=== PATIENT | female | born 1985 | race Caucasian/White ===

== ENCOUNTER 2017-03-25 14:21 | Emergency (ER) | payer BC, OTHER, SELFPAY ==
[~2017-03-25] VITALS: Ht 162.6 cm; Wt 149.2 kg
[2017-03-25] MEDS ORDERED: KETOROLAC 60 MG/2 ML VIAL (J1885) IM ONE (15:15)
[2017-03-25] MEDS ORDERED: PRED20TA PO (16:16)
[2017-03-25] MEDS ORDERED: CYCL10TA PO (16:16)
[2017-03-25 16:23] VITALS: BP 161/100
== END 2017-03-25 16:24 | disposition home or self-care (01) ==
LOC: M ED 14:21
DX: M51.26 Other intervertebral disc displacement, lumbar region (principal); M54.17 Radiculopathy, lumbosacral region; F17.200 Nicotine dependence, unspecified, uncomplicated; Z88.2 Allergy status to sulfonamides
CPT/HCPCS: 96372; 99282; J1885; J3360

== ENCOUNTER → 2017-04-01 | Outpatient (CLI) | payer BC, SELFPAY ==
[~2017-04-01] MED LIST: ALB2.5NEB NEB; ALBU17IN INH; BETH10TA4 PO; CARI350T PO; COLA100C5 PO; CYCL10TA PO; GABA-279 PO; GABA-282 PO; HYDR25TA PO; IBUP-1114 PO; INSUHUMDS SC; IPRASOL4 NEB; KEFL500C17 PO; MAPA325T3 PO; PANT40TA2 PO; PRED20TA PO; SENN1TAB2 PO; SOMA350T PO; TRAM50TA2 PO; ZANA4TAB PO
--- NOTE | 2017-04-01 11:54 | REP ---
LUMBAR SPINE, FIVE VIEWS: HISTORY: Back pain. There is no acute fracture or subluxation. The L2-3 through L5-S1 intervertebral discs are decreased in height consistent with disc degeneration. Osteophytes are present on L3 through L5. There is narrowing of the L4-5 and L5-S1 facet joints. An IUD is present in the pelvis. IMPRESSION: Degenerative change as described above. Signed by Mainor Peres MD 04/01/2017 11:57 A
== END ==
LOC: M LRY 10:03 → M WUC 10:03
PROVIDERS: ATTEND Physician Assistant
DX: M54.41 Lumbago with sciatica, right side (principal)

== ENCOUNTER 2017-04-10 16:07 | Inpatient (IN) | payer BC ==
[~2017-04-10] VITALS: Ht 162.6 cm; Wt 148.6 kg
[~2017-04-10 16:07] MED LIST changes: -ALB2.5NEB NEB; -ALBU17IN INH; -BETH10TA4 PO; -CARI350T PO; -COLA100C5 PO; -GABA-279 PO; -GABA-282 PO; -HYDR25TA PO; -IBUP-1114 PO; -INSUHUMDS SC; -IPRASOL4 NEB; -KEFL500C17 PO; -MAPA325T3 PO; -PANT40TA2 PO; -SENN1TAB2 PO; -SOMA350T PO; -TRAM50TA2 PO; -ZANA4TAB PO
[2017-04-10] MEDS ORDERED: ZANA4TAB PO ×2 (16:16→21:39)
[2017-04-10] MEDS ORDERED: GABA-282 PO (16:16)
[2017-04-10] MEDS ORDERED: ONDANSETRON 4MG/2ML VIAL (J2405) IV ONE (20:15)
[2017-04-10] MEDS ORDERED: MORPHINE 4 MG/ML 1ML SYRINGE IV PRN (20:15)
--- NOTE | 2017-04-10 20:48 | REP ---
Lumbar spine MRI study without contrast: History: Low back pain and numbness. Pain and numbness and in the lower legs bilaterally. Recent onset of bladder incontinence. Comparison radiographs 04/01/2017. No comparison MRI study. Technique: Sagittal and axial T1 and T2-weighted scans are acquired in the usual fashion with and without fat saturation. Sequences include spin echo, turbo spin-echo, and STIR imaging sequences. MRI findings: There is straightening of the normal lumbar lordosis. No extra spinal abnormality is observed. Normal caliber aorta. Conus medullaris is normal in position and appearance at T12-L1. There is degenerative disc disease at L2-3, L3-4, L4-5, and L5-S1 with decreased disc space height and signal intensity at each of these levels. Axial and sagittal images at the L2-3 level demonstrate a broad-based focal disc protrusion moderate in size. This combined with developmentally short pedicles produces mild central canal stenosis. Midline AP dimension of the thecal sac is 7.6 mm at L2-3. No neural foraminal encroachment is seen. At L3-4, there is a very large broad-based paracentral disc protrusion producing marked compression of the caudate equine and severe central canal stenosis. The largest component of this is in a right paracentral orientation. This is 11 mm in anteroposterior dimension. Disc protrusion measures 2.1 cm in medial to lateral dimension. There is caudal extension and possible extrusion 1.7 cm in craniocaudal dimension. The pedicles are developmentally somewhat short. There is mild facet and ligamentum flavum hypertrophy. Neural foramina are adequate. At L4-L5, there is diffuse disc bulging and posterior osteophytic ridging. This indents the ventral margin of the thecal sac. There is a right paracentral disc protrusion. There is mild to moderate central canal stenosis at L4-5. Midline AP dimension of the thecal sac at L4-5 is 9 mm. At L5-S1, there is a moderate-sized central disc herniation effacing the ventral epidural fat and subtly indenting the ventral margin of the thecal sac. There is facet hypertrophy bilaterally at L5-S1. No neural foraminal narrowing is seen. Mild central canal stenosis is present at L5-S1. Impression: There are disc herniations at each level from L2-3 through L5-S1. There is combined congenital and acquired central canal stenosis at each of these levels. The dominant pathology is at L3-4 where there is severe caudae equina compression due to a large disc herniation with possible caudal extrusion producing severe central canal stenosis. Signed by Maximo Long MD 04/11/2017 11:04 A
[2017-04-10 20:55] LABS: BASO # 0.1 K/mm3 (0.0-0.2); BASO % 0.4 % (0.0-1.0); EOS # 0.1 K/mm3 (0.0-0.50); EOS % 0.6 % (0.0-3.0); LARGE UNSTAINED CELL # 0.1 K/mm3 (0.0-0.4); LARGE UNSTAINED CELL % 0.6 % (0.0-4.0); LYMPH # 2.4 K/mm3 (1.5-4.5); LYMPH % 14.2 % (24.0-44.0); MEAN CORPUSCULAR HEMOGLOBIN 30.1 pg (27.0-33.0); MEAN CORPUSCULAR HGB CONC 34.6 g/dl (32.0-36.5); MEAN CORPUSCULAR VOLUME 87.2 fl (80.0-96.0); MONO # 0.4 K/mm3 (0.0-0.8); MONO % 2.5 % (0.0-5.0); NEUTROPHILS % 81.7 % (36.0-66.0); PLATELET COUNT, AUTOMATED 267 k/mm3 (150-450); RED CELL DISTRIBUTION WIDTH 13.1 % (11.5-14.5); WHITE BLOOD COUNT 17.1 K/mm3 (4.0-10.0)
[2017-04-10 21:20] LABS: ANION GAP 8 MEQ/L (8-16); BLOOD UREA NITROGEN 15 MG/DL (7-18); CALCIUM LEVEL 8.9 MG/DL (8.5-10.1); CARBON DIOXIDE LEVEL 29 MEQ/L (21-32); CHLORIDE LEVEL 103 MEQ/L (98-107); CREATININE FOR GFR 0.74 MG/DL (0.55-1.02); GLOMERULAR FILTRATION RATE > 60.0 (>60); GLUCOSE, FASTING 120 MG/DL (70-105); POTASSIUM SERUM 4.2 MEQ/L (3.5-5.1); SODIUM LEVEL 140 MEQ/L (136-145)
[2017-04-10] MEDS ORDERED: PRED20TA PO (21:39)
[2017-04-10] MEDS ORDERED: IBUP-1114 PO (21:40)
[2017-04-10 23:25] VITALS: BP 187/87
[2017-04-11] VITALS (12 sets, daily range): BP systolic 129–155; BP diastolic 66–103
--- NOTE | 2017-04-11 | REPUSA ---
CLINICAL HISTORY: Cauda equina. TECHNIQUE: Multiple axial, coronal, sagittal CT images were obtained through the lumbar spine withou t IV contrast material. COMMENTS: There is no fracture visualized. The paraspinal soft tissues are unremarkable. There are no lytic o r blastic lesions. Straightening of lumbar lordosis compatible with muscle spasm. Levoscoliosis is seen with apex at L3 . Grade-1 retrolisthesis of L5 over S1 measures 1 mm. Evaluation of individual levels present the f ollowing: L5-S1, there is a broad based disc herniation with posterior spurring and posterior bridging osteophy tosis present. The canal is moderately to severely stenotic. Foramina are moderately to severely st enotic. There is compression of bilateral L5 nerve roots. L4-L5, there is a broad based disc protrusion present with posterior spurring and posterior bridging osteophytosis. There is severe central canal stenosis and moderate to severe bilateral foraminal arthur nosis. Severe hypertrophic facet disease and ligamentum flavum hypertrophy contributes. There is co mpression on bilateral L4 nerve roots. L3-L4, there is a broad central herniated disc noted with posterior spurring. Posterior bridging ost eophytosis is present. There is severe central canal stenosis with moderate to severe bilateral fora clive stenosis. Bilateral hypertrophy facet disease and ligamentum flavum hypertrophy is seen. Ther e is compression on bilateral L3 nerve roots. L2-L3, there is central disc protrusion present with posterior bridging osteophytosis. There is mode rate canal stenosis and moderate bilateral foraminal stenosis. Bilateral hypertrophic facet disease and ligamentum flavum hypertrophy contributes. L1-L2 level is unremarkable. IMPRESSION: 1. Straightening of lumbar lordosis compatible with muscle spasm. 2. Levoscoliosis is seen with apex at L3. 3. Grade-1 retrolisthesis of L5 over S1 measures 1 mm. 4. L5-S1 shows a broad based disc herniation with posterior spurring and posterior bridging osteophy tosis present. The canal is moderately to severely stenotic. Foramina are moderately to severely st enotic. There is compression of bilateral L5 nerve roots. 5. L4-L5 shows a broad based disc protrusion present with posterior spurring and posterior bridging osteophytosis. Severe central canal stenosis and moderate to severe bilateral foraminal stenosis. S evere hypertrophic facet disease and ligamentum flavum hypertrophy contributes. Compression on bilat eral L4 nerve roots. 6. L3-L4 shows a broad central herniated disc noted with posterior spurring. Posterior bridging ost eophytosis. Severe central canal stenosis with moderate to severe bilateral foraminal stenosis. Elroy ateral hypertrophy facet disease and ligamentum flavum hypertrophy is seen. Compression on bilateral L3 nerve roots. 7. L2-L3 shows central disc protrusion present with posterior bridging osteophytosis. Moderate lena l stenosis and moderate bilateral foraminal stenosis. Bilateral hypertrophic facet disease and ligam entum flavum hypertrophy contributes.
[2017-04-11 00:32] LABS: MEAN CORPUSCULAR HGB CONC 34.5 g/dl (32.0-36.5); MEAN CORPUSCULAR VOLUME 87.1 fl (80.0-96.0); RED CELL DISTRIBUTION WIDTH 13.1 % (11.5-14.5); WHITE BLOOD COUNT 18.8 K/mm3 (4.0-10.0)
[2017-04-11 00:37] LABS: INR 0.93
[2017-04-11] MEDS: HEPARIN SOD (PORCINE) 5000 UNITS/ML VIAL SQ SCH ×4 (00:38→20:48)
[2017-04-11] MEDS: CARISOPRODOL 350 MG TAB PO SCH ×4 (00:38→20:49)
[2017-04-11] MEDS: GABAPENTIN 100 MG CAP PO SCH ×4 (00:38→20:49)
[2017-04-11] MEDS: ACETAMINOPHEN TAB 650MG DOSE (2X325MG) PO SCH ×6 (00:39→19:00)
[2017-04-11 00:58] LABS: ALBUMIN 3.2 GM/DL (3.2-5.2); ALBUMIN/GLOBULIN RATIO 0.82 (1.00-1.93); ALKALINE PHOSPHATASE 80 U/L (45-117); ALT/SGPT 60 U/L (12-78); ANION GAP 7 MEQ/L (8-16); AST/SGOT 23 U/L (15-37); BILIRUBIN,DIRECT 0.2 MG/DL (0.0-0.2); BILIRUBIN,TOTAL 0.7 MG/DL (0.2-1.0); BLOOD UREA NITROGEN 14 MG/DL (7-18); CARBON DIOXIDE LEVEL 30 MEQ/L (21-32); CHLORIDE LEVEL 102 MEQ/L (98-107); CREATININE FOR GFR 0.72 MG/DL (0.55-1.02); GLOMERULAR FILTRATION RATE > 60.0 (>60); GLUCOSE, FASTING 104 MG/DL (70-105); POTASSIUM SERUM 3.9 MEQ/L (3.5-5.1); SODIUM LEVEL 139 MEQ/L (136-145); TOTAL PROTEIN 7.1 GM/DL (6.4-8.2)
[2017-04-11] MEDS: MORPHINE 2 MG/ML 1ML SYRINGE IV PRN ×2 (06:09→15:33)
[2017-04-11] MEDS ORDERED: LIDOCAINE 1% MDV 20ML VIAL As Ordered ONE (13:31)
--- NOTE | 2017-04-11 14:15 | REP ---
PORTABLE CHEST: Single view. HISTORY: Central line placement. COMPARISON STUDY: May 24, 2014. FINDINGS: A right subclavian line is seen this appears to terminate at the junction of the subclavian vein with the superior vena cava. There is no visible pneumothorax. Heart is not enlarged. EKG electrodes are seen. The lung pickens are clear. IMPRESSION: Right subclavian vein catheter tip is difficult to see confidently but appears to be at the junction of the subclavian vein with a right superior vena cava. No evidence of pneumothorax seen. Signed by Maximo Long MD 04/11/2017 02:49 P
--- NOTE | 2017-04-11 14:49 | REP ---
Portable chest: Single view. History: Reinserted central venous catheter. Comparison study: Comparison is made with 12:51 pm film done on this same date. Findings: The previously noted right subclavian catheter has been withdrawn. A left internal jugular venous catheter is seen inserted with its tip projecting just to the left of the midline at the level of the brachiocephalic vein. There is no evidence of pneumothorax. Lung pickens are clear. Cardiomediastinal silhouette is unremarkable. Impression: Left internal jugular venous catheter tip just to the left of midline in the brachiocephalic vein position. No pneumothorax seen. Otherwise no acute disease. Signed by Maximo Long MD 04/11/2017 02:50 P
[2017-04-11] MEDS: KCL 20MEQ in NS 1000ML 1,000 ML IV SCH ×2 (15:26→19:24)
[2017-04-11] MEDS: NICOTINE 14 MG/24 HR TRANSDERMAL TD SCH (15:33)
[2017-04-12] MEDS: ACETAMINOPHEN TAB 650MG DOSE (2X325MG) PO SCH ×7 (00:11→19:00)
[2017-04-12] MEDS ORDERED: TRANEXAMIC ACID 100 MG/ML 10ML VIAL As Ordered ONE ×2 (01:56→08:02)
[2017-04-12] MEDS ORDERED: HEPARIN SOD (PORCINE) 5000 UNITS/ML VIAL ONE (01:56)
[2017-04-12] MEDS ORDERED: HEPARIN SOD (PORCINE) 5000 UNITS/ML VIAL As Ordered ONE (01:56)
[2017-04-12] MEDS ORDERED: BACITRACIN OINT 30GM As Ordered ONE ×2 (01:56→19:50)
[2017-04-12] MEDS ORDERED: BUPIVACAINE HCL 0.5% 30 ML VIAL As Ordered ONE ×2 (01:56→18:32)
[2017-04-12] MEDS ORDERED: THROMBIN SOLN 20,000 UNITS KIT As Ordered ONE ×2 (01:56→16:55)
[2017-04-12] MEDS ORDERED: BACITRACIN PWD 50,000 UNITS VIAL As Ordered ONE (01:57)
[2017-04-12] MEDS: KCL 20MEQ in NS 1000ML 1,000 ML IV SCH ×3 (04:18→16:51)
[2017-04-12 06:00] VITALS: BP 132/68
--- NOTE | 2017-04-12 06:59 | RO ---
DATE OF PROCEDURE: 04/11/2017 PREPROCEDURE DIAGNOSIS: Cauda equina syndrome. POSTPROCEDURE DIAGNOSIS: Cauda equina syndrome. PROCEDURE: Right internal jugular venous catheterization triple lumen. PROCEDURALIST: Lior Garza DO ASSISTANTS: None. ANESTHESIA: 30 mL of subcu lidocaine without epinephrine administered. DIAGNOSIS: Cauda equina syndrome. I was asked to assist with the placement of a triple lumen central venous catheter on [facility] by Dr. Conti. Dr. Conti had already received written consent from the patient. The procedure was not stopped to obtain a second written consent; however, I did get a verbal consent from the patient to proceed with the left IJ. DESCRIPTION OF PROCEDURE: After a time out was performed identifying correct site and correct procedure, the left IJ was prepped in a sterile manner. There was a very thick neck with acanthosis nigricans over the area. Lidocaine was used and injected into the patient subcutaneously. After identification of the left IJ under ultrasound, the new needle was eventually passed into the left IJ with return of venous blood flow. The wire was fed through the needle and the triple lumen catheter was placed via modified Seldinger technique. This was sutured in at 15 cm. There were no observed complications. All three ports returned venous blood flow and flushed easily. Sterile impregnated dressing was placed over the site. There is no observed complications.
[2017-04-12] MEDS ORDERED: ceFAZolin 2 GM/D5W 50 ML IV BAG (J0690) As Ordered ONE ×3 (07:31→16:52)
[2017-04-12] MEDS ORDERED: LIDOCAINE 2% INJ 100 MG/5 ML SDV (FOR ANES.) As Ordered ONE (07:54)
[2017-04-12] MEDS ORDERED: fentaNYL 250 MCG/5 ML INJECTION (J3010) As Ordered ONE ×2 (07:54→15:04)
[2017-04-12] MEDS ORDERED: ROCURONIUM BROMIDE 50 MG/5 ML VIAL/SYRINGE As Ordered ONE ×3 (07:54→11:11)
[2017-04-12] MEDS ORDERED: PROPOFOL 200 MG/20 ML VIAL As Ordered ONE ×2 (07:54→20:13)
[2017-04-12] MEDS ORDERED: MIDAZOLAM INJ 2 MG/2 ML VIAL (J2250) As Ordered ONE (07:55)
[2017-04-12] MEDS: GABAPENTIN 100 MG CAP PO SCH ×2 (09:00→16:00)
[2017-04-12] MEDS: CARISOPRODOL 350 MG TAB PO SCH ×3 (09:00→21:00)
[2017-04-12] MEDS: NICOTINE 14 MG/24 HR TRANSDERMAL TD SCH (09:00)
[2017-04-12] MEDS ORDERED: HYDROmorphone HCL 2 MG/ML 1ML VIAL (J1170) As Ordered ONE ×2 (09:07→13:12)
--- NOTE | 2017-04-12 13:10 | IPN ---
DATE: 04/12/2017 32-year-old female seen at bedside. She is anticipating going to surgery later this morning. She denies any overnight issues. No chest pain, nausea, vomiting, shortness of breath, abdominal pain. OBJECTIVE: Temperature is 98, pulse 81, respiratory rate 18, blood pressure (BP) 132/68, SpO2 is 96% on room air. GENERAL: The patient appears to be in no acute distress. He is alert, oriented, pleasant. HEENT: Unremarkable. LUNGS: Clear. HEART: Regular rhythm. ABDOMEN: Obese, soft. ASSESSMENT/PLAN: 1. Back pain with possible, cauda equina syndrome. She is to do surgery later today. 2. History of asthma. Continue DuoNeb. 3. Tobacco use. Continue Nicoderm patch. 4. Deep vein thrombosis (DVT) prophylaxis. TEDs and sequentials. DISPOSITION: Will continue to follow along for medical management. I do anticipate that she is to have a prolonged surgery today. Will most likely go to the intensive care unit (ICU) if need be. She is on ventilator for a prolonged period time. I did discuss the case with the junior engineer to make sure that they were aware. Yesterday we were able to place a central line for better IV access. She does not have an underlying history of diabetes, but there is a strong family history. She does have some acanthosis nigricans noted . Hemoglobin A1c was 7.1. Might be advisable to do fingersticks every 6 hours for the next 24 hours and will continue to follow along during her hospital stay.
[2017-04-12] MEDS ORDERED: PHENYLephrine HCL 500 MCG/5 ML (100MCG/ML) SYRINGE (J2370) As Ordered ONE (13:24)
[2017-04-12 14:27] LABS: MEAN CORPUSCULAR HEMOGLOBIN 29.7 pg (27.0-33.0); MEAN CORPUSCULAR HGB CONC 33.4 g/dl (32.0-36.5); RED CELL DISTRIBUTION WIDTH 13.1 % (11.5-14.5); WHITE BLOOD COUNT 25.5 K/mm3 (4.0-10.0)
[2017-04-12] MEDS ORDERED: IPRATROPIUM 0.5MG/ALBUTEROL 2.5MG INH SOL UD 3ML (DUONEB)(J7620) NEB SCH (16:00)
[2017-04-12] MEDS ORDERED: PHENYLEPHRINE INJ 10MG/ML VIAL (J2370) As Ordered ONE (17:35)
[2017-04-12] MEDS ORDERED: BUPIVACAINE LIPOSOME/PF 1.3% 20 ML VIAL (13.3MG/ML)(EXPAREL) As Ordered ONE (18:26)
[2017-04-12] MEDS ORDERED: ONDANSETRON 4MG/2ML VIAL (J2405) As Ordered ONE ×2 (18:34→20:31)
[2017-04-12] MEDS ORDERED: NEOSTIGMINE 1MG/ML 5 ML SYRINGE (J2710) As Ordered ONE (18:34)
[2017-04-12] MEDS ORDERED: GLYCOPYRROLATE INJ 0.2 MG/ML 2 ML VIAL As Ordered ONE (18:34)
[2017-04-12] MEDS ORDERED: METOCLOPRAMIDE INJ 10MG/2ML VIAL (J2765) As Ordered ONE (20:52)
[2017-04-12] MEDS ORDERED: fentaNYL 100 MCG/2 ML INJECTION (J3010) IV PRN (21:15)
[2017-04-12] MEDS ORDERED: ONDANSETRON 4MG/2ML VIAL (J2405) IV PRN (21:15)
[2017-04-12] MEDS ORDERED: METOCLOPRAMIDE INJ 10MG/2ML VIAL (J2765) IV PRN (21:15)
[2017-04-12] MEDS ORDERED: LR 1,000 ML IV SCH (21:15)
[2017-04-12] MEDS ORDERED: HYDROmorphone HCL 1 MG/ML SYRINGE (J1170) IV PRN (21:15)
[2017-04-12 22:00] VITALS: BP 149/60
[2017-04-12] MEDS ORDERED: INSULIN HUMAN REGULAR 100 UNITS in NS 99 ML IV SCH (22:09)
[2017-04-12] MEDS ORDERED: HumaLOG INSULIN (NovoLOG) PER UNIT SC ONE (22:30)
[2017-04-12 22:35] LABS: BASO # 0.1 K/mm3 (0.0-0.2); BASO % 0.2 % (0.0-1.0); EOS % 0.2 % (0.0-3.0); LARGE UNSTAINED CELL # 0.1 K/mm3 (0.0-0.4); LARGE UNSTAINED CELL % 0.4 % (0.0-4.0); LYMPH # 2.1 K/mm3 (1.5-4.5); LYMPH % 6.7 % (24.0-44.0); MEAN CORPUSCULAR HEMOGLOBIN 29.9 pg (27.0-33.0); MEAN CORPUSCULAR VOLUME 90.4 fl (80.0-96.0); MONO # 1.1 K/mm3 (0.0-0.8); MONO % 3.7 % (0.0-5.0); NEUTROPHILS # 26.2 K/mm3 (1.8-7.7); NEUTROPHILS % 88.8 % (36.0-66.0); PLATELET COUNT, AUTOMATED 233 k/mm3 (150-450); RED CELL DISTRIBUTION WIDTH 13.4 % (11.5-14.5); WHITE BLOOD COUNT 29.5 K/mm3 (4.0-10.0)
[2017-04-12 22:41] LABS: INR 1.07
[2017-04-12 22:48] LABS: ABG BASE EXCESS -6.3 (-2.0-2.0); ABG PARTIAL PRESSURE O2 179.5 mmHg (75.0-100.0); ABG STANDARD HCO3 19.4 MEQ/L (22.0-26.0); ABG TOTAL CO2 20.1 MEQ/L (22.0-29.0); ABG pH (ARTERIAL) 7.328 UNITS (7.350-7.450)
[2017-04-12 22:57] LABS: ALBUMIN 2.5 GM/DL (3.2-5.2); ALBUMIN/GLOBULIN RATIO 0.96 (1.00-1.93); ALKALINE PHOSPHATASE 60 U/L (45-117); ALT/SGPT 82 U/L (12-78); ANION GAP 9 MEQ/L (8-16); AST/SGOT 66 U/L (15-37); BILIRUBIN,TOTAL 0.9 MG/DL (0.2-1.0); BLOOD UREA NITROGEN 14 MG/DL (7-18); CALCIUM LEVEL 7.2 MG/DL (8.5-10.1); CARBON DIOXIDE LEVEL 23 MEQ/L (21-32); CHLORIDE LEVEL 111 MEQ/L (98-107); CREATININE FOR GFR 0.83 MG/DL (0.55-1.02); GLOMERULAR FILTRATION RATE > 60.0 (>60); GLUCOSE, FASTING 148 MG/DL (70-105); POTASSIUM SERUM 4.9 MEQ/L (3.5-5.1); SODIUM LEVEL 143 MEQ/L (136-145); TOTAL PROTEIN 5.1 GM/DL (6.4-8.2)
[2017-04-12 23:00] VITALS: BP 119/55
--- NOTE | 2017-04-12 23:37 | CCN ---
DATE OF SERVICE: 04/12/2017 Dana is a 32-year-old female I was asked by Dr. Pratt to see postoperatively after a 12-hour surgery. Dana underwent an L2-S1 laminectomy, fasciectomy, L3-L4 diskectomy with an L2-S1 fusion, approximately 12 hours of surgery under anesthesia. She has had no recent labs. She is currently on intravenous (IV) fluids with potassium. She is awake, alert, conversant. She has a sinus tachycardia of 125. Arterial line (art-line) is not functioning therefore I removed it, with mild hyperglycemia with a blood glucose of 157. PHYSICAL EXAMINATION Pulse is 125, respiratory rate 21, blood pressure is 135/83, oxygen saturation is 97 on 3 liters. General: Patient awake, alert and oriented. Affect and mood are appropriate. No tachypnea. HEENT: Sclerae clear and anicteric. Pupils equal and react to light. Mucous membranes are moist. She has some facial edema, lip edema. Tongue is midline. Mallampati IV. Neck: Supple. No tracheal deviation. Lymphatics: No cervical, supraclavicular, axillary adenopathy. Cardiac: Regular S1, S2 without audible murmur, rub or gallop. No elevated JVP. No peripheral edema. Pulmonary: Clear to auscultation without rales, rhonchi or wheezes. No accessory muscle use. Abdomen: Obese, soft, nontender, no discernible hepatosplenomegaly. No masses or hernia. Hypoactive bowel sounds. Extremities: No cyanosis, clubbing or edema. Peripheral pulses are palpable at radial locations and symmetric. No recent laboratory evaluation obtained. IMPRESSION: 1. Bedside hyperglycemia of 157. Will give 2 units of insulin. If the patient continues to have hyperglycemia, will place on insulin drip. 2. Gastrointestinal (GI) prophylaxis with Protonix. 3. Deep venous thrombosis (DVT) prophylaxis when surgically appropriate. 4. Reported history of asthma. She has no bronchospasm on exam. Therefore I do not feel it is necessary to have scheduled nebulizers, therefore I discontinued these. She does have as needed nebulized therapy available to her. 5. High risk for electrolyte abnormalities. Will obtain a complete blood count (CBC) and basic metabolic panel (BMP) postoperatively. There have been no labs and no BMP drawn today. The patient will be monitored in intensive care unit (ICU) overnight and will resume hospitalist coverage in the morning.
[2017-04-12] MEDS: MORPHINE 2 MG/ML 1ML SYRINGE IV PRN (23:53)
[2017-04-13] VITALS (8 sets, daily range): BP systolic 104–142; BP diastolic 56–85
[2017-04-13] MEDS: INSULIN IV RATE CHANGE DOCUMENTATION ML/HR XX SCH ×3 (00:11→03:19)
[2017-04-13] MEDS: NS 1,000 ML IV SCH ×4 (00:27→21:27)
[2017-04-13] MEDS ORDERED: ONDANSETRON 4MG/2ML VIAL (J2405) IV SCH (02:00)
[2017-04-13] MEDS: MORPHINE 2 MG/ML 1ML SYRINGE IV PRN ×6 (04:34→19:55)
[2017-04-13 05:40] LABS: MEAN CORPUSCULAR HEMOGLOBIN 29.6 pg (27.0-33.0); MEAN CORPUSCULAR VOLUME 89.8 fl (80.0-96.0); RED CELL DISTRIBUTION WIDTH 13.4 % (11.5-14.5); WHITE BLOOD COUNT 21.4 K/mm3 (4.0-10.0)
[2017-04-13 06:19] LABS: ALBUMIN 2.2 GM/DL (3.2-5.2); ALBUMIN/GLOBULIN RATIO 0.88 (1.00-1.93); ALKALINE PHOSPHATASE 52 U/L (45-117); ALT/SGPT 64 U/L (12-78); ANION GAP 6 MEQ/L (8-16); ANION GAP 8 MEQ/L (8-16); AST/SGOT 66 U/L (15-37); BILIRUBIN,TOTAL 0.5 MG/DL (0.2-1.0); BLOOD UREA NITROGEN 10 MG/DL (7-18); CALCIUM LEVEL 6.9 MG/DL (8.5-10.1); CALCIUM LEVEL 7.5 MG/DL (8.5-10.1); CARBON DIOXIDE LEVEL 26 MEQ/L (21-32); CARBON DIOXIDE LEVEL 27 MEQ/L (21-32); CHLORIDE LEVEL 110 MEQ/L (98-107); CHLORIDE LEVEL 111 MEQ/L (98-107); CREATININE FOR GFR 0.69 MG/DL (0.55-1.02); CREATININE FOR GFR 0.71 MG/DL (0.55-1.02); GLOMERULAR FILTRATION RATE > 60.0 (>60); GLUCOSE, FASTING 119 MG/DL (70-105); GLUCOSE, FASTING 120 MG/DL (70-105); POTASSIUM SERUM 4.2 MEQ/L (3.5-5.1); SODIUM LEVEL 143 MEQ/L (136-145); SODIUM LEVEL 145 MEQ/L (136-145); TOTAL PROTEIN 4.7 GM/DL (6.4-8.2)
--- NOTE | 2017-04-13 08:57 | REP ---
CT LUMBAR SPINE WITHOUT CONTRAST: HISTORY: Spinal fusion. COMPARISON: 04/10/2017. The patient is status post L3-4 anterior and L2-S1 posterior spinal fusion and L1-5 laminectomy. Bone graft material is present anteriorly and medal rods and pedicle screws posteriorly. There is no disc bulge or herniation at the L1-2 level. The L1 nerves exit the neural foramina without compression. A diffuse disc bulge with associated osteophyte formation is present at the L2-3 level. There is minimal compression of the thecal sac. The L2 nerves exit the neural foramina without compression. A diffuse disc bulge with associated osteophyte formation is present at the L3-4 level. There is minimal compression of the thecal sac. The L3 nerves exit the neural foramina without compression. A diffuse disc bulge with associated osteophyte formation is present at the L4-5 level. There is minimal compression of the thecal sac. The L4 nerve exit the neural foramina without compression. A diffuse disc bulge with associated osteophyte formation is present at the L5-S1 level. There is minimal compression of the thecal sac. The L5 nerves exit the neural foramina without compression. The L3-4 through L5-S1 intervertebral discs are decreased in height consistent with disc degeneration. There is no subluxation. Drainage tubing is present at the laminectomy site. Small collections of air are present in the posterior subcutaneous tissues. A small amount of free air is present adjacent to the psoas muscles. IMPRESSION: 1. The patient is status post L3-4 anterior and L2-S1 posterior spinal fusion and L1-5 laminectomy. There is anatomic alignment of the lumbar spine. 2. Diffuse disc bulges with associated osteophyte formation at the L2-3 through L5-S1 levels with minimal thecal sac compression. Signed by Mainor Peres MD 04/13/2017 09:08 A
[2017-04-13] MEDS ORDERED: PANTOPRAZOLE 40MG INJ (PROTONIX) (C9113) IV SCH (09:00)
[2017-04-13] MEDS: NICOTINE 14 MG/24 HR TRANSDERMAL TD SCH (09:04)
[2017-04-13] MEDS: CARISOPRODOL 350 MG TAB PO SCH ×3 (09:04→19:55)
--- NOTE | 2017-04-13 09:25 | CR ---
DATE OF CONSULTATION: 04/11/2017 REQUESTED BY: Dr. Pratt. REASON FOR CONSULTATION: Medical evaluation pre-op and assistance with medical management. HISTORY OF PRESENT ILLNESS: Ms. Colin is a 32 female who has issues with chronic low back pain, obesity and stated that her back pain and radiculopathy symptoms have became increasingly worse over the last 3-4 days. She is having pain that distributes into her lower extremities. She is having difficulty with controlling her bladder but no bowel incontinence. She denies chest pain, shortness of breath, productive sputum, cough, hemoptysis. No nausea, vomiting. Her appetite has been. Bowel movements have been otherwise regular. No fevers, chills or rigors. PAST MEDICAL HISTORY: Includes: Anxiety. Asthma. PAST SURGICAL HISTORY: [place] teeth extracted age 14. FAMILY HISTORY: Positive for diabetes, high blood pressure. SOCIAL HISTORY: One pack a day smoker for several years. Denies alcohol. Denies recent travel. No sick contacts. She is not . No children. ALLERGIES: SULFA. MEDICATIONS: - gabapentin 300 mg three times daily - ibuprofen 400 mg every 6 hours as needed - prednisone 20 mg daily - Zanaflex 4 mg daily as needed REVIEW OF SYSTEMS: As outlined above. Pertinent positives are listed. All other systems were negative. 10-point review of systems complete. LABORATORY DATA AND DIAGNOSTICS: White count is 18.8, hemoglobin 16.3, platelets 263,000. Sodium 139, potassium 3.9, chloride 102, bicarb 30, anion gap 14, BUN 14, creatinine 0.72, glucose 104, total bilirubin 0.7, direct bilirubin 0.2, AST 23, ALT 60, alkaline phosphatase is 80, albumin 3.2, INR 0.93. I did take the liberty to add on hemoglobin A1c. CT of the lumbar spine had the following impression: Straightening of the lumbar lordosis compatible with muscle spasm, levoscoliosis seen at the apex of L3, grade 1 retrolisthesis of L5-S1 measuring 1 mm. L5-S1 broad-based disc herniation with posterior spurring and posterior bridge osteophytosis. Canal moderately to severely stenotic. Foramina are moderately to severely stenotic. There was compression of the bilateral L5 nerve roots. L4-L5 shows broad-based disc protrusion present with posterior spurring and posterior bridging. Osteophytosis. Severe central canal stenosis and moderate to severe bilateral foraminal stenosis, severe hypertrophic facet disease and ligamentum flavum hypertrophy contributes to compression on bilateral L4 nerve roots. L3-4 shows a broad central herniated disc noted with posterior spurring, posterior bridging osteophytosis. Severe central canal stenosis and moderate to severe bilateral foraminal stenosis, bilateral hypertrophy, facet disease ligament flavum and hypertrophy is seen, compression of bilateral L3 nerve roots. L2-3 shows central disc protrusion present with posterior bridging osteophytosis, moderate canal stenosis and moderate bilateral foraminal stenosis , bilateral hypertrophic facet disease and ligamentum flavum, hypertrophy contributes. MRI of the LS spine demonstrates disc herniations at each level from L2-3 through L5-S1. Combined congenital acquired central canal stenosis at each of these levels, dominant pathology is L3-L4 with severe cauda equina compression due to a large disc herniation with possible caudal extrusion producing severe central canal stenosis. PHYSICAL EXAMINATION: Temperature is 96.7, pulse 83, respiratory rate 18, BP 129/66, SPO2 is 96% on room air. General: The patient appears to be in no acute distress. She is alert, pleasant. HEENT: Unremarkable. Lungs: Clear. Heart: Regular rate and rhythm. Abdomen is obese, soft, nontender, nondistended. Positive bowel sounds. Extremities: No edema or calf tenderness. She does have some numbness in the inner thighs but shows good range motion of the lower extremities. Deep tendon reflexes present. LABS: White count is 18.8 up from 17.1, hemoglobin 16.3, platelets 263. Sodium 139, potassium 3.9, chloride 102, bicarb 30, anion gap 14, creatinine 0.72, glucose was 104 last evening she came in and nonfasting glucose was 120. I did add on hemoglobin A1c, AST 23, ALT 60, albumin is 3.2, INR 0.93. IMPRESSION: Ms. Colin is a 32-year-old female who unfortunately has quite a bit of lumbar pathology and pain. She has been admitted by neurosurgery for surgical intervention due to her cauda equina issue. PROBLEM LIST: 1. Cauda equina. 2. Multilevel degenerative disc issues of the lower lumbar spine. 3. History of asthma. 4. History of anxiety. 5. Leukocytosis. The patient is afebrile and has recently been on prednisone which was stopped more than 24 hours ago. RECOMMENDATIONS: Will continue to follow along. Should the patient need emergent surgery due to the cauda equina, she is medically optimized. She does not have an underlying history of diabetes. Her blood sugars are optimal. Will go ahead and do a hemoglobin A1c and follow up, but for the time being, I would recommend against any insulin since she would be at risk for hypoglycemia since she does not have a confirmed diagnosis of diabetes. Nonetheless, incentive spirometry would be advised as well as DuoNebs and I will take care of those orders. Will plan on transferring her to telemetry floor temporarily so we can get better IV access which I have discussed with the nursing anhydrous ammonia production supervisor as well as the systems consultant should we need assistance with a central line placement. Tobacco use. Will go ahead and start her on a Nicoderm patch. Deep venous thrombosis (DVT) prophylaxis, thromboembolic deterrent stockings (TEDS) and sequentials. Thank you for allowing us to participate with the care of this patient. Will continue to follow along during her hospital course. JARAD
--- NOTE | 2017-04-13 09:44 | IPN ---
DATE: 04/13/2017 Dana was seen in ICU while rounding for the hospitalists. I have received sign off for Dr. Conti. The patient was admitted with back pain and possible cauda equina syndrome. Has a history of asthma, tobacco abuse, and probable type 2 diabetes. She has not formerly been diagnosed with diabetes but did have a hemoglobin A1c on admission that was 7.1%. She denies any chest pain or shortness of breath. PHYSICAL EXAMINATION: 112/57, pulse 100-120, respiratory rate 18, 94% oxygen saturation. General appearance: She is resting comfortably, in no distress. Lungs clear. Heart regular rhythm. Abdomen soft, nontender. Moves both legs. LABS: Sodium 145, potassium 4.2, BUN 10, creatinine 0.9, glucose 120, fingerstick this morning was 112. No blood sugar has been over 140. White count 21, hemoglobin 11, platelets 159. IMPRESSION: Probable type 2 diabetes. The case has been discussed with Dr. Pratt. Dr. Pratt was advocating tight control of her diabetes perioperative. He is the attending physician and is his decision. Therefore, the patient is on a insulin drip. Typically in this situation, I would recommend fingerstick blood sugars with coverage with subcutaneous insulin on the a.c./h.s. schedule. Currently on insulin drip and I will defer to her attending physician whether to continue this or to convert her to fingersticks with coverage, which would be a more conventional approach. She has not had any significant hyperglycemia. The rest of the medical issues are stable.
[2017-04-13] MEDS ORDERED: ONDANSETRON 4MG/2ML VIAL (J2405) IV PRN (10:00)
[2017-04-13] MEDS: HumaLOG INSULIN (NovoLOG) PER UNIT SC SCH ×3 (12:00→21:00)
[2017-04-13] MEDS ORDERED: GLUCOSE 4 GM CHEW TABLET PO PRN (12:15)
[2017-04-13] MEDS ORDERED: GLUCAGON FOR INJ 1 MG VIAL (J1610) SC PRN (12:15)
[2017-04-13] MEDS ORDERED: DEXTROSE 50% 50 ML SYRINGE IV PRN (12:15)
--- NOTE | 2017-04-13 13:07 | REP ---
Partial lumbar spine series: Six views intraoperative. History: L3-S1 posterior decompression with fusion. 29 seconds of fluoroscopy time is reported. Findings: A sequence of six blast image hold fluoroscopic spot radiographs of the lumbar spine document laminectomy and transpedicular screw dorsal fixation hernando fusion from L2-S1. Signed by Maximo Long MD 04/13/2017 03:01 P
--- NOTE | 2017-04-13 14:28 | ROOPDOC ---
[facility] Report Of Operation Report of Operation DATE OF SURGERY: 04/12/2017 SURGEON: Dr. 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 En-Bloc Laminectomies L2, L3, L4, L5, S1. 2. Bilateral complete facetectomies L2-3, L3-4, L4-5 and L5-S1 for posterolateral decompression on right and left side 3. Bilateral Ezbij-Pbsqtlrg-Kqnw Osteotomy of pars at L3, L4, L5 3. Instrumented posterior spinal fusion L2 through S1 with Medicrea polyaxial titanium pedicle screws. 4. Total disc excision with end plate for fusion at L3-4. 5. Intervertebral disc replacement L3-4 6. Onlay bone graft for posterolateral fusion, use of allograft/autograft bone. 7. lntraoperative use of C-arm fluoroscopy. ANESTHESIA: GETA + Local. ESTIMATED BLOOD LOSS: 650 cc. FINDINGS : Severe central stenosis L3-4 DRAINS: ESAU drain x 4 COMPLICATIONS: Dural tear and CSF leak; repaired in situ DISPOSITION: Stable to the PACU. INDICATIONS FOR THE PROCEDURE HISTORY: Ms. Garcia is a 32 y/o morbidly obese female with past medical history of chronic low back pain , anxiety, asthma. Her back pain and radiculopathy symptoms have become increasingly worse over last 3-4 days, and she lost her bladder control and developed saddle anesthesia. Her MRI of L- spine showed congenital central canal stenosis with DDD on multiple levels with bony ostheophytes and multilevel foraminal stenosis. At L3-4 level neuroimaging reveal disc extrusion with complete obliteration of central canal. Her finding of neurological exam and neuroimaging were consistent with cauda equine syndrome, which is classical neurosurgical emergency and patient has been offered surgery for L-spine decompression and fusion in order to preserve bladder control. She was consented verbally and in writing. SURGICAL RISKS: The implantation of pedicle screw spinal system is the technically demanding procedure presenting a risk of serious injury to patient. All of the possible adverse events associated with spinal fusion surgery are possible. A successful result is not always achieved in every surgical case. A list of potential adverse events related to implantation of pedicle screw system included: 1) Loosening, disassembly, bending, and/or breakage of components; 2)Infection of implants, infection of spinal vertebrae, infection of CSF, wound infection; 3) Dural tears 4) Allergic reactions; 5)Post-operative change in spinal curvature, loss of correction, height, reduction; 6) Non-union (or pseudarthrosis), delayed union, mal-union; 7) Bone loss or decrease in bone density, possibly caused by stress shielding 8) Herniated nucleus pulposus, disc disruption or degeneration at, above, or below the level of surgery 9)Fracture, microfracture , resorption, damage, or penetration of any spinal bone; 10) Tissue or nerve damage caused by improper positioning and placement of implants and instruments , which could lead to loss of neurological function, including complete paralysis. The patient and his family were well apprised of all objectives, benefits, risks and potential complications of the procedure, including but not limited to: worsening of current status, the possible need for further procedures, the risk of infection, headaches, CSF leak, possible spinal nerve injury resulting in paralysis, infection, injury to major vessels causing hemorrhage, stroke, loss of language function, coma and even . No assurance was given whether symptoms would improve following the procedure. The surgery is technically difficult procedure and despite the significant discomfort for the patient and the best effort of the physician, the surgery may be unsuccessful or may need to be aborted. Informed consent was obtained and secured in the chart after the patient and family voiced understanding of these risks and decided to proceed with the operation. DESCRIPTION OF THE PROCEDURE The patient was transferred to the operating room. She was given preoperative prophylactic IV antibiotics. ANESTHESIA: The patient was sedated and intubated without difficulty by the anesthesia service. He underwent vascular cannulization in accordance with Anesthesia protocol. Eyes were taped shut after ointment was applied to prevent corneal abrasion. A central line and Zuniga catheter were inserted prior to surgery on the floor. POSITIONING: The patient was turned into the prone position on the Wu table. Arms were positioned 90/90 on the arm boards. Bolsters were used to support the chest and pelvis and pillows for hips, knees and ankles. All pressure points were carefully padded. A Leeanne Hugger was placed over the upper body to maintain control of core body temperature. The patient underwent 70% alcohol prep. X-ray was used to delineate extend of excision. OPERATIVE TECHNIQUE: The patient was prepped and draped in the standard sterile fashion. The skin was subsequently opened sharply with a # 15 scalpel blade and posterior midline incision was created. Electrocautery was used for hemostasis and soft tissue was dissected down to fascia. Skin to fascia depth was 10 cm of fat. Fat graft was excised and put in sterile solution with Bacitracin. Fascia was incised longitudinally on either side of the spinous processes and subperiosteal paraspinal muscle dissection was carried out, exposing from L2 to S2 down superiorly and inferiorly in the midline to expose supraspinous ligament and laminas. Hemostasis was achieved. Self-retaining retractors were then inserted. Next laminectomies were performed by trap-Door technique, removing all of spinal process and medial third of the lamina of L3, L4, L5 and partial L5 and S1. During bone piece removal a small dural laceration was made with CSF leak, without protruding of neural elements. It was repaired by microsurgical techniques with Neurolon suture in situ. The decompression was carried out in a posterolateral fashion on both right and left sides at L2-L3, L3-4, L4-5 and L5-S1. At each side and level of Flores- Jimenez-type osteotomies all parts of the following structures were removed: lateral 2/3 of the lamina, inferior articulate process, pars interarticularis and a portion of the base of the pedicle. Decompressive facetectomies of the neural foraminaL3-4, L4-5 and L5-S1 on both the left and right side was performed with ultrasound bone dissector to relieve nerve root compression. A note was made of bluish color, congested L5 and S1 root on right after foraminal decompression. Removed bone has been harvested, cleaned from ligaments and scar and milled with allograft. The L2-S1 vertebrae were again confirmed with fluoroscopy. At the L2, L3, L4, L5 , S1 level bilaterally, a sharp awl was placed into the mammalian process of pedicle and awls were sequentially passed through the pedicle and into the body of L2, L3, L4, L5 and S1 vertebrae bilaterally and the resulting hole checked with a flexible pedicle sound to ensure a bony rim around the hole. Each hole was probed, sized, tapped and deemed to be intact. Using an outside in technique , an instrumented posterior spinal fusion was performed from L2 to S1. Medicrea polyaxial screw was placed into the pedicles and vertebral bodies bilaterally at L2, L3, L4, L5 and S1 vertebrae. Proper placement and trajectory were confirmed with intraoperative fluoroscopic x-ray. All were deemed to be acceptable. Next using an axillary approach between the exiting and traversing nerve roots , a total disc excisions with end plate for fusion were performed at L3-4. At both L3-4, bipolar electrocautery was used to control epidural bleeding and the disc was exposed. Iatrogenic annulotomy was created. Using K2M set disc davon were inserted sequentially and to the point where there was end plate. Intervertebral disk replacement was performed at L3-4. At L3-4 morcellized cancellous allograft was inserted using impaction grafting technique. We measured the inter-screw distance and used two prebend 5.5 mm Medicrea rods and placed the rods into the polyaxial screws from L2- S1. All set screws were final tightened. The wound was copiously irrigated with antibiotic saline solution. The high- speed pneumatic drill was utilized to decorticate the bone laterally for lateral arthrodesis. These recesses were filled with auto and allograft bone chips as onlay graft in decorticated gutters for posterolateral fusion. Epidural bleeding has been controlled with application Floseal. Dura matter was sprayed with DuraSeal for watertight closure. Fat graft was placed over the exposed dura matter. Paraspinal muscles and subcutaneous tissue of the wound were infiltrated by 20 ml of Exparel. 4 drains was placed and brought out through a separate stab incision. The paraspinal muscles were subsequently closed utilizing interrupted 0.0 polyglactin synthetic absorbable suture (Vicryl). Fascia was closed by 1.0 Stratafix surure. Subcutaneous tissue and skin was approximated with Prolene suture. The skin was then closed with surgical naima. Wound and drain incisions was covered by Bacitracin ointment and was dressed in a clean dry dressing. All sponge counts, needle counts and instrument counts were correct at the end of the case times two. The patient tolerated the procedure well, without any complications and was transferred in stable condition to the recovery room. CHICA PRATT MD Apr 13, 2017 14:28
[2017-04-14] MEDS: NS 1,000 ML IV SCH (04:36)
[2017-04-14 06:00] VITALS: BP 142/71
[2017-04-14] MEDS: PANTOPRAZOLE 40MG TAB (PROTONIX) PO SCH (08:50)
[2017-04-14] MEDS: CARISOPRODOL 350 MG TAB PO SCH ×3 (08:50→20:40)
[2017-04-14] MEDS: NICOTINE 14 MG/24 HR TRANSDERMAL TD SCH (08:51)
[2017-04-14] MEDS: HumaLOG INSULIN (NovoLOG) PER UNIT SC SCH ×4 (08:57→20:40)
[2017-04-14] MEDS: MORPHINE 2 MG/ML 1ML SYRINGE IV PRN (11:50)
[2017-04-14 12:18] LABS: MEAN CORPUSCULAR HEMOGLOBIN 31.2 pg (27.0-33.0); MEAN CORPUSCULAR HGB CONC 34.9 g/dl (32.0-36.5); MEAN CORPUSCULAR VOLUME 89.4 fl (80.0-96.0); RED CELL DISTRIBUTION WIDTH 13.5 % (11.5-14.5); WHITE BLOOD COUNT 12.3 K/mm3 (4.0-10.0)
[2017-04-14 12:30] LABS: ALBUMIN 1.9 GM/DL (3.2-5.2); ALBUMIN/GLOBULIN RATIO 0.76 (1.00-1.93); ALKALINE PHOSPHATASE 46 U/L (45-117); ALT/SGPT 38 U/L (12-78); ANION GAP 9 MEQ/L (8-16); AST/SGOT 69 U/L (15-37); BILIRUBIN,TOTAL 0.5 MG/DL (0.2-1.0); BLOOD UREA NITROGEN 8 MG/DL (7-18); CALCIUM LEVEL 7.4 MG/DL (8.5-10.1); CARBON DIOXIDE LEVEL 25 MEQ/L (21-32); CHLORIDE LEVEL 111 MEQ/L (98-107); CREATININE FOR GFR 0.52 MG/DL (0.55-1.02); GLOMERULAR FILTRATION RATE > 60.0 (>60); GLUCOSE, FASTING 112 MG/DL (70-105); POTASSIUM SERUM 3.6 MEQ/L (3.5-5.1); SODIUM LEVEL 145 MEQ/L (136-145); TOTAL PROTEIN 4.4 GM/DL (6.4-8.2)
[2017-04-14] MEDS: DOCUSATE SODIUM 100 MG CAP PO SCH ×2 (13:02→20:40)
[2017-04-14] MEDS ORDERED: MOM 30ML SUSPENSION UDC PO PRN (15:15)
[2017-04-14] MEDS: GABAPENTIN 100 MG CAP PO SCH ×2 (16:31→20:40)
[2017-04-14] MEDS: ACETAMINOPHEN TAB 650MG DOSE (2X325MG) PO SCH ×2 (20:40→23:52)
[2017-04-14 22:00] VITALS: BP 194/78
[2017-04-15] MEDS: ACETAMINOPHEN TAB 650MG DOSE (2X325MG) PO SCH ×4 (05:47→23:32)
[2017-04-15 06:00] VITALS: BP 190/84
[2017-04-15 06:38] LABS: MEAN CORPUSCULAR HEMOGLOBIN 29.8 pg (27.0-33.0); MEAN CORPUSCULAR HGB CONC 32.8 g/dl (32.0-36.5); MEAN CORPUSCULAR VOLUME 90.8 fl (80.0-96.0); RED CELL DISTRIBUTION WIDTH 13.7 % (11.5-14.5); WHITE BLOOD COUNT 12.1 K/mm3 (4.0-10.0)
[2017-04-15 07:00] LABS: ALBUMIN 1.9 GM/DL (3.2-5.2); ALBUMIN/GLOBULIN RATIO 0.58 (1.00-1.93); ALKALINE PHOSPHATASE 51 U/L (45-117); ALT/SGPT 32 U/L (12-78); ANION GAP 8 MEQ/L (8-16); AST/SGOT 53 U/L (15-37); BILIRUBIN,TOTAL 0.4 MG/DL (0.2-1.0); BLOOD UREA NITROGEN 7 MG/DL (7-18); CARBON DIOXIDE LEVEL 27 MEQ/L (21-32); CHLORIDE LEVEL 109 MEQ/L (98-107); CREATININE FOR GFR 0.51 MG/DL (0.55-1.02); GLOMERULAR FILTRATION RATE > 60.0 (>60); GLUCOSE, FASTING 109 MG/DL (70-105); POTASSIUM SERUM 3.5 MEQ/L (3.5-5.1); SODIUM LEVEL 144 MEQ/L (136-145); TOTAL PROTEIN 5.2 GM/DL (6.4-8.2)
[2017-04-15 08:00] VITALS: BP 158/82
[2017-04-15] MEDS: DOCUSATE SODIUM 100 MG CAP PO SCH ×2 (08:06→20:35)
[2017-04-15] MEDS: HumaLOG INSULIN (NovoLOG) PER UNIT SC SCH ×4 (08:06→20:36)
[2017-04-15] MEDS: GABAPENTIN 100 MG CAP PO SCH ×3 (08:06→20:35)
[2017-04-15] MEDS: CARISOPRODOL 350 MG TAB PO SCH ×3 (08:06→20:35)
[2017-04-15] MEDS: NICOTINE 14 MG/24 HR TRANSDERMAL TD SCH (08:06)
[2017-04-15] MEDS: PANTOPRAZOLE 40MG TAB (PROTONIX) PO SCH (08:06)
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
--- NOTE | 2017-04-15 09:13 | REP ---
MRI LUMBAR SPINE WITHOUT CONTRAST: HISTORY: Lower extremity numbness. COMPARISON: MR 04/10/[address] 04/13/2017. The examination is incomplete as axial T2-weighted images were not obtained. The patient is status post L3-4 anterior and L2-S1 posterior spinal fusion and L1-5 laminectomy. The spinal canal , neural foramina and vertebral bodies are almost completely obscured by metal artifact. There is no disc bulge or herniation at the L1-2 level. The L1 nerves exit the neural foramina without compression. Disc bulges with posterior osteophytes are present at the L2-3 through L4-5 levels. There is at least minimal effacement of the thecal sac. A disc bulge with associated osteophyte formation is present at the L5-S1 level. There is minimal compression of the thecal sac. The L5 nerves exit the neural foramina without compression. A fluid collection is present at the laminectomy site. The fluid collection measures 3.9 cm in transverse by 2.8 cm in AP by 16.1 cm in cephalocaudal dimensions. Normal signal intensity is present in the visualized vertebral bodies. There is no subluxation. IMPRESSION: Limited examination demonstrating the patient to be status post L3-4 anterior and L2-S1 posterior spinal fusion and L1-5 laminectomy. There is anatomic alignment of the lumbar spine. A postoperative fluid collection is present at the laminectomy site. Signed by Mainor Peres MD 04/15/2017 09:32 A
--- NOTE | 2017-04-15 13:49 | IPNPDOC ---
Subjective Date Seen The patient was seen on 04/15/17. Subjective Chief Complaint/HPI The patient is a 32-year-old female admitted with a reason for visit of Cauda Equina. Events since last encounter patient does not offer any complaint today except for pain at the surgical site. Objective Physical Examination General Exam: Positive: Alert, Cooperative, No Acute Distress Eye Exam: Positive: PERRLA, Conjunctiva & lids normal, EOMI, Negative: Sclera icteric ENT Exam: Positive: Atraumatic, Mucous membr. moist/pink, Pharynx Normal Neck Exam: Positive: Supple, Negative: JVD, thyromegaly Chest Exam: Positive: Clear to auscultation, Normal air movement Heart Exam: Positive: Rate Normal, Regular Rhythm, Normal S1, Normal S2, Negative: Murmurs, Rubs Abdomen Exam: Positive: Normal bowel sounds, Soft, Negative: Tenderness, Hepatospenomegaly Extremity Exam: Positive: Normal pulses, Negative: Clubbing, Cyanosis, Edema Assessment /Plan Problems (1) Cauda equina compression Status: Acute Problem Text: S/P Posterior decompression and fusion L2-S1, with bone graft, with total disc excision with end plate for fusion L3-4. Intervertebral disc replacement L3-[address] Pratt. (2) Diabetes Status: Chronic Problem Text: a1c is 7.1 sugars well controlled with sliding scale insulin goal is to keep blood glucose around 150 or lower. too tight control in acute hospital setting has been shown to increase mortality and more complications with hypoglycemia so will not attempt any tighter control at this time (3) Obesity Status: Chronic Problem Text: morbid obesity (4) Hyperlipidemia Status: Chronic (5) Hypertension Status: Acute Problem Text: pateint does not carry any history of hypertension. here in the hospital most of her bps since admission has be low normal range noted to have elevated BP only this am I suspect this to be more related to pain and expect it to settle down with appropriate pain control. in the meantime will place the patient on hydralazine tid with hold parameters Plan/VTE VTE Prophylaxis Ordered?: Yes VS, I&O, 24H, Fishbone Vital Signs/I&O Vital Signs Date Time Temp Pulse Resp B/P (MAP) Pulse Ox O2 Delivery O2 Flow Rate FiO2 04/15/17 09:00 Nasal Cannula 1.0 04/15/17 08:00 158/82 (107) 04/15/17 06:00 97.6 104 20 90 I&O- Last 24 Hours up to 6 AM 04/15/17 06:00 Intake Total 1440 ml Output Total 3570 ml Balance -2130 ml Laboratory Data 24H LABS Laboratory Tests 2 04/14/17 16:48: Bedside Glucose (Misc Panel) 127H 04/14/17 20:36: Bedside Glucose (Misc Panel) 106H 04/15/17 06:19: Anion Gap 8, Glomerular Filtration Rate > 60.0, Blood Urea Nitrogen 7, Creatinine 0.51L, Sodium Level 144, Potassium Level 3.5, Chloride Level 109H, Carbon Dioxide Level 27, Calcium Level 7.0L, Aspartate Amino Transf (AST/SGOT) 53H, Alanine Aminotransferase (ALT/SGPT) 32, Alkaline Phosphatase 51, Total Bilirubin 0.4, Total Protein 5.2L, Albumin 1.9L, Albumin/Globulin Ratio 0.58L CBC/BMP Laboratory Tests 04/15/17 06:19 Red Blood Count 3.05 L, Mean Corpuscular Volume 90.8, Mean Corpuscular Hemoglobin 29.8, Mean Corpuscular Hemoglobin Concent 32.8, Red Cell Distribution Width 13.7, Calcium Level 7.0 L, Aspartate Amino Transf (AST/SGOT) 53 H, Alanine Aminotransferase (ALT/SGPT) 32, Alkaline Phosphatase 51, Total Bilirubin 0.4, Total Protein 5.2 L, Albumin 1.9 L Microbiology Microbiology 04/11/17 Urine Culture - Final, Complete HALEY WANG MD Apr 15, 2017 12:50
[2017-04-15 14:00] VITALS: BP 152/79
[2017-04-15] MEDS ORDERED: ceFAZolin 1GM INJ (J0690) As Ordered ONE (15:02)
[2017-04-15] MEDS ORDERED: EPINEPHrine INJ 1 MG/ML 1ML AMP As Ordered ONE (15:03)
[2017-04-15] MEDS: ALBUTEROL SULFATE 2.5 MG/0.5 ML INH NEB SOLN NEB SCH (16:16)
[2017-04-15 17:25] VITALS: BP 129/64
[2017-04-15] MEDS: **hydrALAZINE HCL** 25 MG TAB PO SCH ×2 (17:25→20:36)
--- NOTE | 2017-04-15 19:57 | IPNPDOC ---
Neurosurgery Date: Apr 15, 2017 Progress Note NEUROSURGERY POSTOP DAY: 3, 4 SURGICAL PROCEDURE: 04/11/2017 Right internal jugular venous catheterization, triple lumen, by Dr. Lior Garza. 04/12/2017. Posterior decompression and fusion L2-S1, with bone graft, with total disc excision with end plate for fusion L3-4. Intervertebral disc replacement L3-[address] Pratt. SUBJECTIVE: Ms. Colin is a pleasant 32-year-old female who was admitted to the hospital on 04/12/2017 for low back pain with suspicion of cauda equina syndrome. She continues with numbness sensation from her waist down with no changes since yesterday; worse over right buttock region. She also continues with pain radiating down the back side of her right leg when she raises it up from the bed. She has been eating and drinking well. She was able to stand when working with PT. She notes no other concerns for today. OBJECTIVE: Clinical status: Temp 99.8F. BP elevated this morning, began to improve throughout the day. Neurological status: She is alert and oriented times three. GCS=15. Speech is fluent. ESAU drain: 1. 50 mL. 2. 50 mL. 3. 70 mL. 4. 50 mL. Motor: Muscle strength appears to be equal in the lower extremities bilaterally about 4 or 5/5. More weakness is noted in the hamstring group on the right leg about 4/5. Upper extremities strength is 5/5 overall. Bat Carrier strength is equal bilaterally. Sensory is intact to light touch but feels decreased from the waist down as compared to the upper extremities. She is unable to detect sharp sensation which feels dull over the lateral aspect of her right leg. Sharp sensation appears to be intact on the medial aspect of her right leg. LABS: WBC= 12.1, H Hgb= 9.1, L Hct=27.7, L Na+= 144 K+=3.5 Fasting glucose= 109 IMAGIN04/14/17, MRI lumbar. Limited examination demonstrating the patient to be status post L3-4 anterior and L2-S1 posterior spinal fusion and L1-5 laminectomy. There is anatomic alignment of the lumbar spine. A postoperative fluid collection is present at the laminectomy site measuring 3.9 cm in transverse by 2.8 cm in AP by 16.1 cm in cephalocaudal dimensions. ASSESSMENT/PLAN: Per Dr. Pratt. 1. Cauda equina syndrome. Status post surgery. Possible CSF leak. Pending beta 2 transferrin for lab confirmation. Dr. Pratt states this should self- heal. Will continue to monitor. Post op fluid collection present at laminectomy site 3.9 x 2.8 x 16.1 cm. Continue with PT; acute rehab on Thursday? Plan to keep nunez for now. Remove central line and keep peripheral IV? Central line has not been used. 2. Wound care: Dr. Pratt has instructed me to remove the ESAU drains. I had expressed concern about removing them considering the amount of continuous drainage which has increased in 3/4 of the drains since yesterday. He states this drainage is CSF. I have ordered beta 2 transferrin for lab confirmation. However, ESAU drains have been removed per Dr. Pratt's orders. 3. Hypertension. Management per hospitalist. 4. Anemia. IV fluids have been D/C per Dr. Pratt. Management per Dr. Pratt. 5. Pain control. Satisfactory with morphine 2 mg IV every 2 hours and soma 350 mg by mouth three times daily. 6. Deep venous thrombosis (DVT) prophylaxis, thromboembolic deterrent stockings (TEDS) and sequentials. 5. Constipation prophylaxis: Continue Colace 100 mg by mouth twice daily. Current Medications Current Medications Acetaminophen (Tylenol Tab) 650 mg Q4H PO Last administered on 04/12/17 07:05 ; Start 04/10/17 at 23:00; Stop 04/12/17 at 22:59; Status DC Acetaminophen (Tylenol Tab) 650 mg Q6H PO Last administered on 04/15/17 17:38 ; Start 04/14/17 at 18:00; Stop 05/14/17 at 17:59 Acetylcysteine (Mucomyst 10 % (100mg/ml)) 4 mg RBID INH ; Start 04/15/17 at 20: 00; Stop 04/15/17 at 20:00; Status DC Acetylcysteine (Mucomyst 20% (200mg/ml)) 400 mg RBID INH ; Start 04/15/17 at 20: 00; Stop 05/15/17 at 19:59 Albuterol Sulfate (Proventil Neb) 2.5 mg RQ8H NEB Last administered on 16:16; Start 04/15/17 at 16:00; Stop 05/15/17 at 15:59 Albuterol/ Ipratropium (Duoneb (Ipr 0.5mg/Alb 2.5mg)) 3 ml Q2HP PRN NEB SOB/ WHEEZING; Start 04/12/17 at 13:00; Stop 05/12/17 at 12:59 Albuterol/ Ipratropium (Duoneb (Ipr 0.5mg/Alb 2.5mg)) 3 ml RQ8H NEB ; Start at 16:00; Stop 04/12/17 at 22:50; Status DC Carisoprodol (Soma) 350 mg TID PO Last administered on 04/11/17 10:09; Start 04/10/17 at 21:00; Stop 04/11/17 at 12:48; Status DC Carisoprodol (Soma) 350 mg TID PO Last administered on 04/15/17 17:37; Start 04/11/17 at 16:00; Stop 04/19/17 at 15:59 Cefazolin Sodium/ Dextrose 2 gm/IV Miscellaneous Supplies 50 ml @ 75 mls/hr Q8H IV Last administered on 04/13/17 17:43; Start 04/13/17 at 02:00; Stop at 20:00; Status DC Dextrose (Dextrose 50%) 25 ml ASDIRECTED PRN IV SEE LABEL COMMENTS; Start 04/13 at 12:15; Stop 05/13/17 at 12:14 Docusate Sodium (Colace) 100 mg BID PO Last administered on 04/15/17 08:06; Start 04/14/17 at 09:00; Stop 05/14/17 at 08:59 Fentanyl Citrate (Sublimaze) 25 mcg Q5MP PRN IV MODERATE PAIN (PS 4-7); Start 04/12/17 at 21:15; Stop 04/12/17 at 22:14; Status DC Gabapentin (Neurontin) 100 mg TID PO Last administered on 04/11/17 20:49; Start 04/11/17 at 21:00; Stop 04/12/17 at 20:59; Status DC Gabapentin (Neurontin) 100 mg TID PO Last administered on 04/15/17 17:38; Start 04/14/17 at 16:00; Stop 05/14/17 at 15:59 Gabapentin (Neurontin) 200 mg TID PO Last administered on 04/11/17 15:24; Start 04/10/17 at 21:00; Stop 04/11/17 at 20:59; Status DC Glucagon (Glucagon) 1 mg ASDIRECTED PRN SC SEE LABEL COMMENTS; Start 04/13/17 at 12:15; Stop 05/13/17 at 12:14 Glucose (Glucose) 16 GM ASDIRECTED PRN PO SEE LABEL COMMENTS; Start 04/13/17 at 12:15; Stop 05/13/17 at 12:14 Heparin Sodium (Porcine) (Heparin) 5,000 units TID SQ Last administered on 04/11 20:48; Start 04/10/17 at 21:00; Stop 04/12/17 at 21:15; Status DC Home Med (Med Rec Complete!) ASDIRECTED XX ; Start 04/10/17 at 21:45; Stop at 21:45; Status DC Hydralazine HCl (Apresoline) 25 mg TID PO ; Start 04/15/17 at 16:00; Stop at 15:59 Hydromorphone HCl (Dilaudid) 0.4 mg Q5MP PRN IV MODERATE/SEVERE PAIN (PS 7-10) ; Start 04/12/17 at 21:15; Stop 04/12/17 at 22:14; Status DC Insulin Human Lispro (HumaLOG INSULIN) SEE PROTOCOL TABLE AC SC Last administered on 04/15/17 17:38; Start 04/13/17 at 12:00; Stop 05/13/17 at 11:59 Insulin Human Lispro (HumaLOG INSULIN) SEE PROTOCOL TABLE QHS SC ; Start at 21:00; Stop 05/13/17 at 20:59 Insulin Human Regular 100 units/ Sodium Chloride 100 ml @ 4 mls/hr Q24H IV Last administered on 04/13/17 00:00; Start 04/12/17 at 22:09; Stop 04/13/17 at 12:15; Status DC Lactated Ringer's 1,000 ml @ 100 mls/hr Q10H IV ; Start 04/12/17 at 21:15; Stop 04/12/17 at 22:05; Status DC Magnesium Hydroxide (Milk Of Magnesia) 30 ml DAILYPRN PRN PO CONSTIPATION; Start 04/14/17 at 15:15; Stop 05/14/17 at 15:14 Metoclopramide HCl (REGLAN INJection) 10 mg Q6HP PRN IV NAUSEA OR VOMITING Last administered on 04/12/17 20:55; Start 04/12/17 at 21:15; Stop 04/12/17 at 22:14; Status DC Morphine Sulfate (Morphine Sulfate Inj) 2 mg Q2HP PRN IV BREAKTHROUGH PAIN Last administered on 04/14/17 11:50; Start 04/10/17 at 22:30; Stop 04/19/17 at 22:29 Morphine Sulfate (Morphine Sulfate Inj) 4 mg Q30M PRN IV SEVERE PAIN (PS 8-10) Last administered on 04/10/17 21:56; Start 04/10/17 at 20:15; Stop 04/11/17 at 12:05; Status DC Nicotine (Nicoderm Cq 14mg) 1 patch DAILY TD Last administered on 04/15/17 08: 06; Start 04/11/17 at 09:00; Stop 05/12/17 at 08:59 Non-Formulary Medication (Insulin Iv Rate Change Documentation ml/ Hr) ASDIRECTED XX Last administered on 04/13/17 03:19; Start 04/12/17 at 22:15; Stop 04/13/17 at 12:15; Status DC Ondansetron HCl (ZOFRAN INJection) 4 mg Q4H IV Last administered on 04/12/17 20:32; Start 04/13/17 at 02:00; Stop 04/13/17 at 06:44; Status DC Ondansetron HCl (ZOFRAN INJection) 4 mg Q4H PRN IV nausea; Start 04/13/17 at 10 :00; Stop 05/13/17 at 09:59 Ondansetron HCl (ZOFRAN INJection) 4 mg Q4HP PRN IV NAUSEA OR VOMITING; Start 04/12/17 at 21:15; Stop 04/12/17 at 22:14; Status DC Pantoprazole Sodium (Protonix) 40 mg DAILY IV Last administered on 8/21/17at 09 :04; Start 04/13/17 at 09:00; Stop 04/13/17 at 12:15; Status DC Pantoprazole Sodium (Protonix) 40 mg DAILY PO Last administered on 04/15/17 08 :06; Start 04/14/17 at 09:00; Stop 05/14/17 at 08:59 Potassium Chloride/Sodium Chloride 1,000 ml @ 140 mls/hr Q7H9M IV Last administered on 04/12/17 04:18; Start 04/11/17 at 12:15; Stop 04/12/17 at 23:52 ; Status DC Sodium Chloride 1,000 ml @ 140 mls/hr Q7H9M IV Last administered on 04/14/17 04:36; Start 04/13/17 at 00:00; Stop 04/14/17 at 15:27; Status DC Allergies: Coded Allergies: Sulfa Antibiotics (Verified Allergy, Intermediate, 04/10/17) VERA ALEXIS PA-C Apr 15, 2017 19:57
[2017-04-15] MEDS: IPRATROPIUM 0.5MG/ALBUTEROL 2.5MG INH SOL UD 3ML (DUONEB)(J7620) NEB PRN (19:58)
[2017-04-15] MEDS: ACETYLCYSTEINE 20% 4 ML VIAL (200MG/ML) INH SCH (19:58)
[2017-04-15] MEDS ORDERED: ACETYLCYSTEINE 10% 30 ML VIAL INH SCH (20:00)
[2017-04-15 22:00] VITALS: BP 150/75
[2017-04-16] MEDS: MORPHINE 2 MG/ML 1ML SYRINGE IV PRN (02:17)
[2017-04-16] MEDS: ACETAMINOPHEN TAB 650MG DOSE (2X325MG) PO SCH ×3 (05:45→17:13)
[2017-04-16 06:00] VITALS: BP 142/76
[2017-04-16 06:40] LABS: MEAN CORPUSCULAR HGB CONC 34.2 g/dl (32.0-36.5); MEAN CORPUSCULAR VOLUME 87.8 fl (80.0-96.0); WHITE BLOOD COUNT 10.8 K/mm3 (4.0-10.0)
[2017-04-16 06:58] LABS: ANION GAP 7 MEQ/L (8-16); BLOOD UREA NITROGEN 7 MG/DL (7-18); CALCIUM LEVEL 7.6 MG/DL (8.5-10.1); CARBON DIOXIDE LEVEL 29 MEQ/L (21-32); CHLORIDE LEVEL 108 MEQ/L (98-107); CREATININE FOR GFR 0.49 MG/DL (0.55-1.02); GLOMERULAR FILTRATION RATE > 60.0 (>60); GLUCOSE, FASTING 101 MG/DL (70-105); POTASSIUM SERUM 3.5 MEQ/L (3.5-5.1); SODIUM LEVEL 144 MEQ/L (136-145)
[2017-04-16] MEDS: ACETYLCYSTEINE 20% 4 ML VIAL (200MG/ML) INH SCH ×2 (07:10→19:44)
[2017-04-16] MEDS: ALBUTEROL SULFATE 2.5 MG/0.5 ML INH NEB SOLN NEB SCH ×3 (07:11→15:12)
[2017-04-16] MEDS: DOCUSATE SODIUM 100 MG CAP PO SCH (08:29)
[2017-04-16] MEDS: GABAPENTIN 100 MG CAP PO SCH ×3 (08:29→21:58)
[2017-04-16] MEDS: PANTOPRAZOLE 40MG TAB (PROTONIX) PO SCH (08:29)
[2017-04-16] MEDS: CARISOPRODOL 350 MG TAB PO SCH ×3 (08:29→21:57)
[2017-04-16] MEDS: NICOTINE 14 MG/24 HR TRANSDERMAL TD SCH (08:30)
[2017-04-16] MEDS ORDERED: FUROSEMIDE 40 MG/4 ML VIAL (J1940) IV ONE (08:30)
[2017-04-16] MEDS: **hydrALAZINE HCL** 25 MG TAB PO SCH ×3 (08:30→21:58)
[2017-04-16] MEDS: HumaLOG INSULIN (NovoLOG) PER UNIT SC SCH ×4 (08:31→21:00)
--- NOTE | 2017-04-16 08:36 | IPNPDOC ---
Subjective Date Seen The patient was seen on 04/16/17. Subjective Chief Complaint/HPI The patient is a 32-year-old female admitted with a reason for visit of Cauda Equina. Events since last encounter patient complaining of facial swelling and swelling of hands, also complains of right hip and leg pain and cannot lie down straight. Her breathing is better this morning and is also able to cough out lots of phlegm. No fever or chills, no chest pain , no abdominal pain , no nausea or vomiting or diarrhea. Objective Physical Examination General Exam: Positive: Alert, Cooperative, No Acute Distress Eye Exam: Positive: PERRLA, Conjunctiva & lids normal, EOMI, Negative: Sclera icteric ENT Exam: Positive: Atraumatic, Mucous membr. moist/pink, Pharynx Normal Neck Exam: Positive: Supple, Negative: JVD, thyromegaly Chest Exam: Positive: Clear to auscultation, Normal air movement Heart Exam: Positive: Rate Normal, Regular Rhythm, Normal S1, Normal S2, Negative: Murmurs, Rubs Abdomen Exam: Positive: Normal bowel sounds, Soft, Negative: Tenderness, Hepatospenomegaly Extremity Exam: Positive: Edema, Normal pulses, Negative: Clubbing, Cyanosis Assessment /Plan Problems (1) Cauda equina compression Status: Acute Problem Text: S/P Posterior decompression and fusion L2-S1, with bone graft, with total disc excision with end plate for fusion L3-4. Intervertebral disc replacement L3-[address] Pratt. Pain control and dvt prophylasix as per neurosurgery. (2) Diabetes Status: Chronic Problem Text: a1c is 7.1 sugars well controlled with sliding scale insulin goal is to keep blood glucose around 150 or lower. too tight control in acute hospital setting has been shown to increase mortality and more complications with hypoglycemia so will not attempt any tighter control at this time (3) Obesity Status: Chronic Problem Text: morbid obesity (4) Hyperlipidemia Status: Chronic (5) Hypertension Status: Acute Problem Text: pateint does not carry any history of hypertension. here in the hospital most of her bps since admission has be low normal range noted to have elevated BP only this am I suspect this to be more related to pain and expect it to settle down with appropriate pain control. in the meantime will place the patient on hydralazine tid with hold parameters Has fluid overload will give 1 dose of lasix. (6) Asthma Status: Chronic Problem Text: will continue with albuterol nebulizations. Plan/VTE VTE Prophylaxis Ordered?: Yes VS, I&O, 24H, Fishbone Vital Signs/I&O Vital Signs Date Time Temp Pulse Resp B/P (MAP) Pulse Ox O2 Delivery O2 Flow Rate FiO2 04/16/17 06:00 96.4 93 15 142/76 (98) 97 Nasal Cannula 2.0 I&O- Last 24 Hours up to 6 AM 04/16/17 06:00 Intake Total 2280 ml Output Total 3350 ml Balance -1070 ml Laboratory Data 24H LABS Laboratory Tests 2 04/15/17 16:13: 04/16/17 06:24: Anion Gap 7L, Glomerular Filtration Rate > 60.0, Blood Urea Nitrogen 7, Creatinine 0.49L, Sodium Level 144, Potassium Level 3.5, Chloride Level 108H, Carbon Dioxide Level 29, Calcium Level 7.6L CBC/BMP Laboratory Tests 04/16/17 06:24 Red Blood Count 2.83 L, Mean Corpuscular Volume 87.8, Mean Corpuscular Hemoglobin 30.0, Mean Corpuscular Hemoglobin Concent 34.2, Red Cell Distribution Width 14.0, Calcium Level 7.6 L Microbiology Microbiology 04/11/17 Urine Culture - Final, Complete RAYHALEY MD Apr 16, 2017 08:36
[2017-04-16] MEDS ORDERED: DIAPER RELIEF PASTE (DESITIN) 60GM TOP SCH (12:00)
[2017-04-16 14:00] VITALS: BP 140/77
[2017-04-16 17:16] VITALS: BP 136/70
[2017-04-16] MEDS: IPRATROPIUM 0.5MG/ALBUTEROL 2.5MG INH SOL UD 3ML (DUONEB)(J7620) NEB PRN (19:44)
[2017-04-16] MEDS: SENOKOT S TAB PO SCH (21:57)
[2017-04-17] MEDS: ACETAMINOPHEN TAB 650MG DOSE (2X325MG) PO SCH ×3 (00:27→13:10)
[2017-04-17 06:54] LABS: MEAN CORPUSCULAR HEMOGLOBIN 29.6 pg (27.0-33.0); MEAN CORPUSCULAR HGB CONC 33.7 g/dl (32.0-36.5); MEAN CORPUSCULAR VOLUME 87.9 fl (80.0-96.0); RED CELL DISTRIBUTION WIDTH 14.3 % (11.5-14.5); WHITE BLOOD COUNT 9.1 K/mm3 (4.0-10.0)
[2017-04-17] MEDS: ACETYLCYSTEINE 20% 4 ML VIAL (200MG/ML) INH SCH (07:06)
[2017-04-17] MEDS: ALBUTEROL SULFATE 2.5 MG/0.5 ML INH NEB SOLN NEB SCH ×2 (07:06)
[2017-04-17 07:11] LABS: ANION GAP 5 MEQ/L (8-16); BLOOD UREA NITROGEN 9 MG/DL (7-18); CALCIUM LEVEL 8.2 MG/DL (8.5-10.1); CARBON DIOXIDE LEVEL 31 MEQ/L (21-32); CHLORIDE LEVEL 105 MEQ/L (98-107); CREATININE FOR GFR 0.62 MG/DL (0.55-1.02); GLOMERULAR FILTRATION RATE > 60.0 (>60); GLUCOSE, FASTING 111 MG/DL (70-105); POTASSIUM SERUM 3.4 MEQ/L (3.5-5.1); SODIUM LEVEL 141 MEQ/L (136-145)
[2017-04-17 08:21] VITALS: BP 146/69
[2017-04-17] MEDS: HumaLOG INSULIN (NovoLOG) PER UNIT SC SCH ×2 (08:23→13:10)
[2017-04-17 08:24] VITALS: BP 146/69
[2017-04-17] MEDS: **hydrALAZINE HCL** 25 MG TAB PO SCH (08:24)
[2017-04-17] MEDS: CARISOPRODOL 350 MG TAB PO SCH (08:24)
[2017-04-17] MEDS: PANTOPRAZOLE 40MG TAB (PROTONIX) PO SCH (08:24)
[2017-04-17] MEDS: GABAPENTIN 100 MG CAP PO SCH (08:24)
[2017-04-17] MEDS: SENOKOT S TAB PO SCH (08:24)
[2017-04-17] MEDS: NICOTINE 14 MG/24 HR TRANSDERMAL TD SCH (08:24)
[2017-04-17] MEDS ORDERED: POTASSIUM CHLORIDE 10 MEQ SR TABLET PO ONE (09:30)
[2017-04-17] MEDS ORDERED: FUROSEMIDE 40 MG/4 ML VIAL (J1940) IV ONE (09:30)
--- NOTE | 2017-04-17 09:40 | IPNPDOC ---
Subjective Date Seen The patient was seen on 04/17/17. Subjective Chief Complaint/HPI The patient is a 32-year-old female admitted with a reason for visit of Cauda Equina. Events since last encounter pateint complains of bilateral feet numbness which she says is worse than prior to surgery , right is worse than left, denies any cough, phlegm production has decreased, denies any chest tightness or difficulty in breathing. Objective Physical Examination General Exam: Positive: Alert, Cooperative, No Acute Distress Eye Exam: Positive: PERRLA, Conjunctiva & lids normal, EOMI, Negative: Sclera icteric ENT Exam: Positive: Atraumatic, Mucous membr. moist/pink, Pharynx Normal Neck Exam: Positive: Supple, Negative: JVD, thyromegaly Chest Exam: Positive: Clear to auscultation, Normal air movement Heart Exam: Positive: Rate Normal, Regular Rhythm, Normal S1, Normal S2, Negative: Murmurs, Rubs Abdomen Exam: Positive: Normal bowel sounds, Soft, Negative: Tenderness, Hepatospenomegaly Extremity Exam: Positive: Edema, Normal pulses, Negative: Clubbing, Cyanosis Assessment /Plan Problems (1) Cauda equina compression Status: Acute Problem Text: S/P Posterior decompression and fusion L2-S1, with bone graft, with total disc excision with end plate for fusion L3-4. Intervertebral disc replacement L3-[address] Pratt. Pain control and dvt prophylasix as per neurosurgery. (2) Diabetes Status: Chronic Problem Text: a1c is 7.1 sugars well controlled with sliding scale insulin goal is to keep blood glucose around 120 to 150 .too tight control in acute hospital setting has been shown to increase mortality and more complications with hypoglycemia so will not attempt any tighter control at this time (3) Obesity Status: Chronic Problem Text: morbid obesity (4) Hyperlipidemia Status: Chronic (5) Hypertension Status: Acute Problem Text: pateint does not carry any history of hypertension. here in the hospital most of her bps since admission has be low normal range noted to have elevated BP only this am I suspect this to be more related to pain and expect it to settle down with appropriate pain control. in the meantime will place the patient on hydralazine tid with hold parameters Has fluid overload will give 1 dose of lasix. (6) Asthma Status: Chronic Problem Text: will continue with albuterol nebulizations. Plan/VTE VTE Prophylaxis Ordered?: Yes VS, I&O, 24H, Fishbone Vital Signs/I&O Vital Signs Date Time Temp Pulse Resp B/P (MAP) Pulse Ox O2 Delivery O2 Flow Rate FiO2 04/17/17 08:24 146/69 04/17/17 08:21 97.8 88 16 95 Room Air 04/16/17 06:00 2.0 I&O- Last 24 Hours up to 6 AM 04/17/17 06:00 Intake Total 720 ml Output Total 4700 ml Balance -3980 ml Laboratory Data 24H LABS Laboratory Tests 2 04/16/17 11:53: Bedside Glucose (Misc Panel) 142H 04/16/17 16:57: Bedside Glucose (Misc Panel) 97 04/16/17 21:56: Bedside Glucose (Misc Panel) 104 04/17/17 06:26: Anion Gap 5L, Glomerular Filtration Rate > 60.0, Blood Urea Nitrogen 9, Creatinine 0.62, Sodium Level 141, Potassium Level 3.4L, Chloride Level 105, Carbon Dioxide Level 31, Calcium Level 8.2L CBC/BMP Laboratory Tests 04/17/17 06:26 Red Blood Count 3.07 L, Mean Corpuscular Volume 87.9, Mean Corpuscular Hemoglobin 29.6, Mean Corpuscular Hemoglobin Concent 33.7, Red Cell Distribution Width 14.3, Calcium Level 8.2 L Microbiology Microbiology 04/11/17 Urine Culture - Final, Complete HALEY WANG MD Apr 17, 2017 09:40
[2017-04-17] MEDS ORDERED: ALB2.5NEB NEB (12:04)
[2017-04-17] MEDS ORDERED: SENN1TAB2 PO (12:04)
[2017-04-17] MEDS ORDERED: HYDR25TA PO (12:04)
[2017-04-17] MEDS ORDERED: INSUHUMDS SC ×2 (12:04)
[2017-04-17] MEDS ORDERED: IPRASOL4 NEB (12:05)
--- NOTE | 2017-04-17 15:05 | DS.PDOC ---
General Date of Admission: Apr 11, 2017 Date of Discharge: Apr 17, 2017 Attending Physician: CHICA PRATT MD Discharge Summary Discharge Summary Patient name: Dana Tran Age: 32 yo Gender: F Admission date: 04.11.2017 Discharge Date: 04.17.2017 Principal Diagnosis: L3-4 disc herniation; cauda equina Other diagnoses: congenital stenosis of spinal canal Reason for admission: loss of bladder control, low back pain, bilateral leg pain and numbness Surgery: 04.13.2017 L2-S1 posterior decompression and fusion Post-op complications: None Hospitalist service, wound care, PT, OT, social security assessor has been involved in patient care. PAST MEDICAL HISTORY: 1. Asthma. 2. Anxiety. 3. Morbid obesity 4. Smoking ALLERGY: Sulfa Medications: Albuterol 2.5 mg NEB Rq8 #10 NEB Hydralazine 25 mg PO TID Senna 2 tab PO BID Insulin Human Lispro 1 u sc ac and qhs Heparine 5000 U sc TID Tylenol #3 PO q6h prn Condition on discharge: AVSS, hemodynamically and respiratory stable; abdomen soft, bowel sound x 4 Neuroexam: A+Ox3, GCS=15, DOT, normal speech, UE=R=L=5/5; LE=R=L=4-/5 in all myotoms Sensory LE: partial saddle anesthesia; bilateral L4-5-S1 hypoesthesia. Mobilizing with walker and PT. Wound incision healing complicated by blisters (on protocol per Wound care) Post-op CT C-spine: 04.10.2017 1. The patient is status post L3-4 anterior and L2-S1 posterior spinal fusion and L1-5 laminectomy. There is anatomic alignment of the lumbar spine. 2. Diffuse disc bulges with associated osteophyte formation at the L2-3 through L5-S1 levels with minimal thecal sac compression. 04/10/2017 MRI C-spine: The examination is incomplete as axial T2-weighted images were not obtained. The patient is status post L3-4 anterior and L2-S1 posterior spinal fusion and L1-5 laminectomy. The spinal canal , neural foramina and vertebral bodies are almost completely obscured by metal artifact. There is no disc bulge or herniation at the L1-2 level. The L1 nerves exit the neural foramina without compression. Disc bulges with posterior osteophytes are present at the L2-3 through L4-5 levels. There is at least minimal effacement of the thecal sac. A disc bulge with associated osteophyte formation is present at the L5-S1 level. There is minimal compression of the thecal sac. The L5 nerves exit the neural foramina without compression. A fluid collection is present at the laminectomy site. The fluid collection measures 3.9 cm in transverse by 2.8 cm in AP by 16.1 cm in cephalocaudal dimensions. Normal signal intensity is present in the visualized vertebral bodies. There is no subluxation. Follow up instruction: 1. Follow with [facility] Dr. Pratt in 7 day after discharge from Acute Rehab Unit ACTIVITY: See below in discharge instructions. DIET: See below in discharge instructions. DISCHARGE PLAN AND INSTRUCTIONS: The following discharge instructions have been discussed with the patient. 1. Keep incision dry for at least 48 hours. 2. Keep incision clean and inspect daily for signs of infection (redness, discharge, swelling, increased pain, and warmth. 3. You may shower 48 hours after surgery. Avoid bath tubs, hot tubs/whirlpools, and swimming pools until cleared by surgeon or PA. 4. Do not apply lotions or creams near the incision site. 5. Start walking around the house as soon as possible. This helps to reduce swelling and lowers the chance of blood clots. 6. Continue to gradually increase physical activity. 7. Climbing stairs at home is permitted as tolerated with caution. If available use handrails, taking time going up and down the stairs paying close attention to place each foot on each step carefully. 8. No bending, twisting, pulling, pushing, or lifting greater than 5 pounds until followup in the office. 9. No strenuous activity for at least 2 weeks. 10. Get plenty of rest. 11. Follow a balanced diet and drink plenty of water. 12. Decreased activity and pain medications may promote constipation, so you may have to add more raw fruit to your diet. A mild [id number] stool softener or laxative may be used if necessary. 13. Take pain medications as prescribed. pain medications will not remove all the pain, but will lesson it significantly. 14. Do not drink alcohol while taking medications. 15. Do not drive or operate any machinery until you are given specific instructions about driving when you followup in the office. 16. Patient is to call the office to schedule followup appointment within 1-2 weeks of if any new signs or symptoms develop. [phone]. 17. Patient understands to call the office if any new questions arise. WHAT TO EXPECT: - Soreness, stiffness, and aching can be expected after surgery. - [id number] postoperative pain. - Periods of fatigue and/or tiredness. - Healing is a slow and gradual process. - May experience sore throat and/or hoarseness of your voice. - Some numbness may be present around the area of the incision which may persist for several weeks. WHEN TO CALL: - Increased swelling or bruising. - If swelling and redness persist after a few days. - Increased redness along the incision. - If any unusual bleeding or drainage developed at the incision site. - If severe or increased pain not relieved by medication develops. - If any side effects to medications, such as rash, nausea, vomiting, or headache arises. - If temperature of 100.5 degrees or greater. - If any calf pain and/or swelling in any extremity develops. - Any new increased difficulty breathing or shortness of breath. - Any loss of feelings or emotions. - Increased intensity of headache or headache not responding to medications. - Inability to urinate. - Extreme fatigue or lethargy. - Any worsening of any of your symptoms. All questions have been answered to patient's satisfaction. Patient understands and is aware of possible catastrophic sequela if he/she does not follow these recommendations.Patient agrees to followup in the office within 2 weeks or sooner if needed. DISCHARGE CONDITION: Stable. TIME SPENT ON DISCHARGE: Greater than minutes. Laboratory Data Vital Signs Date Time Temp Pulse Resp B/P (MAP) Pulse Ox O2 Delivery O2 Flow Rate FiO2 04/17/17 08:24 146/69 04/17/17 08:21 97.8 88 16 95 Room Air 04/16/17 06:00 2.0 I&O- Last 24 Hours up to 6 AM 04/17/17 06:00 Intake Total 720 ml Output Total 4700 ml Balance -3980 ml Laboratory Tests 04/17/17 06:26 Red Blood Count 3.07 L, Mean Corpuscular Volume 87.9, Mean Corpuscular Hemoglobin 29.6, Mean Corpuscular Hemoglobin Concent 33.7, Red Cell Distribution Width 14.3, Calcium Level 8.2 L Laboratory Tests 2 04/16/17 16:57: Bedside Glucose (Misc Panel) 97 04/16/17 21:56: Bedside Glucose (Misc Panel) 104 04/17/17 06:26: Anion Gap 5L, Glomerular Filtration Rate > 60.0, Blood Urea Nitrogen 9, Creatinine 0.62, Sodium Level 141, Potassium Level 3.4L, Chloride Level 105, Carbon Dioxide Level 31, Calcium Level 8.2L Microbiology 04/11/17 Urine Culture - Final, Complete Discharge Medications Scheduled (Senna Plus 8.6-50 mg) 1 Tab Tab, 2 TAB PO BID Albuterol Sulfate (Albuterol Sulfate) 2.5 Mg/0.5 Ml Neb, 2.5 MG NEB RQ8H Gabapentin (Gabapentin) 300 Mg Cap, 300 MG PO TID, (Reported) Hydralazine HCl (Hydralazine HCl) 25 Mg Tab, 25 MG PO TID Insulin Human Lispro (Humalog) 1 Units/0.01 Ml Inj, 0 UNITS SC AC Insulin Human Lispro (Humalog) 1 Units/0.01 Ml Inj, 0 UNITS SC QHS Prednisone (Prednisone) 20 Mg Tab, 20 MG PO DAILY, (Reported) Scheduled PRN Albuterol/Ipratropium (Ipratropium [place]/Albut 0.5-2.5 (3) mg/3Ml) 1 Nadine Nadine, 3 ML NEB Q2HP PRN for SOB/WHEEZING Ibuprofen (Ibuprofen) 400 Mg Tab, 400 MG PO Q6H PRN for PAIN, (Reported) Tizanidine Hydrochloride (Zanaflex) 4 Mg Tab, 1 TAB PO Q8H PRN for MUSCLE SPASMS , (Reported) Allergies Coded Allergies: Sulfa Antibiotics (Verified Allergy, Intermediate, 04/10/17) CHICA PRATT MD Apr 17, 2017 15:05
--- NOTE | 2017-04-17 15:33 | CR ---
DATE OF CONSULTATION: 04/16/2017 CONSULTATION REQUESTED BY: Dr. Harrington regarding postoperative wound care. HISTORY OF PRESENT ILLNESS: A 32-year-old female operated for cauda equina syndrome on 04/12/2017. The patient's symptoms included paresthesia, and decreased motor function involving the right and left lower extremities. The patient underwent decompression laminectomy via the lumbar approach. The patient had postoperative drains in place, to treat a cerebrospinal fluid leak. The drains have been removed. The patient is not presently on antibiotic therapy. The patient relates that her symptoms have improved, although she still has weakness and paresthesia in right and left lower extremities. She has been out of bed and has started physical therapy. The surgical incision was dressed with gauze stapled to the wound, and later replaced with an Ioban dressing, which is a contact film dressing impregnated with iodine. The patient denies fever, chills, or headache. I have been asked to evaluate via telemedicine the surgical incision site and comment on postoperative wound care. There is a 28.0 cm posterior, linear, midline incision in the lumbar area. This has been closed with naima and reinforced with mattress sutures of Prolene. There is no apparent fluctuation of the wound seen and no obvious drainage noted. There are multiple small areas of serous-filled blisters involving the periwound edge and on the right midportion of the Incision a small localized area of maceration with mild purplish early ischemic changes. There is no evidence of wound dehiscence. There is no erythema involving the staple line. TREATMENT RECOMMENDATIONS: At this time, discontinue Ioban dressing, as the blistering may be secondary to beginning fluid collection below the incision as the drains have been removed, or an iodine allergic reaction. Ioban and also create skin maceration and prevent any absorption of potential wound drainage. The wound is to be cleansed with Vashe wound cleanser by soaking 4 x 4's with Vashe and applying it to the wound for 10 minutes. The wound can then be patted dry and skin prep applied to the periwound and a large foam dressing applied to cover the wound. This should be changed on an every other day basis or as-needed for strike-through. Any fluctuation or change in the wound appearance may indicate accumulation of cerebrospinal fluid within the deeper portion of the wound and may be treated by removal of a few naima changing of the dressing on a more frequent basis with an OptiLock dressing, which would provide more absorption. A followup MRI in that case, would be also indicated. This case was reviewed prior to the telemedicine evaluation on the phone with Dr. Pratt. JARAD
== END 2017-04-17 14:40 | disposition other institution (70) | DRG 23 ==
LOC: M ED 16:07 → M ED INP 21:30 → M MS5PR 23:25 → M ICU 04-11 12:09 → M MS5PR 04-11 15:00 → M ICU 04-12 18:29 → M MS5PR 04-13 18:25
PROVIDERS: ADMIT Neurological Surgery; ATTEND Neurological Surgery
PROC: 02HV33Z Insertion of Infusion Device into Superior Vena Cava, Percutaneous Approach (ICD-10-PCS; 2017-04-11)
PROC: 0SR Lower Joints, Replacement (ICD-10-PCS; 2017-04-12)
PROC: 01NB0ZZ Release Lumbar Nerve, Open Approach (ICD-10-PCS; 2017-04-12)
PROC: 01NR0ZZ Release Sacral Nerve, Open Approach (ICD-10-PCS; 2017-04-12)
PROC: 0SG307J Fusion of Lumbosacral Joint with Autologous Tissue Substitute, Posterior Approach, Anterior Column, Open Approach (ICD-10-PCS; 2017-04-12)
PROC: 0ST20ZZ Resection of Lumbar Vertebral Disc, Open Approach (ICD-10-PCS; 2017-04-12)
PROC: 0SG107J Fusion of 2 or more Lumbar Vertebral Joints with Autologous Tissue Substitute, Posterior Approach, Anterior Column, Open Approach (ICD-10-PCS; principal; 2017-04-12 07:30)
DX: G83.4 Cauda equina syndrome (principal); Z68.43 Body mass index [BMI] 50.0-59.9, adult; E55.9 Vitamin D deficiency, unspecified; E66.01 Morbid (severe) obesity due to excess calories; J45.909 Unspecified asthma, uncomplicated; M51.16 Intervertebral disc disorders with radiculopathy, lumbar region; F41.9 Anxiety disorder, unspecified; S30.820A Blister (nonthermal) of lower back and pelvis, initial encounter; E11.9 Type 2 diabetes mellitus without complications; E78.5 Hyperlipidemia, unspecified; F17.210 Nicotine dependence, cigarettes, uncomplicated; Z88.2 Allergy status to sulfonamides; Z79.899 Other long term (current) drug therapy; Z79.52 Long term (current) use of systemic steroids; Z83.3 Family history of diabetes mellitus; Z82.49 Family history of ischemic heart disease and other diseases of the circulatory system; Y92.9 Unspecified place or not applicable; Y93.9 Activity, unspecified; X58.XXXA Exposure to other specified factors, initial encounter; Y99.9 Unspecified external cause status

== ENCOUNTER 2017-04-17 11:18 | Inpatient (IN) | payer BC ==
[~2017-04-17] VITALS: Ht 162.6 cm; Wt 144.6 kg
[~2017-04-17 11:18] MED LIST changes: +GABA-282 PO; +IBUP-1114 PO; +ZANA4TAB PO
[2017-04-17] MEDS ORDERED: ACETAMINOPHEN TAB 650MG DOSE (2X325MG) PO PRN (11:30)
[2017-04-17] MEDS ORDERED: oxyCODONE 5MG TAB PO PRN ×2 (11:45)
[2017-04-17] MEDS ORDERED: DEXTROSE 50% 50 ML SYRINGE IV PRN (11:45)
[2017-04-17] MEDS ORDERED: IPRATROPIUM 0.5MG/ALBUTEROL 2.5MG INH SOL UD 3ML (DUONEB)(J7620) NEB PRN (11:45)
[2017-04-17] MEDS ORDERED: GLUCAGON FOR INJ 1 MG VIAL (J1610) SC PRN (11:45)
[2017-04-17] MEDS ORDERED: GLUCOSE 4 GM CHEW TABLET PO PRN (11:45)
[2017-04-17] MEDS ORDERED: DIAPER RELIEF PASTE (DESITIN) 60GM TOP SCH (12:00)
[2017-04-17] MEDS ORDERED: INSUHUMDS SC ×2 (12:04)
[2017-04-17] MEDS ORDERED: SENN1TAB2 PO (12:04)
[2017-04-17] MEDS ORDERED: HYDR25TA PO (12:04)
[2017-04-17] MEDS ORDERED: ALB2.5NEB NEB (12:04)
[2017-04-17] MEDS ORDERED: IPRASOL4 NEB (12:05)
[2017-04-17 14:50] VITALS: BP 134/74
[2017-04-17] MEDS: ALBUTEROL SULFATE 2.5 MG/0.5 ML INH NEB SOLN NEB SCH ×2 (15:27→23:36)
[2017-04-17] MEDS: **hydrALAZINE HCL** 25 MG TAB PO SCH ×2 (15:57→21:00)
[2017-04-17] MEDS: CARISOPRODOL 350 MG TAB PO SCH ×2 (15:59→20:38)
[2017-04-17] MEDS: ACETAMINOPHEN TAB 650MG DOSE (2X325MG) PO SCH ×2 (15:59→19:24)
--- NOTE | 2017-04-17 16:04 | PMRNOTEPD ---
PMR Note Patient is a 32-year-old right-handed white female with cauda equina with incomplete paraparesis status post lumbar laminectomy and L3-L4 disc replacement due to nontraumatic degenerative disc disease and degenerative joint disease. Patient currently needs neuro rehabilitation with PT, OT, rehabilitation nursing and physiatry to learn how to deal with her spinal cord injury and for neuromuscular facilitation of her lower extremities. Patient with morbid obesity, asthma/obstructive sleep apnea, hypertension, hyperlipidemia and spinal cord related severe constipation. These will require ongoing PM&R, rehabilitation nursing and medicine salesforce consultant management. Full history and physical has been dictated and his dictation #[id number]. YIMI PIZARRO MD Apr 17, 2017 16:04
[2017-04-17] MEDS: HumaLOG INSULIN (NovoLOG) PER UNIT SC SCH ×2 (17:18→20:44)
[2017-04-17 20:00] VITALS: BP 136/87
[2017-04-17] MEDS ORDERED: ACETYLCYSTEINE 20% 4 ML VIAL (200MG/ML) INH SCH (20:00)
[2017-04-17] MEDS: SENOKOT S TAB PO SCH (20:37)
[2017-04-17] MEDS: DOCUSATE SODIUM 100 MG CAP PO SCH (20:37)
[2017-04-17] MEDS: GABAPENTIN 100 MG CAP PO SCH (20:38)
[2017-04-17] MEDS: BETHANECHOL 10 MG TAB PO SCH (20:38)
[2017-04-18] MEDS: ACETAMINOPHEN TAB 650MG DOSE (2X325MG) PO SCH ×7 (00:12→23:50)
[2017-04-18 06:00] VITALS: BP 140/81
[2017-04-18] MEDS: **hydrALAZINE HCL** 25 MG TAB PO SCH ×3 (06:00→22:12)
[2017-04-18 07:15] LABS: BASO % 0.2 % (0.0-1.0); EOS # 0.2 K/mm3 (0.0-0.50); EOS % 2.4 % (0.0-3.0); LARGE UNSTAINED CELL # 0.1 K/mm3 (0.0-0.4); LARGE UNSTAINED CELL % 1.3 % (0.0-4.0); LYMPH # 2.3 K/mm3 (1.5-4.5); LYMPH % 20.2 % (24.0-44.0); MEAN CORPUSCULAR HEMOGLOBIN 29.1 pg (27.0-33.0); MEAN CORPUSCULAR HGB CONC 33.4 g/dl (32.0-36.5); MEAN CORPUSCULAR VOLUME 87.1 fl (80.0-96.0); MONO # 0.4 K/mm3 (0.0-0.8); MONO % 3.6 % (0.0-5.0); NEUTROPHILS # 7.6 K/mm3 (1.8-7.7); NEUTROPHILS % 72.3 % (36.0-66.0); PLATELET COUNT, AUTOMATED 258 k/mm3 (150-450); RED CELL DISTRIBUTION WIDTH 14.2 % (11.5-14.5); WHITE BLOOD COUNT 10.6 K/mm3 (4.0-10.0)
[2017-04-18] MEDS: ALBUTEROL SULFATE 2.5 MG/0.5 ML INH NEB SOLN NEB SCH ×3 (08:39→23:15)
[2017-04-18] MEDS: HumaLOG INSULIN (NovoLOG) PER UNIT SC SCH ×4 (09:02→21:00)
[2017-04-18] MEDS: DOCUSATE SODIUM 100 MG CAP PO SCH ×2 (09:03→21:05)
[2017-04-18] MEDS: CARISOPRODOL 350 MG TAB PO SCH ×3 (09:03→21:05)
[2017-04-18] MEDS: SENOKOT S TAB PO SCH ×2 (09:03→21:05)
[2017-04-18] MEDS: GABAPENTIN 100 MG CAP PO SCH ×2 (09:03→21:05)
[2017-04-18] MEDS: PANTOPRAZOLE 40MG TAB (PROTONIX) PO SCH (09:03)
[2017-04-18] MEDS: BETHANECHOL 10 MG TAB PO SCH ×2 (09:03→21:04)
[2017-04-18] MEDS: NICOTINE 7 MG/24 HR TRANSDERMAL TD SCH (09:04)
[2017-04-18 09:42] LABS: ALBUMIN 2.3 GM/DL (3.2-5.2); ALBUMIN/GLOBULIN RATIO 0.64 (1.00-1.93); ALKALINE PHOSPHATASE 60 U/L (45-117); ALT/SGPT 28 U/L (12-78); ANION GAP 12 MEQ/L (8-16); AST/SGOT 23 U/L (15-37); BILIRUBIN,TOTAL 0.5 MG/DL (0.2-1.0); BLOOD UREA NITROGEN 12 MG/DL (7-18); CALCIUM LEVEL 7.5 MG/DL (8.5-10.1); CARBON DIOXIDE LEVEL 26 MEQ/L (21-32); CHLORIDE LEVEL 104 MEQ/L (98-107); CREATININE FOR GFR 0.58 MG/DL (0.55-1.02); GLOMERULAR FILTRATION RATE > 60.0 (>60); GLUCOSE, FASTING 98 MG/DL (70-105); POTASSIUM SERUM 3.3 MEQ/L (3.5-5.1); SODIUM LEVEL 142 MEQ/L (136-145); TOTAL PROTEIN 5.9 GM/DL (6.4-8.2)
--- NOTE | 2017-04-18 12:59 | REP ---
PARTIAL LUMBAR SPINE, FIVE VIEWS: HISTORY: Spinal fusion. COMPARISON: 04/01/2017. The patient is status post L2-S1 posterior spinal fusion and L2-5 laminectomy. Metal rods and pedicle screws are present. There is no acute fracture or subluxation. The L2-3 through L5-S1 intervertebral discs are decreased in height consistent with disc degeneration. Osteophytes are present on L3-5. Surgical clips are present in the posterior paravertebral soft tissue. An IUD is present in the pelvis. IMPRESSION: The patient is status post L2-S1 posterior spinal fusion and L2-5 laminectomy. There is anatomic alignment. Signed by Mainor Peres MD 04/18/2017 01:02 P
[2017-04-18 14:00] VITALS: BP 140/74
--- NOTE | 2017-04-18 19:13 | PMRHPE ---
DATE OF ADMISSION: 04/17/2017 REASON FOR ADMISSION: Rehabilitation of cauda equina syndrome, status post decompression laminectomy of the lumbar region with fusion and instrumentation. HISTORY OF PRESENT ILLNESS: The patient is a Right handed 32-year-old white female who has had chronic low back pain related to degenerative disk and degenerative joint disease of her low back and radicular symptoms has been increasing especially over the last three or four days prior to her April 11 admission. The patient was evaluated by Dr. Pratt and felt to have cauda equina syndrome related to compression and was a candidate for decompressive surgery. The patient elected that surgery; and on 04/12/17, had L2, 3, 4, 5 and S1 laminectomies, bilateral complete fasciotomies of L2-3, 3-4, 4-5 and L5-S1 and bilateral osteotomy of the pars at L3, 4 and 5 and spinal fusion of L2 through S1 with Medicrea polyaxial titanium pedicle screws and total disk excision of L3-4 and intervertebral disk replacement of L3-4 and onlay bone graft with an allograft bone. The patient since then is progressing in her medical stability postoperatively and started in physical and occupational therapy and has shown very good motivation and significant gains and is now felt to be able to participate in and benefit from acute intensive rehabilitation. The patient does have anemia of moderate in severity with a hemoglobin of 9.1, hematocrit of 27.0 and mild drop in potassium today of 3.4 with elevated blood sugar, but otherwise has tolerated surgery well. PAST MEDICAL HISTORY INCLUDES: 1. Anxiety. 2. Asthma. 3. Morbid obesity 4. Obstructive sleep apnea, not on CPAP. 5. Tobacco dependence currently on Nicoderm in this right-handed lady. 6. Type 2 diabetes mellitus. 7. Atherosclerotic cardiovascular disease with hyperlipidemia and hypertension. PAST SURGICAL HISTORY INCLUDES: [place] teeth extraction at age 14 and surgery on the described above. FAMILY HISTORY: Positive for diabetes, hypertension. SOCIAL HISTORY: The patient has a been a one pack a day smoker for several years. She does not drink alcohol and no illicit drugs. She is single with no children and no significant recent travel history. ALLERGIES: Sulfa. MEDICATIONS ON ADMISSION: - Tylenol 650 mg every 4 hours for pain - Urecholine instructed by me 10 mg twice a day for constipation, which she has had for five days - albuterol nebulizer 2.5 mg every 8 hours - DuoNeb nebulizer every 2 hours as needed for shortness of breath and wheezing. - carisoprodol 350 mg three times a day for back spasm - Desitin around surgical wound site. Change dressing as needed - Senokot S one tablet twice a day for bowel program - Colace 100 mg twice a day for bowel program - gabapentin 200 mg twice a day for neurogenic pain, previously on 100 mg three times a day - hydralazine 25 mg every 8 hours for hypertension - insulin sliding scale before meals (ac) and then on sliding scale for at bedtime (hs) - Milk of Magnesium 30 mL as needed for constipation - The patient being stepped down from the Nicoderm 14 mg per day patch to 7 mg per day for the next week. - oxycodone 5 mg for severe pain every 4 hours on an as needed basis - omeprazole 40 mg by mouth every day for gastrointestinal (GI) protection REVIEW OF SYSTEMS: Except for back stiffness, pain and the constipation is otherwise negative. LABORATORY TESTS: Noted above. PHYSICAL EXAMINATION: The patient is in general a short morbidly obese 32-year-old white female who looks her stated age in mild musculoskeletal distress, laying in bed. VITAL SIGNS: Temperature 97.8, blood pressure 146/69, pulse 88, respirations 16 and pulse oximetry 95% on room air. HEENT: Normocephalic/atraumatic. Pupils equal, round, and reactive to light and accommodation approximately 8 mm at rest, reacting to 7 mm with light and accommodation. Extraocular motions intact. NECK: Supple. Normal thyroid, which is midline without palpable goiter or abnormal texture. There are no carotid bruits appreciated. CORONARY: Regular rate and rhythm with normal S1 and S2 without S3, S4, murmurs or rubs and 2/4 bilateral radial pulses. Feet are warm with good color as are upper extremities. LUNGS: Sounds are distant due to chest wall thickness, but otherwise normal auscultation without wheezes, rales or rhonchi in all pickens. ABDOMEN: Morbidly obese with normal bowel sounds. The abdomen is nontender with stool palpable throughout and some areas of tympany. EXTREMITIES: Have functional range of motion. NEUROLOGICAL: The patient is alert and oriented times 4. Speech is clear, coherent and appropriate. Affect: Please and cooperative. Memory is intact. Bilateral upper extremities: Sensory and motor are intact including 5/5 strength. Right lower extremity showed decreased light touch in the L5, S1 and S2 dermatomes and slight decrease in vibratory sensation in the S1 and S2 dermatomes. Left lower extremity showed slight diffuse decreased light touch it appears, but is much better than on the right lower extremity and vibration appears to be grossly intact. Deep tendon reflexes show trace biceps, triceps, brachioradialis 0 out of 4, knee jerks, ankles jerks, no plantar stimulation present. IMAGING STUDY: Shows good placement of hardware. ASSESSMENT/PLAN: DIAGNOSIS: 1. Rehabilitation of mild traumatic spinal cord injury/cauda equina causing paraparesis: Will go ahead and proceed with acute intensive neuro rehabilitation with physical and occupational therapy to do sensory and motor mapping and neuromuscular facilitation of bilateral lower extremities and appropriate adaption for a sensory deficit though these appear to be fairly mild at this time. Will look towards the patient learning wheelchair mobility in activities of daily living. I do feel that she is quite capable of progressing well into ambulation, activities of daily living with front wheel walker to facilitate her return to home. She does need to be modified independent essentially in all things as she lives alone. She will need rehabilitation nursing and podiatry education on dealing with spinal cord injury. 2. Asthma and obstructive sleep apnea. Medicine consultation has been sent and notified. The patient will be on incentive spirometry and we will continue to observe this. Currently, she is showing good respiratory function. 3. Diabetes mellitus type 2. The patient is on a consistent carbohydrate diet and we will be checking blood sugars before meals (ac) and at bedtime (hs) and using sliding scale. She does have hypoglycemic occasions ordered. Any further adjustment by medicine will be made as needed. 4. Severe constipation secondary to spinal cord injury. The patient with no bowel movement since arriving during the last 5 to 8 days. I will go ahead and try and solubilize the distal hard plug is very common in this type of patient after that duration with high volume enemas. Also have the patient on other bowel program medications, but she needs to increase push which neurologic system is probably not generating and therefore I will add Colace as well. 4. Deep vein thrombosis (DVT) prophylaxis. Will proceed with sequential stockings and KOBY hose. 5. Pain management. At this point in time, the patient has been having a very good response to Tylenol 650 mg every 4 hours, I will continue that. I will have oxycodone 5 mg every 4 hours as needed for severe pain for backup. I am increasing her to gabapentin from 100 mg three times a day to 200 mg twice a day and I look towards to possibly increasing her to 200 mg three times a day on Thursday. Usually, 900 mg total per day is baseline for a good therapeutic neurogenic effect. Also, the patient is on carisoprodol for back spasms. I will look to taper some of this away if appropriate. POSTADMISSION PHYSICIAN EVALUATION: I feel the patient is consistent with the chart and preadmission screening and currently is not safe to ambulate and is limited bed mobility, activities of daily living including hygiene, such that home is not an option at this time. However, I do feel she is quite likely to progress well with acute intensive rehabilitation including physical and occupational therapy to learn how to become modified independent using a front wheel walker and be able to return home. I will have the patient then transitioned to home care and eventually outpatient therapy. I do feel she is capable of participating and I do feel she will benefit from three hours of therapy per day towards achieving return to home as her discharge location and I feel she has a good prognosis. I also feels she needs to learn a bit about spinal cord injury, though I anticipate with decompression she should make some gains over the next few weeks or months. Her estimated length of stay is approximately 10 to 14 days. Time spent on chart review, history and physical and documentation is greater than 70 minutes. [facility]
[2017-04-18 19:56] VITALS: BP 152/69
[2017-04-18] MEDS: MOM 30ML SUSPENSION UDC PO PRN (21:05)
[2017-04-19] MEDS: ACETAMINOPHEN TAB 650MG DOSE (2X325MG) PO SCH ×6 (04:54→23:02)
[2017-04-19] MEDS: **hydrALAZINE HCL** 25 MG TAB PO SCH ×3 (05:56→23:03)
[2017-04-19 06:00] VITALS: BP 153/85
[2017-04-19] MEDS: ALBUTEROL SULFATE 2.5 MG/0.5 ML INH NEB SOLN NEB SCH ×2 (07:14→15:15)
[2017-04-19] MEDS: HumaLOG INSULIN (NovoLOG) PER UNIT SC SCH ×4 (08:36→20:57)
[2017-04-19] MEDS: BETHANECHOL 10 MG TAB PO SCH ×2 (08:37→20:15)
[2017-04-19] MEDS: GABAPENTIN 100 MG CAP PO SCH ×2 (08:37→20:15)
[2017-04-19] MEDS: PANTOPRAZOLE 40MG TAB (PROTONIX) PO SCH (08:37)
[2017-04-19] MEDS: CARISOPRODOL 350 MG TAB PO SCH ×3 (08:37→20:14)
[2017-04-19] MEDS: SENOKOT S TAB PO SCH ×2 (08:37→20:10)
[2017-04-19] MEDS: DOCUSATE SODIUM 100 MG CAP PO SCH ×2 (08:37→20:14)
[2017-04-19] MEDS: NICOTINE 7 MG/24 HR TRANSDERMAL TD SCH (08:38)
[2017-04-19 14:30] VITALS: BP 152/73
[2017-04-19 20:00] VITALS: BP 138/68
[2017-04-19 23:04] VITALS: BP 141/79
[2017-04-20] MEDS: ACETAMINOPHEN TAB 650MG DOSE (2X325MG) PO SCH ×5 (04:00→21:19)
[2017-04-20] MEDS: **hydrALAZINE HCL** 25 MG TAB PO SCH ×3 (05:54→21:18)
[2017-04-20 06:00] VITALS: BP 136/73
[2017-04-20] MEDS: ALBUTEROL SULFATE 2.5 MG/0.5 ML INH NEB SOLN NEB SCH ×3 (07:05→14:55)
[2017-04-20] MEDS: PANTOPRAZOLE 40MG TAB (PROTONIX) PO SCH (08:08)
[2017-04-20] MEDS: DOCUSATE SODIUM 100 MG CAP PO SCH ×2 (08:08→21:18)
[2017-04-20] MEDS: CARISOPRODOL 350 MG TAB PO SCH ×3 (08:09→21:18)
[2017-04-20] MEDS: GABAPENTIN 100 MG CAP PO SCH ×2 (08:09→21:18)
[2017-04-20] MEDS: SENOKOT S TAB PO SCH ×2 (08:09→21:18)
[2017-04-20] MEDS: BETHANECHOL 10 MG TAB PO SCH ×2 (08:09→21:18)
[2017-04-20] MEDS: HumaLOG INSULIN (NovoLOG) PER UNIT SC SCH ×4 (08:10→21:00)
[2017-04-20] MEDS: NICOTINE 7 MG/24 HR TRANSDERMAL TD SCH (08:11)
--- NOTE | 2017-04-20 10:51 | CR.PDOC ---
[facility] Consultation Consultation ATTENDING: Dr. Silver Neurosurgeon. Dr Pratt PCP: Ara ANDERSON HPI: 32yoF S/P Posterior decompression and fusion L2-S1, with bone graft, with total disc excision with end plate for fusion L3-4. Intervertebral disc replacement L3-[address] Pratt 04/13/17, transferred to the care of ROMAN Burdick 04/18/17. Denies any fevers, chills, weakness, fatigue, JADE, CP, SOB, cough, palpitations , abdominal pain, N/V/D or changes in bowel or bladder habits. The hospitalist team was consulted for medical management. PAST MEDICAL HISTORY: Anxiety depression insomnia Asthma. NIDDM. A1c 7.1 04/11/17 H/O Dyslipidemia. Does not take medication. M Obesity. BMI 55.0 GERD PAST SURGICAL HISTORY: [place] teeth extracted age 14. 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 ROS: As noted in HPI, otherwise 11pt ROS of systems reviewed and remarkable only for LMP unknown, IUD. PE GEN: 32yoF, appears stated age. Well-nourished, well developed. No acute distress. Alert and oriented x 3. Pleasant, interactive. HEENT: Normocephalic, atraumatic. Pupils are equal, round, and reactive to light. Extraocular movements are intact. No nystagmus appreciated. Sclera are nonicteric. Conjunctiva without injection. Nose midline. Nasal turbinates without bogginess. EACs both patent BL. TMs both visualized and lyle with good cone of light, no bulging or erythema. No facial asymmetry. Moist mucous membranes. Dentition fair. Pharynx pink and moist, no cobblestoning. Neck supple , trachea midline. No lymphadenopathy or thyromegaly appreciated. CHEST: Regular rate and rhythm, +S1, +S2 LUNGS: Clear to auscultation bilaterally. No wheezes, rales, or rhonchi. Breathing appears symmetric and easy. Patient is speaking in full sentences. No accessory muscle use. ABD: Round, soft, non-tender, non-distended. +Bowel sounds throughout. No rebound or guarding. No costovertebral angle tenderness. EXT: Pulses 2+ bilaterally. No lower extremity edema appreciated. SKIN: [place], dry, warm. Capillary refill <2sec. No rashes. NEURO: Alert and oriented x 3. CXR: 04/11/17 Left internal jugular venous catheter tip just to the left of midline in the brachiocephalic vein position. No pneumothorax seen. Otherwise no acute disease. LS MRI 04/14/17 Limited examination demonstrating the patient to be status post L3-4 anterior and L2-S1 posterior spinal fusion and L1-5 laminectomy. There is anatomic alignment of the lumbar spine. A postoperative fluid collection is present at the laminectomy site. XR LS spine 04/18/17 The patient is status post L2-S1 posterior spinal fusion and L2-5 laminectomy. Metal rods and pedicle screws are present. There is no acute fracture or subluxation. The L2-3 through L5-S1 intervertebral discs are decreased in height consistent with disc degeneration. Osteophytes are present on L3-5. Surgical clips are present in the posterior paravertebral soft tissue. An IUD is present in the pelvis. UC 04/11/17 neg. A&P: 32yoF S/P Posterior decompression and fusion L2-S1, with bone graft, with total disc excision with end plate for fusion L3-4. Intervertebral disc replacement L3-[address] Pratt 04/13/17, transferred to the care of ROMAN Burdick 04/18/17. 1. The patient is admitted to [facility] to Dr. Silver's service. 2. S/P Posterior decompression and fusion L2-S1, with bone graft, with total disc excision with end plate for fusion L3-4. Intervertebral disc replacement L3-[address] Pratt 04/13/17. Neurosurgical Management as per Dr Pratt. PT/OT as per Dr Silver. Bowel care as per Dr Silver. Pain control as per Dr Silver. DVT prophylaxis as per Neurosurgery/ Dr Silver, JOANU. Wound care as per Dr Lujan's recommendations 04/17/17/As per Dr Silver. 3. NIDDM. CC diet. SSI. BS 104 this AM. 4. Asthma. Continue albuterol nebulizer Q8 and every 2 hours as needed. 5. Elevated BP, no prior h/o HTN. Hydralazine 25 mg TID as needed with hold parameters. BP this a.m. 136/73. 6. Dyslipidemia. Diet. 7. M Obesity. BMI 55.0. Complicates care. Also add TSH to AM labs. 8. GERD. Protonix. 9. Tobacco use. Nicoderm. 10. Hypokalemia. Noted on labs 04/18/17. Supplement given. Recheck labs in a.m. 11. Anemia. Hgb trend improving. Recheck CBC in Am. Vital Signs/I&O Vital Signs Date Time Temp Pulse Resp B/P (MAP) Pulse Ox O2 Delivery O2 Flow Rate FiO2 04/20/17 06:00 99.5 79 18 136/73 (94) 95 Room Air I&O- Last 24 Hours up to 6 AM 04/20/17 06:00 Intake Total 2480 ml Output Total 3500 ml Balance -1020 ml Laboratory Data Labs 24H Laboratory Tests 2 04/19/17 11:37: Bedside Glucose (Misc Panel) 91 04/19/17 17:41: Bedside Glucose (Misc Panel) 115H 04/19/17 20:21: Bedside Glucose (Misc Panel) 125H 04/20/17 05:55: Bedside Glucose (Misc Panel) 104 Allergies Coded Allergies: Sulfa Antibiotics (Verified Allergy, Intermediate, 04/10/17) Home Medications Scheduled (Senna Plus 8.6-50 mg) 1 Tab Tab, 2 TAB PO BID, #30 Albuterol Sulfate (Albuterol Sulfate) 2.5 Mg/0.5 Ml Neb, 2.5 MG NEB RQ8H, #10 Gabapentin (Gabapentin) 300 Mg Cap, 300 MG PO TID, (Reported) Hydralazine HCl (Hydralazine HCl) 25 Mg Tab, 25 MG PO TID, #30 Insulin Human Lispro (Humalog) 1 Units/0.01 Ml Inj, 0 UNITS SC AC, #1 Insulin Human Lispro (Humalog) 1 Units/0.01 Ml Inj, 0 UNITS SC QHS, #1 Prednisone (Prednisone) 20 Mg Tab, 20 MG PO DAILY, (Reported) Scheduled PRN Albuterol/Ipratropium (Ipratropium [place]ford/Albut 0.5-2.5 (3) mg/3Ml) 1 Nadine Nadine, 3 ML NEB Q2HP PRN for SOB/WHEEZING, #20 Ibuprofen (Ibuprofen) 400 Mg Tab, 400 MG PO Q6H PRN for PAIN, (Reported) Tizanidine Hydrochloride (Zanaflex) 4 Mg Tab, 1 TAB PO Q8H PRN for MUSCLE SPASMS , (Reported) Elenita Rojas Apr 20, 2017 10:51
--- NOTE | 2017-04-20 12:42 | IPNPDOC ---
Consular Officer Progress Note DATE OF SERVICE: 04/20/17 DATE OF ADMISSION: Apr 17, 2017 at 14:45 INPATIENT REHABILITATION ADMISSION DAY: #4 SUBJECTIVE: Patient is a 32-year-old right-handed white female with cauda equina with incomplete paraparesis status post lumbar laminectomy and L3-L4 disc replacement due to nontraumatic degenerative disc disease and degenerative joint disease. Patient with morbid obesity, asthma/obstructive sleep apnea, hypertension, hyperlipidemia and spinal cord related severe constipation. Patient with BM's 2 of last 3 days including large one. Pain doing well about 2/ 10 generally. No other complaints. ALLERGIES: See Below MEDICATIONS: Reviewed, see below. OBJECTIVE: VITAL SIGNS: Please see below. PHYSICAL EXAMINATION: GENERAL: Pleasant, morbidly obese, young, white female who is alert and oriented 4. Speech is clear, coherent and appropriate. Memory is intact. And patient is in mild to minimal musculoskeletal distress. HEENT: Cephalic/atraumatic. CARDIOVASCULAR: Regular rate and rhythm with normal S1-S2 without S3-S4 murmurs or rubs. 2 out 4 bilateral radial pulses LUNGS: All pickens clear to auscultation. ABDOMEN: Obese, and nontender with normal bowel sounds in all quadrants. NEUROLOGICAL: As above. Sensory motor intact bilateral upper extremities. Right lower extremity showed decreased light touch in the L5, S1 and S2 dermatomes and slight decrease in vibratory sensation in the S1 and S2 dermatomes. Left lower extremity showed slight diffuse decreased light touch. It appears, but is much better than on the right lower extremity and vibration appears to be grossly intact. SKIN: Incision site covered by foam dressing with minimal drainage into foam and no surrounding heat, erythema or significant tenderness. LABORATORY DATA: Reviewed. Please see below. MICROBIOLOGY: Please see below. IMAGING: PARTIAL LUMBAR SPINE, FIVE VIEWS: HISTORY: Spinal fusion. COMPARISON: 04/01/2017. The patient is status post L2-S1 posterior spinal fusion and L2-5 laminectomy. Metal rods and pedicle screws are present. There is no acute fracture or subluxation. The L2-3 through L5-S1 intervertebral discs are decreased in height consistent with disc degeneration. Osteophytes are present on L3-5. Surgical clips are present in the posterior paravertebral soft tissue. An IUD is present in the pelvis. IMPRESSION: The patient is status post L2-S1 posterior spinal fusion and L2-5 laminectomy. There is anatomic alignment. Signed by Yimi Peres MD 04/18/2017 01:02 P DVT prophylaxis ordered?: TEDs, and Sequential Compressions Stockings. ASSESSMENT AND PLAN: 1. Rehabilitation is cauda equina: Patient appears to be doing well with healing of her lumbar laminectomy. She is still having some weakness in the lower extremities and low back but overall is writing good efforts in physical and occupational therapy and progressing. Patient is receiving ongoing education and spinal cord injury as well as appropriate wheelchair and walker training. Rehabilitation team rounds: Since Thursday patient has been noticing a twinge of electrical-like pain in her back when she first gets up to move out of bed. Due to this she has not been progressing very well in walking or transfers. She does note that she feels she is being anxious about and needs to get over it. He also expresses wine to avoid anti-anxiety medicine such as benzodiazepines that she can ge dependent on. Similarly she like to avoid opiates. While she is gone try mentally work through it, I will go ahead and add tramadol extended release 200 mg every 6 a.m. to try provide much better analgesia. Failing this then consideration of using an opiate before morning and afternoon therapies. Currently patient progressing pattern that would be 18 days stay to May 05. If we are able overcome the pain anxiety I anticipate this will be cut now. 2. Constipation: The enemas and Urecholine seem to be working with watch if the patient can establish a Regular Bowel Pattern. Hopefully as patient improves gaiting this will become easier and I can look then to transposition her away from the Urecholine. 3. Moderate anemia: We'll try improve her nutrition and continue to monitor H&H. 4. Hypokalemia: Patient with potassium of 3.3 on 04/18/17. I will recheck BMP and consider potassium supplement as needed. 5. Hyperglycemia: Blood sugars doing well, so we will continue to watch. TIME SPENT: Chart Review, examination and documentation required greater than 35 minutes. Allergies Coded Allergies: Sulfa Antibiotics (Verified Allergy, Intermediate, 04/10/17) Vital Signs Vital Signs Date Time Temp Pulse Resp B/P (MAP) Pulse Ox O2 Delivery O2 Flow Rate FiO2 04/20/17 06:00 99.5 79 18 136/73 (94) 95 Room Air Laboratory Data Labs 24H Laboratory Tests 2 04/19/17 17:41: Bedside Glucose (Misc Panel) 115H 04/19/17 20:21: Bedside Glucose (Misc Panel) 125H 04/20/17 05:55: Bedside Glucose (Misc Panel) 104 04/20/17 12:17: Bedside Glucose (Misc Panel) 105 Current Medications Current Medications Current Medications Acetaminophen (Tylenol Tab) 650 mg Q6HP PRN PO PAIN OR FEVER; Start 04/17/17 at 11:30; Stop 04/17/17 at 15:09; Status DC Acetaminophen (Tylenol Tab) 650 mg QID PO Last administered on 04/20/17 12:39 ; Start 04/20/17 at 13:00; Stop 05/20/17 at 12:59 Acetaminophen (Tylenol Tab) 650 mg RQ4H PO Last administered on 04/20/17 08:10 ; Start 04/17/17 at 16:00; Stop 04/20/17 at 09:49; Status DC Acetylcysteine (Mucomyst 20% (200mg/ml)) 400 mg RBID INH ; Start 04/17/17 at 20: 00; Stop 05/17/17 at 19:59; Status UNV Albuterol Sulfate (Proventil Neb) 2.5 mg RQ8H NEB Last administered on 07:05; Start 04/17/17 at 16:00; Stop 05/17/17 at 15:59 Albuterol/ Ipratropium (Duoneb (Ipr 0.5mg/Alb 2.5mg)) 3 ml Q2HP PRN NEB SOB/ WHEEZING; Start 04/17/17 at 11:45; Stop 05/17/17 at 11:44 Bethanechol Chloride (Urecholine) 10 mg BID PO Last administered on 04/20/17 08:09; Start 04/17/17 at 21:00; Stop 05/17/17 at 20:59 Carisoprodol (Soma) 350 mg TID PO Last administered on 04/20/17 08:09; Start 04/17/17 at 16:00; Stop 04/24/17 at 15:59 Cod Liver Oil/ Zinc Oxide (Desitin) Apply around surgi... ASDIRECTED TOP ; Start 04/17/17 at 12:00; Stop 05/17/17 at 11:59 Dextrose (Dextrose 50%) 25 ml ASDIRECTED PRN IV SEE LABEL COMMENTS; Start 04/17 at 11:45; Stop 05/17/17 at 11:44 Docusate Sodium (Colace) 100 mg BID PO Last administered on 04/20/17 08:08; Start 04/17/17 at 21:00; Stop 05/17/17 at 20:59 Gabapentin (Neurontin) 200 mg BID PO Last administered on 04/20/17 08:09; Start 04/17/17 at 21:00; Stop 05/17/17 at 20:59 Glucagon (Glucagon) 1 mg ASDIRECTED PRN SC SEE LABEL COMMENTS; Start 04/17/17 at 11:45; Stop 05/17/17 at 11:44 Glucose (Glucose) 16 GM ASDIRECTED PRN PO SEE LABEL COMMENTS; Start 04/17/17 at 11:45; Stop 05/17/17 at 11:44 Hydralazine HCl (Apresoline) 25 mg Q8H PO Last administered on 04/19/17 23:03 ; Start 04/17/17 at 14:00; Stop 05/17/17 at 11:44 Insulin Human Lispro (HumaLOG INSULIN) See Protocol Table AC SC Last administered on 04/20/17 12:39; Start 04/17/17 at 17:30; Stop 05/17/17 at 17:29 Insulin Human Lispro (HumaLOG INSULIN) See Protocol Table QHS SC ; Start at 21:00; Stop 05/17/17 at 20:59 Magnesium Hydroxide (Milk Of Magnesia) 30 ml DAILYPRN PRN PO CONSTIPATION Last administered on 04/18/17 21:05; Start 04/17/17 at 11:45; Stop 05/17/17 at 11:44 Nicotine (Nicoderm Cq 7 Mg) 1 patch DAILY TD Last administered on 04/20/17 08: 11; Start 04/18/17 at 09:00; Stop 04/25/17 at 08:55 Oxycodone HCl (Roxicodone, Oxyir) 5 mg Q4HP PRN PO P(8-10); Start 04/17/17 at 11:45; Stop 04/24/17 at 11:44 Oxycodone HCl (Roxicodone, Oxyir) 10 mg Q4HP PRN PO SEVERE PAIN (PS 8-10); Start 04/17/17 at 11:45; Stop 04/24/17 at 11:44; Status UNV Pantoprazole Sodium (Protonix) 40 mg DAILY PO Last administered on 04/20/17 08 :08; Start 04/18/17 at 09:00; Stop 05/18/17 at 08:59 Senna/Docusate Sodium (Senokot S) 1 tab BID PO Last administered on 04/20/17 08:09; Start 04/17/17 at 21:00; Stop 05/17/17 at 20:59 YIMI PIZARRO MD Apr 20, 2017 12:42
[2017-04-20 14:26] VITALS: BP 129/85
[2017-04-20 20:00] VITALS: BP 144/72
[2017-04-21] MEDS: ALBUTEROL SULFATE 2.5 MG/0.5 ML INH NEB SOLN NEB SCH ×4 (00:19→23:36)
[2017-04-21 06:00] VITALS: BP 131/71
[2017-04-21] MEDS: **hydrALAZINE HCL** 25 MG TAB PO SCH ×3 (06:00→21:09)
[2017-04-21] MEDS: traMADol ER 100MG TABLET (ULTRAM ER) PO SCH (06:25)
[2017-04-21 06:52] LABS: MEAN CORPUSCULAR HEMOGLOBIN 29.6 pg (27.0-33.0); MEAN CORPUSCULAR HGB CONC 33.6 g/dl (32.0-36.5); MEAN CORPUSCULAR VOLUME 88.3 fl (80.0-96.0); RED CELL DISTRIBUTION WIDTH 14.5 % (11.5-14.5); WHITE BLOOD COUNT 7.6 K/mm3 (4.0-10.0)
[2017-04-21 07:29] LABS: ALBUMIN 2.4 GM/DL (3.2-5.2); ALBUMIN/GLOBULIN RATIO 0.73 (1.00-1.93); ALKALINE PHOSPHATASE 59 U/L (45-117); ALT/SGPT 30 U/L (12-78); ANION GAP 7 MEQ/L (8-16); AST/SGOT 12 U/L (15-37); BILIRUBIN,TOTAL 0.4 MG/DL (0.2-1.0); BLOOD UREA NITROGEN 11 MG/DL (7-18); CALCIUM LEVEL 7.9 MG/DL (8.5-10.1); CARBON DIOXIDE LEVEL 27 MEQ/L (21-32); CHLORIDE LEVEL 108 MEQ/L (98-107); CREATININE FOR GFR 0.62 MG/DL (0.55-1.02); GLOMERULAR FILTRATION RATE > 60.0 (>60); GLUCOSE, FASTING 101 MG/DL (70-105); POTASSIUM SERUM 3.6 MEQ/L (3.5-5.1); SODIUM LEVEL 142 MEQ/L (136-145); TOTAL PROTEIN 5.7 GM/DL (6.4-8.2)
[2017-04-21] MEDS: HumaLOG INSULIN (NovoLOG) PER UNIT SC SCH ×4 (07:34→21:00)
--- NOTE | 2017-04-21 10:17 | IPNPDOC ---
Mechanical Drafter Progress Note DATE OF SERVICE: 04/21/17 DATE OF ADMISSION: Apr 17, 2017 at 14:45 INPATIENT REHABILITATION ADMISSION DAY: #5 SUBJECTIVE: Patient is a 32-year-old right-handed white female with cauda equina with incomplete paraparesis status post lumbar laminectomy and L3-L4 disc replacement due to nontraumatic degenerative disc disease and degenerative joint disease. Patient with morbid obesity, asthma/obstructive sleep apnea, hypertension, hyperlipidemia and spinal cord related severe constipation. Patient with BM's 2 of last 3 days including large one. Pain doing well about 2/ 10 generally. Complaint of some dizziness when gotten up and right facial cheek paraesthesia. ALLERGIES: See Below MEDICATIONS: Reviewed, see below. OBJECTIVE: VITAL SIGNS: Please see below. PHYSICAL EXAMINATION: GENERAL: Pleasant, morbidly obese, young, white female who is alert and oriented 4. Speech is clear, coherent and appropriate. Memory is intact. And patient is in mild to minimal musculoskeletal distress. She remains somewhat anxious. HEENT: Cephalic/atraumatic. Some cerumen in right ear, but bilateral TM's look normal and no erythema in either ear and hearing grossly intact. CARDIOVASCULAR: Regular rate and rhythm with normal S1-S2 without S3-S4 murmurs or rubs. 2 out 4 bilateral radial pulses LUNGS: All pickens clear to auscultation. ABDOMEN: Obese, and nontender with normal bowel sounds in all quadrants. NEUROLOGICAL: As above. Sensory motor intact bilateral upper extremities. Right lower extremity showed decreased light touch in the L5, S1 and S2 dermatomes and slight decrease in vibratory sensation in the S1 and S2 dermatomes. Left lower extremity showed slight diffuse decreased light touch. It appears, but is much better than on the right lower extremity and vibration appears to be grossly intact. SKIN: Incision site covered by foam dressing with minimal drainage into foam and no surrounding heat, erythema or significant tenderness. LABORATORY DATA: Reviewed. Please see below. MICROBIOLOGY: Please see below. IMAGING: No new imaging today. DVT prophylaxis ordered?: TEDs, and Sequential Compressions Stockings. ASSESSMENT AND PLAN: 1. Rehabilitation is cauda equina: Patient appears to be doing well with healing of her lumbar laminectomy. She is still having some weakness in the lower extremities and low back but overall is writing good efforts in physical and occupational therapy and progressing. Patient is receiving ongoing education and spinal cord injury as well as appropriate wheelchair and walker training. No electrical shock pain so far today, but reported dizziness and funny feeling in right facial cheek. Patient seems to still be somewhat anxious , but is moving better today. 2. Constipation: The enemas and Urecholine seem to be working with watch if the patient can establish a Regular Bowel Pattern. Patient with BM's 3 of last 4 days. I will look at decreasing Urecholine. 3. Moderate anemia: We'll try improve her nutrition and continue to monitor H&H today 04/21/17 at9.3 & 27.6%. 4. Hypokalemia: Patient with potassium of 3.3 on 04/18/17 now normal at 3.6 with no supplementation . 5. Hyperglycemia: Blood sugars doing well, so we will continue to watch. TIME SPENT: Chart Review, examination and documentation required greater than 25 minutes. Allergies Coded Allergies: Sulfa Antibiotics (Verified Allergy, Intermediate, 04/10/17) Vital Signs Vital Signs Date Time Temp Pulse Resp B/P (MAP) Pulse Ox O2 Delivery O2 Flow Rate FiO2 04/21/17 07:25 Room Air 04/21/17 06:00 131/71 04/21/17 06:00 99.0 88 19 97 Laboratory Data CBC/BMP Laboratory Tests 04/21/17 06:39 Red Blood Count 3.13 L, Mean Corpuscular Volume 88.3, Mean Corpuscular Hemoglobin 29.6, Mean Corpuscular Hemoglobin Concent 33.6, Red Cell Distribution Width 14.5, Calcium Level 7.9 L, Aspartate Amino Transf (AST/SGOT) 12 L, Alanine Aminotransferase (ALT/SGPT) 30, Alkaline Phosphatase 59, Total Bilirubin 0.4, Total Protein 5.7 L, Albumin 2.4 L Labs 24H Laboratory Tests 2 04/20/17 12:17: Bedside Glucose (Misc Panel) 105 04/20/17 17:11: Bedside Glucose (Misc Panel) 93 04/20/17 20:14: Bedside Glucose (Misc Panel) 111H 04/21/17 06:39: Anion Gap 7L, Glomerular Filtration Rate > 60.0, Blood Urea Nitrogen 11, Creatinine 0.62, Sodium Level 142, Potassium Level 3.6, Chloride Level 108H, Carbon Dioxide Level 27, Calcium Level 7.9L, Aspartate Amino Transf (AST/SGOT) 12L, Alanine Aminotransferase (ALT/SGPT) 30, Alkaline Phosphatase 59, Total Bilirubin 0.4, Total Protein 5.7L, Albumin 2.4L, Albumin/Globulin Ratio 0.73L, Thyroid Stimulating Hormone (TSH) 2.900 Current Medications Current Medications Current Medications Acetaminophen (Tylenol Tab) 650 mg Q6HP PRN PO PAIN OR FEVER; Start 04/17/17 at 11:30; Stop 04/17/17 at 15:09; Status DC Acetaminophen (Tylenol Tab) 650 mg QID PO Last administered on 04/20/17 21:19 ; Start 04/20/17 at 13:00; Stop 05/20/17 at 12:59 Acetaminophen (Tylenol Tab) 650 mg RQ4H PO Last administered on 04/20/17 08:10 ; Start 04/17/17 at 16:00; Stop 04/20/17 at 09:49; Status DC Acetylcysteine (Mucomyst 20% (200mg/ml)) 400 mg RBID INH ; Start 04/17/17 at 20: 00; Stop 05/17/17 at 19:59; Status UNV Albuterol Sulfate (Proventil Neb) 2.5 mg RQ8H NEB Last administered on 08:22; Start 04/17/17 at 16:00; Stop 05/17/17 at 15:59 Albuterol/ Ipratropium (Duoneb (Ipr 0.5mg/Alb 2.5mg)) 3 ml Q2HP PRN NEB SOB/ WHEEZING; Start 04/17/17 at 11:45; Stop 05/17/17 at 11:44 Bethanechol Chloride (Urecholine) 10 mg BID PO Last administered on 04/20/17 21:18; Start 04/17/17 at 21:00; Stop 05/17/17 at 20:59 Carisoprodol (Soma) 350 mg TID PO Last administered on 04/20/17 21:18; Start 04/17/17 at 16:00; Stop 04/24/17 at 15:59 Cod Liver Oil/ Zinc Oxide (Desitin) Apply around surgi... ASDIRECTED TOP ; Start 04/17/17 at 12:00; Stop 05/17/17 at 11:59 Dextrose (Dextrose 50%) 25 ml ASDIRECTED PRN IV SEE LABEL COMMENTS; Start 04/17 at 11:45; Stop 05/17/17 at 11:44 Docusate Sodium (Colace) 100 mg BID PO Last administered on 04/20/17 21:18; Start 04/17/17 at 21:00; Stop 05/17/17 at 20:59 Gabapentin (Neurontin) 200 mg BID PO Last administered on 04/20/17 21:18; Start 04/17/17 at 21:00; Stop 05/17/17 at 20:59 Glucagon (Glucagon) 1 mg ASDIRECTED PRN SC SEE LABEL COMMENTS; Start 04/17/17 at 11:45; Stop 05/17/17 at 11:44 Glucose (Glucose) 16 GM ASDIRECTED PRN PO SEE LABEL COMMENTS; Start 04/17/17 at 11:45; Stop 05/17/17 at 11:44 Hydralazine HCl (Apresoline) 25 mg Q8H PO Last administered on 04/20/17 21:18 ; Start 04/17/17 at 14:00; Stop 05/17/17 at 11:44 Insulin Human Lispro (HumaLOG INSULIN) See Protocol Table AC SC Last administered on 04/21/17 07:34; Start 04/17/17 at 17:30; Stop 05/17/17 at 17:29 Insulin Human Lispro (HumaLOG INSULIN) See Protocol Table QHS SC ; Start at 21:00; Stop 05/17/17 at 20:59 Magnesium Hydroxide (Milk Of Magnesia) 30 ml DAILYPRN PRN PO CONSTIPATION Last administered on 04/18/17 21:05; Start 04/17/17 at 11:45; Stop 05/17/17 at 11:44 Nicotine (Nicoderm Cq 7 Mg) 1 patch DAILY TD Last administered on 04/20/17 08: 11; Start 04/18/17 at 09:00; Stop 04/25/17 at 08:55 Oxycodone HCl (Roxicodone, Oxyir) 5 mg Q4HP PRN PO P(8-10); Start 04/17/17 at 11:45; Stop 04/24/17 at 11:44 Oxycodone HCl (Roxicodone, Oxyir) 10 mg Q4HP PRN PO SEVERE PAIN (PS 8-10); Start 04/17/17 at 11:45; Stop 04/24/17 at 11:44; Status UNV Pantoprazole Sodium (Protonix) 40 mg DAILY PO Last administered on 04/20/17 08 :08; Start 04/18/17 at 09:00; Stop 05/18/17 at 08:59 Senna/Docusate Sodium (Senokot S) 1 tab BID PO Last administered on 04/20/17 21:18; Start 04/17/17 at 21:00; Stop 05/17/17 at 20:59 Tramadol HCl (Ultram Er) 200 mg DAILY@0600 PO Last administered on 04/21/17 06 :25; Start 04/21/17 at 06:00; Stop 04/28/17 at 05:59 YIMI PIZARRO MD Apr 21, 2017 10:17
[2017-04-21] MEDS: PANTOPRAZOLE 40MG TAB (PROTONIX) PO SCH (10:34)
[2017-04-21] MEDS: DOCUSATE SODIUM 100 MG CAP PO SCH ×2 (10:34→21:06)
[2017-04-21] MEDS: SENOKOT S TAB PO SCH ×2 (10:34→21:06)
[2017-04-21] MEDS: GABAPENTIN 100 MG CAP PO SCH ×2 (10:34→21:07)
[2017-04-21] MEDS: BETHANECHOL 10 MG TAB PO SCH ×2 (10:34→21:06)
[2017-04-21] MEDS: CARISOPRODOL 350 MG TAB PO SCH ×3 (10:35→21:06)
[2017-04-21] MEDS: NICOTINE 7 MG/24 HR TRANSDERMAL TD SCH (10:35)
[2017-04-21] MEDS: ACETAMINOPHEN TAB 650MG DOSE (2X325MG) PO SCH ×4 (10:36→21:08)
[2017-04-21 11:51] LABS: PERCENT SATURATION 17.5 % (13.2-45.0)
[2017-04-21 13:19] LABS: FOLATE 6.3 NG/ML (>5.4)
[2017-04-21 14:00] VITALS: BP 158/88
[2017-04-21 14:47] VITALS: BP 142/68
[2017-04-21 20:00] VITALS: BP 145/67
[2017-04-22 06:00] VITALS: BP 138/75
[2017-04-22] MEDS: **hydrALAZINE HCL** 25 MG TAB PO SCH ×3 (06:00→21:07)
[2017-04-22] MEDS: traMADol ER 100MG TABLET (ULTRAM ER) PO SCH (06:12)
[2017-04-22] MEDS: ALBUTEROL SULFATE 2.5 MG/0.5 ML INH NEB SOLN NEB SCH ×2 (07:23→15:30)
[2017-04-22 07:33] LABS: MEAN CORPUSCULAR HEMOGLOBIN 29.8 pg (27.0-33.0); MEAN CORPUSCULAR HGB CONC 33.9 g/dl (32.0-36.5); MEAN CORPUSCULAR VOLUME 87.8 fl (80.0-96.0); RED CELL DISTRIBUTION WIDTH 14.7 % (11.5-14.5); WHITE BLOOD COUNT 6.9 K/mm3 (4.0-10.0)
[2017-04-22 07:48] LABS: ALBUMIN 2.3 GM/DL (3.2-5.2); ALBUMIN/GLOBULIN RATIO 0.64 (1.00-1.93); ALKALINE PHOSPHATASE 58 U/L (45-117); ALT/SGPT 28 U/L (12-78); ANION GAP 8 MEQ/L (8-16); AST/SGOT 24 U/L (15-37); BILIRUBIN,TOTAL 0.3 MG/DL (0.2-1.0); BLOOD UREA NITROGEN 10 MG/DL (7-18); CALCIUM LEVEL 8.3 MG/DL (8.5-10.1); CARBON DIOXIDE LEVEL 27 MEQ/L (21-32); CHLORIDE LEVEL 109 MEQ/L (98-107); CREATININE FOR GFR 0.67 MG/DL (0.55-1.02); GLOMERULAR FILTRATION RATE > 60.0 (>60); GLUCOSE, FASTING 95 MG/DL (70-105); POTASSIUM SERUM 3.7 MEQ/L (3.5-5.1); SODIUM LEVEL 144 MEQ/L (136-145); TOTAL PROTEIN 5.9 GM/DL (6.4-8.2)
[2017-04-22] MEDS: HumaLOG INSULIN (NovoLOG) PER UNIT SC SCH ×4 (08:16→21:00)
[2017-04-22] MEDS: DOCUSATE SODIUM 100 MG CAP PO SCH ×2 (08:17→21:07)
[2017-04-22] MEDS: PANTOPRAZOLE 40MG TAB (PROTONIX) PO SCH (08:17)
[2017-04-22] MEDS: GABAPENTIN 100 MG CAP PO SCH ×2 (08:17→21:06)
[2017-04-22] MEDS: SENOKOT S TAB PO SCH ×2 (08:17→21:07)
[2017-04-22] MEDS: BETHANECHOL 10 MG TAB PO SCH (08:17)
[2017-04-22] MEDS: NICOTINE 7 MG/24 HR TRANSDERMAL TD SCH (08:17)
[2017-04-22] MEDS: ACETAMINOPHEN TAB 650MG DOSE (2X325MG) PO SCH ×4 (08:18→21:06)
[2017-04-22] MEDS: CARISOPRODOL 350 MG TAB PO SCH ×3 (08:21→21:07)
[2017-04-22 14:00] VITALS: BP 145/77
--- NOTE | 2017-04-22 15:49 | IPNPDOC ---
Cool Roofing Installer Progress Note DATE OF SERVICE: 04/22/17 DATE OF ADMISSION: Apr 17, 2017 at 14:45 INPATIENT REHABILITATION ADMISSION DAY: #6 SUBJECTIVE: Patient is a 32-year-old right-handed white female with cauda equina with incomplete paraparesis status post lumbar laminectomy and L3-L4 disc replacement due to nontraumatic degenerative disc disease and degenerative joint disease. Patient with morbid obesity, asthma/obstructive sleep apnea, hypertension, hyperlipidemia and spinal cord related severe constipation. Patient with BM's 2 of last 3 days including large one. Pain doing well about 2/ 10 generally. Complaint of some back tightness at times: dizziness and paraesthesias not present today. ALLERGIES: See Below MEDICATIONS: Reviewed, see below. OBJECTIVE: VITAL SIGNS: Please see below. PHYSICAL EXAMINATION: GENERAL: Pleasant, morbidly obese, young, white female who is alert and oriented 4. Speech is clear, coherent and appropriate. Memory is intact. And patient is in mild to minimal musculoskeletal distress. She remains somewhat anxious. HEENT: Normocephalic/atraumatic. CARDIOVASCULAR: Regular rate and rhythm with normal S1-S2 without S3-S4 murmurs or rubs. 2 out 4 bilateral radial pulses LUNGS: All pickens clear to auscultation. ABDOMEN: Obese, and nontender with normal bowel sounds in all quadrants. NEUROLOGICAL: As above. Sensory motor intact bilateral upper extremities. Right lower extremity showed decreased light touch in the L5, S1 and S2 dermatomes and slight decrease in vibratory sensation in the S1 and S2 dermatomes. Left lower extremity showed slight diffuse decreased light touch. It appears, but is much better than on the right lower extremity and vibration appears to be grossly intact. SKIN: Incision site covered by foam dressing with minimal drainage into foam and no surrounding heat, erythema or significant tenderness. LABORATORY DATA: Reviewed. Please see below. MICROBIOLOGY: Please see below. IMAGING: No new imaging today. DVT prophylaxis ordered?: TEDs, and Sequential Compressions Stockings. ASSESSMENT AND PLAN: 1. Rehabilitation is cauda equina: Patient appears to be doing well with healing of her lumbar laminectomy. She is still having some weakness in the lower extremities and low back but overall is writing good efforts in physical and occupational therapy and progressing. Patient is receiving ongoing education and spinal cord injury as well as appropriate wheelchair and walker training. No electrical shock pain so far today, but reported dizziness and funny feeling in right facial cheek. Patient seems to still be somewhat anxious , but is moving better today off and on. We need to keep feeding back her ability to her as she will get anxious and become stuck trying to initiate something she has done before. 2. Constipation: The enemas and Urecholine seem to be working with watch if the patient can establish a Regular Bowel Pattern. Patient with BM's 3 of last 4 days. I will decrease Urecholine to daily. 3. Moderate anemia: We'll try improve her nutrition and continue to monitor H&H today 04/22/17 at 9.2 & 27.1%. We will continue to monitor. 4. Hypokalemia: Patient with potassium now normal at 3.7 today on 04/22/17. 5. Hyperglycemia: Blood sugars doing well, so we will continue to watch. TIME SPENT: Chart Review, examination and documentation required greater than 25 minutes. Allergies Coded Allergies: Sulfa Antibiotics (Verified Allergy, Intermediate, 04/10/17) Vital Signs Vital Signs Date Time Temp Pulse Resp B/P (MAP) Pulse Ox O2 Delivery O2 Flow Rate FiO2 04/22/17 14:26 145/77 04/22/17 14:00 98.4 98 18 95 Room Air Laboratory Data CBC/BMP Laboratory Tests 04/22/17 07:09 Red Blood Count 3.09 L, Mean Corpuscular Volume 87.8, Mean Corpuscular Hemoglobin 29.8, Mean Corpuscular Hemoglobin Concent 33.9, Red Cell Distribution Width 14.7 H, Calcium Level 8.3 L, Aspartate Amino Transf (AST/SGOT ) 24, Alanine Aminotransferase (ALT/SGPT) 28, Alkaline Phosphatase 58, Total Bilirubin 0.3, Total Protein 5.9 L, Albumin 2.3 L Labs 24H Laboratory Tests 2 04/21/17 16:49: Bedside Glucose (Misc Panel) 101 04/21/17 20:44: Bedside Glucose (Misc Panel) 96 04/22/17 06:54: Bedside Glucose (Misc Panel) 101 04/22/17 07:09: Anion Gap 8, Glomerular Filtration Rate > 60.0, Blood Urea Nitrogen 10, Creatinine 0.67, Sodium Level 144, Potassium Level 3.7, Chloride Level 109H, Carbon Dioxide Level 27, Calcium Level 8.3L, Aspartate Amino Transf (AST/SGOT) 24, Alanine Aminotransferase (ALT/SGPT) 28, Alkaline Phosphatase 58, Total Bilirubin 0.3, Total Protein 5.9L, Albumin 2.3L, Albumin/Globulin Ratio 0.64L 04/22/17 11:41: Bedside Glucose (Misc Panel) 95 Current Medications Current Medications Current Medications Acetaminophen (Tylenol Tab) 650 mg Q6HP PRN PO PAIN OR FEVER; Start 04/17/17 at 11:30; Stop 04/17/17 at 15:09; Status DC Acetaminophen (Tylenol Tab) 650 mg QID PO Last administered on 04/22/17 14:30 ; Start 04/20/17 at 13:00; Stop 05/20/17 at 12:59 Acetaminophen (Tylenol Tab) 650 mg RQ4H PO Last administered on 04/20/17 08:10 ; Start 04/17/17 at 16:00; Stop 04/20/17 at 09:49; Status DC Acetylcysteine (Mucomyst 20% (200mg/ml)) 400 mg RBID INH ; Start 04/17/17 at 20: 00; Stop 05/17/17 at 19:59; Status UNV Albuterol Sulfate (Proventil Neb) 2.5 mg RQ8H NEB Last administered on 15:30; Start 04/17/17 at 16:00; Stop 05/17/17 at 15:59 Albuterol/ Ipratropium (Duoneb (Ipr 0.5mg/Alb 2.5mg)) 3 ml Q2HP PRN NEB SOB/ WHEEZING; Start 04/17/17 at 11:45; Stop 05/17/17 at 11:44 Bethanechol Chloride (Urecholine) 10 mg BID PO Last administered on 04/22/17 08:17; Start 04/17/17 at 21:00; Stop 05/17/17 at 20:59 Carisoprodol (Soma) 350 mg TID PO Last administered on 04/22/17 08:21; Start 04/17/17 at 16:00; Stop 04/27/17 at 23:55 Cod Liver Oil/ Zinc Oxide (Desitin) Apply around surgi... ASDIRECTED TOP ; Start 04/17/17 at 12:00; Stop 05/17/17 at 11:59 Dextrose (Dextrose 50%) 25 ml ASDIRECTED PRN IV SEE LABEL COMMENTS; Start 04/17 at 11:45; Stop 05/17/17 at 11:44 Docusate Sodium (Colace) 100 mg BID PO Last administered on 04/22/17 08:17; Start 04/17/17 at 21:00; Stop 05/17/17 at 20:59 Gabapentin (Neurontin) 200 mg BID PO Last administered on 04/22/17 08:17; Start 04/17/17 at 21:00; Stop 05/17/17 at 20:59 Glucagon (Glucagon) 1 mg ASDIRECTED PRN SC SEE LABEL COMMENTS; Start 04/17/17 at 11:45; Stop 05/17/17 at 11:44 Glucose (Glucose) 16 GM ASDIRECTED PRN PO SEE LABEL COMMENTS; Start 04/17/17 at 11:45; Stop 05/17/17 at 11:44 Hydralazine HCl (Apresoline) 25 mg Q8H PO Last administered on 04/21/17 13:41 ; Start 04/17/17 at 14:00; Stop 05/17/17 at 11:44 Insulin Human Lispro (HumaLOG INSULIN) See Protocol Table AC SC Last administered on 04/21/17 17:51; Start 04/17/17 at 17:30; Stop 05/17/17 at 17:29 Insulin Human Lispro (HumaLOG INSULIN) See Protocol Table QHS SC ; Start at 21:00; Stop 05/17/17 at 20:59 Magnesium Hydroxide (Milk Of Magnesia) 30 ml DAILYPRN PRN PO CONSTIPATION Last administered on 04/18/17 21:05; Start 04/17/17 at 11:45; Stop 05/17/17 at 11:44 Nicotine (Nicoderm Cq 7 Mg) 1 patch DAILY TD Last administered on 04/22/17 08: 17; Start 04/18/17 at 09:00; Stop 04/25/17 at 08:55 Oxycodone HCl (Roxicodone, Oxyir) 5 mg Q4HP PRN PO P(8-10); Start 04/17/17 at 11:45; Stop 04/27/17 at 23:55 Oxycodone HCl (Roxicodone, Oxyir) 10 mg Q4HP PRN PO SEVERE PAIN (PS 8-10); Start 04/17/17 at 11:45; Stop 04/24/17 at 11:44; Status UNV Pantoprazole Sodium (Protonix) 40 mg DAILY PO Last administered on 04/22/17 08 :17; Start 04/18/17 at 09:00; Stop 05/18/17 at 08:59 Senna/Docusate Sodium (Senokot S) 1 tab BID PO Last administered on 04/22/17 08:17; Start 04/17/17 at 21:00; Stop 05/17/17 at 20:59 Tramadol HCl (Ultram Er) 200 mg DAILY@0600 PO Last administered on 04/22/17 06 :12; Start 04/21/17 at 06:00; Stop 04/28/17 at 05:59 YIMI PIZARRO MD Apr 22, 2017 15:49
[2017-04-22 20:38] VITALS: BP 132/72
[2017-04-22] MEDS: MOM 30ML SUSPENSION UDC PO PRN (21:07)
[2017-04-23] MEDS: **hydrALAZINE HCL** 25 MG TAB PO SCH ×3 (05:59→22:12)
[2017-04-23 06:00] VITALS: BP 142/86
[2017-04-23] MEDS ORDERED: traMADol ER 100MG TABLET (ULTRAM ER) As Ordered ONE (06:14)
[2017-04-23] MEDS: traMADol ER 100MG TABLET (ULTRAM ER) PO SCH (06:15)
[2017-04-23 06:52] LABS: MEAN CORPUSCULAR HGB CONC 31.7 g/dl (32.0-36.5); MEAN CORPUSCULAR VOLUME 88.5 fl (80.0-96.0); RED CELL DISTRIBUTION WIDTH 14.4 % (11.5-14.5); WHITE BLOOD COUNT 7.4 K/mm3 (4.0-10.0)
[2017-04-23 07:09] LABS: ALBUMIN 2.4 GM/DL (3.2-5.2); ALKALINE PHOSPHATASE 68 U/L (45-117); ALT/SGPT 29 U/L (12-78); ANION GAP 8 MEQ/L (8-16); AST/SGOT 23 U/L (15-37); BILIRUBIN,TOTAL 0.3 MG/DL (0.2-1.0); BLOOD UREA NITROGEN 7 MG/DL (7-18); CALCIUM LEVEL 8.1 MG/DL (8.5-10.1); CARBON DIOXIDE LEVEL 28 MEQ/L (21-32); CHLORIDE LEVEL 107 MEQ/L (98-107); CREATININE FOR GFR 0.56 MG/DL (0.55-1.02); GLOMERULAR FILTRATION RATE > 60.0 (>60); GLUCOSE, FASTING 99 MG/DL (70-105); POTASSIUM SERUM 4.1 MEQ/L (3.5-5.1); SODIUM LEVEL 143 MEQ/L (136-145); TOTAL PROTEIN 5.4 GM/DL (6.4-8.2)
[2017-04-23] MEDS: ALBUTEROL SULFATE 2.5 MG/0.5 ML INH NEB SOLN NEB SCH ×4 (07:19→22:58)
[2017-04-23] MEDS: HumaLOG INSULIN (NovoLOG) PER UNIT SC SCH ×4 (08:03→22:00)
[2017-04-23] MEDS: ACETAMINOPHEN TAB 650MG DOSE (2X325MG) PO SCH ×4 (09:33→22:12)
[2017-04-23] MEDS: SENOKOT S TAB PO SCH ×2 (09:33→22:13)
[2017-04-23] MEDS: BETHANECHOL 10 MG TAB PO SCH (09:33)
[2017-04-23] MEDS: GABAPENTIN 100 MG CAP PO SCH ×2 (09:33→22:12)
[2017-04-23] MEDS: PANTOPRAZOLE 40MG TAB (PROTONIX) PO SCH (09:33)
[2017-04-23] MEDS: DOCUSATE SODIUM 100 MG CAP PO SCH ×2 (09:34→22:13)
[2017-04-23] MEDS: NICOTINE 7 MG/24 HR TRANSDERMAL TD SCH (09:34)
[2017-04-23] MEDS: CARISOPRODOL 350 MG TAB PO SCH ×3 (09:34→22:13)
[2017-04-23 14:00] VITALS: BP 137/77
--- NOTE | 2017-04-23 14:15 | IPNPDOC ---
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 Patient with morbid obesity, asthma/obstructive sleep apnea, hypertension, hyperlipidemia and spinal cord related severe constipation. Patient with BM's 2 of last 3 days including large one. Pain doing well about 2/ 10 generally. Complaint of some back tightness at times: dizziness and paraesthesias not present today. ALLERGIES: See Below MEDICATIONS: Reviewed, see below. OBJECTIVE: VITAL SIGNS: Please see below. PHYSICAL EXAMINATION: GENERAL: Pleasant, morbidly obese, young, white female who is alert and oriented 4. Speech is clear, coherent and appropriate. Memory is intact. And patient is in mild to minimal musculoskeletal distress. She remains somewhat anxious. HEENT: Normocephalic/atraumatic. CARDIOVASCULAR: Regular rate and rhythm with normal S1-S2 without S3-S4 murmurs or rubs. 2 out 4 bilateral radial pulses LUNGS: All pickens clear to auscultation. ABDOMEN: Obese, and nontender with normal bowel sounds in all quadrants. NEUROLOGICAL: As above. Sensory motor intact bilateral upper extremities. Right lower extremity showed decreased light touch in the L5, S1 and S2 dermatomes and slight decrease in vibratory sensation in the S1 and S2 dermatomes. Left lower extremity showed slight diffuse decreased light touch. It appears, but is much better than on the right lower extremity and vibration appears to be grossly intact. SKIN: Incision site covered by foam dressing with minimal drainage into foam and no surrounding heat, erythema or significant tenderness. LABORATORY DATA: Reviewed. Please see below. MICROBIOLOGY: Please see below. IMAGING: No new imaging today. DVT prophylaxis ordered?: TEDs, and Sequential Compressions Stockings. ASSESSMENT AND PLAN: 1. Rehabilitation is cauda equina: Patient appears to be doing well with healing of her lumbar laminectomy. She is still having some weakness in the lower extremities and low back but overall is writing good efforts in physical and occupational therapy and progressing. Patient is receiving ongoing education and spinal cord injury as well as appropriate wheelchair and walker training. No electrical shock pain today. Patient seems to still be somewhat less anxious, but is moving better today. We need to keep feeding back her ability to her as she will get anxious and become stuck trying to initiate something she has done before. I feel she is able to get to the bathrooms consistently, so I will d/c the nunez catheter. 2. Constipation: The enemas and Urecholine seem to be working with watch if the patient can establish a Regular Bowel Pattern. Patient with BM's 4 of last 6 days. I have decrease Urecholine to daily. 3. Moderate anemia: We'll try improve her nutrition and continue to monitor H&H today 04/22/17 at 9.2 & 27.1% now 9.0 & 28.5% today 04/23/17 remains stable. We will continue to monitor. 4. Hypokalemia: Patient with potassium now normal at 3.7 on 04/22/17 and 4.1 today 04/23/17. We will continue to monitor. 5. Hyperglycemia: Blood sugars doing well, so we will continue to watch. TIME SPENT: Chart Review, examination and documentation required greater than 25 minutes. Allergies Coded Allergies: Sulfa Antibiotics (Verified Allergy, Intermediate, 04/10/17) Vital Signs Vital Signs Date Time Temp Pulse Resp B/P (MAP) Pulse Ox O2 Delivery O2 Flow Rate FiO2 04/23/17 09:00 Room Air 04/23/17 06:00 97.0 94 19 142/86 (104) 96 Laboratory Data CBC/BMP Laboratory Tests 04/23/17 06:24 Red Blood Count 3.22 L, Mean Corpuscular Volume 88.5, Mean Corpuscular Hemoglobin 28.0, Mean Corpuscular Hemoglobin Concent 31.7 L, Red Cell Distribution Width 14.4, Calcium Level 8.1 L, Aspartate Amino Transf (AST/SGOT) 23, Alanine Aminotransferase (ALT/SGPT) 29, Alkaline Phosphatase 68, Total Bilirubin 0.3, Total Protein 5.4 L, Albumin 2.4 L Labs 24H Laboratory Tests 2 04/22/17 16:30: Bedside Glucose (Misc Panel) 116H 04/22/17 20:19: Bedside Glucose (Misc Panel) 104 04/23/17 06:24: Anion Gap 8, Glomerular Filtration Rate > 60.0, Blood Urea Nitrogen 7, Creatinine 0.56, Sodium Level 143, Potassium Level 4.1, Chloride Level 107, Carbon Dioxide Level 28, Calcium Level 8.1L, Aspartate Amino Transf (AST/SGOT) 23, Alanine Aminotransferase (ALT/SGPT) 29, Alkaline Phosphatase 68, Total Bilirubin 0.3, Total Protein 5.4L, Albumin 2.4L, Albumin/Globulin Ratio 0.80L Current Medications Current Medications Current Medications Acetaminophen (Tylenol Tab) 650 mg Q6HP PRN PO PAIN OR FEVER; Start 04/17/17 at 11:30; Stop 04/17/17 at 15:09; Status DC Acetaminophen (Tylenol Tab) 650 mg QID PO Last administered on 04/23/17 12:41 ; Start 04/20/17 at 13:00; Stop 05/20/17 at 12:59 Acetaminophen (Tylenol Tab) 650 mg RQ4H PO Last administered on 04/20/17 08:10 ; Start 04/17/17 at 16:00; Stop 04/20/17 at 09:49; Status DC Acetylcysteine (Mucomyst 20% (200mg/ml)) 400 mg RBID INH ; Start 04/17/17 at 20: 00; Stop 05/17/17 at 19:59; Status UNV Albuterol Sulfate (Proventil Neb) 2.5 mg RQ8H NEB Last administered on 07:19; Start 04/17/17 at 16:00; Stop 05/17/17 at 15:59 Albuterol/ Ipratropium (Duoneb (Ipr 0.5mg/Alb 2.5mg)) 3 ml Q2HP PRN NEB SOB/ WHEEZING; Start 04/17/17 at 11:45; Stop 05/17/17 at 11:44 Bethanechol Chloride (Urecholine) 10 mg BID PO Last administered on 04/22/17 08:17; Start 04/17/17 at 21:00; Stop 04/22/17 at 15:51; Status DC Bethanechol Chloride (Urecholine) 10 mg DAILY PO Last administered on 09:33; Start 04/23/17 at 09:00; Stop 05/17/17 at 20:59 Carisoprodol (Soma) 350 mg TID PO Last administered on 04/23/17 09:34; Start 04/17/17 at 16:00; Stop 04/27/17 at 23:55 Cod Liver Oil/ Zinc Oxide (Desitin) Apply around surgi... ASDIRECTED TOP ; Start 04/17/17 at 12:00; Stop 05/17/17 at 11:59 Dextrose (Dextrose 50%) 25 ml ASDIRECTED PRN IV SEE LABEL COMMENTS; Start 04/17 at 11:45; Stop 05/17/17 at 11:44 Docusate Sodium (Colace) 100 mg BID PO Last administered on 04/23/17 09:34; Start 04/17/17 at 21:00; Stop 05/17/17 at 20:59 Gabapentin (Neurontin) 200 mg BID PO Last administered on 04/23/17 09:33; Start 04/17/17 at 21:00; Stop 05/17/17 at 20:59 Glucagon (Glucagon) 1 mg ASDIRECTED PRN SC SEE LABEL COMMENTS; Start 04/17/17 at 11:45; Stop 05/17/17 at 11:44 Glucose (Glucose) 16 GM ASDIRECTED PRN PO SEE LABEL COMMENTS; Start 04/17/17 at 11:45; Stop 05/17/17 at 11:44 Hydralazine HCl (Apresoline) 25 mg Q8H PO Last administered on 04/21/17 13:41 ; Start 04/17/17 at 14:00; Stop 05/17/17 at 11:44 Insulin Human Lispro (HumaLOG INSULIN) See Protocol Table AC SC Last administered on 04/22/17 17:30; Start 04/17/17 at 17:30; Stop 05/17/17 at 17:29 Insulin Human Lispro (HumaLOG INSULIN) See Protocol Table QHS SC ; Start at 21:00; Stop 05/17/17 at 20:59 Magnesium Hydroxide (Milk Of Magnesia) 30 ml DAILYPRN PRN PO CONSTIPATION Last administered on 04/22/17 21:07; Start 04/17/17 at 11:45; Stop 05/17/17 at 11:44 Nicotine (Nicoderm Cq 7 Mg) 1 patch DAILY TD Last administered on 04/23/17 09: 34; Start 04/18/17 at 09:00; Stop 04/25/17 at 08:55 Oxycodone HCl (Roxicodone, Oxyir) 5 mg Q4HP PRN PO P(8-10); Start 04/17/17 at 11:45; Stop 04/27/17 at 23:55 Oxycodone HCl (Roxicodone, Oxyir) 10 mg Q4HP PRN PO SEVERE PAIN (PS 8-10); Start 04/17/17 at 11:45; Stop 04/24/17 at 11:44; Status UNV Pantoprazole Sodium (Protonix) 40 mg DAILY PO Last administered on 04/23/17 09 :33; Start 04/18/17 at 09:00; Stop 05/18/17 at 08:59 Senna/Docusate Sodium (Senokot S) 1 tab BID PO Last administered on 04/23/17 09:33; Start 04/17/17 at 21:00; Stop 05/17/17 at 20:59 Tramadol HCl (Ultram Er) 200 mg DAILY@0600 PO Last administered on 04/23/17 06 :15; Start 04/21/17 at 06:00; Stop 04/28/17 at 05:59 YIMI PIZARRO MD Apr 23, 2017 14:15
[2017-04-23 20:00] VITALS: BP_SYST 141; BP_SYST 160; BP_DIAS 64; BP_DIAS 71
[2017-04-24] MEDS: **hydrALAZINE HCL** 25 MG TAB PO SCH ×3 (05:49→22:32)
[2017-04-24 06:00] VITALS: BP 136/63
[2017-04-24] MEDS: traMADol ER 100MG TABLET (ULTRAM ER) PO SCH (06:10)
[2017-04-24 07:19] LABS: MEAN CORPUSCULAR HGB CONC 32.7 g/dl (32.0-36.5); MEAN CORPUSCULAR VOLUME 88.8 fl (80.0-96.0); RED CELL DISTRIBUTION WIDTH 14.4 % (11.5-14.5); WHITE BLOOD COUNT 9.6 K/mm3 (4.0-10.0)
[2017-04-24] MEDS: ALBUTEROL SULFATE 2.5 MG/0.5 ML INH NEB SOLN NEB SCH ×2 (07:21→15:03)
[2017-04-24 07:34] LABS: ALBUMIN 2.7 GM/DL (3.2-5.2); ALBUMIN/GLOBULIN RATIO 0.66 (1.00-1.93); ALKALINE PHOSPHATASE 77 U/L (45-117); ALT/SGPT 28 U/L (12-78); ANION GAP 8 MEQ/L (8-16); AST/SGOT 16 U/L (15-37); BILIRUBIN,TOTAL 0.5 MG/DL (0.2-1.0); BLOOD UREA NITROGEN 10 MG/DL (7-18); CALCIUM LEVEL 8.6 MG/DL (8.5-10.1); CARBON DIOXIDE LEVEL 27 MEQ/L (21-32); CHLORIDE LEVEL 106 MEQ/L (98-107); CREATININE FOR GFR 0.73 MG/DL (0.55-1.02); GLOMERULAR FILTRATION RATE > 60.0 (>60); GLUCOSE, FASTING 117 MG/DL (70-105); POTASSIUM SERUM 3.9 MEQ/L (3.5-5.1); SODIUM LEVEL 141 MEQ/L (136-145); TOTAL PROTEIN 6.8 GM/DL (6.4-8.2)
[2017-04-24] MEDS: HumaLOG INSULIN (NovoLOG) PER UNIT SC SCH (09:31)
[2017-04-24] MEDS: DOCUSATE SODIUM 100 MG CAP PO SCH ×2 (09:32→21:00)
[2017-04-24] MEDS: GABAPENTIN 100 MG CAP PO SCH ×2 (09:32→21:00)
[2017-04-24] MEDS: NICOTINE 7 MG/24 HR TRANSDERMAL TD SCH (09:32)
[2017-04-24] MEDS: BETHANECHOL 10 MG TAB PO SCH (09:32)
[2017-04-24] MEDS: SENOKOT S TAB PO SCH ×2 (09:33→21:00)
[2017-04-24] MEDS: CARISOPRODOL 350 MG TAB PO SCH ×3 (09:33→21:00)
[2017-04-24] MEDS: PANTOPRAZOLE 40MG TAB (PROTONIX) PO SCH (09:33)
[2017-04-24] MEDS: ACETAMINOPHEN TAB 650MG DOSE (2X325MG) PO SCH ×4 (09:33→21:01)
--- NOTE | 2017-04-24 11:34 | IPNPDOC ---
Business Law Instructor Progress Note DATE OF SERVICE: 04/24/17 DATE OF ADMISSION: Apr 17, 2017 at 14:45 INPATIENT REHABILITATION ADMISSION DAY: #8 SUBJECTIVE: Patient is a 32-year-old right-handed white female with cauda equina with incomplete paraparesis status post lumbar laminectomy and L3-L4 disc replacement due to nontraumatic degenerative disc disease and degenerative joint disease. Patient with morbid obesity, asthma/obstructive sleep apnea, hypertension, hyperlipidemia and spinal cord related severe constipation. Bowel program is regular now. Pain doing well about 2/10 generally. Complaint of some back tightness at times. Incisional drainage noted today. ALLERGIES: See Below MEDICATIONS: Reviewed, see below. OBJECTIVE: VITAL SIGNS: Please see below. PHYSICAL EXAMINATION: GENERAL: Pleasant, morbidly obese, young, white female who is alert and oriented 4. Speech is clear, coherent and appropriate. Memory is intact. And patient is in mild to minimal musculoskeletal distress. She is less anxious and more confident and this is showing in increased gaiting and mobility skills. HEENT: Normocephalic/atraumatic. CARDIOVASCULAR: Regular rate and rhythm with normal S1-S2 without S3-S4 murmurs or rubs. 2 out 4 bilateral radial pulses LUNGS: All pickens clear to auscultation though sounds distant due to thick chest wall. ABDOMEN: Obese, and nontender with normal bowel sounds in all quadrants. NEUROLOGICAL: As above. Sensory motor intact bilateral upper extremities. Right lower extremity showed decreased light touch in the L5, S1 and S2 dermatomes and slight decrease in vibratory sensation in the S1 and S2 dermatomes. Left lower extremity showed slight diffuse decreased light touch. It appears, but is much better than on the right lower extremity and vibration appears to be grossly intact. SKIN: Incision site covered by foam dressing with serous drainage into foam and no surrounding heat, erythema or significant tenderness. Dressing reapplied. LABORATORY DATA: Reviewed. Please see below. MICROBIOLOGY: Please see below. IMAGING: No new imaging today. DVT prophylaxis ordered?: TEDs, and Sequential Compressions Stockings. ASSESSMENT AND PLAN: 1. Rehabilitation is cauda equina: Patient appears to be doing well with healing of her lumbar laminectomy. She is still having some weakness in the lower extremities and low back but overall is writing good efforts in physical and occupational therapy and progressing. Patient is receiving ongoing education and spinal cord injury as well as appropriate wheelchair and walker training. No electrical shock pain today. Patient seems to still be somewhat less anxious, but is moving better today. We need to keep feeding back her ability to her as she will get anxious and become stuck trying to initiate something she has done before. I feel she is able to get to the bathrooms consistently, so I have d/c'ed the Zuniga catheter with no incontinence noted by nursing. Rehabilitation team rounds: Patient was still having some occasional bouts of anxiety limiting her in therapy is making more consistent gains and progressing with physical and occupational therapy. She is advanced to no longer requiring the Zuniga catheter and having a working bowel program. She is definitely on course to reach her discharge goals by 05/05/2017. If she is able to work past the anxiety she may be able to meet her goals sooner than that. 2. Constipation: I have decrease Urecholine to daily and patient now with regular continent bowel pattern. 3. Moderate anemia: We'll try improve her nutrition and continue to monitor H&H was on 04/22/17 at 9.2 & 27.1%: now 10.2 & 31.1% today 04/24/17 trending up. We will continue to monitor. 4. Hypokalemia: Patient with potassium staying normal at 3.9 on 04/24/17. We will continue to monitor. 5. Hyperglycemia: Blood sugars doing well, so we will continue to watch. TIME SPENT: Chart Review, examination and documentation required greater than 25 minutes. Allergies Coded Allergies: Sulfa Antibiotics (Verified Allergy, Intermediate, 04/10/17) Vital Signs Vital Signs Date Time Temp Pulse Resp B/P (MAP) Pulse Ox O2 Delivery O2 Flow Rate FiO2 04/24/17 09:00 Room Air 04/24/17 06:00 98.1 92 19 136/63 (87) 97 Laboratory Data CBC/BMP Laboratory Tests 04/24/17 07:07 Red Blood Count 3.51 L, Mean Corpuscular Volume 88.8, Mean Corpuscular Hemoglobin 29.0, Mean Corpuscular Hemoglobin Concent 32.7, Red Cell Distribution Width 14.4, Calcium Level 8.6, Aspartate Amino Transf (AST/SGOT) 16 , Alanine Aminotransferase (ALT/SGPT) 28, Alkaline Phosphatase 77, Total Bilirubin 0.5 #, Total Protein 6.8 #, Albumin 2.7 L Labs 24H Laboratory Tests 2 04/24/17 07:07: Anion Gap 8, Glomerular Filtration Rate > 60.0, Blood Urea Nitrogen 10, Creatinine 0.73, Sodium Level 141, Potassium Level 3.9, Chloride Level 106, Carbon Dioxide Level 27, Calcium Level 8.6, Aspartate Amino Transf (AST/SGOT) 16 , Alanine Aminotransferase (ALT/SGPT) 28, Alkaline Phosphatase 77, Total Bilirubin 0.5#, Total Protein 6.8#, Albumin 2.7L, Albumin/Globulin Ratio 0.66L Current Medications Current Medications Current Medications Acetaminophen (Tylenol Tab) 650 mg Q6HP PRN PO PAIN OR FEVER; Start 04/17/17 at 11:30; Stop 04/17/17 at 15:09; Status DC Acetaminophen (Tylenol Tab) 650 mg QID PO Last administered on 04/24/17 09:33; Start 04/20/17 at 13:00; Stop 05/20/17 at 12:59 Acetaminophen (Tylenol Tab) 650 mg RQ4H PO Last administered on 04/20/17 08:10 ; Start 04/17/17 at 16:00; Stop 04/20/17 at 09:49; Status DC Acetylcysteine (Mucomyst 20% (200mg/ml)) 400 mg RBID INH ; Start 04/17/17 at 20: 00; Stop 05/17/17 at 19:59; Status UNV Albuterol Sulfate (Proventil Neb) 2.5 mg RQ8H NEB Last administered on 07:21; Start 04/17/17 at 16:00; Stop 05/17/17 at 15:59 Albuterol/ Ipratropium (Duoneb (Ipr 0.5mg/Alb 2.5mg)) 3 ml Q2HP PRN NEB SOB/ WHEEZING; Start 04/17/17 at 11:45; Stop 05/17/17 at 11:44 Bethanechol Chloride (Urecholine) 10 mg BID PO Last administered on 04/22/17 08:17; Start 04/17/17 at 21:00; Stop 04/22/17 at 15:51; Status DC Bethanechol Chloride (Urecholine) 10 mg DAILY PO Last administered on 04/24/17 09:32; Start 04/23/17 at 09:00; Stop 05/17/17 at 20:59 Carisoprodol (Soma) 350 mg TID PO Last administered on 04/24/17 09:33; Start at 16:00; Stop 04/30/17 at 23:55 Cod Liver Oil/ Zinc Oxide (Desitin) Apply around surgi... ASDIRECTED TOP ; Start 04/17/17 at 12:00; Stop 05/17/17 at 11:59 Dextrose (Dextrose 50%) 25 ml ASDIRECTED PRN IV SEE LABEL COMMENTS; Start 04/17 at 11:45; Stop 05/17/17 at 11:44 Docusate Sodium (Colace) 100 mg BID PO Last administered on 04/24/17 09:32; Start 04/17/17 at 21:00; Stop 05/17/17 at 20:59 Gabapentin (Neurontin) 200 mg BID PO Last administered on 04/24/17 09:32; Start 04/17/17 at 21:00; Stop 05/17/17 at 20:59 Glucagon (Glucagon) 1 mg ASDIRECTED PRN SC SEE LABEL COMMENTS; Start 04/17/17 at 11:45; Stop 05/17/17 at 11:44 Glucose (Glucose) 16 GM ASDIRECTED PRN PO SEE LABEL COMMENTS; Start 04/17/17 at 11:45; Stop 05/17/17 at 11:44 Hydralazine HCl (Apresoline) 25 mg Q8H PO Last administered on 04/23/17 22:12 ; Start 04/17/17 at 14:00; Stop 05/17/17 at 11:44 Insulin Human Lispro (HumaLOG INSULIN) See Protocol Table AC SC Last administered on 04/24/17 09:31; Start 04/17/17 at 17:30; Stop 04/24/17 at 11:19; Status DC Insulin Human Lispro (HumaLOG INSULIN) See Protocol Table QHS SC ; Start at 21:00; Stop 04/24/17 at 11:19; Status DC Magnesium Hydroxide (Milk Of Magnesia) 30 ml DAILYPRN PRN PO CONSTIPATION Last administered on 04/22/17 21:07; Start 04/17/17 at 11:45; Stop 05/17/17 at 11:44 Nicotine (Nicoderm Cq 7 Mg) 1 patch DAILY TD Last administered on 04/24/17 09: 32; Start 04/18/17 at 09:00; Stop 04/25/17 at 08:55 Oxycodone HCl (Roxicodone, Oxyir) 5 mg Q4HP PRN PO P(8-10); Start 04/17/17 at 11:45; Stop 04/30/17 at 23:55 Oxycodone HCl (Roxicodone, Oxyir) 10 mg Q4HP PRN PO SEVERE PAIN (PS 8-10); Start 04/17/17 at 11:45; Stop 04/24/17 at 11:44; Status UNV Pantoprazole Sodium (Protonix) 40 mg DAILY PO Last administered on 04/24/17 09: 33; Start 04/18/17 at 09:00; Stop 05/18/17 at 08:59 Senna/Docusate Sodium (Senokot S) 1 tab BID PO Last administered on 04/24/17 09 :33; Start 04/17/17 at 21:00; Stop 05/17/17 at 20:59 Tramadol HCl (Ultram Er) 200 mg DAILY@0600 PO Last administered on 04/24/17 06: 10; Start 04/21/17 at 06:00; Stop 04/30/17 at 23:55 YIMI PIZARRO MD Apr 24, 2017 11:34
[2017-04-24 14:12] VITALS: BP 140/74
[2017-04-24 20:00] VITALS: BP 147/77
[2017-04-24 21:55] VITALS: BP 130/65
[2017-04-25 06:00] VITALS: BP 139/59
[2017-04-25] MEDS: **hydrALAZINE HCL** 25 MG TAB PO SCH ×3 (06:11→21:54)
[2017-04-25] MEDS: traMADol ER 100MG TABLET (ULTRAM ER) PO SCH (06:21)
[2017-04-25 07:10] LABS: MEAN CORPUSCULAR HEMOGLOBIN 29.3 pg (27.0-33.0); MEAN CORPUSCULAR HGB CONC 33.3 g/dl (32.0-36.5); MEAN CORPUSCULAR VOLUME 87.8 fl (80.0-96.0); RED CELL DISTRIBUTION WIDTH 14.2 % (11.5-14.5); WHITE BLOOD COUNT 7.3 K/mm3 (4.0-10.0)
[2017-04-25 07:30] LABS: ALBUMIN 2.4 GM/DL (3.2-5.2); ALBUMIN/GLOBULIN RATIO 0.62 (1.00-1.93); ALKALINE PHOSPHATASE 72 U/L (45-117); ALT/SGPT 25 U/L (12-78); ANION GAP 8 MEQ/L (8-16); AST/SGOT 23 U/L (15-37); BILIRUBIN,TOTAL 0.5 MG/DL (0.2-1.0); BLOOD UREA NITROGEN 9 MG/DL (7-18); CALCIUM LEVEL 8.3 MG/DL (8.5-10.1); CARBON DIOXIDE LEVEL 25 MEQ/L (21-32); CHLORIDE LEVEL 107 MEQ/L (98-107); CREATININE FOR GFR 0.68 MG/DL (0.55-1.02); GLOMERULAR FILTRATION RATE > 60.0 (>60); GLUCOSE, FASTING 97 MG/DL (70-105); POTASSIUM SERUM 4.3 MEQ/L (3.5-5.1); SODIUM LEVEL 140 MEQ/L (136-145); TOTAL PROTEIN 6.3 GM/DL (6.4-8.2)
[2017-04-25] MEDS: ALBUTEROL SULFATE 2.5 MG/0.5 ML INH NEB SOLN NEB SCH ×3 (07:32→15:23)
[2017-04-25] MEDS: PANTOPRAZOLE 40MG TAB (PROTONIX) PO SCH (08:42)
[2017-04-25] MEDS: GABAPENTIN 100 MG CAP PO SCH ×2 (08:42→21:54)
[2017-04-25] MEDS: CARISOPRODOL 350 MG TAB PO SCH ×3 (08:42→21:54)
[2017-04-25] MEDS: ACETAMINOPHEN TAB 650MG DOSE (2X325MG) PO SCH ×4 (08:42→21:54)
[2017-04-25] MEDS: DOCUSATE SODIUM 100 MG CAP PO SCH ×2 (08:43→21:54)
[2017-04-25] MEDS: BETHANECHOL 10 MG TAB PO SCH (08:43)
[2017-04-25] MEDS: SENOKOT S TAB PO SCH ×2 (08:43→21:54)
[2017-04-25 14:00] VITALS: BP 143/66
[2017-04-25 20:00] VITALS: BP 135/69
[2017-04-26 06:00] VITALS: BP 135/62
[2017-04-26] MEDS: **hydrALAZINE HCL** 25 MG TAB PO SCH ×3 (06:00→20:51)
[2017-04-26] MEDS: traMADol ER 100MG TABLET (ULTRAM ER) PO SCH (06:02)
[2017-04-26] MEDS: ALBUTEROL SULFATE 2.5 MG/0.5 ML INH NEB SOLN NEB SCH ×3 (07:13→16:00)
[2017-04-26 07:20] LABS: MEAN CORPUSCULAR HEMOGLOBIN 28.8 pg (27.0-33.0); MEAN CORPUSCULAR HGB CONC 32.4 g/dl (32.0-36.5); MEAN CORPUSCULAR VOLUME 88.8 fl (80.0-96.0); RED CELL DISTRIBUTION WIDTH 14.2 % (11.5-14.5); WHITE BLOOD COUNT 8.1 K/mm3 (4.0-10.0)
[2017-04-26 07:39] LABS: ALBUMIN 2.3 GM/DL (3.2-5.2); ALBUMIN/GLOBULIN RATIO 0.62 (1.00-1.93); ALKALINE PHOSPHATASE 68 U/L (45-117); ALT/SGPT 21 U/L (12-78); ANION GAP 9 MEQ/L (8-16); AST/SGOT 14 U/L (15-37); BILIRUBIN,TOTAL 0.4 MG/DL (0.2-1.0); BLOOD UREA NITROGEN 8 MG/DL (7-18); CALCIUM LEVEL 8.3 MG/DL (8.5-10.1); CARBON DIOXIDE LEVEL 26 MEQ/L (21-32); CHLORIDE LEVEL 108 MEQ/L (98-107); CREATININE FOR GFR 0.63 MG/DL (0.55-1.02); GLOMERULAR FILTRATION RATE > 60.0 (>60); GLUCOSE, FASTING 93 MG/DL (70-105); SODIUM LEVEL 143 MEQ/L (136-145)
[2017-04-26] MEDS: PANTOPRAZOLE 40MG TAB (PROTONIX) PO SCH (09:39)
[2017-04-26] MEDS: SENOKOT S TAB PO SCH ×2 (09:39→20:51)
[2017-04-26] MEDS: GABAPENTIN 100 MG CAP PO SCH ×2 (09:39→20:51)
[2017-04-26] MEDS: BETHANECHOL 10 MG TAB PO SCH (09:39)
[2017-04-26] MEDS: DOCUSATE SODIUM 100 MG CAP PO SCH ×2 (09:39→20:50)
[2017-04-26] MEDS: ACETAMINOPHEN TAB 650MG DOSE (2X325MG) PO SCH ×4 (09:40→20:52)
[2017-04-26] MEDS: CARISOPRODOL 350 MG TAB PO SCH ×3 (09:40→20:51)
[2017-04-26 14:00] VITALS: BP 155/82
[2017-04-26 20:30] VITALS: BP 145/86
[2017-04-27] MEDS ORDERED: NS 1,000 ML IV SCH
[2017-04-27] MEDS: **hydrALAZINE HCL** 25 MG TAB PO SCH (06:00)
[2017-04-27] MEDS: traMADol ER 100MG TABLET (ULTRAM ER) PO SCH (06:19)
[2017-04-27] MEDS ORDERED: traMADol ER 100MG TABLET (ULTRAM ER) As Ordered ONE (06:23)
[2017-04-27] MEDS ORDERED: BACITRACIN OINT 30GM As Ordered ONE ×2 (06:34→10:32)
[2017-04-27] MEDS ORDERED: BACITRACIN PWD 50,000 UNITS VIAL As Ordered ONE (06:34)
[2017-04-27 06:43] VITALS: BP 124/56
[2017-04-27] MEDS: ALBUTEROL SULFATE 2.5 MG/0.5 ML INH NEB SOLN NEB SCH ×2 (07:04)
[2017-04-27 07:12] LABS: MEAN CORPUSCULAR HEMOGLOBIN 29.5 pg (27.0-33.0); MEAN CORPUSCULAR VOLUME 86.7 fl (80.0-96.0); RED CELL DISTRIBUTION WIDTH 14.1 % (11.5-14.5); WHITE BLOOD COUNT 6.7 K/mm3 (4.0-10.0)
[2017-04-27 07:14] LABS: INR 1.05
[2017-04-27 07:32] LABS: ALBUMIN 2.2 GM/DL (3.2-5.2); ALBUMIN/GLOBULIN RATIO 0.55 (1.00-1.93); ALKALINE PHOSPHATASE 68 U/L (45-117); ALT/SGPT 19 U/L (12-78); ANION GAP 9 MEQ/L (8-16); AST/SGOT 12 U/L (15-37); BILIRUBIN,TOTAL 0.4 MG/DL (0.2-1.0); BLOOD UREA NITROGEN 6 MG/DL (7-18); CALCIUM LEVEL 8.2 MG/DL (8.5-10.1); CARBON DIOXIDE LEVEL 25 MEQ/L (21-32); CHLORIDE LEVEL 110 MEQ/L (98-107); CREATININE FOR GFR 0.65 MG/DL (0.55-1.02); GLOMERULAR FILTRATION RATE > 60.0 (>60); GLUCOSE, FASTING 100 MG/DL (70-105); POTASSIUM SERUM 4.2 MEQ/L (3.5-5.1); SODIUM LEVEL 144 MEQ/L (136-145); TOTAL PROTEIN 6.2 GM/DL (6.4-8.2)
[2017-04-27] MEDS ORDERED: ceFAZolin 2 GM/D5W 50 ML IV BAG (J0690) As Ordered ONE (08:08)
[2017-04-27] MEDS ORDERED: fentaNYL 100 MCG/2 ML INJECTION (J3010) As Ordered ONE ×2 (08:47→10:01)
[2017-04-27] MEDS ORDERED: LIDOCAINE 2% W/EPIN INJ 20ML **PRES FREE As Ordered ONE (08:47)
[2017-04-27] MEDS ORDERED: LIDOCAINE 2% JELLY 30 ML As Ordered ONE (08:47)
[2017-04-27] MEDS ORDERED: HYDROmorphone HCL 2 MG/ML 1ML VIAL (J1170) As Ordered ONE (08:47)
[2017-04-27] MEDS ORDERED: MIDAZOLAM INJ 2 MG/2 ML VIAL (J2250) As Ordered ONE (08:47)
[2017-04-27] MEDS ORDERED: ROCURONIUM BROMIDE 50 MG/5 ML VIAL/SYRINGE As Ordered ONE (08:48)
[2017-04-27] MEDS ORDERED: PROPOFOL 200 MG/20 ML VIAL As Ordered ONE (08:48)
[2017-04-27] MEDS ORDERED: LIDOCAINE 2% INJ 100 MG/5 ML SDV (FOR ANES.) As Ordered ONE (08:48)
[2017-04-27] MEDS ORDERED: SUCCINYLCHOLINE 100 MG/5 ML SYRINGE (J0330) As Ordered ONE (08:48)
[2017-04-27] MEDS ORDERED: NEOSTIGMINE 1MG/ML 5 ML SYRINGE (J2710) As Ordered ONE (09:21)
[2017-04-27] MEDS ORDERED: ONDANSETRON 4MG/2ML VIAL (J2405) As Ordered ONE (09:21)
[2017-04-27] MEDS ORDERED: GLYCOPYRROLATE INJ 0.2 MG/ML 2 ML VIAL As Ordered ONE (09:21)
[2017-04-27] MEDS ORDERED: dexameTHASONE 4 MG/ML 1ML VIAL (J1100) As Ordered ONE (09:21)
[2017-04-27] MEDS ORDERED: fentaNYL 100 MCG/2 ML INJECTION (J3010) IV PRN (11:15)
[2017-04-27] MEDS ORDERED: LR 1,000 ML IV SCH ×2 (11:15→12:00)
[2017-04-27] MEDS ORDERED: PERCOCET 5MG/325MG TAB PO PRN (11:15)
[2017-04-27] MEDS ORDERED: MORPHINE 2 MG/ML 1ML SYRINGE IV PRN (11:45)
[2017-04-27] MEDS ORDERED: ONDANSETRON 4MG/2ML VIAL (J2405) IV PRN (12:00)
[2017-04-27] MEDS ORDERED: ACETAMINOPHEN TAB 650MG DOSE (2X325MG) PO SCH (13:00)
[2017-04-27] MEDS ORDERED: COLA100C5 PO (13:40)
[2017-04-27] MEDS ORDERED: ALB2.5NEB NEB (13:40)
[2017-04-27] MEDS ORDERED: MAPA325T3 PO (13:40)
[2017-04-27] MEDS ORDERED: PANT40TA2 PO (13:40)
[2017-04-27] MEDS ORDERED: HYDR25TA PO (13:40)
[2017-04-27] MEDS ORDERED: GABA-279 PO (13:40)
[2017-04-27] MEDS ORDERED: DOCUSATE SODIUM 100 MG CAP PO SCH (21:00)
[2017-04-28 12:25] VITALS: BP 143/68
[2017-04-28 14:00] VITALS: BP 134/73
[2017-04-28] MEDS: GABAPENTIN 100 MG CAP PO SCH ×2 (14:00→21:43)
[2017-04-28] MEDS: **hydrALAZINE HCL** 25 MG TAB PO SCH ×2 (14:00→21:39)
[2017-04-28] MEDS ORDERED: GLUCOSE 4 GM CHEW TABLET PO PRN (14:30)
[2017-04-28] MEDS ORDERED: GLUCAGON FOR INJ 1 MG VIAL (J1610) SC PRN (14:30)
[2017-04-28] MEDS ORDERED: IPRATROPIUM 0.5MG/ALBUTEROL 2.5MG INH SOL UD 3ML (DUONEB)(J7620) NEB PRN (14:30)
[2017-04-28] MEDS ORDERED: oxyCODONE 5MG TAB PO PRN ×2 (14:30)
[2017-04-28] MEDS: CARISOPRODOL 350 MG TAB PO SCH ×2 (15:28→21:43)
[2017-04-28] MEDS: BETHANECHOL 10 MG TAB PO SCH (15:34)
[2017-04-28] MEDS: ALBUTEROL SULFATE 2.5 MG/0.5 ML INH NEB SOLN NEB SCH (15:39)
--- NOTE | 2017-04-28 16:12 | IPNPDOC ---
[facility] Progress Note DATE OF SERVICE: 04/28/17 DATE OF ADMISSION: Apr 17, 2017 at 14:45 INPATIENT REHABILITATION ADMISSION DAY: #12 SUBJECTIVE: Patient is a 32-year-old right-handed white female with cauda equina with incomplete paraparesis status post lumbar laminectomy and L3-L4 disc replacement due to nontraumatic degenerative disc disease and degenerative joint disease. Patient required revision of her laminectomy incision on 04/27/17 due to persistent serous drainage. Some wound cultures blood culture have been sent. Patient is on strict bed rest per neurosurgery for 3 days. This is causing and interruption in care for 4 days (04/27-03/09). Patient with ongoing problems of morbid obesity, asthma/obstructive sleep apnea , hypertension, and hyperlipidemia. Bowel program is regular now. Pain doing well in general. ALLERGIES: See Below MEDICATIONS: Reviewed, see below. OBJECTIVE: VITAL SIGNS: Please see below. PHYSICAL EXAMINATION: GENERAL: Pleasant, morbidly obese, young, white female who is alert and oriented 4. Speech is clear, coherent and appropriate. Memory is intact. And patient is in mild musculoskeletal distress. She is mildly anxious. HEENT: Normocephalic/atraumatic. CARDIOVASCULAR: Regular rate and rhythm with normal S1-S2 without S3-S4 murmurs or rubs. 2/4 bilateral radial pulses LUNGS: All pickens clear to auscultation though sounds distant due to thick chest wall. ABDOMEN: Obese, and nontender with normal bowel sounds in all quadrants. NEUROLOGICAL: As above. Sensory motor intact bilateral upper extremities. Right lower extremity showed decreased light touch in the L5, S1 and S2 dermatomes and slight decrease in vibratory sensation in the S1 and S2 dermatomes. Left lower extremity showed slight diffuse decreased light touch. It appears, but is much better than on the right lower extremity and vibration appears to be grossly intact. LABORATORY DATA: Reviewed. Please see below. MICROBIOLOGY: Please see below. IMAGING: No new imaging today. DVT prophylaxis ordered?: TEDs, and Sequential Compressions Stockings. ASSESSMENT AND PLAN: 1. Rehabilitation is cauda equina: Patient doing well for status post laminectomy incision revision. Dr. Pratt requires the patient to be on strict bedrest for 3 days postoperatively, but will allow some exercise in bed and patient to be up meals. Therefore patient with surgery yesterday was an exception to the three-hour rule of therapy and today returning from surgery/ observation will be exception to the 3 hours of therapy per day. The continued incisional drainage is causing with its corrective surgery and interruption in care for the acute rehabilitation unit. I fully expect patient will require an exception from the 3 hours of therapy for Thursday, March 29 and March 30. I am hopeful patient will be able to resume her program of physical and occupational therapy on March 31. Patient remains very motivated to participate and improve her skill levels to facilitate her return to home. On Thursday we will reassess the patient and by Thursday look to adjust her anticipated length of stay as needed. Based on her recent improvement I do anticipate that in spite of this interruption, that the patient will likely complete her inpatient rehabilitation next week. Rehabilitation team rounds: Prior to the progressive serous drainage and need for surgical revision yesterday, the patient was was progressing well towards our targeted April 04 discharge. As noted above, I still feel a good prognosis for discharge by April 07 to home for this patient. For now we will concentrate on limb exercise and range of motion as well as DVT prevention. We will also watch for any signs of or sources of infection. 2. Constipation: I have continue the Urecholine to daily and patient now to be regular with continent bowel pattern. 3. Moderate anemia: We'll try improve her nutrition and continue to monitor H&H was on 04/27/17 at 9.2 & 27.1%, which is down with the surgery. We will continue to monitor. 4. Hypokalemia: Patient with potassium staying normal at 4.2 today 04/28/17. We will continue to monitor. 5. Hyperglycemia: Blood sugars have been doing well post operatively from incision revision, so we will continue to watch with QID BS checks and ISS coverage. TIME SPENT: Chart Review, examination and documentation required greater than 35 minutes. Allergies Coded Allergies: Sulfa Antibiotics (Verified Allergy, Intermediate, 04/10/17) Vital Signs Vital Signs Date Time Temp Pulse Resp B/P (MAP) Pulse Ox O2 Delivery O2 Flow Rate FiO2 04/28/17 14:00 134/73 04/28/17 14:00 98.2 94 18 97 Room Air 04/27/17 12:35 3 Microbiology Microbiology 04/27/17 Blood Culture - Preliminary, Resulted No growth after 24 hours . All specim... 9/4/17 Gram Stain - Final, Resulted 04/27/17 Abscess Culture, Resulted Pending 04/27/17 Anaerobic Culture, Resulted Pending 04/27/17 Gram Stain - Final, Resulted 04/27/17 Wound Culture, Resulted Pending 04/27/17 Anaerobic Culture, Resulted Pending Current Medications Current Medications Current Medications Acetaminophen (Tylenol Tab) 650 mg Q4H PO ; Start 04/27/17 at 13:00; Stop at 16:12; Status DC Acetaminophen (Tylenol Tab) 650 mg Q6HP PRN PO PAIN OR FEVER; Start 04/17/17 at 11:30; Stop 04/17/17 at 15:09; Status DC Acetaminophen (Tylenol Tab) 650 mg Q6HP PRN PO PAIN / FEVER; Start 04/28/17 at 14:30; Stop 05/28/17 at 14:29 Acetaminophen (Tylenol Tab) 650 mg QID PO Last administered on 04/26/17 20:52; Start 04/20/17 at 13:00; Stop 04/27/17 at 11:27; Status DC Acetaminophen (Tylenol Tab) 650 mg RQ4H PO Last administered on 04/20/17 08:10 ; Start 04/17/17 at 16:00; Stop 04/20/17 at 09:49; Status DC Acetylcysteine (Mucomyst 20% (200mg/ml)) 400 mg RBID INH ; Start 04/17/17 at 20: 00; Stop 05/17/17 at 19:59; Status UNV Acetylcysteine (Mucomyst 20% (200mg/ml)) 400 mg RBID INH ; Start 04/28/17 at 20: 00; Stop 05/28/17 at 19:59 Albuterol Sulfate (Proventil Neb) 2.5 mg RQ8H NEB Last administered on 07:04; Start 04/17/17 at 16:00; Stop 04/27/17 at 16:14; Status DC Albuterol Sulfate (Proventil Neb) 2.5 mg RQ8H NEB Last administered on 15:39; Start 04/28/17 at 16:00; Stop 05/28/17 at 15:59 Albuterol/ Ipratropium (Duoneb (Ipr 0.5mg/Alb 2.5mg)) 3 ml Q2HP PRN NEB SOB/ WHEEZING; Start 04/17/17 at 11:45; Stop 04/27/17 at 11:21; Status DC Albuterol/ Ipratropium (Duoneb (Ipr 0.5mg/Alb 2.5mg)) 3 ml Q2HP PRN NEB SOB/ WHEEZING; Start 04/28/17 at 14:30; Stop 05/28/17 at 14:29 Bethanechol Chloride (Urecholine) 10 mg BID PO Last administered on 04/22/17 08:17; Start 04/17/17 at 21:00; Stop 04/22/17 at 15:51; Status DC Bethanechol Chloride (Urecholine) 10 mg DAILY PO Last administered on 04/26/17 09:39; Start 04/23/17 at 09:00; Stop 04/27/17 at 11:21; Status DC Bethanechol Chloride (Urecholine) 10 mg DAILY PO Last administered on 04/28/17 15:34; Start 04/28/17 at 09:00; Stop 05/28/17 at 08:59 Carisoprodol (Soma) 350 mg TID PO Last administered on 04/26/17 20:51; Start at 16:00; Stop 04/27/17 at 16:14; Status DC Carisoprodol (Soma) 350 mg TID PO ; Start 04/28/17 at 16:00; Stop 05/05/17 at 15: 59 Cefazolin Sodium/ Dextrose 2 gm/IV Miscellaneous Supplies 50 ml @ 75 mls/hr Q8H IV ; Start 04/27/17 at 12:30; Stop 04/27/17 at 16:13; Status DC Cod Liver Oil/ Zinc Oxide (Desitin) Apply around surgi... ASDIRECTED TOP ; Start 04/17/17 at 12:00; Stop 04/27/17 at 11:21; Status DC Dextrose (Dextrose 50%) 25 ml ASDIRECTED PRN IV SEE LABEL COMMENTS; Start 04/17 at 11:45; Stop 04/27/17 at 11:21; Status DC Docusate Sodium (Colace) 100 mg BID PO Last administered on 04/26/17 20:50; Start 04/17/17 at 21:00; Stop 04/27/17 at 11:21; Status DC Docusate Sodium (Colace) 100 mg BID PO ; Start 04/27/17 at 21:00; Stop 04/27/17 at 21:00; Status DC Docusate Sodium (Colace) 100 mg BID PO ; Start 04/28/17 at 21:00; Stop 05/28/17 at 20:59 Fentanyl Citrate (Sublimaze) 25 mcg Q5MP PRN IV MODERATE PAIN (PS 4-7); Start 04/27/17 at 11:15; Stop 04/27/17 at 12:15; Status DC Gabapentin (Neurontin) 200 mg BID PO Last administered on 04/26/17 20:51; Start 04/17/17 at 21:00; Stop 04/27/17 at 16:14; Status DC Gabapentin (Neurontin) 200 mg Q8H PO ; Start 04/28/17 at 14:00; Stop 05/28/17 at 13:59 Glucagon (Glucagon) 1 mg ASDIRECTED PRN SC SEE LABEL COMMENTS; Start 04/17/17 at 11:45; Stop 04/27/17 at 11:21; Status DC Glucagon (Glucagon) 1 mg ASDIRECTED PRN SC SEE LABEL COMMENTS; Start 04/28/17 at 14:30; Stop 05/28/17 at 14:29 Glucose (Glucose) 16 GM ASDIRECTED PRN PO SEE LABEL COMMENTS; Start 04/17/17 at 11:45; Stop 04/27/17 at 11:21; Status DC Glucose (Glucose) 16 GM ASDIRECTED PRN PO SEE LABEL COMMENTS; Start 04/28/17 at 14:30; Stop 05/28/17 at 14:29 Hydralazine HCl (Apresoline) 25 mg Q8H PO Last administered on 04/26/17 20:51; Start 04/17/17 at 14:00; Stop 04/27/17 at 16:14; Status DC Hydralazine HCl (Apresoline) 25 mg Q8H PO ; Start 04/28/17 at 14:00; Stop at 13:59 Insulin Human Lispro (HumaLOG INSULIN) See Protocol Table AC SC Last administered on 04/24/17 09:31; Start 04/17/17 at 17:30; Stop 04/24/17 at 11:19; Status DC Insulin Human Lispro (HumaLOG INSULIN) See Protocol Table AC SC ; Start 04/28/17 at 17:30; Stop 05/28/17 at 17:29 Insulin Human Lispro (HumaLOG INSULIN) See Protocol Table QHS SC ; Start at 21:00; Stop 04/24/17 at 11:19; Status DC Insulin Human Lispro (HumaLOG INSULIN) See Protocol Table QHS SC ; Start at 21:00; Stop 05/28/17 at 20:59 Lactated Ringer's 1,000 ml @ 100 mls/hr Q10H IV ; Start 04/27/17 at 11:15; Stop 04/27/17 at 12:15; Status DC Lactated Ringer's 1,000 ml @ 100 mls/hr Q10H IV ; Start 04/27/17 at 12:00; Stop 04/27/17 at 16:12; Status DC Magnesium Hydroxide (Milk Of Magnesia) 30 ml DAILYPRN PRN PO CONSTIPATION Last administered on 04/22/17 21:07; Start 04/17/17 at 11:45; Stop 04/27/17 at 11:21 ; Status DC Morphine Sulfate (Morphine Sulfate Inj) 2 mg Q2HP PRN IV BREAKTHROUGH PAIN; Start 04/27/17 at 11:45; Stop 04/27/17 at 16:12; Status DC Nicotine (Nicoderm Cq 7 Mg) 1 patch DAILY TD Last administered on 04/24/17 09: 32; Start 04/18/17 at 09:00; Stop 04/25/17 at 08:55; Status DC Ondansetron HCl (ZOFRAN INJection) 4 mg Q8HP PRN IV NAUSEA OR VOMITING; Start 04/27/17 at 12:00; Stop 04/27/17 at 16:12; Status DC Oxycodone HCl (Roxicodone, Oxyir) 5 mg Q4HP PRN PO P(8-10) Last administered on 04/26/17 12:20; Start 04/17/17 at 11:45; Stop 04/27/17 at 11:21; Status DC Oxycodone HCl (Roxicodone, Oxyir) 5 mg Q4HP PRN PO AIN(5-7); Start 04/28/17 at 14:30; Stop 05/05/17 at 14:29 Oxycodone HCl (Roxicodone, Oxyir) 10 mg Q4HP PRN PO SEVERE PAIN (PS 8-10); Start 04/17/17 at 11:45; Stop 04/24/17 at 11:44; Status UNV Oxycodone HCl (Roxicodone, Oxyir) 10 mg Q4HP PRN PO SEVERE PAIN (PS 8-10); Start 04/28/17 at 14:30; Stop 05/05/17 at 14:29 Oxycodone/ Acetaminophen (Percocet 5mg/ 325mg Tablet) 1 tab ASDIRECTED PRN PO MILD/MODERATE PAIN (PS 1-7) Last administered on 04/27/17 11:30; Start 04/27/17 at 11:15; Stop 04/27/17 at 12:15; Status DC Pantoprazole Sodium (Protonix) 40 mg DAILY PO Last administered on 04/26/17 09: 39; Start 04/18/17 at 09:00; Stop 04/27/17 at 16:14; Status DC Pantoprazole Sodium (Protonix) 40 mg DAILY PO ; Start 04/29/17 at 09:00; Stop at 08:59 Senna/Docusate Sodium (Senokot S) 1 tab BID PO Last administered on 04/26/17 20 :51; Start 04/17/17 at 21:00; Stop 04/27/17 at 11:21; Status DC Sodium Chloride 1,000 ml @ 100 mls/hr Q10H IV Last administered on 04/27/17 00 :00; Start 04/27/17 at 00:00; Stop 04/27/17 at 11:22; Status DC Tramadol HCl (Ultram Er) 200 mg DAILY@0600 PO Last administered on 04/27/17 06: 19; Start 04/21/17 at 06:00; Stop 04/27/17 at 11:21; Status DC Tramadol HCl (Ultram Er) 200 mg DAILY@0700 PO ; Start 04/29/17 at 07:00; Stop at 06:59 YIMI PIZARRO MD Apr 28, 2017 16:12
[2017-04-28] MEDS: HumaLOG INSULIN (NovoLOG) PER UNIT SC SCH ×2 (17:03→21:00)
[2017-04-28] MEDS: ACETYLCYSTEINE 20% 4 ML VIAL (200MG/ML) INH SCH (19:22)
[2017-04-28 20:30] VITALS: BP 135/63
[2017-04-28] MEDS: DOCUSATE SODIUM 100 MG CAP PO SCH (21:43)
[2017-04-29] MEDS: ACETAMINOPHEN TAB 650MG DOSE (2X325MG) PO PRN ×2 (05:51→20:20)
[2017-04-29] MEDS: GABAPENTIN 100 MG CAP PO SCH ×3 (05:52→22:03)
[2017-04-29] MEDS: **hydrALAZINE HCL** 25 MG TAB PO SCH ×3 (05:52→22:00)
[2017-04-29 06:00] VITALS: BP 170/80
[2017-04-29] MEDS: traMADol ER 100MG TABLET (ULTRAM ER) PO SCH (06:39)
[2017-04-29] MEDS: ACETYLCYSTEINE 20% 4 ML VIAL (200MG/ML) INH SCH (08:00)
[2017-04-29] MEDS: ALBUTEROL SULFATE 2.5 MG/0.5 ML INH NEB SOLN NEB SCH ×4 (08:00→23:27)
[2017-04-29] MEDS: HumaLOG INSULIN (NovoLOG) PER UNIT SC SCH ×4 (08:51→20:13)
[2017-04-29] MEDS: BETHANECHOL 10 MG TAB PO SCH (08:52)
[2017-04-29] MEDS: PANTOPRAZOLE 40MG TAB (PROTONIX) PO SCH (08:52)
[2017-04-29] MEDS: CARISOPRODOL 350 MG TAB PO SCH ×3 (08:52→20:20)
[2017-04-29] MEDS: DOCUSATE SODIUM 100 MG CAP PO SCH ×2 (08:52→20:20)
--- NOTE | 2017-04-29 10:26 | IPNPDOC ---
[employer] Manager Progress Note DATE OF SERVICE: 04/29/17 DATE OF ADMISSION: Apr 17, 2017 at 14:45 INPATIENT REHABILITATION ADMISSION DAY: #13 SUBJECTIVE: Patient is a 32-year-old right-handed white female with cauda equina with incomplete paraparesis status post lumbar laminectomy and L3-L4 disc replacement due to nontraumatic degenerative disc disease and degenerative joint disease. Patient required revision of her laminectomy incision on 04/27/17 due to persistent serous drainage. Some wound cultures blood culture have been sent. Patient is on strict bed rest per neurosurgery for 3 days. This is causing and interruption in care for 4 days (04/27-03/09). Patient with ongoing problems of morbid obesity, asthma/obstructive sleep apnea , hypertension, and hyperlipidemia. Bowel program is regular now. Pain doing well in general. She would like the Mucomist stopped. ALLERGIES: See Below MEDICATIONS: Reviewed, see below. OBJECTIVE: VITAL SIGNS: Please see below. PHYSICAL EXAMINATION: GENERAL: Pleasant, morbidly obese, young, white female who is alert and oriented 4. Speech is clear, coherent and appropriate. Memory is intact. And patient is in mild musculoskeletal distress. She is mildly anxious. HEENT: Normocephalic/atraumatic. CARDIOVASCULAR: Regular rate and rhythm with normal S1-S2 without S3-S4 murmurs or rubs. 2/4 bilateral radial pulses LUNGS: All pickens clear to auscultation though sounds distant due to thick chest wall. ABDOMEN: Obese, and nontender with normal bowel sounds in all quadrants. NEUROLOGICAL: As above. Sensory motor intact bilateral upper extremities. Right lower extremity showed decreased light touch in the L5, S1 and S2 dermatomes and slight decrease in vibratory sensation in the S1 and S2 dermatomes. Left lower extremity showed slight diffuse decreased light touch. It appears, but is much better than on the right lower extremity and vibration appears to be grossly intact. LABORATORY DATA: Reviewed. Please see below. MICROBIOLOGY: Please see below. IMAGING: No new imaging today. DVT prophylaxis ordered?: TEDs, and Sequential Compressions Stockings. ASSESSMENT AND PLAN: 1. Rehabilitation is cauda equina: Patient doing well for status post laminectomy incision revision. Dr. Pratt requires the patient to be on strict bedrest for 3 days postoperatively, but will allow some exercise in bed and patient to be up meals. Therefore patient with surgery yesterday was an exception to the three-hour rule of therapy and today returning from surgery/ observation will be exception to the 3 hours of therapy per day. The continued incisional drainage is causing with its corrective surgery and interruption in care for the acute rehabilitation unit. I fully expect patient will require an exception from the 3 hours of therapy for March 29 and March 30. I am hopeful patient will be able to resume her program of physical and occupational therapy on March 31. Patient remains very motivated to participate and improve her skill levels to facilitate her return to home. On Thursday we will reassess the patient and by Thursday look to adjust her anticipated length of stay as needed. Based on her recent improvement I do anticipate that in spite of this interruption, that the patient will likely complete her inpatient rehabilitation next week. 2. Constipation: I have continue the Urecholine to daily and patient now to be regular with continent bowel pattern. 3. Moderate anemia: We'll try improve her nutrition and continue to monitor H&H was on 04/27/17 at 9.2 & 27.1%, which is down with the surgery. We will continue to monitor. 4. Hypokalemia: Patient with potassium staying normal at 4.2 today 04/28/17. We will continue to monitor. 5. Hyperglycemia: Blood sugars have been doing well post operatively from incision revision, so we will continue to watch with QID BS checks and ISS coverage. 6. Wound Cultures: Patient with few Kleb. Pneum., Staph. Aureus, and Coag. Neg. Staph on Gram Stain and Cultures. These have been sensitive to all tested agents except PCN and Ampicillin. I have consulted Dr. Rudy Cheema who will see the patient tomorrow. I am starting Cefazolin 2 grams IV q8hrs for now. Temperatures have been low grade. TIME SPENT: Chart Review, examination and documentation required greater than 25 minutes. Allergies Coded Allergies: Sulfa Antibiotics (Verified Allergy, Intermediate, 04/10/17) Vital Signs Vital Signs Date Time Temp Pulse Resp B/P (MAP) Pulse Ox O2 Delivery O2 Flow Rate FiO2 04/29/17 07:40 Room Air 04/29/17 07:00 99.2 04/29/17 06:00 94 18 170/80 (110) 93 04/27/17 12:35 3 Laboratory Data Labs 24H Laboratory Tests 2 04/28/17 16:45: Bedside Glucose (Misc Panel) 184H 04/28/17 20:26: Bedside Glucose (Misc Panel) 154H 04/29/17 06:44: Bedside Glucose (Misc Panel) 110H Microbiology Microbiology 04/27/17 Blood Culture - Preliminary, Resulted No Growth after 48 hours. All Specime... 04/29/17 Gram Stain, Received Pending 04/29/17 Wound Culture, Received Pending 04/27/17 Gram Stain - Final, Resulted 04/27/17 Abscess Culture - Preliminary, Resulted Klebsiella Pneumoniae Staphylococcus Aureus 04/27/17 Anaerobic Culture - Final, Resulted 04/27/17 Gram Stain - Final, Complete 04/27/17 Wound Culture - Final, Complete Klebsiella Pneumoniae Staphylococcus Sp Coag Neg 04/27/17 Anaerobic Culture - Final, Complete Current Medications Current Medications Current Medications Acetaminophen (Tylenol Tab) 650 mg Q4H PO ; Start 04/27/17 at 13:00; Stop at 16:12; Status DC Acetaminophen (Tylenol Tab) 650 mg Q6HP PRN PO PAIN OR FEVER; Start 04/17/17 at 11:30; Stop 04/17/17 at 15:09; Status DC Acetaminophen (Tylenol Tab) 650 mg Q6HP PRN PO PAIN / FEVER Last administered on 04/29/17 05:51; Start 04/28/17 at 14:30; Stop 05/28/17 at 14:29 Acetaminophen (Tylenol Tab) 650 mg QID PO Last administered on 04/26/17 20:52; Start 04/20/17 at 13:00; Stop 04/27/17 at 11:27; Status DC Acetaminophen (Tylenol Tab) 650 mg RQ4H PO Last administered on 04/20/17 08:10 ; Start 04/17/17 at 16:00; Stop 04/20/17 at 09:49; Status DC Acetylcysteine (Mucomyst 20% (200mg/ml)) 400 mg RBID INH ; Start 04/17/17 at 20: 00; Stop 05/17/17 at 19:59; Status UNV Acetylcysteine (Mucomyst 20% (200mg/ml)) 400 mg RBID INH ; Start 04/28/17 at 20: 00; Stop 04/29/17 at 09:02; Status DC Albuterol Sulfate (Proventil Neb) 2.5 mg RQ8H NEB Last administered on 07:04; Start 04/17/17 at 16:00; Stop 04/27/17 at 16:14; Status DC Albuterol Sulfate (Proventil Neb) 2.5 mg RQ8H NEB Last administered on 08:02; Start 04/28/17 at 16:00; Stop 05/28/17 at 15:59 Albuterol/ Ipratropium (Duoneb (Ipr 0.5mg/Alb 2.5mg)) 3 ml Q2HP PRN NEB SOB/ WHEEZING; Start 04/17/17 at 11:45; Stop 04/27/17 at 11:21; Status DC Albuterol/ Ipratropium (Duoneb (Ipr 0.5mg/Alb 2.5mg)) 3 ml Q2HP PRN NEB SOB/ WHEEZING Last administered on 04/28/17 19:22; Start 04/28/17 at 14:30; Stop 05/28 at 14:29 Bethanechol Chloride (Urecholine) 10 mg BID PO Last administered on 04/22/17 08:17; Start 04/17/17 at 21:00; Stop 04/22/17 at 15:51; Status DC Bethanechol Chloride (Urecholine) 10 mg DAILY PO Last administered on 04/26/17 09:39; Start 04/23/17 at 09:00; Stop 04/27/17 at 11:21; Status DC Bethanechol Chloride (Urecholine) 10 mg DAILY PO Last administered on 04/29/17 08:52; Start 04/28/17 at 09:00; Stop 05/28/17 at 08:59 Carisoprodol (Soma) 350 mg TID PO Last administered on 04/26/17 20:51; Start at 16:00; Stop 04/27/17 at 16:14; Status DC Carisoprodol (Soma) 350 mg TID PO Last administered on 04/29/17 08:52; Start at 16:00; Stop 05/05/17 at 15:59 Cefazolin Sodium/ Dextrose 2 gm/IV Miscellaneous Supplies 50 ml @ 75 mls/hr Q8H IV ; Start 04/27/17 at 12:30; Stop 04/27/17 at 16:13; Status DC Cefazolin Sodium/ Dextrose 2 gm/IV Miscellaneous Supplies 50 ml @ 75 mls/hr Q8H IV Last administered on 04/29/17 10:12; Start 04/29/17 at 10:00; Stop 05/06/17 at 09:59 Cod Liver Oil/ Zinc Oxide (Desitin) Apply around surgi... ASDIRECTED TOP ; Start 04/17/17 at 12:00; Stop 04/27/17 at 11:21; Status DC Dextrose (Dextrose 50%) 25 ml ASDIRECTED PRN IV SEE LABEL COMMENTS; Start 04/17 at 11:45; Stop 04/27/17 at 11:21; Status DC Docusate Sodium (Colace) 100 mg BID PO Last administered on 04/26/17 20:50; Start 04/17/17 at 21:00; Stop 04/27/17 at 11:21; Status DC Docusate Sodium (Colace) 100 mg BID PO ; Start 04/27/17 at 21:00; Stop 04/27/17 at 21:00; Status DC Docusate Sodium (Colace) 100 mg BID PO Last administered on 04/29/17 08:52; Start 04/28/17 at 21:00; Stop 05/28/17 at 20:59 Fentanyl Citrate (Sublimaze) 25 mcg Q5MP PRN IV MODERATE PAIN (PS 4-7); Start 04/27/17 at 11:15; Stop 04/27/17 at 12:15; Status DC Gabapentin (Neurontin) 200 mg BID PO Last administered on 04/26/17 20:51; Start 04/17/17 at 21:00; Stop 04/27/17 at 16:14; Status DC Gabapentin (Neurontin) 200 mg Q8H PO Last administered on 04/29/17 05:52; Start 04/28/17 at 14:00; Stop 05/28/17 at 13:59 Glucagon (Glucagon) 1 mg ASDIRECTED PRN SC SEE LABEL COMMENTS; Start 04/17/17 at 11:45; Stop 04/27/17 at 11:21; Status DC Glucagon (Glucagon) 1 mg ASDIRECTED PRN SC SEE LABEL COMMENTS; Start 04/28/17 at 14:30; Stop 05/28/17 at 14:29 Glucose (Glucose) 16 GM ASDIRECTED PRN PO SEE LABEL COMMENTS; Start 04/17/17 at 11:45; Stop 04/27/17 at 11:21; Status DC Glucose (Glucose) 16 GM ASDIRECTED PRN PO SEE LABEL COMMENTS; Start 04/28/17 at 14:30; Stop 05/28/17 at 14:29 Hydralazine HCl (Apresoline) 25 mg Q8H PO Last administered on 04/26/17 20:51; Start 04/17/17 at 14:00; Stop 04/27/17 at 16:14; Status DC Hydralazine HCl (Apresoline) 25 mg Q8H PO Last administered on 04/29/17 05:52; Start 04/28/17 at 14:00; Stop 05/28/17 at 13:59 Insulin Human Lispro (HumaLOG INSULIN) See Protocol Table AC SC Last administered on 04/24/17 09:31; Start 04/17/17 at 17:30; Stop 04/24/17 at 11:19; Status DC Insulin Human Lispro (HumaLOG INSULIN) See Protocol Table AC SC Last administered on 04/29/17 08:51; Start 04/28/17 at 17:30; Stop 05/28/17 at 17:29 Insulin Human Lispro (HumaLOG INSULIN) See Protocol Table QHS SC ; Start at 21:00; Stop 04/24/17 at 11:19; Status DC Insulin Human Lispro (HumaLOG INSULIN) See Protocol Table QHS SC ; Start at 21:00; Stop 05/28/17 at 20:59 Lactated Ringer's 1,000 ml @ 100 mls/hr Q10H IV ; Start 04/27/17 at 11:15; Stop 04/27/17 at 12:15; Status DC Lactated Ringer's 1,000 ml @ 100 mls/hr Q10H IV ; Start 04/27/17 at 12:00; Stop 04/27/17 at 16:12; Status DC Magnesium Hydroxide (Milk Of Magnesia) 30 ml DAILYPRN PRN PO CONSTIPATION Last administered on 04/22/17 21:07; Start 04/17/17 at 11:45; Stop 04/27/17 at 11:21 ; Status DC Morphine Sulfate (Morphine Sulfate Inj) 2 mg Q2HP PRN IV BREAKTHROUGH PAIN; Start 04/27/17 at 11:45; Stop 04/27/17 at 16:12; Status DC Nicotine (Nicoderm Cq 7 Mg) 1 patch DAILY TD Last administered on 04/24/17 09: 32; Start 04/18/17 at 09:00; Stop 04/25/17 at 08:55; Status DC Ondansetron HCl (ZOFRAN INJection) 4 mg Q8HP PRN IV NAUSEA OR VOMITING; Start 04/27/17 at 12:00; Stop 04/27/17 at 16:12; Status DC Oxycodone HCl (Roxicodone, Oxyir) 5 mg Q4HP PRN PO P(8-10) Last administered on 04/26/17 12:20; Start 04/17/17 at 11:45; Stop 04/27/17 at 11:21; Status DC Oxycodone HCl (Roxicodone, Oxyir) 5 mg Q4HP PRN PO AIN(5-7); Start 04/28/17 at 14:30; Stop 05/05/17 at 14:29 Oxycodone HCl (Roxicodone, Oxyir) 10 mg Q4HP PRN PO SEVERE PAIN (PS 8-10); Start 04/17/17 at 11:45; Stop 04/24/17 at 11:44; Status UNV Oxycodone HCl (Roxicodone, Oxyir) 10 mg Q4HP PRN PO SEVERE PAIN (PS 8-10); Start 04/28/17 at 14:30; Stop 05/05/17 at 14:29 Oxycodone/ Acetaminophen (Percocet 5mg/ 325mg Tablet) 1 tab ASDIRECTED PRN PO MILD/MODERATE PAIN (PS 1-7) Last administered on 04/27/17 11:30; Start 04/27/17 at 11:15; Stop 04/27/17 at 12:15; Status DC Pantoprazole Sodium (Protonix) 40 mg DAILY PO Last administered on 04/26/17 09: 39; Start 04/18/17 at 09:00; Stop 04/27/17 at 16:14; Status DC Pantoprazole Sodium (Protonix) 40 mg DAILY PO Last administered on 04/29/17 08: 52; Start 04/29/17 at 09:00; Stop 05/29/17 at 08:59 Senna/Docusate Sodium (Senokot S) 1 tab BID PO Last administered on 04/26/17 20 :51; Start 04/17/17 at 21:00; Stop 04/27/17 at 11:21; Status DC Sodium Chloride 1,000 ml @ 100 mls/hr Q10H IV Last administered on 04/27/17 00 :00; Start 04/27/17 at 00:00; Stop 04/27/17 at 11:22; Status DC Tramadol HCl (Ultram Er) 200 mg DAILY@0600 PO Last administered on 04/27/17 06: 19; Start 04/21/17 at 06:00; Stop 04/27/17 at 11:21; Status DC Tramadol HCl (Ultram Er) 200 mg DAILY@0700 PO Last administered on 04/29/17 06: 39; Start 04/29/17 at 07:00; Stop 05/06/17 at 06:59 YIMI PIZARRO MD Apr 29, 2017 10:26
[2017-04-29 14:00] VITALS: BP 140/69
[2017-04-29 20:00] VITALS: BP 131/59
[2017-04-30 06:00] VITALS: BP 129/59
[2017-04-30] MEDS: **hydrALAZINE HCL** 25 MG TAB PO SCH ×3 (06:00→21:01)
[2017-04-30] MEDS: GABAPENTIN 100 MG CAP PO SCH ×3 (06:27→21:01)
[2017-04-30] MEDS: traMADol ER 100MG TABLET (ULTRAM ER) PO SCH (06:27)
[2017-04-30 06:32] LABS: BASO % 0.3 % (0.0-1.0); EOS # 0.2 K/mm3 (0.0-0.50); EOS % 3.8 % (0.0-3.0); LARGE UNSTAINED CELL # 0.1 K/mm3 (0.0-0.4); LARGE UNSTAINED CELL % 1.3 % (0.0-4.0); LYMPH # 1.6 K/mm3 (1.5-4.5); LYMPH % 25.1 % (24.0-44.0); MEAN CORPUSCULAR HEMOGLOBIN 27.4 pg (27.0-33.0); MEAN CORPUSCULAR HGB CONC 31.1 g/dl (32.0-36.5); MEAN CORPUSCULAR VOLUME 88.2 fl (80.0-96.0); MONO # 0.4 K/mm3 (0.0-0.8); MONO % 5.8 % (0.0-5.0); NEUTROPHILS % 63.8 % (36.0-66.0); PLATELET COUNT, AUTOMATED 332 k/mm3 (150-450); RED CELL DISTRIBUTION WIDTH 14.6 % (11.5-14.5); WHITE BLOOD COUNT 6.2 K/mm3 (4.0-10.0)
[2017-04-30 06:50] LABS: ALBUMIN 2.4 GM/DL (3.2-5.2); ALBUMIN/GLOBULIN RATIO 0.77 (1.00-1.93); ALKALINE PHOSPHATASE 72 U/L (45-117); ALT/SGPT 18 U/L (12-78); ANION GAP 10 MEQ/L (8-16); AST/SGOT 16 U/L (15-37); BILIRUBIN,TOTAL 0.3 MG/DL (0.2-1.0); BLOOD UREA NITROGEN 10 MG/DL (7-18); CALCIUM LEVEL 7.9 MG/DL (8.5-10.1); CARBON DIOXIDE LEVEL 27 MEQ/L (21-32); CHLORIDE LEVEL 108 MEQ/L (98-107); CREATININE FOR GFR 0.62 MG/DL (0.55-1.02); GLOMERULAR FILTRATION RATE > 60.0 (>60); GLUCOSE, FASTING 98 MG/DL (70-105); POTASSIUM SERUM 4.3 MEQ/L (3.5-5.1); SODIUM LEVEL 145 MEQ/L (136-145); TOTAL PROTEIN 5.5 GM/DL (6.4-8.2)
[2017-04-30] MEDS: HumaLOG INSULIN (NovoLOG) PER UNIT SC SCH ×2 (06:52→12:40)
[2017-04-30] MEDS: ALBUTEROL SULFATE 2.5 MG/0.5 ML INH NEB SOLN NEB SCH ×3 (08:00→19:45)
[2017-04-30] MEDS: DOCUSATE SODIUM 100 MG CAP PO SCH ×2 (09:16→21:02)
[2017-04-30] MEDS: CARISOPRODOL 350 MG TAB PO SCH ×3 (09:16→21:00)
[2017-04-30] MEDS: PANTOPRAZOLE 40MG TAB (PROTONIX) PO SCH (09:16)
[2017-04-30] MEDS: BETHANECHOL 10 MG TAB PO SCH ×2 (09:16→21:01)
[2017-04-30 14:00] VITALS: BP 154/69
--- NOTE | 2017-04-30 15:17 | IPNPDOC ---
Bit [employer]inder Progress Note DATE OF SERVICE: 04/30/17 DATE OF ADMISSION: Apr 17, 2017 at 14:45 INPATIENT REHABILITATION ADMISSION DAY: #14 (Stay interrupted by return to surgery on 04/27/17 with strict bedrest for 3 days post op. Patient is on exception to 3 hours per day of PT/OT) SUBJECTIVE: Patient is a 32-year-old right-handed white female with cauda equina with incomplete paraparesis status post lumbar laminectomy and L3-L4 disc replacement due to nontraumatic degenerative disc disease and degenerative joint disease. Patient required revision of her laminectomy incision on 04/27/17 due to persistent serous drainage. Some wound cultures blood culture have been sent. Patient is on strict bed rest per neurosurgery for 3 days. This is causing and interruption in care for 4 days (04/27-03/09). Patient with ongoing problems of morbid obesity, asthma/obstructive sleep apnea , hypertension, and hyperlipidemia. Pain doing well in general. ALLERGIES: See Below MEDICATIONS: Reviewed, see below. OBJECTIVE: VITAL SIGNS: Please see below. PHYSICAL EXAMINATION: GENERAL: Pleasant, morbidly obese, young, white female who is alert and oriented 4. Speech is clear, coherent and appropriate. Memory is intact. And patient is in mild musculoskeletal distress. She is mildly anxious. HEENT: Normocephalic/atraumatic. CARDIOVASCULAR: Regular rate and rhythm with normal S1-S2 without S3-S4 murmurs or rubs. 2/4 bilateral radial pulses LUNGS: All pickens clear to auscultation though sounds distant due to thick chest wall. ABDOMEN: Obese, and nontender with normal bowel sounds in all quadrants. NEUROLOGICAL: As above. Sensory motor intact bilateral upper extremities. Right lower extremity showed decreased light touch in the L5, S1 and S2 dermatomes and slight decrease in vibratory sensation in the S1 and S2 dermatomes. Left lower extremity showed slight diffuse decreased light touch. It appears, but is much better than on the right lower extremity and vibration appears to be grossly intact. LABORATORY DATA: Reviewed. Please see below. MICROBIOLOGY: Please see below. IMAGING: No new imaging today. DVT prophylaxis ordered?: TEDs, and Sequential Compressions Stockings. ASSESSMENT AND PLAN: 1. Rehabilitation is cauda equina: Patient doing well for status post laminectomy incision revision. Dr. Pratt requires the patient to be on strict bedrest for 3 days postoperatively, but will allow some exercise in bed and patient to be up meals. Therefore patient with surgery yesterday was an exception to the three-hour rule of therapy and today returning from surgery/ observation will be exception to the 3 hours of therapy per day. The continued incisional drainage is causing with its corrective surgery and interruption in care for the acute rehabilitation unit. I fully expect patient will require an exception from the 3 hours of therapy for March 29 and March 30. I am hopeful patient will be able to resume her program of physical and occupational therapy on March 31. Patient remains very motivated to participate and improve her skill levels to facilitate her return to home. On Thursday we will reassess the patient and by Thursday look to adjust her anticipated length of stay as needed. Based on her recent improvement I do anticipate that in spite of this interruption, that the patient will likely complete her inpatient rehabilitation next week. Rehabilitation team rounds: As noted above patient is on exception to 3 hours of rehabilitation therapy with PT and OT due to strict bed rest from incision revision on 04/27/17. It is anticipated that her drains will come out tomorrow and we will resume 3 hours of PT and OT per day. Patient is doing limited therapy with in bed exercises of limbs. Her mood is good and she is looking forward to resuming therapy tomorrow and getting the 4 drains out of her back. 2. Constipation: I have change the Urecholine to BID and patient now to be regular with continent bowel pattern. 3. Moderate anemia: We'll try improve her nutrition and continue to monitor H&H was on 04/30/17 at 9.9 & 31.7%, which is better. We will continue to monitor. 4. Hypokalemia: Patient with potassium staying normal at 4.3 today 04/30/17. We will continue to monitor. 5. Hyperglycemia: Blood sugars have been doing well post operatively from incision revision, so we will stop with QID BS checks and ISS coverage. 6. Wound Cultures: Patient with few Kleb. Pneum., Staph. Aureus, and Coag. Neg. Staph on Gram Stain and Cultures. These have been sensitive to all tested agents except PCN and Ampicillin. I have consulted Dr. Rudy Cheema who will see the patient today. Patient is on Cefazolin 2 grams IV q8hrs for now. Temperatures have been low grade since 04/27/17 surgery with Tmax 100.1F and in the 99's for the last 24 hours. TIME SPENT: Chart Review, examination and documentation required greater than 35 minutes. Allergies Coded Allergies: Sulfa Antibiotics (Verified Allergy, Intermediate, 04/10/17) Vital Signs Vital Signs Date Time Temp Pulse Resp B/P (MAP) Pulse Ox O2 Delivery O2 Flow Rate FiO2 04/30/17 14:00 99.8 98 18 154/69 (97) 96 Room Air 04/27/17 12:35 3 Laboratory Data CBC/BMP Laboratory Tests 04/30/17 06:12 Red Blood Count 3.60 L, Mean Corpuscular Volume 88.2, Mean Corpuscular Hemoglobin 27.4, Mean Corpuscular Hemoglobin Concent 31.1 L, Red Cell Distribution Width 14.6 H, Neutrophils (%) (Auto) 63.8, Lymphocytes (%) (Auto) 25.1, Monocytes (%) (Auto) 5.8 H, Eosinophils (%) (Auto) 3.8 H, Basophils (%) ( Auto) 0.3, Neutrophils # (Auto) 4.0, Lymphocytes # (Auto) 1.6, Monocytes # (Auto ) 0.4, Eosinophils # (Auto) 0.2, Basophils # (Auto) 0.0, Calcium Level 7.9 L, Aspartate Amino Transf (AST/SGOT) 16, Alanine Aminotransferase (ALT/SGPT) 18, Alkaline Phosphatase 72, Total Bilirubin 0.3, Total Protein 5.5 L, Albumin 2.4 L Labs 24H Laboratory Tests 2 04/29/17 16:33: Bedside Glucose (Misc Panel) 123H 04/29/17 20:01: Bedside Glucose (Misc Panel) 126H 04/30/17 06:12: White Blood Count 6.2, Red Blood Count 3.60L, Hemoglobin 9.9L, Hematocrit 31.7L , Mean Corpuscular Volume 88.2, Mean Corpuscular Hemoglobin 27.4, Mean Corpuscular Hemoglobin Concent 31.1L, Red Cell Distribution Width 14.6H, Platelet Count 332, Neutrophils (%) (Auto) 63.8, Lymphocytes (%) (Auto) 25.1, Monocytes (%) (Auto) 5.8H, Eosinophils (%) (Auto) 3.8H, Basophils (%) (Auto) 0.3 , Neutrophils # (Auto) 4.0, Lymphocytes # (Auto) 1.6, Monocytes # (Auto) 0.4, Eosinophils # (Auto) 0.2, Basophils # (Auto) 0.0, Large Unclassified Cells % 1.3 , Large Unclassified Cells # 0.1, Anion Gap 10, Glomerular Filtration Rate > 60.0, Blood Urea Nitrogen 10, Creatinine 0.62, Sodium Level 145, Potassium Level 4.3, Chloride Level 108H, Carbon Dioxide Level 27, Calcium Level 7.9L, Aspartate Amino Transf (AST/SGOT) 16, Alanine Aminotransferase (ALT/SGPT) 18, Alkaline Phosphatase 72, Total Bilirubin 0.3, Total Protein 5.5L, Albumin 2.4L, Albumin/Globulin Ratio 0.77L 04/30/17 11:26: Bedside Glucose (Misc Panel) 108H Microbiology Microbiology 04/27/17 Blood Culture - Preliminary, Resulted No Growth after 72 hours. All specime... 04/29/17 Gram Stain - Final, Resulted 04/29/17 Wound Culture, Resulted Pending 04/27/17 Gram Stain - Final, Complete 04/27/17 Abscess Culture - Final, Complete Klebsiella Pneumoniae Staphylococcus Epidermidis Staphylococcus Aureus 04/27/17 Anaerobic Culture - Final, Complete 04/27/17 Gram Stain - Final, Complete 04/27/17 Wound Culture - Final, Complete Klebsiella Pneumoniae Staphylococcus Sp Coag Neg 04/27/17 Anaerobic Culture - Final, Complete Current Medications Current Medications Current Medications Acetaminophen (Tylenol Tab) 650 mg Q4H PO ; Start 04/27/17 at 13:00; Stop at 16:12; Status DC Acetaminophen (Tylenol Tab) 650 mg Q6HP PRN PO PAIN OR FEVER; Start 04/17/17 at 11:30; Stop 04/17/17 at 15:09; Status DC Acetaminophen (Tylenol Tab) 650 mg Q6HP PRN PO PAIN / FEVER Last administered on 04/29/17 20:20; Start 04/28/17 at 14:30; Stop 05/28/17 at 14:29 Acetaminophen (Tylenol Tab) 650 mg QID PO Last administered on 04/26/17 20:52; Start 04/20/17 at 13:00; Stop 04/27/17 at 11:27; Status DC Acetaminophen (Tylenol Tab) 650 mg RQ4H PO Last administered on 04/20/17 08:10 ; Start 04/17/17 at 16:00; Stop 04/20/17 at 09:49; Status DC Acetylcysteine (Mucomyst 20% (200mg/ml)) 400 mg RBID INH ; Start 04/17/17 at 20: 00; Stop 05/17/17 at 19:59; Status UNV Acetylcysteine (Mucomyst 20% (200mg/ml)) 400 mg RBID INH ; Start 04/28/17 at 20: 00; Stop 04/29/17 at 09:02; Status DC Albuterol Sulfate (Proventil Neb) 2.5 mg RQ8H NEB Last administered on 07:04; Start 04/17/17 at 16:00; Stop 04/27/17 at 16:14; Status DC Albuterol Sulfate (Proventil Neb) 2.5 mg RQ8H NEB Last administered on 08:00; Start 04/28/17 at 16:00; Stop 05/28/17 at 15:59 Albuterol/ Ipratropium (Duoneb (Ipr 0.5mg/Alb 2.5mg)) 3 ml Q2HP PRN NEB SOB/ WHEEZING; Start 04/17/17 at 11:45; Stop 04/27/17 at 11:21; Status DC Albuterol/ Ipratropium (Duoneb (Ipr 0.5mg/Alb 2.5mg)) 3 ml Q2HP PRN NEB SOB/ WHEEZING Last administered on 04/28/17 19:22; Start 04/28/17 at 14:30; Stop 05/28 at 14:29 Bethanechol Chloride (Urecholine) 10 mg BID PO Last administered on 04/22/17 08:17; Start 04/17/17 at 21:00; Stop 04/22/17 at 15:51; Status DC Bethanechol Chloride (Urecholine) 10 mg DAILY PO Last administered on 04/26/17 09:39; Start 04/23/17 at 09:00; Stop 04/27/17 at 11:21; Status DC Bethanechol Chloride (Urecholine) 10 mg DAILY PO Last administered on 04/30/17 09:16; Start 04/28/17 at 09:00; Stop 05/28/17 at 08:59 Carisoprodol (Soma) 350 mg TID PO Last administered on 04/26/17 20:51; Start at 16:00; Stop 04/27/17 at 16:14; Status DC Carisoprodol (Soma) 350 mg TID PO Last administered on 04/30/17 09:16; Start at 16:00; Stop 05/05/17 at 15:59 Cefazolin Sodium/ Dextrose 2 gm/IV Miscellaneous Supplies 50 ml @ 75 mls/hr Q8H IV ; Start 04/27/17 at 12:30; Stop 04/27/17 at 16:13; Status DC Cefazolin Sodium/ Dextrose 2 gm/IV Miscellaneous Supplies 50 ml @ 75 mls/hr Q8H IV Last administered on 04/30/17 09:15; Start 04/29/17 at 10:00; Stop 05/06/17 at 09:59 Cod Liver Oil/ Zinc Oxide (Desitin) Apply around surgi... ASDIRECTED TOP ; Start 04/17/17 at 12:00; Stop 04/27/17 at 11:21; Status DC Dextrose (Dextrose 50%) 25 ml ASDIRECTED PRN IV SEE LABEL COMMENTS; Start 04/17 at 11:45; Stop 04/27/17 at 11:21; Status DC Docusate Sodium (Colace) 100 mg BID PO Last administered on 04/26/17 20:50; Start 04/17/17 at 21:00; Stop 04/27/17 at 11:21; Status DC Docusate Sodium (Colace) 100 mg BID PO ; Start 04/27/17 at 21:00; Stop 04/27/17 at 21:00; Status DC Docusate Sodium (Colace) 100 mg BID PO Last administered on 04/30/17 09:16; Start 04/28/17 at 21:00; Stop 05/28/17 at 20:59 Fentanyl Citrate (Sublimaze) 25 mcg Q5MP PRN IV MODERATE PAIN (PS 4-7); Start 04/27/17 at 11:15; Stop 04/27/17 at 12:15; Status DC Gabapentin (Neurontin) 200 mg BID PO Last administered on 04/26/17 20:51; Start 04/17/17 at 21:00; Stop 04/27/17 at 16:14; Status DC Gabapentin (Neurontin) 200 mg Q8H PO Last administered on 04/30/17 14:10; Start 04/28/17 at 14:00; Stop 05/28/17 at 13:59 Glucagon (Glucagon) 1 mg ASDIRECTED PRN SC SEE LABEL COMMENTS; Start 04/17/17 at 11:45; Stop 04/27/17 at 11:21; Status DC Glucagon (Glucagon) 1 mg ASDIRECTED PRN SC SEE LABEL COMMENTS; Start 04/28/17 at 14:30; Stop 05/28/17 at 14:29 Glucose (Glucose) 16 GM ASDIRECTED PRN PO SEE LABEL COMMENTS; Start 04/17/17 at 11:45; Stop 04/27/17 at 11:21; Status DC Glucose (Glucose) 16 GM ASDIRECTED PRN PO SEE LABEL COMMENTS; Start 04/28/17 at 14:30; Stop 05/28/17 at 14:29 Hydralazine HCl (Apresoline) 25 mg Q8H PO Last administered on 04/26/17 20:51; Start 04/17/17 at 14:00; Stop 04/27/17 at 16:14; Status DC Hydralazine HCl (Apresoline) 25 mg Q8H PO Last administered on 04/29/17 05:52; Start 04/28/17 at 14:00; Stop 05/28/17 at 13:59 Insulin Human Lispro (HumaLOG INSULIN) See Protocol Table AC SC Last administered on 04/24/17 09:31; Start 04/17/17 at 17:30; Stop 04/24/17 at 11:19; Status DC Insulin Human Lispro (HumaLOG INSULIN) See Protocol Table AC SC Last administered on 04/30/17 12:40; Start 04/28/17 at 17:30; Stop 05/28/17 at 17:29 Insulin Human Lispro (HumaLOG INSULIN) See Protocol Table QHS SC ; Start at 21:00; Stop 04/24/17 at 11:19; Status DC Insulin Human Lispro (HumaLOG INSULIN) See Protocol Table QHS SC ; Start at 21:00; Stop 05/28/17 at 20:59 Lactated Ringer's 1,000 ml @ 100 mls/hr Q10H IV ; Start 04/27/17 at 11:15; Stop 04/27/17 at 12:15; Status DC Lactated Ringer's 1,000 ml @ 100 mls/hr Q10H IV ; Start 04/27/17 at 12:00; Stop 04/27/17 at 16:12; Status DC Magnesium Hydroxide (Milk Of Magnesia) 30 ml DAILYPRN PRN PO CONSTIPATION Last administered on 04/22/17 21:07; Start 04/17/17 at 11:45; Stop 04/27/17 at 11:21 ; Status DC Morphine Sulfate (Morphine Sulfate Inj) 2 mg Q2HP PRN IV BREAKTHROUGH PAIN; Start 04/27/17 at 11:45; Stop 04/27/17 at 16:12; Status DC Nicotine (Nicoderm Cq 7 Mg) 1 patch DAILY TD Last administered on 04/24/17 09: 32; Start 04/18/17 at 09:00; Stop 04/25/17 at 08:55; Status DC Ondansetron HCl (ZOFRAN INJection) 4 mg Q8HP PRN IV NAUSEA OR VOMITING; Start 04/27/17 at 12:00; Stop 04/27/17 at 16:12; Status DC Oxycodone HCl (Roxicodone, Oxyir) 5 mg Q4HP PRN PO P(8-10) Last administered on 04/26/17 12:20; Start 04/17/17 at 11:45; Stop 04/27/17 at 11:21; Status DC Oxycodone HCl (Roxicodone, Oxyir) 5 mg Q4HP PRN PO AIN(5-7); Start 04/28/17 at 14:30; Stop 05/05/17 at 14:29 Oxycodone HCl (Roxicodone, Oxyir) 10 mg Q4HP PRN PO SEVERE PAIN (PS 8-10); Start 04/17/17 at 11:45; Stop 04/24/17 at 11:44; Status UNV Oxycodone HCl (Roxicodone, Oxyir) 10 mg Q4HP PRN PO SEVERE PAIN (PS 8-10); Start 04/28/17 at 14:30; Stop 05/05/17 at 14:29 Oxycodone/ Acetaminophen (Percocet 5mg/ 325mg Tablet) 1 tab ASDIRECTED PRN PO MILD/MODERATE PAIN (PS 1-7) Last administered on 04/27/17 11:30; Start 04/27/17 at 11:15; Stop 04/27/17 at 12:15; Status DC Pantoprazole Sodium (Protonix) 40 mg DAILY PO Last administered on 04/26/17 09: 39; Start 04/18/17 at 09:00; Stop 04/27/17 at 16:14; Status DC Pantoprazole Sodium (Protonix) 40 mg DAILY PO Last administered on 04/30/17 09: 16; Start 04/29/17 at 09:00; Stop 05/29/17 at 08:59 Senna/Docusate Sodium (Senokot S) 1 tab BID PO Last administered on 04/26/17 20 :51; Start 04/17/17 at 21:00; Stop 04/27/17 at 11:21; Status DC Sodium Chloride 1,000 ml @ 100 mls/hr Q10H IV Last administered on 04/27/17 00 :00; Start 04/27/17 at 00:00; Stop 04/27/17 at 11:22; Status DC Tramadol HCl (Ultram Er) 200 mg DAILY@0600 PO Last administered on 04/27/17 06: 19; Start 04/21/17 at 06:00; Stop 04/27/17 at 11:21; Status DC Tramadol HCl (Ultram Er) 200 mg DAILY@0700 PO Last administered on 04/30/17 06: 27; Start 04/29/17 at 07:00; Stop 05/06/17 at 06:59 YIIM PIZARRO MD Apr 30, 2017 15:17
[2017-04-30 20:00] VITALS: BP 145/70
[2017-04-30] MEDS: ACETAMINOPHEN TAB 650MG DOSE (2X325MG) PO PRN (20:47)
[2017-04-30 23:21] LABS: BASO % 0.2 % (0.0-1.0); EOS # 0.2 K/mm3 (0.0-0.50); EOS % 3.5 % (0.0-3.0); LARGE UNSTAINED CELL # 0.1 K/mm3 (0.0-0.4); LARGE UNSTAINED CELL % 1.1 % (0.0-4.0); LYMPH # 1.9 K/mm3 (1.5-4.5); LYMPH % 25.1 % (24.0-44.0); MEAN CORPUSCULAR HEMOGLOBIN 27.9 pg (27.0-33.0); MEAN CORPUSCULAR HGB CONC 32.8 g/dl (32.0-36.5); MONO # 0.3 K/mm3 (0.0-0.8); MONO % 4.6 % (0.0-5.0); NEUTROPHILS # 4.8 K/mm3 (1.8-7.7); NEUTROPHILS % 65.6 % (36.0-66.0); PLATELET COUNT, AUTOMATED 311 k/mm3 (150-450); RED CELL DISTRIBUTION WIDTH 14.6 % (11.5-14.5); WHITE BLOOD COUNT 7.4 K/mm3 (4.0-10.0)
[2017-05-01 06:00] VITALS: BP 160/83
[2017-05-01] MEDS: GABAPENTIN 100 MG CAP PO SCH ×3 (06:25→20:34)
[2017-05-01] MEDS: traMADol ER 100MG TABLET (ULTRAM ER) PO SCH (06:25)
[2017-05-01] MEDS: **hydrALAZINE HCL** 25 MG TAB PO SCH ×3 (06:27→20:35)
[2017-05-01] MEDS ORDERED: BACITRACIN OINT 30GM As Ordered ONE (07:54)
[2017-05-01] MEDS: ALBUTEROL SULFATE 2.5 MG/0.5 ML INH NEB SOLN NEB SCH ×2 (08:18→23:58)
[2017-05-01] MEDS: BETHANECHOL 10 MG TAB PO SCH ×2 (08:20→20:35)
[2017-05-01] MEDS: DOCUSATE SODIUM 100 MG CAP PO SCH ×2 (08:20→20:34)
[2017-05-01] MEDS: PANTOPRAZOLE 40MG TAB (PROTONIX) PO SCH (08:20)
[2017-05-01] MEDS: CARISOPRODOL 350 MG TAB PO SCH ×3 (08:20→20:34)
--- NOTE | 2017-05-01 11:12 | REP ---
Clinical: Fever . Comparison: 04/11/2017 . Findings: The mediastinum and cardiac silhouette are stable and within normal limits for portable technique. The lung pickens are clear without acute consolidation, effusion, or pneumothorax. Skeletal structures are intact. Impression: No acute cardiopulmonary process appreciated. Signed by Connor Jessica MD 05/01/2017 08:36 A
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
--- NOTE | 2017-05-01 11:31 | IPNPDOC ---
Date Seen The patient was seen on 05/01/17. Progress Note ATTENDING: Dr. Silver Neurosurgeon. Dr Pratt PCP: Ara ANDERSON HPI: 32yoF S/P Posterior decompression and fusion L2-S1, with bone graft, with total disc excision with end plate for fusion L3-4. Intervertebral disc replacement L3-[address] Pratt 04/13/17, transferred to the care of ROMAN Burdick 04/18/17. S/P I&D surgical wound 04/27/17 as per neurosurgery. Denies any fevers, chills, weakness, fatigue, JADE, CP, SOB, cough, palpitations , abdominal pain, N/V/D or changes in bowel or bladder habits. The hospitalist team was consulted for medical management. PAST MEDICAL HISTORY: Anxiety depression insomnia Asthma. NIDDM. A1c 7.1 04/11/17 H/O Dyslipidemia. Does not take medication. M Obesity. BMI 55.0 GERD PAST SURGICAL HISTORY: [place] teeth extracted age 14. 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 ROS: As noted in HPI, otherwise 11pt ROS of systems reviewed and remarkable only for LMP unknown, IUD. PE GEN: 32yoF, appears stated age. Well-nourished, well developed. No acute distress. Alert and oriented x 3. Pleasant, interactive. HEENT: Normocephalic, atraumatic. Pupils are equal, round, and reactive to light. Extraocular movements are intact. No nystagmus appreciated. Sclera are nonicteric. Conjunctiva without injection. Nose midline. Nasal turbinates without bogginess. EACs both patent BL. TMs both visualized and lyle with good cone of light, no bulging or erythema. No facial asymmetry. Moist mucous membranes. Dentition fair. Pharynx pink and moist, no cobblestoning. Neck supple , trachea midline. No lymphadenopathy or thyromegaly appreciated. CHEST: Regular rate and rhythm, +S1, +S2 LUNGS: Clear to auscultation bilaterally. No wheezes, rales, or rhonchi. Breathing appears symmetric and easy. Patient is speaking in full sentences. No accessory muscle use. ABD: Round, soft, non-tender, non-distended. +Bowel sounds throughout. No rebound or guarding. No costovertebral angle tenderness. EXT: Pulses 2+ bilaterally. No lower extremity edema appreciated. SKIN: [place], dry, warm. Capillary refill <2sec. No rashes. NEURO: Alert and oriented x 3. CXR: 04/11/17 Left internal jugular venous catheter tip just to the left of midline in the brachiocephalic vein position. No pneumothorax seen. Otherwise no acute disease. LS MRI 04/14/17 Limited examination demonstrating the patient to be status post L3-4 anterior and L2-S1 posterior spinal fusion and L1-5 laminectomy. There is anatomic alignment of the lumbar spine. A postoperative fluid collection is present at the laminectomy site. XR LS spine 04/18/17 The patient is status post L2-S1 posterior spinal fusion and L2-5 laminectomy. Metal rods and pedicle screws are present. There is no acute fracture or subluxation. The L2-3 through L5-S1 intervertebral discs are decreased in height consistent with disc degeneration. Osteophytes are present on L3-5. Surgical clips are present in the posterior paravertebral soft tissue. An IUD is present in the pelvis. UC 04/11/17 neg. WC ABSCESS CULTURE Final Organism 1 KLEBSIELLA PNEUMONIAE QUANTITY OF GROWTH FEW Organism 2 STAPHYLOCOCCUS EPIDERMIDIS QUANTITY OF GROWTH FEW Organism 3 STAPHYLOCOCCUS AUREUS QUANTITY OF GROWTH FEW A&P: 32yoF S/P Posterior decompression and fusion L2-S1, with bone graft, with total disc excision with end plate for fusion L3-4. Intervertebral disc replacement L3-[address] Pratt 04/13/17, transferred to the care of ROMAN Burdick 04/18/17. 1. The patient is admitted to ARU to Dr. Silver's service. 2. S/P Posterior decompression and fusion L2-S1, with bone graft, with total disc excision with end plate for fusion L3-4. Intervertebral disc replacement L3-[address] Pratt 04/13/17. Neurosurgical Management as per Dr Pratt. PT/OT as per Dr Silver. Bowel care as per Dr Silver. Pain control as per Dr Silver. DVT prophylaxis as per Neurosurgery/ Dr Shonk, ARU. Post operative wound infection/I/&D as per Neurosurgery 04/27/17. Cont IV Kefzol, Infectious disease following as well. BC x 2, UC pending. 3. NIDDM. CC diet. 4. Asthma. Continue albuterol nebulizer Q8 and every 2 hours as needed. 5. Elevated BP, no prior h/o HTN. Hydralazine 25 mg TID as needed with hold parameters. BP this a.m. 136/73. 6. Dyslipidemia. Diet. 7. M Obesity. BMI 55.0. Complicates care. TSH WNL. 8. GERD. Protonix. 9. Tobacco use. Nicoderm. 10. Hypokalemia. WNL. Monitor 11. Anemia. Hgb trend improving. Monitor. VS, I&O, 24H, Fishbone Vital Signs/I&O Vital Signs Date Time Temp Pulse Resp B/P (MAP) Pulse Ox O2 Delivery O2 Flow Rate FiO2 05/01/17 08:00 Room Air 05/01/17 06:27 160/83 05/01/17 06:00 99.7 104 18 96 04/27/17 12:35 3 I&O- Last 24 Hours up to 6 AM 05/01/17 06:00 Intake Total 1610 ml Output Total 1495 ml Balance 115 ml Laboratory Data 24H LABS Laboratory Tests 2 04/30/17 22:18: Urine Appearance HAZY, Urine Color YELLOW, Urine pH 5.0, Urine Specific [place] 1.030, Urine Protein NEGATIVE, Urine Glucose (UA) NEGATIVE, Urine Ketones TRACEH , Urine Urobilinogen 0.2, Urine Bilirubin NEGATIVE, Urine Leukocyte Esterase NEGATIVE, Urine Blood NEGATIVE, Urine Nitrite NEGATIVE, Urine WBC (Auto) 2, Urine RBC (Auto) 2, Urine Hyaline Casts (Auto) 0, Urine Bacteria (Auto) NEGATIVE , Urine Squamous Epithelial Cells 2, Urine Mucus (Auto) SMALL, Urine Sperm (Auto ) 04/30/17 23:03: White Blood Count 7.4, Red Blood Count 3.77L, Hemoglobin 10.5L, Hematocrit 32.1L , Mean Corpuscular Volume 85.0, Mean Corpuscular Hemoglobin 27.9, Mean Corpuscular Hemoglobin Concent 32.8, Red Cell Distribution Width 14.6H, Platelet Count 311, Neutrophils (%) (Auto) 65.6, Lymphocytes (%) (Auto) 25.1, Monocytes (%) (Auto) 4.6, Eosinophils (%) (Auto) 3.5H, Basophils (%) (Auto) 0.2 , Neutrophils # (Auto) 4.8, Lymphocytes # (Auto) 1.9, Monocytes # (Auto) 0.3, Eosinophils # (Auto) 0.2, Basophils # (Auto) 0.0, Large Unclassified Cells % 1.1 , Large Unclassified Cells # 0.1 05/01/17 10:45: Bedside Glucose (Misc Panel) 141H CBC/BMP Laboratory Tests 04/30/17 23:03 Red Blood Count 3.77 L, Mean Corpuscular Volume 85.0, Mean Corpuscular Hemoglobin 27.9, Mean Corpuscular Hemoglobin Concent 32.8, Red Cell Distribution Width 14.6 H, Neutrophils (%) (Auto) 65.6, Lymphocytes (%) (Auto) 25.1, Monocytes (%) (Auto) 4.6, Eosinophils (%) (Auto) 3.5 H, Basophils (%) ( Auto) 0.2, Neutrophils # (Auto) 4.8, Lymphocytes # (Auto) 1.9, Monocytes # (Auto ) 0.3, Eosinophils # (Auto) 0.2, Basophils # (Auto) 0.0 Microbiology Microbiology 04/30/17 Blood Culture, Received Pending 04/30/17 Blood Culture, Received Pending 04/27/17 Blood Culture - Preliminary, Resulted No Growth after 72 hours. All specime... 04/30/17 Urine Culture, Received Pending 04/29/17 Gram Stain - Final, Complete 04/29/17 Wound Culture - Final, Complete 04/27/17 Gram Stain - Final, Complete 04/27/17 Abscess Culture - Final, Complete Klebsiella Pneumoniae Staphylococcus Epidermidis Staphylococcus Aureus 04/27/17 Anaerobic Culture - Final, Complete 04/27/17 Gram Stain - Final, Complete 04/27/17 Wound Culture - Final, Complete Klebsiella Pneumoniae Staphylococcus Sp Coag Neg 04/27/17 Anaerobic Culture - Final, Complete Elenita Rojas May 01, 2017 11:31
--- NOTE | 2017-05-01 13:43 | IPNPDOC ---
Plate [facility] Hand Progress Note DATE OF SERVICE: 05/01/17 DATE OF ADMISSION: Apr 17, 2017 at 14:45 INPATIENT REHABILITATION ADMISSION DAY: #15 SUBJECTIVE: Patient is a 32-year-old right-handed white female with cauda equina with incomplete paraparesis status post lumbar laminectomy and L3-L4 disc replacement due to nontraumatic degenerative disc disease and degenerative joint disease. Patient required revision of her laminectomy incision on 04/27/17 due to persistent serous drainage. Some wound cultures blood culture have been sent. Patient is now off strict bed rest per neurosurgery. Patient with ongoing problems of morbid obesity, asthma/obstructive sleep apnea , hypertension, and hyperlipidemia. Pain doing well in general. ALLERGIES: See Below MEDICATIONS: Reviewed, see below. OBJECTIVE: VITAL SIGNS: Please see below. PHYSICAL EXAMINATION: GENERAL: Pleasant, morbidly obese, young, white female who is alert and oriented 4. Speech is clear, coherent and appropriate. Memory is intact. And patient is in mild musculoskeletal distress. She is excited to be getting up and back to therapy. HEENT: Normocephalic/atraumatic. CARDIOVASCULAR: Regular rate and rhythm with normal S1-S2 without S3-S4 murmurs or rubs. 2/4 bilateral radial pulses LUNGS: All pickens clear to auscultation though sounds distant due to thick chest wall. ABDOMEN: Obese, and nontender with normal bowel sounds in all quadrants. NEUROLOGICAL: As above. Sensory motor intact bilateral upper extremities. Right lower extremity showed decreased light touch in the L5, S1 and S2 dermatomes and slight decrease in vibratory sensation in the S1 and S2 dermatomes. Left lower extremity showed slight diffuse decreased light touch. It appears, but is much better than on the right lower extremity and vibration appears to be grossly intact. SKIN: Back incision without significant heat, redness, drainage, odor or tenderness. Left L4 blister present. Drains out, and only mild edema present. LABORATORY DATA: Reviewed. Please see below. MICROBIOLOGY: Please see below. IMAGING: No new imaging today. DVT prophylaxis ordered?: TEDs, and Sequential Compressions Stockings. ASSESSMENT AND PLAN: 1. Rehabilitation is cauda equina: Patient doing well for status post laminectomy incision revision. Dr. Pratt requires the patient to be on strict bedrest for 3 days postoperatively, but will allow some exercise in bed and patient to be up meals. Therefore patient with surgery yesterday was an exception to the three-hour rule of therapy and today returning from surgery/ observation will be exception to the 3 hours of therapy per day. The continued incisional drainage is causing with its corrective surgery and interruption in care for the acute rehabilitation unit. I fully expect patient will require an exception from the 3 hours of therapy for March 29 and March 30. I am hopeful patient will be able to resume her program of physical and occupational therapy on March 31. Patient remains very motivated to participate and improve her skill levels to facilitate her return to home. On Thursday we will reassess the patient and by Thursday look to adjust her anticipated length of stay as needed. Based on her recent improvement I do anticipate that in spite of this interruption, that the patient will likely complete her inpatient rehabilitation next week. We will reassess discharge plan on Thursday. Still likely home next week. 2. Constipation: I have change the Urecholine to BID but need to restart bowels with enemas to clear hard stools if getting up gaiting is not effective. 3. Moderate anemia: We'll try improve her nutrition and continue to monitor H&H was on 05/01/17 at 10.5 & 32.1%, which is better. We will continue to monitor. 4. Hypokalemia: Patient with potassium staying normal at 4.3 today 05/01/17. We will continue to monitor. 5. Hyperglycemia: Blood sugars have been doing well post operatively from incision revision, so I will stopped with QID BS checks and ISS coverage. 6. Wound Cultures: Patient with few Kleb. Pneum., Staph. Aureus, and Epidermis on Gram Stain and Cultures. These have been sensitive to all tested agents except PCN and Ampicillin. Patient is on Cefazolin 2 grams IV q8hrs for now. Temperatures have been low grade since 04/27/17 surgery with Tmax 101.2 for the last 24 hours. Blood culture and Urine cultures obtained last night. TIME SPENT: Chart Review, examination and documentation required greater than 25 minutes. Allergies Coded Allergies: Sulfa Antibiotics (Verified Allergy, Intermediate, 04/10/17) Vital Signs Vital Signs Date Time Temp Pulse Resp B/P (MAP) Pulse Ox O2 Delivery O2 Flow Rate FiO2 05/01/17 08:00 Room Air 05/01/17 06:27 160/83 05/01/17 06:00 99.7 104 18 96 04/27/17 12:35 3 Laboratory Data CBC/BMP Laboratory Tests 04/30/17 23:03 Red Blood Count 3.77 L, Mean Corpuscular Volume 85.0, Mean Corpuscular Hemoglobin 27.9, Mean Corpuscular Hemoglobin Concent 32.8, Red Cell Distribution Width 14.6 H, Neutrophils (%) (Auto) 65.6, Lymphocytes (%) (Auto) 25.1, Monocytes (%) (Auto) 4.6, Eosinophils (%) (Auto) 3.5 H, Basophils (%) ( Auto) 0.2, Neutrophils # (Auto) 4.8, Lymphocytes # (Auto) 1.9, Monocytes # (Auto ) 0.3, Eosinophils # (Auto) 0.2, Basophils # (Auto) 0.0 Labs 24H Laboratory Tests 2 04/30/17 22:18: Urine Appearance HAZY, Urine Color YELLOW, Urine pH 5.0, Urine Specific [place] 1.030, Urine Protein NEGATIVE, Urine Glucose (UA) NEGATIVE, Urine Ketones TRACEH , Urine Urobilinogen 0.2, Urine Bilirubin NEGATIVE, Urine Leukocyte Esterase NEGATIVE, Urine Blood NEGATIVE, Urine Nitrite NEGATIVE, Urine WBC (Auto) 2, Urine RBC (Auto) 2, Urine Hyaline Casts (Auto) 0, Urine Bacteria (Auto) NEGATIVE , Urine Squamous Epithelial Cells 2, Urine Mucus (Auto) SMALL, Urine Sperm (Auto ) 04/30/17 23:03: White Blood Count 7.4, Red Blood Count 3.77L, Hemoglobin 10.5L, Hematocrit 32.1L , Mean Corpuscular Volume 85.0, Mean Corpuscular Hemoglobin 27.9, Mean Corpuscular Hemoglobin Concent 32.8, Red Cell Distribution Width 14.6H, Platelet Count 311, Neutrophils (%) (Auto) 65.6, Lymphocytes (%) (Auto) 25.1, Monocytes (%) (Auto) 4.6, Eosinophils (%) (Auto) 3.5H, Basophils (%) (Auto) 0.2 , Neutrophils # (Auto) 4.8, Lymphocytes # (Auto) 1.9, Monocytes # (Auto) 0.3, Eosinophils # (Auto) 0.2, Basophils # (Auto) 0.0, Large Unclassified Cells % 1.1 , Large Unclassified Cells # 0.1 05/01/17 10:45: Bedside Glucose (Misc Panel) 141H Microbiology Microbiology 04/30/17 Blood Culture, Received Pending 04/30/17 Blood Culture, Received Pending 04/27/17 Blood Culture - Preliminary, Resulted No Growth after 72 hours. All specime... 04/30/17 Urine Culture, Received Pending 04/29/17 Gram Stain - Final, Complete 04/29/17 Wound Culture - Final, Complete 04/27/17 Gram Stain - Final, Complete 04/27/17 Abscess Culture - Final, Complete Klebsiella Pneumoniae Staphylococcus Epidermidis Staphylococcus Aureus 04/27/17 Anaerobic Culture - Final, Complete 04/27/17 Gram Stain - Final, Complete 04/27/17 Wound Culture - Final, Complete Klebsiella Pneumoniae Staphylococcus Sp Coag Neg 04/27/17 Anaerobic Culture - Final, Complete Current Medications Current Medications Current Medications Acetaminophen (Tylenol Tab) 650 mg Q4H PO ; Start 04/27/17 at 13:00; Stop at 16:12; Status DC Acetaminophen (Tylenol Tab) 650 mg Q6HP PRN PO PAIN OR FEVER; Start 04/17/17 at 11:30; Stop 04/17/17 at 15:09; Status DC Acetaminophen (Tylenol Tab) 650 mg Q6HP PRN PO PAIN / FEVER Last administered on 04/30/17 20:47; Start 04/28/17 at 14:30; Stop 05/28/17 at 14:29 Acetaminophen (Tylenol Tab) 650 mg QID PO Last administered on 04/26/17 20:52; Start 04/20/17 at 13:00; Stop 04/27/17 at 11:27; Status DC Acetaminophen (Tylenol Tab) 650 mg RQ4H PO Last administered on 04/20/17 08:10 ; Start 04/17/17 at 16:00; Stop 04/20/17 at 09:49; Status DC Acetylcysteine (Mucomyst 20% (200mg/ml)) 400 mg RBID INH ; Start 04/17/17 at 20: 00; Stop 05/17/17 at 19:59; Status UNV Acetylcysteine (Mucomyst 20% (200mg/ml)) 400 mg RBID INH ; Start 04/28/17 at 20: 00; Stop 04/29/17 at 09:02; Status DC Albuterol Sulfate (Proventil Neb) 2.5 mg RQ8H NEB Last administered on 07:04; Start 04/17/17 at 16:00; Stop 04/27/17 at 16:14; Status DC Albuterol Sulfate (Proventil Neb) 2.5 mg RQ8H NEB Last administered on 08:18; Start 04/28/17 at 16:00; Stop 05/28/17 at 15:59 Albuterol/ Ipratropium (Duoneb (Ipr 0.5mg/Alb 2.5mg)) 3 ml Q2HP PRN NEB SOB/ WHEEZING; Start 04/17/17 at 11:45; Stop 04/27/17 at 11:21; Status DC Albuterol/ Ipratropium (Duoneb (Ipr 0.5mg/Alb 2.5mg)) 3 ml Q2HP PRN NEB SOB/ WHEEZING Last administered on 04/28/17 19:22; Start 04/28/17 at 14:30; Stop 05/28 at 14:29 Bethanechol Chloride (Urecholine) 10 mg BID PO Last administered on 04/22/17 08:17; Start 04/17/17 at 21:00; Stop 04/22/17 at 15:51; Status DC Bethanechol Chloride (Urecholine) 10 mg BID PO Last administered on 05/01/17 08 :20; Start 04/30/17 at 21:00; Stop 05/28/17 at 08:59 Bethanechol Chloride (Urecholine) 10 mg DAILY PO Last administered on 04/26/17 09:39; Start 04/23/17 at 09:00; Stop 04/27/17 at 11:21; Status DC Bethanechol Chloride (Urecholine) 10 mg DAILY PO Last administered on 04/30/17 09:16; Start 04/28/17 at 09:00; Stop 04/30/17 at 15:09; Status DC Carisoprodol (Soma) 350 mg TID PO Last administered on 04/26/17 20:51; Start at 16:00; Stop 04/27/17 at 16:14; Status DC Carisoprodol (Soma) 350 mg TID PO Last administered on 05/01/17 08:20; Start at 16:00; Stop 05/05/17 at 15:59 Cefazolin Sodium/ Dextrose 2 gm/IV Miscellaneous Supplies 50 ml @ 75 mls/hr Q8H IV ; Start 04/27/17 at 12:30; Stop 04/27/17 at 16:13; Status DC Cefazolin Sodium/ Dextrose 2 gm/IV Miscellaneous Supplies 50 ml @ 75 mls/hr Q8H IV Last administered on 05/01/17 09:32; Start 04/29/17 at 10:00; Stop 05/06/17 at 09:59 Cod Liver Oil/ Zinc Oxide (Desitin) Apply around surgi... ASDIRECTED TOP ; Start 04/17/17 at 12:00; Stop 04/27/17 at 11:21; Status DC Dextrose (Dextrose 50%) 25 ml ASDIRECTED PRN IV SEE LABEL COMMENTS; Start 04/17 at 11:45; Stop 04/27/17 at 11:21; Status DC Docusate Sodium (Colace) 100 mg BID PO Last administered on 04/26/17 20:50; Start 04/17/17 at 21:00; Stop 04/27/17 at 11:21; Status DC Docusate Sodium (Colace) 100 mg BID PO ; Start 04/27/17 at 21:00; Stop 04/27/17 at 21:00; Status DC Docusate Sodium (Colace) 100 mg BID PO Last administered on 05/01/17 08:20; Start 04/28/17 at 21:00; Stop 05/28/17 at 20:59 Fentanyl Citrate (Sublimaze) 25 mcg Q5MP PRN IV MODERATE PAIN (PS 4-7); Start 04/27/17 at 11:15; Stop 04/27/17 at 12:15; Status DC Gabapentin (Neurontin) 200 mg BID PO Last administered on 04/26/17 20:51; Start 04/17/17 at 21:00; Stop 04/27/17 at 16:14; Status DC Gabapentin (Neurontin) 200 mg Q8H PO Last administered on 05/01/17 06:25; Start 04/28/17 at 14:00; Stop 05/28/17 at 13:59 Glucagon (Glucagon) 1 mg ASDIRECTED PRN SC SEE LABEL COMMENTS; Start 04/17/17 at 11:45; Stop 04/27/17 at 11:21; Status DC Glucagon (Glucagon) 1 mg ASDIRECTED PRN SC SEE LABEL COMMENTS; Start 04/28/17 at 14:30; Stop 05/28/17 at 14:29; Status Cancel Glucose (Glucose) 16 GM ASDIRECTED PRN PO SEE LABEL COMMENTS; Start 04/17/17 at 11:45; Stop 04/27/17 at 11:21; Status DC Glucose (Glucose) 16 GM ASDIRECTED PRN PO SEE LABEL COMMENTS; Start 04/28/17 at 14:30; Stop 05/28/17 at 14:29; Status Cancel Hydralazine HCl (Apresoline) 25 mg Q8H PO Last administered on 04/26/17 20:51; Start 04/17/17 at 14:00; Stop 04/27/17 at 16:14; Status DC Hydralazine HCl (Apresoline) 25 mg Q8H PO Last administered on 05/01/17 06:27; Start 04/28/17 at 14:00; Stop 05/28/17 at 13:59 Insulin Human Lispro (HumaLOG INSULIN) See Protocol Table AC SC Last administered on 04/24/17 09:31; Start 04/17/17 at 17:30; Stop 04/24/17 at 11:19; Status DC Insulin Human Lispro (HumaLOG INSULIN) See Protocol Table AC SC Last administered on 04/30/17 12:40; Start 04/28/17 at 17:30; Stop 04/30/17 at 15:09; Status DC Insulin Human Lispro (HumaLOG INSULIN) See Protocol Table QHS SC ; Start at 21:00; Stop 04/24/17 at 11:19; Status DC Insulin Human Lispro (HumaLOG INSULIN) See Protocol Table QHS SC ; Start at 21:00; Stop 04/30/17 at 15:09; Status DC Lactated Ringer's 1,000 ml @ 100 mls/hr Q10H IV ; Start 04/27/17 at 11:15; Stop 04/27/17 at 12:15; Status DC Lactated Ringer's 1,000 ml @ 100 mls/hr Q10H IV ; Start 04/27/17 at 12:00; Stop 04/27/17 at 16:12; Status DC Magnesium Hydroxide (Milk Of Magnesia) 30 ml DAILYPRN PRN PO CONSTIPATION Last administered on 04/22/17 21:07; Start 04/17/17 at 11:45; Stop 04/27/17 at 11:21 ; Status DC Morphine Sulfate (Morphine Sulfate Inj) 2 mg Q2HP PRN IV BREAKTHROUGH PAIN; Start 04/27/17 at 11:45; Stop 04/27/17 at 16:12; Status DC Nicotine (Nicoderm Cq 7 Mg) 1 patch DAILY TD Last administered on 04/24/17 09: 32; Start 04/18/17 at 09:00; Stop 04/25/17 at 08:55; Status DC Ondansetron HCl (ZOFRAN INJection) 4 mg Q8HP PRN IV NAUSEA OR VOMITING; Start 04/27/17 at 12:00; Stop 04/27/17 at 16:12; Status DC Oxycodone HCl (Roxicodone, Oxyir) 5 mg Q4HP PRN PO P(8-10) Last administered on 04/26/17 12:20; Start 04/17/17 at 11:45; Stop 04/27/17 at 11:21; Status DC Oxycodone HCl (Roxicodone, Oxyir) 5 mg Q4HP PRN PO AIN(5-7); Start 04/28/17 at 14:30; Stop 05/05/17 at 14:29 Oxycodone HCl (Roxicodone, Oxyir) 10 mg Q4HP PRN PO SEVERE PAIN (PS 8-10); Start 04/17/17 at 11:45; Stop 04/24/17 at 11:44; Status UNV Oxycodone HCl (Roxicodone, Oxyir) 10 mg Q4HP PRN PO SEVERE PAIN (PS 8-10); Start 04/28/17 at 14:30; Stop 05/05/17 at 14:29 Oxycodone/ Acetaminophen (Percocet 5mg/ 325mg Tablet) 1 tab ASDIRECTED PRN PO MILD/MODERATE PAIN (PS 1-7) Last administered on 04/27/17 11:30; Start 04/27/17 at 11:15; Stop 04/27/17 at 12:15; Status DC Pantoprazole Sodium (Protonix) 40 mg DAILY PO Last administered on 04/26/17 09: 39; Start 04/18/17 at 09:00; Stop 04/27/17 at 16:14; Status DC Pantoprazole Sodium (Protonix) 40 mg DAILY PO Last administered on 05/01/17 08: 20; Start 04/29/17 at 09:00; Stop 05/29/17 at 08:59 Senna/Docusate Sodium (Senokot S) 1 tab BID PO Last administered on 04/26/17 20 :51; Start 04/17/17 at 21:00; Stop 04/27/17 at 11:21; Status DC Sodium Chloride 1,000 ml @ 100 mls/hr Q10H IV Last administered on 04/27/17 00 :00; Start 04/27/17 at 00:00; Stop 04/27/17 at 11:22; Status DC Tramadol HCl (Ultram Er) 200 mg DAILY@0600 PO Last administered on 04/27/17 06: 19; Start 04/21/17 at 06:00; Stop 04/27/17 at 11:21; Status DC Tramadol HCl (Ultram Er) 200 mg DAILY@0700 PO Last administered on 05/01/17 06: 25; Start 04/29/17 at 07:00; Stop 05/06/17 at 06:59 YIMI PIZARRO MD May 01, 2017 13:43
[2017-05-01 14:00] VITALS: BP 132/60
[2017-05-01] MEDS ORDERED: FLUCONAZOLE 50MG TABLET PO ONE (15:00)
--- NOTE | 2017-05-01 15:02 | IPN ---
DATE: 05/01/2017 Dana had a fever last night of 101.2. She also complains of some itching in her neck folds. She has still a Zuniga catheter in place. Her dressing was removed. Her drains were removed this morning. [place] in place. There is no evidence of infection. She had some serosanguineous discharge on her dressing this afternoon. The wound looks clean, measured at least 30 cm. There is over [address] There are two open holes at the site of the drains that were removed. Temperature currently 99.7, pulse 104, respirations 18, blood pressure 160/83, O2 sat 96% on room air. Neck folds erythematous. Abdominal folds and groin area are both erythematous with satellite lesions suggestive of candidiasis. LABORATORIES: White count is 7.4, hemoglobin 10.5, hematocrit 32.1, platelets 311. ESR 109. Sodium 145, potassium 4.3, chloride 108, bicarb 27, BUN 10, creatinine 0.62, glucose 98, calcium 7.9, AST 16, ALT 18, CRP 4.07 down from 12.9, albumin 2.4. Wound culture positive for Klebsiella, Staphylococcus Aureus and methicillin-susceptible Staphylococcus aureus (MSSA) from 04/27. On 04/29, another wound culture was done that was negative. On 04/30 urine culture and blood cultures were sent and are pending. IMPRESSION: 1. Postoperative wound infection with culture positive for MSSA and Klebsiella. Patient on IV cefazolin, doing well. 2. Intertriginous candidiasis in neck folds, abdominal folds and groin. The patient will be given nystatin powder and Diflucan times one dose. 3. Morbid obesity. 4. Zuniga catheter. The patient has been allowed to ambulate and therefore Zuniga catheter needs to be removed before she develops a catheter associated urinary tract infection (UTI). PLAN: Discontinue Zuniga. Continue IV cefazolin, nystatin powder and fluconazole for yeast infection.
[2017-05-01] MEDS: NYSTATIN 100,000 UNITS/GM TOPICAL PWD 15 GM TOP SCH ×2 (15:21→20:37)
[2017-05-01 20:00] VITALS: BP 119/56
[2017-05-01] MEDS ORDERED: MAALOX 30 ML SUSP *UDC PO PRN (23:45)
[2017-05-01] MEDS ORDERED: MAALOX 30 ML SUSP *UDC PO ONE (23:45)
[2017-05-02 04:00] VITALS: BP 143/80
[2017-05-02] MEDS: GABAPENTIN 100 MG CAP PO SCH ×3 (05:22→20:35)
[2017-05-02] MEDS: **hydrALAZINE HCL** 25 MG TAB PO SCH ×3 (05:23→20:33)
[2017-05-02] MEDS: traMADol ER 100MG TABLET (ULTRAM ER) PO SCH (06:10)
[2017-05-02] MEDS: ALBUTEROL SULFATE 2.5 MG/0.5 ML INH NEB SOLN NEB SCH ×2 (07:12→15:11)
[2017-05-02] MEDS: DOCUSATE SODIUM 100 MG CAP PO SCH ×2 (08:09→20:31)
[2017-05-02] MEDS: CARISOPRODOL 350 MG TAB PO SCH ×3 (08:13→20:31)
[2017-05-02] MEDS: NYSTATIN 100,000 UNITS/GM TOPICAL PWD 15 GM TOP SCH ×2 (08:13→20:32)
[2017-05-02] MEDS: BETHANECHOL 10 MG TAB PO SCH ×2 (08:13→20:31)
[2017-05-02] MEDS: PANTOPRAZOLE 40MG TAB (PROTONIX) PO SCH (08:13)
[2017-05-02 14:00] VITALS: BP 124/57
[2017-05-02 20:00] VITALS: BP 106/49
[2017-05-03] MEDS: ALBUTEROL SULFATE 2.5 MG/0.5 ML INH NEB SOLN NEB SCH ×4 (00:03→21:30)
[2017-05-03 06:00] VITALS: BP 129/60
[2017-05-03] MEDS: **hydrALAZINE HCL** 25 MG TAB PO SCH ×3 (06:00→21:22)
[2017-05-03] MEDS: traMADol ER 100MG TABLET (ULTRAM ER) PO SCH (06:07)
[2017-05-03] MEDS: GABAPENTIN 100 MG CAP PO SCH ×3 (06:07→21:23)
[2017-05-03] MEDS: BETHANECHOL 10 MG TAB PO SCH ×2 (08:45→21:23)
[2017-05-03] MEDS: NYSTATIN 100,000 UNITS/GM TOPICAL PWD 15 GM TOP SCH ×2 (08:45→21:23)
[2017-05-03] MEDS: CARISOPRODOL 350 MG TAB PO SCH ×3 (08:45→21:22)
[2017-05-03] MEDS: DOCUSATE SODIUM 100 MG CAP PO SCH ×2 (08:45→21:22)
[2017-05-03] MEDS: PANTOPRAZOLE 40MG TAB (PROTONIX) PO SCH (08:45)
[2017-05-03 14:00] VITALS: BP 142/81
[2017-05-03 20:00] VITALS: BP 142/67
[2017-05-04] MEDS: **hydrALAZINE HCL** 25 MG TAB PO SCH ×3 (05:40→21:32)
[2017-05-04 06:00] VITALS: BP 129/60
[2017-05-04] MEDS: GABAPENTIN 100 MG CAP PO SCH ×3 (06:18→21:28)
[2017-05-04] MEDS: traMADol ER 100MG TABLET (ULTRAM ER) PO SCH (06:18)
[2017-05-04] MEDS: ALBUTEROL SULFATE 2.5 MG/0.5 ML INH NEB SOLN NEB SCH ×2 (08:36→15:33)
[2017-05-04] MEDS: BETHANECHOL 10 MG TAB PO SCH ×2 (08:48→21:28)
[2017-05-04] MEDS: PANTOPRAZOLE 40MG TAB (PROTONIX) PO SCH (08:48)
[2017-05-04] MEDS: DOCUSATE SODIUM 100 MG CAP PO SCH ×2 (08:48→21:28)
[2017-05-04] MEDS: CARISOPRODOL 350 MG TAB PO SCH ×3 (08:48→21:28)
[2017-05-04] MEDS: NYSTATIN 100,000 UNITS/GM TOPICAL PWD 15 GM TOP SCH ×2 (08:49→21:00)
--- NOTE | 2017-05-04 11:19 | IPNPDOC ---
Date Seen The patient was seen on 05/04/17. Progress Note ATTENDING: Dr. Silver Neurosurgeon. Dr Pratt Infectious disease. Dr Cheema PCP: Ara ANDERSON HPI: 32yoF S/P Posterior decompression and fusion L2-S1, with bone graft, with total disc excision with end plate for fusion L3-4. Intervertebral disc replacement L3-[address] Pratt 04/13/17, transferred to the care of Dr Silver , [facility] 04/18/17. S/P I&D surgical wound 04/27/17 as per neurosurgery. States feels tired. Some SOB with exertion. Denies any fevers, chills, JADE, CP, cough, palpitations, abdominal pain, N/V/D or changes in bowel or bladder habits. The hospitalist team was consulted for medical management. PAST MEDICAL HISTORY: Anxiety depression insomnia Asthma. NIDDM. A1c 7.1 04/11/17 H/O Dyslipidemia. Does not take medication. M Obesity. BMI 55.0 GERD PAST SURGICAL HISTORY: [place] teeth extracted age 14. IUD PE GEN: 32yoF, appears stated age. Well-nourished, well developed. No acute distress. Alert and oriented x 3. Pleasant, interactive. HEENT: Normocephalic, atraumatic. Pupils are equal, round, and reactive to light. Extraocular movements are intact. No nystagmus appreciated. Sclera are nonicteric. Conjunctiva without injection. Nose midline. No facial asymmetry. Moist mucous membranes. Dentition fair. Pharynx pink and moist, no cobblestoning. Neck supple, trachea midline. No lymphadenopathy or thyromegaly appreciated. CHEST: Regular rate and rhythm, +S1, +S2 LUNGS: Clear to auscultation bilaterally. No wheezes, rales, or rhonchi. Breathing appears symmetric and easy. Patient is speaking in full sentences. No accessory muscle use. ABD: Round, soft, non-tender, non-distended. +Bowel sounds throughout. No rebound or guarding. No costovertebral angle tenderness. EXT: Pulses 2+ bilaterally. No lower extremity edema appreciated. SKIN: [place], dry, warm. Capillary refill <2sec. No rashes. NEURO: Alert and oriented x 3. CXR: 04/11/17 Left internal jugular venous catheter tip just to the left of midline in the brachiocephalic vein position. No pneumothorax seen. Otherwise no acute disease. LS MRI 04/14/17 Limited examination demonstrating the patient to be status post L3-4 anterior and L2-S1 posterior spinal fusion and L1-5 laminectomy. There is anatomic alignment of the lumbar spine. A postoperative fluid collection is present at the laminectomy site. XR LS spine 04/18/17 The patient is status post L2-S1 posterior spinal fusion and L2-5 laminectomy. Metal rods and pedicle screws are present. There is no acute fracture or subluxation. The L2-3 through L5-S1 intervertebral discs are decreased in height consistent with disc degeneration. Osteophytes are present on L3-5. Surgical clips are present in the posterior paravertebral soft tissue. An IUD is present in the pelvis. UC 04/11/17 neg. WC ABSCESS CULTURE Final Organism 1 KLEBSIELLA PNEUMONIAE QUANTITY OF GROWTH FEW Organism 2 STAPHYLOCOCCUS EPIDERMIDIS QUANTITY OF GROWTH FEW Organism 3 STAPHYLOCOCCUS AUREUS QUANTITY OF GROWTH FEW BC 05/03 neg BC 04/30 staph epi x 1. UC 04/30 neg A&P: 32yoF S/P Posterior decompression and fusion L2-S1, with bone graft, with total disc excision with end plate for fusion L3-4. Intervertebral disc replacement L3-[address] Pratt 04/13/17, transferred to the care of ROMAN Burdick 04/18/17. Post operative wound infection/I/&D as per Neurosurgery 04/27/17. 1. The patient is admitted to ARU to Dr. Silver's service. 2. S/P Posterior decompression and fusion L2-S1, with bone graft, with total disc excision with end plate for fusion L3-4. Intervertebral disc replacement L3-[address] Pratt 04/13/17. Neurosurgical Management as per Dr Pratt. PT/OT as per Dr Silver. Bowel care as per Dr Silver. Pain control as per Dr Silver. DVT prophylaxis as per Neurosurgery/ ROMAN Burdick. Post operative wound infection/I/&D as per Neurosurgery 04/27/17. Afebrile. Cont IV Kefzol, Infectious disease following/assisting with mgmt. 3. NIDDM. CC diet. 4. Asthma. Continue albuterol nebulizer Q8 and every 2 hours as needed. 5. Elevated BP, no prior h/o HTN. Hydralazine 25 mg TID as needed with hold parameters. BP this a.m. 129/60. 6. Dyslipidemia. Diet. 7. M Obesity. BMI 55.0. Complicates care. TSH WNL. 8. GERD. Protonix. 9. Tobacco use. Nicoderm. 10. Hypokalemia. WNL. Monitor 11. Anemia. Hgb trend improving. Monitor. 12. Dermatophytosis. Nystatin powder. VS, I&O, 24H, Fishbone Vital Signs/I&O Vital Signs Date Time Temp Pulse Resp B/P (MAP) Pulse Ox O2 Delivery O2 Flow Rate FiO2 05/04/17 09:00 Room Air 05/04/17 06:00 97.0 99 18 129/60 (83) 94 I&O- Last 24 Hours up to 6 AM 05/04/17 05:59 Intake Total 3120 ml Balance 3120 ml Laboratory Data Microbiology Microbiology 05/03/17 Blood Culture - Preliminary, Resulted No growth after 24 hours . All specim... 04/30/17 Blood Culture - Preliminary, Resulted No Growth after 72 hours. All specime... 04/30/17 Blood Culture - Final, Complete Staphylococcus Epidermidis 04/27/17 Blood Culture - Final, Complete NO GROWTH AFTER 5 DAYS 04/30/17 Urine Culture - Final, Complete 04/29/17 Gram Stain - Final, Complete 04/29/17 Wound Culture - Final, Complete 04/27/17 Gram Stain - Final, Complete 04/27/17 Abscess Culture - Final, Complete Klebsiella Pneumoniae Staphylococcus Epidermidis Staphylococcus Aureus 04/27/17 Anaerobic Culture - Final, Complete 04/27/17 Gram Stain - Final, Complete 04/27/17 Wound Culture - Final, Complete Klebsiella Pneumoniae Staphylococcus Sp Coag Neg 04/27/17 Anaerobic Culture - Final, Complete Elenita Rojas May 04, 2017 11:19
[2017-05-04 14:00] VITALS: BP 118/81
--- NOTE | 2017-05-04 16:12 | IPNPDOC ---
Flight Line Service Attendant Progress Note DATE OF SERVICE: 05/04/17 DATE OF ADMISSION: Apr 17, 2017 at 14:45 INPATIENT REHABILITATION ADMISSION DAY: #18 SUBJECTIVE: Patient is a 32-year-old right-handed white female with cauda equina with incomplete paraparesis status post lumbar laminectomy and L3-L4 disc replacement due to nontraumatic degenerative disc disease and degenerative joint disease. Patient required revision of her laminectomy incision on 04/27/17 due to persistent serous drainage. Some wound cultures blood culture have been sent. Patient is now off strict bed rest per neurosurgery. Patient with ongoing problems of morbid obesity, asthma/obstructive sleep apnea , hypertension, and hyperlipidemia. Pain doing well in general. ALLERGIES: See Below MEDICATIONS: Reviewed, see below. OBJECTIVE: VITAL SIGNS: Please see below. PHYSICAL EXAMINATION: GENERAL: Pleasant, morbidly obese, young, white female who is alert and oriented 4. Speech is clear, coherent and appropriate. Memory is intact. And patient is in mild musculoskeletal distress. She is excited to be getting up and back to therapy. HEENT: Normocephalic/atraumatic. CARDIOVASCULAR: Regular rate and rhythm with normal S1-S2 without S3-S4 murmurs or rubs. 2/4 bilateral radial pulses LUNGS: All pickens clear to auscultation though sounds distant due to thick chest wall. ABDOMEN: Obese, and nontender with normal bowel sounds in all quadrants. NEUROLOGICAL: As above. Sensory motor intact bilateral upper extremities. Right lower extremity showed decreased light touch in the L5, S1 and S2 dermatomes and slight decrease in vibratory sensation in the S1 and S2 dermatomes. Left lower extremity showed slight diffuse decreased light touch. It appears, but is much better than on the right lower extremity and vibration appears to be grossly intact. SKIN: Back incision without significant heat, redness, odor or tenderness. Left L4 blister present. Drains out, and only mild edema present. Still some caudal wound drainage. LABORATORY DATA: Reviewed. Please see below. MICROBIOLOGY: Please see below. IMAGING: No new imaging today. DVT prophylaxis ordered?: TEDs, and Sequential Compressions Stockings. ASSESSMENT AND PLAN: 1. Rehabilitation is cauda equina: Patient doing well for status post laminectomy incision revision. Patient remains very motivated to participate and improve her skill levels to facilitate her return to home. Since Thursday patient working hard with Pt/OT making good progress and back to pre-bedrest level or above today. Rehabilitation team rounds: After review in the team meeting is felt the patient should be able to hear discharge goals by 05/07/17 which is an increase of 1 day over prior anticipate discharge. 2. Constipation: I have change the Urecholine to BID. Patient on regular bowel pattern again. 3. Moderate anemia: We'll try improve her nutrition and continue to monitor H&H was on 05/01/17 at 10.5 & 32.1%, which is better. We will continue to monitor. 4. Hypokalemia: Patient with potassium staying normal at 4.3 today 05/01/17. We will continue to monitor. 5. Hyperglycemia: Blood sugars have been doing well post operatively from incision revision, so I will stopped with QID BS checks and ISS coverage. 6. Wound Cultures: Patient with few Kleb. Pneum., Staph. Aureus, and Epidermis on Gram Stain and Cultures. These have been sensitive to all tested agents except PCN and Ampicillin. Patient is on Cefazolin 2 grams IV q8hrs for now. Temperatures have been low grade since 05/02/17 with Tmax 99.8F. Blood culture and Urine cultures obtained negative except for one 04/30/17 growing Staph. Epi sensitive to Erythromycin, but not to penicillins. I will start Erythromycin. Still some wound drainage and Dr. Pratt to consult Dr. Lujan about treatment and possible wound vac. TIME SPENT: Chart Review, examination and documentation required greater than 25 minutes. Allergies Coded Allergies: Sulfa Antibiotics (Verified Allergy, Intermediate, 04/10/17) Vital Signs Vital Signs Date Time Temp Pulse Resp B/P (MAP) Pulse Ox O2 Delivery O2 Flow Rate FiO2 05/04/17 14:40 118/81 05/04/17 14:00 97.7 107 18 95 Room Air Microbiology Microbiology 05/03/17 Blood Culture - Preliminary, Resulted No growth after 24 hours . All specim... 04/30/17 Blood Culture - Preliminary, Resulted No Growth after 72 hours. All specime... 04/30/17 Blood Culture - Final, Complete Staphylococcus Epidermidis 04/27/17 Blood Culture - Final, Complete NO GROWTH AFTER 5 DAYS 04/30/17 Urine Culture - Final, Complete 04/29/17 Gram Stain - Final, Complete 04/29/17 Wound Culture - Final, Complete 04/27/17 Gram Stain - Final, Complete 04/27/17 Abscess Culture - Final, Complete Klebsiella Pneumoniae Staphylococcus Epidermidis Staphylococcus Aureus 04/27/17 Anaerobic Culture - Final, Complete 04/27/17 Gram Stain - Final, Complete 04/27/17 Wound Culture - Final, Complete Klebsiella Pneumoniae Staphylococcus Sp Coag Neg 04/27/17 Anaerobic Culture - Final, Complete Current Medications Current Medications Current Medications Acetaminophen (Tylenol Tab) 650 mg Q4H PO ; Start 04/27/17 at 13:00; Stop at 16:12; Status DC Acetaminophen (Tylenol Tab) 650 mg Q6HP PRN PO PAIN OR FEVER; Start 04/17/17 at 11:30; Stop 04/17/17 at 15:09; Status DC Acetaminophen (Tylenol Tab) 650 mg Q6HP PRN PO PAIN / FEVER Last administered on 04/30/17 20:47; Start 04/28/17 at 14:30; Stop 05/28/17 at 14:29 Acetaminophen (Tylenol Tab) 650 mg QID PO Last administered on 04/26/17 20:52; Start 04/20/17 at 13:00; Stop 04/27/17 at 11:27; Status DC Acetaminophen (Tylenol Tab) 650 mg RQ4H PO Last administered on 04/20/17 08:10 ; Start 04/17/17 at 16:00; Stop 04/20/17 at 09:49; Status DC Acetylcysteine (Mucomyst 20% (200mg/ml)) 400 mg RBID INH ; Start 04/17/17 at 20: 00; Stop 05/17/17 at 19:59; Status UNV Acetylcysteine (Mucomyst 20% (200mg/ml)) 400 mg RBID INH ; Start 04/28/17 at 20: 00; Stop 04/29/17 at 09:02; Status DC Al Hydrox/Mg Hydrox/Simethicone (Mylanta) 30 ml Q6HP PRN PO INDIGESTION Last administered on 05/02/17 00:16; Start 05/01/17 at 23:45; Stop 05/31/17 at 23:44 Albuterol Sulfate (Proventil Neb) 2.5 mg RQ8H NEB Last administered on 07:04; Start 04/17/17 at 16:00; Stop 04/27/17 at 16:14; Status DC Albuterol Sulfate (Proventil Neb) 2.5 mg RQ8H NEB Last administered on 15:33; Start 04/28/17 at 16:00; Stop 05/28/17 at 15:59 Albuterol/ Ipratropium (Duoneb (Ipr 0.5mg/Alb 2.5mg)) 3 ml Q2HP PRN NEB SOB/ WHEEZING; Start 04/17/17 at 11:45; Stop 04/27/17 at 11:21; Status DC Albuterol/ Ipratropium (Duoneb (Ipr 0.5mg/Alb 2.5mg)) 3 ml Q2HP PRN NEB SOB/ WHEEZING Last administered on 04/28/17 19:22; Start 04/28/17 at 14:30; Stop 05/28 at 14:29 Bethanechol Chloride (Urecholine) 10 mg BID PO Last administered on 04/22/17 08:17; Start 04/17/17 at 21:00; Stop 04/22/17 at 15:51; Status DC Bethanechol Chloride (Urecholine) 10 mg BID PO Last administered on 05/04/17 08:48; Start 04/30/17 at 21:00; Stop 05/28/17 at 08:59 Bethanechol Chloride (Urecholine) 10 mg DAILY PO Last administered on 04/26/17 09:39; Start 04/23/17 at 09:00; Stop 04/27/17 at 11:21; Status DC Bethanechol Chloride (Urecholine) 10 mg DAILY PO Last administered on 04/30/17 09:16; Start 04/28/17 at 09:00; Stop 04/30/17 at 15:09; Status DC Carisoprodol (Soma) 350 mg TID PO Last administered on 04/26/17 20:51; Start at 16:00; Stop 04/27/17 at 16:14; Status DC Carisoprodol (Soma) 350 mg TID PO Last administered on 05/04/17 08:48; Start 04/28/17 at 16:00; Stop 05/11/17 at 23:55 Cefazolin Sodium/ Dextrose 2 gm/IV Miscellaneous Supplies 50 ml @ 75 mls/hr Q8H IV ; Start 04/27/17 at 12:30; Stop 04/27/17 at 16:13; Status DC Cefazolin Sodium/ Dextrose 2 gm/IV Miscellaneous Supplies 50 ml @ 75 mls/hr Q8H IV Last administered on 05/04/17 08:49; Start 04/29/17 at 10:00; Stop 05/06/17 at 09:59 Cod Liver Oil/ Zinc Oxide (Desitin) Apply around surgi... ASDIRECTED TOP ; Start 04/17/17 at 12:00; Stop 04/27/17 at 11:21; Status DC Dextrose (Dextrose 50%) 25 ml ASDIRECTED PRN IV SEE LABEL COMMENTS; Start 04/17 at 11:45; Stop 04/27/17 at 11:21; Status DC Docusate Sodium (Colace) 100 mg BID PO Last administered on 04/26/17 20:50; Start 04/17/17 at 21:00; Stop 04/27/17 at 11:21; Status DC Docusate Sodium (Colace) 100 mg BID PO ; Start 04/27/17 at 21:00; Stop 04/27/17 at 21:00; Status DC Docusate Sodium (Colace) 100 mg BID PO Last administered on 05/04/17 08:48; Start 04/28/17 at 21:00; Stop 05/28/17 at 20:59 Fentanyl Citrate (Sublimaze) 25 mcg Q5MP PRN IV MODERATE PAIN (PS 4-7); Start 04/27/17 at 11:15; Stop 04/27/17 at 12:15; Status DC Gabapentin (Neurontin) 200 mg BID PO Last administered on 04/26/17 20:51; Start 04/17/17 at 21:00; Stop 04/27/17 at 16:14; Status DC Gabapentin (Neurontin) 200 mg Q8H PO Last administered on 05/04/17 14:40; Start 04/28/17 at 14:00; Stop 05/28/17 at 13:59 Glucagon (Glucagon) 1 mg ASDIRECTED PRN SC SEE LABEL COMMENTS; Start 04/17/17 at 11:45; Stop 04/27/17 at 11:21; Status DC Glucagon (Glucagon) 1 mg ASDIRECTED PRN SC SEE LABEL COMMENTS; Start 04/28/17 at 14:30; Stop 05/28/17 at 14:29; Status Cancel Glucose (Glucose) 16 GM ASDIRECTED PRN PO SEE LABEL COMMENTS; Start 04/17/17 at 11:45; Stop 04/27/17 at 11:21; Status DC Glucose (Glucose) 16 GM ASDIRECTED PRN PO SEE LABEL COMMENTS; Start 04/28/17 at 14:30; Stop 05/28/17 at 14:29; Status Cancel Hydralazine HCl (Apresoline) 25 mg Q8H PO Last administered on 04/26/17 20:51; Start 04/17/17 at 14:00; Stop 04/27/17 at 16:14; Status DC Hydralazine HCl (Apresoline) 25 mg Q8H PO Last administered on 05/03/17 21:22 ; Start 04/28/17 at 14:00; Stop 05/28/17 at 13:59 Insulin Human Lispro (HumaLOG INSULIN) See Protocol Table AC SC Last administered on 04/24/17 09:31; Start 04/17/17 at 17:30; Stop 04/24/17 at 11:19; Status DC Insulin Human Lispro (HumaLOG INSULIN) See Protocol Table AC SC Last administered on 04/30/17 12:40; Start 04/28/17 at 17:30; Stop 04/30/17 at 15:09; Status DC Insulin Human Lispro (HumaLOG INSULIN) See Protocol Table QHS SC ; Start at 21:00; Stop 04/24/17 at 11:19; Status DC Insulin Human Lispro (HumaLOG INSULIN) See Protocol Table QHS SC ; Start at 21:00; Stop 04/30/17 at 15:09; Status DC Lactated Ringer's 1,000 ml @ 100 mls/hr Q10H IV ; Start 04/27/17 at 11:15; Stop 04/27/17 at 12:15; Status DC Lactated Ringer's 1,000 ml @ 100 mls/hr Q10H IV ; Start 04/27/17 at 12:00; Stop 04/27/17 at 16:12; Status DC Magnesium Hydroxide (Milk Of Magnesia) 30 ml DAILYPRN PRN PO CONSTIPATION Last administered on 04/22/17 21:07; Start 04/17/17 at 11:45; Stop 04/27/17 at 11:21 ; Status DC Morphine Sulfate (Morphine Sulfate Inj) 2 mg Q2HP PRN IV BREAKTHROUGH PAIN; Start 04/27/17 at 11:45; Stop 04/27/17 at 16:12; Status DC Nicotine (Nicoderm Cq 7 Mg) 1 patch DAILY TD Last administered on 04/24/17 09: 32; Start 04/18/17 at 09:00; Stop 04/25/17 at 08:55; Status DC Nystatin (Mycostatin Powder, Nystop) groin neck abdominal folds BID TOP Last administered on 05/04/17 08:49; Start 05/01/17 at 09:00; Stop 05/31/17 at 08:59 Ondansetron HCl (ZOFRAN INJection) 4 mg Q8HP PRN IV NAUSEA OR VOMITING; Start 04/27/17 at 12:00; Stop 04/27/17 at 16:12; Status DC Oxycodone HCl (Roxicodone, Oxyir) 5 mg Q4HP PRN PO P(8-10) Last administered on 04/26/17 12:20; Start 04/17/17 at 11:45; Stop 04/27/17 at 11:21; Status DC Oxycodone HCl (Roxicodone, Oxyir) 5 mg Q4HP PRN PO AIN(5-7); Start 04/28/17 at 14:30; Stop 05/05/17 at 14:29; Status Cancel Oxycodone HCl (Roxicodone, Oxyir) 10 mg Q4HP PRN PO SEVERE PAIN (PS 8-10); Start 04/17/17 at 11:45; Stop 04/24/17 at 11:44; Status UNV Oxycodone HCl (Roxicodone, Oxyir) 10 mg Q4HP PRN PO SEVERE PAIN (PS 8-10); Start 04/28/17 at 14:30; Stop 05/05/17 at 14:29; Status Cancel Oxycodone/ Acetaminophen (Percocet 5mg/ 325mg Tablet) 1 tab ASDIRECTED PRN PO MILD/MODERATE PAIN (PS 1-7) Last administered on 04/27/17 11:30; Start 04/27/17 at 11:15; Stop 04/27/17 at 12:15; Status DC Pantoprazole Sodium (Protonix) 40 mg DAILY PO Last administered on 04/26/17 09: 39; Start 04/18/17 at 09:00; Stop 04/27/17 at 16:14; Status DC Pantoprazole Sodium (Protonix) 40 mg DAILY PO Last administered on 05/04/17 08 :48; Start 04/29/17 at 09:00; Stop 05/29/17 at 08:59 Senna/Docusate Sodium (Senokot S) 1 tab BID PO Last administered on 04/26/17 20 :51; Start 04/17/17 at 21:00; Stop 04/27/17 at 11:21; Status DC Sodium Chloride 1,000 ml @ 100 mls/hr Q10H IV Last administered on 04/27/17 00 :00; Start 04/27/17 at 00:00; Stop 04/27/17 at 11:22; Status DC Tramadol HCl (Ultram Er) 200 mg DAILY@0600 PO Last administered on 04/27/17 06: 19; Start 04/21/17 at 06:00; Stop 04/27/17 at 11:21; Status DC Tramadol HCl (Ultram Er) 200 mg DAILY@0700 PO Last administered on 05/04/17 06 :18; Start 04/29/17 at 07:00; Stop 05/06/17 at 06:59 YIMI PIZARRO MD May 04, 2017 16:12
[2017-05-04] MEDS: ERYTHROMYCIN 250 MG TABLET PO SCH (17:52)
[2017-05-04 20:00] VITALS: BP 114/60
[2017-05-05] MEDS: ERYTHROMYCIN 250 MG TABLET PO SCH ×3 (01:15→12:52)
[2017-05-05] MEDS: GABAPENTIN 100 MG CAP PO SCH ×3 (05:43→21:38)
[2017-05-05 06:00] VITALS: BP 130/78
[2017-05-05] MEDS: **hydrALAZINE HCL** 25 MG TAB PO SCH ×3 (06:00→21:38)
[2017-05-05] MEDS: traMADol ER 100MG TABLET (ULTRAM ER) PO SCH (06:57)
[2017-05-05 07:12] LABS: MEAN CORPUSCULAR HEMOGLOBIN 28.1 pg (27.0-33.0); MEAN CORPUSCULAR HGB CONC 32.2 g/dl (32.0-36.5); MEAN CORPUSCULAR VOLUME 87.2 fl (80.0-96.0); RED CELL DISTRIBUTION WIDTH 15.5 % (11.5-14.5); WHITE BLOOD COUNT 5.7 K/mm3 (4.0-10.0)
[2017-05-05] MEDS: ALBUTEROL SULFATE 2.5 MG/0.5 ML INH NEB SOLN NEB SCH ×2 (07:25→15:18)
[2017-05-05 07:31] LABS: ALBUMIN 2.7 GM/DL (3.2-5.2); ALBUMIN/GLOBULIN RATIO 0.87 (1.00-1.93); ALKALINE PHOSPHATASE 84 U/L (45-117); ALT/SGPT 16 U/L (12-78); ANION GAP 10 MEQ/L (8-16); AST/SGOT 18 U/L (15-37); BILIRUBIN,TOTAL 0.5 MG/DL (0.2-1.0); BLOOD UREA NITROGEN 9 MG/DL (7-18); CALCIUM LEVEL 8.1 MG/DL (8.5-10.1); CARBON DIOXIDE LEVEL 26 MEQ/L (21-32); CHLORIDE LEVEL 105 MEQ/L (98-107); CREATININE FOR GFR 0.74 MG/DL (0.55-1.02); GLOMERULAR FILTRATION RATE > 60.0 (>60); GLUCOSE, FASTING 96 MG/DL (70-105); POTASSIUM SERUM 3.6 MEQ/L (3.5-5.1); SODIUM LEVEL 141 MEQ/L (136-145); TOTAL PROTEIN 5.8 GM/DL (6.4-8.2)
[2017-05-05] MEDS: PANTOPRAZOLE 40MG TAB (PROTONIX) PO SCH (09:01)
[2017-05-05] MEDS: DOCUSATE SODIUM 100 MG CAP PO SCH ×2 (09:01→21:38)
[2017-05-05] MEDS: CARISOPRODOL 350 MG TAB PO SCH ×3 (09:01→21:38)
[2017-05-05] MEDS: BETHANECHOL 10 MG TAB PO SCH ×2 (09:02→21:38)
[2017-05-05] MEDS: NYSTATIN 100,000 UNITS/GM TOPICAL PWD 15 GM TOP SCH ×2 (09:02→21:41)
[2017-05-05] MEDS ORDERED: ALBUTEROL 90 MCG/ACT 8GM HFA INHALER INH PRN (09:15)
--- NOTE | 2017-05-05 13:43 | IPNPDOC ---
Collision Worker Progress Note DATE OF SERVICE: 05/05/17 DATE OF ADMISSION: Apr 17, 2017 at 14:45 INPATIENT REHABILITATION ADMISSION DAY: #19 SUBJECTIVE: Patient is a 32-year-old right-handed white female with cauda equina with incomplete paraparesis status post lumbar laminectomy and L3-L4 disc replacement due to nontraumatic degenerative disc disease and degenerative joint disease. Patient required revision of her laminectomy incision on 04/27/17 due to persistent serous drainage. Some wound cultures blood culture have been sent. Patient is now off strict bed rest per neurosurgery. Patient with ongoing problems of morbid obesity, asthma/obstructive sleep apnea , hypertension, and hyperlipidemia. Pain doing well in general. ALLERGIES: See Below MEDICATIONS: Reviewed, see below. OBJECTIVE: VITAL SIGNS: Please see below. PHYSICAL EXAMINATION: GENERAL: Pleasant, morbidly obese, young, white female who is alert and oriented 4. Speech is clear, coherent and appropriate. Memory is intact and patient is in very mild musculoskeletal distress. HEENT: Normocephalic/atraumatic. CARDIOVASCULAR: Regular rate and rhythm with normal S1-S2 without S3-S4 murmurs or rubs. 2/4 bilateral radial pulses LUNGS: All pickens clear to auscultation though sounds distant due to thick chest wall. ABDOMEN: Obese, and nontender with normal bowel sounds in all quadrants. NEUROLOGICAL: As above. Sensory motor intact bilateral upper extremities. Right lower extremity showed decreased light touch in the L5, S1 and S2 dermatomes and slight decrease in vibratory sensation in the S1 and S2 dermatomes. Left lower extremity showed slight diffuse decreased light touch. It appears, but is much better than on the right lower extremity and vibration appears to be grossly intact. SKIN: Upper aspect of lumbar incision doing well still some serous drainage from the lower aspect with left sided blisters still present. LABORATORY DATA: Reviewed. Please see below. MICROBIOLOGY: Please see below. IMAGING: No new imaging today. DVT prophylaxis ordered?: TEDs, and Sequential Compressions Stockings. ASSESSMENT AND PLAN: 1. Rehabilitation is cauda equina: Patient doing well for status post laminectomy incision revision. Patient remains very motivated to participate and improve her skill levels to facilitate her return to home. Since Thursday patient working hard with Pt/OT making good progress and back to pre-bedrest level or above today. After review in the team meeting is felt the patient should be able to reach discharge goals by 05/07/17 which is an increase of 1 day over prior anticipate discharge. We will arrange HomeCare Nursing, PT & OT. Patient to advance to room privileges today. 2. Constipation: Patient doing well on Urecholine to BID with a regular bowel pattern again. 3. Moderate anemia: We'll try improve her nutrition and continue to monitor H&H was on 05/05/17 at 10.3 & 31.9%, which is better. We will continue to monitor. 4. Hypokalemia: Patient with potassium staying normal at 3.6 today 05/05/17. We will continue to monitor. 5. Hyperglycemia: Blood sugars have been doing well post operatively from incision revision, so I will stopped with QID BS checks and ISS coverage. 6. Wound Cultures: Patient with few Kleb. Pneum., Staph. Aureus, and Epidermis on Gram Stain and Cultures. These have been sensitive to all tested agents except PCN and Ampicillin. Patient is on Cefazolin 2 grams IV q8hrs for now. Temperatures have been low grade since 05/02/17 with Tmax 99.8F. Blood culture and Urine cultures obtained negative except for one 04/30/17 growing Staph. Epi sensitive to Erythromycin, but not to penicillins. I will start Erythromycin. Still some wound drainage and Dr. Pratt to consult Dr. Lujan about treatment and possible wound vac. Dr. Lujan does not recommend wound vac, but has adjusted dressing. I will check with Dr. Cheema about antibiotics for going forward regarding the wound's need as patient likely for discharge to home from rehabilitation perspective for . TIME SPENT: Chart Review, examination and documentation required greater than 25 minutes. Allergies Coded Allergies: Sulfa Antibiotics (Verified Allergy, Intermediate, 04/10/17) Vital Signs Vital Signs Date Time Temp Pulse Resp B/P (MAP) Pulse Ox O2 Delivery O2 Flow Rate FiO2 05/05/17 09:00 Room Air 05/05/17 06:00 130/78 05/05/17 06:00 97.8 98 18 96 Laboratory Data CBC/BMP Laboratory Tests 05/05/17 06:48 Red Blood Count 3.65 L, Mean Corpuscular Volume 87.2, Mean Corpuscular Hemoglobin 28.1, Mean Corpuscular Hemoglobin Concent 32.2, Red Cell Distribution Width 15.5 H, Calcium Level 8.1 L, Aspartate Amino Transf (AST/SGOT ) 18, Alanine Aminotransferase (ALT/SGPT) 16, Alkaline Phosphatase 84, Total Bilirubin 0.5, Total Protein 5.8 L, Albumin 2.7 L Labs 24H Laboratory Tests 2 05/05/17 06:48: Anion Gap 10, Glomerular Filtration Rate > 60.0, Blood Urea Nitrogen 9, Creatinine 0.74, Sodium Level 141, Potassium Level 3.6, Chloride Level 105, Carbon Dioxide Level 26, Calcium Level 8.1L, Aspartate Amino Transf (AST/SGOT) 18, Alanine Aminotransferase (ALT/SGPT) 16, Alkaline Phosphatase 84, Total Bilirubin 0.5, Total Protein 5.8L, Albumin 2.7L, Albumin/Globulin Ratio 0.87L Microbiology Microbiology 05/03/17 Blood Culture - Preliminary, Resulted No Growth after 48 hours. All Specime... 04/30/17 Blood Culture - Preliminary, Resulted No Growth after 72 hours. All specime... 04/30/17 Blood Culture - Final, Complete Staphylococcus Epidermidis 04/27/17 Blood Culture - Final, Complete NO GROWTH AFTER 5 DAYS 04/30/17 Urine Culture - Final, Complete 04/29/17 Gram Stain - Final, Complete 04/29/17 Wound Culture - Final, Complete 04/27/17 Gram Stain - Final, Complete 04/27/17 Abscess Culture - Final, Complete Klebsiella Pneumoniae Staphylococcus Epidermidis Staphylococcus Aureus 04/27/17 Anaerobic Culture - Final, Complete 04/27/17 Gram Stain - Final, Complete 04/27/17 Wound Culture - Final, Complete Klebsiella Pneumoniae Staphylococcus Sp Coag Neg 04/27/17 Anaerobic Culture - Final, Complete Current Medications Current Medications Current Medications Acetaminophen (Tylenol Tab) 650 mg Q4H PO ; Start 04/27/17 at 13:00; Stop at 16:12; Status DC Acetaminophen (Tylenol Tab) 650 mg Q6HP PRN PO PAIN OR FEVER; Start 04/17/17 at 11:30; Stop 04/17/17 at 15:09; Status DC Acetaminophen (Tylenol Tab) 650 mg Q6HP PRN PO PAIN / FEVER Last administered on 04/30/17t 20:47; Start 04/28/17 at 14:30; Stop 05/28/17 at 14:29 Acetaminophen (Tylenol Tab) 650 mg QID PO Last administered on 04/26/17 20:52; Start 04/20/17 at 13:00; Stop 04/27/17 at 11:27; Status DC Acetaminophen (Tylenol Tab) 650 mg RQ4H PO Last administered on 04/20/17 08:10 ; Start 04/17/17 at 16:00; Stop 04/20/17 at 09:49; Status DC Acetylcysteine (Mucomyst 20% (200mg/ml)) 400 mg RBID INH ; Start 04/17/17 at 20: 00; Stop 05/17/17 at 19:59; Status UNV Acetylcysteine (Mucomyst 20% (200mg/ml)) 400 mg RBID INH ; Start 04/28/17 at 20: 00; Stop 04/29/17 at 09:02; Status DC Al Hydrox/Mg Hydrox/Simethicone (Mylanta) 30 ml Q6HP PRN PO INDIGESTION Last administered on 05/02/17 00:16; Start 05/01/17 at 23:45; Stop 05/31/17 at 23:44 Albuterol Sulfate (Proventil Neb) 2.5 mg RQ8H NEB Last administered on 07:04; Start 04/17/17 at 16:00; Stop 04/27/17 at 16:14; Status DC Albuterol Sulfate (Proventil Neb) 2.5 mg RQ8H NEB Last administered on 07:25; Start 04/28/17 at 16:00; Stop 05/28/17 at 15:59 Albuterol Sulfate (Proventil, Ventolin Hfa) 2 puff Q4HP PRN INH SHORTNESS OF BREATH; Start 05/05/17 at 09:15; Stop 06/04/17 at 09:14 Albuterol/ Ipratropium (Duoneb (Ipr 0.5mg/Alb 2.5mg)) 3 ml Q2HP PRN NEB SOB/ WHEEZING; Start 04/17/17 at 11:45; Stop 04/27/17 at 11:21; Status DC Albuterol/ Ipratropium (Duoneb (Ipr 0.5mg/Alb 2.5mg)) 3 ml Q2HP PRN NEB SOB/ WHEEZING Last administered on 04/28/17 19:22; Start 04/28/17 at 14:30; Stop 05/28 at 14:29 Bethanechol Chloride (Urecholine) 10 mg BID PO Last administered on 04/22/17 08:17; Start 04/17/17 at 21:00; Stop 04/22/17 at 15:51; Status DC Bethanechol Chloride (Urecholine) 10 mg BID PO Last administered on 05/05/17 09:02; Start 04/30/17 at 21:00; Stop 05/28/17 at 08:59 Bethanechol Chloride (Urecholine) 10 mg DAILY PO Last administered on 04/26/17 09:39; Start 04/23/17 at 09:00; Stop 04/27/17 at 11:21; Status DC Bethanechol Chloride (Urecholine) 10 mg DAILY PO Last administered on 04/30/17 09:16; Start 04/28/17 at 09:00; Stop 04/30/17 at 15:09; Status DC Carisoprodol (Soma) 350 mg TID PO Last administered on 04/26/17 20:51; Start at 16:00; Stop 04/27/17 at 16:14; Status DC Carisoprodol (Soma) 350 mg TID PO Last administered on 05/05/17 09:01; Start 04/28/17 at 16:00; Stop 05/11/17 at 23:55 Cefazolin Sodium/ Dextrose 2 gm/IV Miscellaneous Supplies 50 ml @ 75 mls/hr Q8H IV ; Start 04/27/17 at 12:30; Stop 04/27/17 at 16:13; Status DC Cefazolin Sodium/ Dextrose 2 gm/IV Miscellaneous Supplies 50 ml @ 75 mls/hr Q8H IV Last administered on 05/05/17 09:02; Start 04/29/17 at 10:00; Stop 05/06/17 at 09:59 Cod Liver Oil/ Zinc Oxide (Desitin) Apply around surgi... ASDIRECTED TOP ; Start 04/17/17 at 12:00; Stop 04/27/17 at 11:21; Status DC Dextrose (Dextrose 50%) 25 ml ASDIRECTED PRN IV SEE LABEL COMMENTS; Start 04/17 at 11:45; Stop 04/27/17 at 11:21; Status DC Docusate Sodium (Colace) 100 mg BID PO Last administered on 04/26/17 20:50; Start 04/17/17 at 21:00; Stop 04/27/17 at 11:21; Status DC Docusate Sodium (Colace) 100 mg BID PO ; Start 04/27/17 at 21:00; Stop 04/27/17 at 21:00; Status DC Docusate Sodium (Colace) 100 mg BID PO Last administered on 05/05/17 09:01; Start 04/28/17 at 21:00; Stop 05/28/17 at 20:59 Erythromycin (Jaydon-Tab) 500 mg Q6H PO Last administered on 05/05/17 12:52; Start 05/04/17 at 18:00; Stop 05/14/17 at 17:59 Fentanyl Citrate (Sublimaze) 25 mcg Q5MP PRN IV MODERATE PAIN (PS 4-7); Start 04/27/17 at 11:15; Stop 04/27/17 at 12:15; Status DC Gabapentin (Neurontin) 200 mg BID PO Last administered on 04/26/17 20:51; Start 04/17/17 at 21:00; Stop 04/27/17 at 16:14; Status DC Gabapentin (Neurontin) 200 mg Q8H PO Last administered on 05/05/17 05:43; Start 04/28/17 at 14:00; Stop 05/28/17 at 13:59 Glucagon (Glucagon) 1 mg ASDIRECTED PRN SC SEE LABEL COMMENTS; Start 04/17/17 at 11:45; Stop 04/27/17 at 11:21; Status DC Glucagon (Glucagon) 1 mg ASDIRECTED PRN SC SEE LABEL COMMENTS; Start 04/28/17 at 14:30; Stop 05/28/17 at 14:29; Status Cancel Glucose (Glucose) 16 GM ASDIRECTED PRN PO SEE LABEL COMMENTS; Start 04/17/17 at 11:45; Stop 04/27/17 at 11:21; Status DC Glucose (Glucose) 16 GM ASDIRECTED PRN PO SEE LABEL COMMENTS; Start 04/28/17 at 14:30; Stop 05/28/17 at 14:29; Status Cancel Hydralazine HCl (Apresoline) 25 mg Q8H PO Last administered on 04/26/17 20:51; Start 04/17/17 at 14:00; Stop 04/27/17 at 16:14; Status DC Hydralazine HCl (Apresoline) 25 mg Q8H PO Last administered on 05/03/17 21:22 ; Start 04/28/17 at 14:00; Stop 05/28/17 at 13:59 Insulin Human Lispro (HumaLOG INSULIN) See Protocol Table AC SC Last administered on 04/24/17 09:31; Start 04/17/17 at 17:30; Stop 04/24/17 at 11:19; Status DC Insulin Human Lispro (HumaLOG INSULIN) See Protocol Table AC SC Last administered on 04/30/17 12:40; Start 04/28/17 at 17:30; Stop 04/30/17 at 15:09; Status DC Insulin Human Lispro (HumaLOG INSULIN) See Protocol Table QHS SC ; Start at 21:00; Stop 04/24/17 at 11:19; Status DC Insulin Human Lispro (HumaLOG INSULIN) See Protocol Table QHS SC ; Start at 21:00; Stop 04/30/17 at 15:09; Status DC Lactated Ringer's 1,000 ml @ 100 mls/hr Q10H IV ; Start 04/27/17 at 11:15; Stop 04/27/17 at 12:15; Status DC Lactated Ringer's 1,000 ml @ 100 mls/hr Q10H IV ; Start 04/27/17 at 12:00; Stop 04/27/17 at 16:12; Status DC Magnesium Hydroxide (Milk Of Magnesia) 30 ml DAILYPRN PRN PO CONSTIPATION Last administered on 04/22/17 21:07; Start 04/17/17 at 11:45; Stop 04/27/17 at 11:21 ; Status DC Morphine Sulfate (Morphine Sulfate Inj) 2 mg Q2HP PRN IV BREAKTHROUGH PAIN; Start 04/27/17 at 11:45; Stop 04/27/17 at 16:12; Status DC Nicotine (Nicoderm Cq 7 Mg) 1 patch DAILY TD Last administered on 04/24/17 09: 32; Start 04/18/17 at 09:00; Stop 04/25/17 at 08:55; Status DC Nystatin (Mycostatin Powder, Nystop) groin neck abdominal folds BID TOP Last administered on 05/05/17 09:02; Start 05/01/17 at 09:00; Stop 05/31/17 at 08:59 Ondansetron HCl (ZOFRAN INJection) 4 mg Q8HP PRN IV NAUSEA OR VOMITING; Start 04/27/17 at 12:00; Stop 04/27/17 at 16:12; Status DC Oxycodone HCl (Roxicodone, Oxyir) 5 mg Q4HP PRN PO P(8-10) Last administered on 04/26/17 12:20; Start 04/17/17 at 11:45; Stop 04/27/17 at 11:21; Status DC Oxycodone HCl (Roxicodone, Oxyir) 5 mg Q4HP PRN PO AIN(5-7); Start 04/28/17 at 14:30; Stop 05/05/17 at 14:29; Status Cancel Oxycodone HCl (Roxicodone, Oxyir) 10 mg Q4HP PRN PO SEVERE PAIN (PS 8-10); Start 04/17/17 at 11:45; Stop 04/24/17 at 11:44; Status UNV Oxycodone HCl (Roxicodone, Oxyir) 10 mg Q4HP PRN PO SEVERE PAIN (PS 8-10); Start 04/28/17 at 14:30; Stop 05/05/17 at 14:29; Status Cancel Oxycodone/ Acetaminophen (Percocet 5mg/ 325mg Tablet) 1 tab ASDIRECTED PRN PO MILD/MODERATE PAIN (PS 1-7) Last administered on 04/27/17 11:30; Start 04/27/17 at 11:15; Stop 04/27/17 at 12:15; Status DC Pantoprazole Sodium (Protonix) 40 mg DAILY PO Last administered on 04/26/17 09: 39; Start 04/18/17 at 09:00; Stop 04/27/17 at 16:14; Status DC Pantoprazole Sodium (Protonix) 40 mg DAILY PO Last administered on 05/05/17 09 :01; Start 04/29/17 at 09:00; Stop 05/29/17 at 08:59 Senna/Docusate Sodium (Senokot S) 1 tab BID PO Last administered on 04/26/17 20 :51; Start 04/17/17 at 21:00; Stop 04/27/17 at 11:21; Status DC Sodium Chloride 1,000 ml @ 100 mls/hr Q10H IV Last administered on 04/27/17 00 :00; Start 04/27/17 at 00:00; Stop 04/27/17 at 11:22; Status DC Tramadol HCl (Ultram Er) 200 mg DAILY@0600 PO Last administered on 04/27/17 06: 19; Start 04/21/17 at 06:00; Stop 04/27/17 at 11:21; Status DC Tramadol HCl (Ultram Er) 200 mg DAILY@0700 PO Last administered on 05/05/17 06 :57; Start 04/29/17 at 07:00; Stop 05/12/17 at 23:55 YIMI PIZARRO MD May 05, 2017 13:43
[2017-05-05 14:00] VITALS: BP 124/56
[2017-05-05] MEDS: ACETAMINOPHEN TAB 650MG DOSE (2X325MG) PO PRN ×2 (15:17→21:40)
--- NOTE | 2017-05-05 17:12 | IPN ---
DATE: 05/05/2017 Dana is doing much better. She has been out of bed ambulating with little help. She has had no problems with urinary retention. No nausea, vomiting or diarrhea. No abdominal pain. No fever in the past 5 days. Temperature is 97.8, pulse 98, respirations 18, blood pressure 130/78, oxygen saturation 96% on room air. HEART: Normal S1, S2 with no murmurs. LUNGS: Clear. No wheezes, rales, or rhonchi. ABDOMEN: Morbidly obese, soft, nontender. EXTREMITIES: Trace edema. Groin has hyperpigmented changes from candidiasis, erythema has resolved. Neck has peeling skin, erythema also has resolved. Back incision about 25 cm with very few areas with serosanguineous drainage. Sutures are in place. There is minimal redness at one site where there was a blister with some necrotic tissue. White count is 5.7, hemoglobin 10.3, hematocrit 31.9, platelets 239. Sodium 141, potassium 3.6, chloride 105, bicarbonate 26, BUN 9, creatinine 0.7, glucose 96, calcium 8.1, bilirubin 0.5, AST 18, ALT 16, CRP is pending. albumin 2.7. Wound culture was positive for Staphylococcus epidermidis, Staphylococcus aureus and Klebsiella. Blood cultures done on 04/30/2017, one out of two was positive for Staphylococcus epidermidis, on 05/03/2017, blood culture was negative. MEDICATION: 1. Cefazolin 2 grams IV every 8 hours, currently day #7, doing much better, afebrile. 2. Staphylococcus epidermidis on one out of three blood cultures, this is a skin contaminant, this is not a true infection. Discontinue erythromycin. This is not appropriate therapy and the patient is nauseous. 3. Status post lumbar fusion at multilevel with postoperative wound infection, doing much better with IV Kefzol. PLAN: 1. Continue with IV cefazolin until discharge or if she loses her IV she could be switched to Keflex at 500 mg by mouth four times a day to finish a total of 14-day course. She is currently day #7 out of 14. 2. Discontinue erythromycin, the patient does not have a line infection. 3. Candidiasis. Continue with nystatin powder.
--- NOTE | 2017-05-05 19:32 | PMRCR ---
DATE OF CONSULTATION: 05/04/[address] Pratt regarding lower lumbar laminectomy incision with wound care recommendations. The patient is a 32-year-old female originally operated on for herniation of L2 and L3 producing an acute cauda equina syndrome on 04/12/2017. The patient developed drainage from the wound requiring reoperation on 04/17/2017, to repair a cerebrospinal fluid leak. More recently the patient was operated on 04/27/2017, to explore the wound and rule out any potential signs of infection. Findings at this time did not reveal any purulent drainage and the wound was copiously irrigated and closed , this time with surgical naima only, avoiding Prolene mattress sutures which had been used in the past. Wu-Rose drains were placed, however not on dynamic suction and left to gravity. These were removed early in the postoperative period. The patient has an intact elongated midline incision closed with naima. In the central portion of the incision, there is an area of thickened, dry skin which after the second procedure produced a bullous formation from wound drainage. This area now measures 2.5 cm vertically and 7.0 cm horizontally. The central portion shows an area of induration without fluctuation and mild erythematous discoloration. Approximately 2 cm above this area, there is a pin dot opening with a single surgical staple partially removed. Drainage from this site is a clear fluid mixed with rust like colored drainage. The patient has been afebrile and is participating in physical therapy and recent blood cultures showed three negative findings with one positive which leads one to believe that the positive finding was not true. At present the patient is not on antibiotic therapy. CLINICAL IMPRESSION: With moderate drainage from the wound there is concern of a cerebrospinal fluid leak. According to the nurses the drainage has been less over the last 2 days but enough to fill a large OptiLock dressing which had been changed twice a day and now is down to once a day. Wound VAC therapy is not indicated in this type of wound in that there is no exposed deep layer. and VAC and the etiology of the fluid has not been documented. Treatment at this time would be to cleanse the wound with a Vashe wound cleanser, use Desitin or extra protective cream on the periwound, and to cover the wound with an extra absorbent type dressing such as an OptiLock. This should be changed twice a day until the drainage has subsided. I will be off for 48 hours and any further discussion can be performed on 05/07/2017. MTDD
[2017-05-05 20:00] VITALS: BP 118/54
[2017-05-06] MEDS: GABAPENTIN 100 MG CAP PO SCH ×3 (05:54→21:06)
[2017-05-06 06:00] VITALS: BP 98/56
[2017-05-06 06:52] VITALS: BP 120/80
[2017-05-06] MEDS: **hydrALAZINE HCL** 25 MG TAB PO SCH ×2 (06:53→14:00)
[2017-05-06] MEDS: traMADol ER 100MG TABLET (ULTRAM ER) PO SCH (06:53)
[2017-05-06] MEDS: ALBUTEROL SULFATE 2.5 MG/0.5 ML INH NEB SOLN NEB SCH ×4 (07:09→23:26)
[2017-05-06] MEDS: PANTOPRAZOLE 40MG TAB (PROTONIX) PO SCH (08:59)
[2017-05-06] MEDS: DOCUSATE SODIUM 100 MG CAP PO SCH ×3 (08:59→21:05)
[2017-05-06] MEDS: CARISOPRODOL 350 MG TAB PO SCH ×3 (08:59→21:05)
[2017-05-06] MEDS: BETHANECHOL 10 MG TAB PO SCH ×2 (08:59→21:06)
[2017-05-06] MEDS: NYSTATIN 100,000 UNITS/GM TOPICAL PWD 15 GM TOP SCH ×2 (08:59→21:07)
[2017-05-06 14:00] VITALS: BP 122/84
[2017-05-06] MEDS ORDERED: CARI350T PO ×2 (14:49→14:53)
[2017-05-06] MEDS ORDERED: TRAM50TA2 PO (14:49)
[2017-05-06] MEDS ORDERED: MAPA325T3 PO (14:49)
[2017-05-06] MEDS ORDERED: GABA-279 PO (14:49)
[2017-05-06] MEDS ORDERED: COLA100C5 PO (14:49)
[2017-05-06] MEDS ORDERED: PANT40TA2 PO (14:49)
[2017-05-06] MEDS ORDERED: BETH10TA4 PO (14:49)
[2017-05-06] MEDS ORDERED: ALBU17IN INH (14:49)
--- NOTE | 2017-05-06 16:06 | IPNPDOC ---
School Transportation Supervisor Progress Note DATE OF SERVICE: 05/06/17 DATE OF ADMISSION: Apr 17, 2017 at 14:45 INPATIENT REHABILITATION ADMISSION DAY: #20 SUBJECTIVE: Patient is a 32-year-old right-handed white female with cauda equina with incomplete paraparesis status post lumbar laminectomy and L3-L4 disc replacement due to nontraumatic degenerative disc disease and degenerative joint disease. Patient required revision of her laminectomy incision on 04/27/17 due to persistent serous drainage. Some wound cultures blood culture have been sent. Patient is now off strict bed rest per neurosurgery. Patient with ongoing problems of morbid obesity, asthma/obstructive sleep apnea , hypertension, and hyperlipidemia. Pain doing well in general. ALLERGIES: See Below MEDICATIONS: Reviewed, see below. OBJECTIVE: VITAL SIGNS: Please see below. PHYSICAL EXAMINATION: GENERAL: Pleasant, morbidly obese, young, white female who is alert and oriented 4. Speech is clear, coherent and appropriate. Memory is intact and patient is in very mild musculoskeletal distress. HEENT: Normocephalic/atraumatic. CARDIOVASCULAR: Regular rate and rhythm with normal S1-S2 without S3-S4 murmurs or rubs. 2/4 bilateral radial pulses LUNGS: All pickens clear to auscultation though sounds distant due to thick chest wall. ABDOMEN: Obese, and nontender with normal bowel sounds in all quadrants. NEUROLOGICAL: As above. Sensory motor intact bilateral upper extremities. Right lower extremity showed decreased light touch in the L5, S1 and S2 dermatomes and slight decrease in vibratory sensation in the S1 and S2 dermatomes. Left lower extremity showed slight diffuse decreased light touch. It appears, but is much better than on the right lower extremity and vibration appears to be grossly intact. SKIN: Upper aspect of lumbar incision doing well still some serous drainage from the lower aspect with left sided blisters still present. LABORATORY DATA: Reviewed. Please see below. MICROBIOLOGY: Please see below. IMAGING: No new imaging today. DVT prophylaxis ordered?: TEDs, and Sequential Compressions Stockings. ASSESSMENT AND PLAN: 1. Rehabilitation is cauda equina: Patient doing well for status post laminectomy incision revision. Patient remains very motivated to participate and improve her skill levels to facilitate her return to home. Since Thursday patient working hard with Pt/OT making good progress and back to pre-bedrest level or above today. After review in the team meeting is felt the patient should be able to reach discharge goals by 05/07/17 which is an increase of 1 day over prior anticipate discharge. We will arrange HomeCare Nursing, PT & OT. Patient to advance to room privileges and did well. She is looking forward to discharge tomorrow. Her sister was trained. 2. Constipation: Patient doing well on Urecholine to BID with a regular bowel pattern again. 3. Moderate anemia: We'll try improve her nutrition and continue to monitor H&H was on 05/05/17 at 10.3 & 31.9%, which is better. We will continue to monitor. 4. Hypokalemia: Patient with potassium staying normal at 3.6 today 05/05/17. We will continue to monitor. 5. Hyperglycemia: Blood sugars have been doing well post operatively from incision revision, so I will stopped with QID BS checks and ISS coverage. 6. Wound Cultures: Patient with few Kleb. Pneum., Staph. Aureus, and Epidermis on Gram Stain and Cultures. These have been sensitive to all tested agents except PCN and Ampicillin. Patient is on Cefazolin 2 grams IV q8hrs for now. Temperatures have been low grade since 05/02/17 with Tmax 99.8F. Blood culture and Urine cultures obtained negative except for one 04/30/17 growing Staph. Epi sensitive to Erythromycin, but not to penicillins. I will start Erythromycin. Still some wound drainage and Dr. Pratt to consult Dr. Lujan about treatment and possible wound vac. Dr. Lujan does not recommend wound vac, but has adjusted dressing. I Dr. Cheema's not yesterday appreciated about antibiotics for going forward. Keflex for discharge to home from rehabilitation . TIME SPENT: Chart Review, examination and documentation required greater than 25 minutes. Allergies Coded Allergies: Sulfa Antibiotics (Verified Allergy, Intermediate, 04/10/17) Vital Signs Vital Signs Date Time Temp Pulse Resp B/P (MAP) Pulse Ox O2 Delivery O2 Flow Rate FiO2 05/06/17 14:00 122/84 05/06/17 14:00 97.6 106 18 95 Room Air Microbiology Microbiology 05/03/17 Blood Culture - Preliminary, Resulted No Growth after 72 hours. All specime... 04/30/17 Blood Culture - Final, Complete NO GROWTH AFTER 5 DAYS 04/30/17 Blood Culture - Final, Complete Staphylococcus Epidermidis 04/27/17 Blood Culture - Final, Complete NO GROWTH AFTER 5 DAYS 04/30/17 Urine Culture - Final, Complete 04/29/17 Gram Stain - Final, Complete 04/29/17 Wound Culture - Final, Complete 04/27/17 Gram Stain - Final, Complete 04/27/17 Abscess Culture - Final, Complete Klebsiella Pneumoniae Staphylococcus Epidermidis Staphylococcus Aureus 04/27/17 Anaerobic Culture - Final, Complete 04/27/17 Gram Stain - Final, Complete 04/27/17 Wound Culture - Final, Complete Klebsiella Pneumoniae Staphylococcus Sp Coag Neg 04/27/17 Anaerobic Culture - Final, Complete Current Medications Current Medications Current Medications Acetaminophen (Tylenol Tab) 650 mg Q4H PO ; Start 04/27/17 at 13:00; Stop at 16:12; Status DC Acetaminophen (Tylenol Tab) 650 mg Q6HP PRN PO PAIN OR FEVER; Start 04/17/17 at 11:30; Stop 04/17/17 at 15:09; Status DC Acetaminophen (Tylenol Tab) 650 mg Q6HP PRN PO PAIN / FEVER Last administered on 05/05/17 21:40; Start 04/28/17 at 14:30; Stop 05/28/17 at 14:29 Acetaminophen (Tylenol Tab) 650 mg QID PO Last administered on 04/26/17 20:52; Start 04/20/17 at 13:00; Stop 04/27/17 at 11:27; Status DC Acetaminophen (Tylenol Tab) 650 mg RQ4H PO Last administered on 04/20/17 08:10 ; Start 04/17/17 at 16:00; Stop 04/20/17 at 09:49; Status DC Acetylcysteine (Mucomyst 20% (200mg/ml)) 400 mg RBID INH ; Start 04/17/17 at 20: 00; Stop 05/17/17 at 19:59; Status UNV Acetylcysteine (Mucomyst 20% (200mg/ml)) 400 mg RBID INH ; Start 04/28/17 at 20: 00; Stop 04/29/17 at 09:02; Status DC Al Hydrox/Mg Hydrox/Simethicone (Mylanta) 30 ml Q6HP PRN PO INDIGESTION Last administered on 05/02/17 00:16; Start 05/01/17 at 23:45; Stop 05/31/17 at 23:44 Albuterol Sulfate (Proventil Neb) 2.5 mg RQ8H NEB Last administered on 07:04; Start 04/17/17 at 16:00; Stop 04/27/17 at 16:14; Status DC Albuterol Sulfate (Proventil Neb) 2.5 mg RQ8H NEB Last administered on 07:09; Start 04/28/17 at 16:00; Stop 05/28/17 at 15:59 Albuterol Sulfate (Proventil, Ventolin Hfa) 2 puff Q4HP PRN INH SHORTNESS OF BREATH; Start 05/05/17 at 09:15; Stop 06/04/17 at 09:14 Albuterol/ Ipratropium (Duoneb (Ipr 0.5mg/Alb 2.5mg)) 3 ml Q2HP PRN NEB SOB/ WHEEZING; Start 04/17/17 at 11:45; Stop 04/27/17 at 11:21; Status DC Albuterol/ Ipratropium (Duoneb (Ipr 0.5mg/Alb 2.5mg)) 3 ml Q2HP PRN NEB SOB/ WHEEZING Last administered on 04/28/17 19:22; Start 04/28/17 at 14:30; Stop 05/28 at 14:29 Bethanechol Chloride (Urecholine) 10 mg BID PO Last administered on 04/22/17 08:17; Start 04/17/17 at 21:00; Stop 04/22/17 at 15:51; Status DC Bethanechol Chloride (Urecholine) 10 mg BID PO Last administered on 05/06/17 08:59; Start 04/30/17 at 21:00; Stop 05/28/17 at 08:59 Bethanechol Chloride (Urecholine) 10 mg DAILY PO Last administered on 04/26/17 09:39; Start 04/23/17 at 09:00; Stop 04/27/17 at 11:21; Status DC Bethanechol Chloride (Urecholine) 10 mg DAILY PO Last administered on 04/30/17 09:16; Start 04/28/17 at 09:00; Stop 04/30/17 at 15:09; Status DC Carisoprodol (Soma) 350 mg TID PO Last administered on 04/26/17 20:51; Start at 16:00; Stop 04/27/17 at 16:14; Status DC Carisoprodol (Soma) 350 mg TID PO Last administered on 05/06/17 08:59; Start 04/28/17 at 16:00; Stop 05/11/17 at 23:55 Cefazolin Sodium/ Dextrose 2 gm/IV Miscellaneous Supplies 50 ml @ 75 mls/hr Q8H IV ; Start 04/27/17 at 12:30; Stop 04/27/17 at 16:13; Status DC Cefazolin Sodium/ Dextrose 2 gm/IV Miscellaneous Supplies 50 ml @ 75 mls/hr Q8H IV Last administered on 05/06/17 10:35; Start 04/29/17 at 10:00; Stop 05/07/17 at 09:59 Cod Liver Oil/ Zinc Oxide (Desitin) Apply around surgi... ASDIRECTED TOP ; Start 04/17/17 at 12:00; Stop 04/27/17 at 11:21; Status DC Dextrose (Dextrose 50%) 25 ml ASDIRECTED PRN IV SEE LABEL COMMENTS; Start 04/17 at 11:45; Stop 04/27/17 at 11:21; Status DC Docusate Sodium (Colace) 100 mg BID PO Last administered on 04/26/17 20:50; Start 04/17/17 at 21:00; Stop 04/27/17 at 11:21; Status DC Docusate Sodium (Colace) 100 mg BID PO ; Start 04/27/17 at 21:00; Stop 04/27/17 at 21:00; Status DC Docusate Sodium (Colace) 100 mg BID PO Last administered on 05/05/17 21:38; Start 04/28/17 at 21:00; Stop 05/28/17 at 20:59 Erythromycin (Jaydon-Tab) 500 mg Q6H PO Last administered on 05/05/17 12:52; Start 05/04/17 at 18:00; Stop 05/05/17 at 14:54; Status DC Fentanyl Citrate (Sublimaze) 25 mcg Q5MP PRN IV MODERATE PAIN (PS 4-7); Start 04/27/17 at 11:15; Stop 04/27/17 at 12:15; Status DC Gabapentin (Neurontin) 200 mg BID PO Last administered on 04/26/17 20:51; Start 04/17/17 at 21:00; Stop 04/27/17 at 16:14; Status DC Gabapentin (Neurontin) 200 mg Q8H PO Last administered on 05/06/17 14:40; Start 04/28/17 at 14:00; Stop 05/28/17 at 13:59 Glucagon (Glucagon) 1 mg ASDIRECTED PRN SC SEE LABEL COMMENTS; Start 04/17/17 at 11:45; Stop 04/27/17 at 11:21; Status DC Glucagon (Glucagon) 1 mg ASDIRECTED PRN SC SEE LABEL COMMENTS; Start 04/28/17 at 14:30; Stop 05/28/17 at 14:29; Status Cancel Glucose (Glucose) 16 GM ASDIRECTED PRN PO SEE LABEL COMMENTS; Start 04/17/17 at 11:45; Stop 04/27/17 at 11:21; Status DC Glucose (Glucose) 16 GM ASDIRECTED PRN PO SEE LABEL COMMENTS; Start 04/28/17 at 14:30; Stop 05/28/17 at 14:29; Status Cancel Hydralazine HCl (Apresoline) 25 mg Q8H PO Last administered on 04/26/17 20:51; Start 04/17/17 at 14:00; Stop 04/27/17 at 16:14; Status DC Hydralazine HCl (Apresoline) 25 mg Q8H PO Last administered on 05/03/17 21:22 ; Start 04/28/17 at 14:00; Stop 05/06/17 at 15:07; Status DC Hydralazine HCl (Apresoline) 25 mg Q8H PRN PO HYPERTENSION; Start 05/06/17 at 22:00; Stop 06/05/17 at 21:59 Insulin Human Lispro (HumaLOG INSULIN) See Protocol Table AC SC Last administered on 04/24/17 09:31; Start 04/17/17 at 17:30; Stop 04/24/17 at 11:19; Status DC Insulin Human Lispro (HumaLOG INSULIN) See Protocol Table AC SC Last administered on 04/30/17 12:40; Start 04/28/17 at 17:30; Stop 04/30/17 at 15:09; Status DC Insulin Human Lispro (HumaLOG INSULIN) See Protocol Table QHS SC ; Start at 21:00; Stop 04/24/17 at 11:19; Status DC Insulin Human Lispro (HumaLOG INSULIN) See Protocol Table QHS SC ; Start at 21:00; Stop 04/30/17 at 15:09; Status DC Lactated Ringer's 1,000 ml @ 100 mls/hr Q10H IV ; Start 04/27/17 at 11:15; Stop 04/27/17 at 12:15; Status DC Lactated Ringer's 1,000 ml @ 100 mls/hr Q10H IV ; Start 04/27/17 at 12:00; Stop 04/27/17 at 16:12; Status DC Magnesium Hydroxide (Milk Of Magnesia) 30 ml DAILYPRN PRN PO CONSTIPATION Last administered on 04/22/17 21:07; Start 04/17/17 at 11:45; Stop 04/27/17 at 11:21 ; Status DC Morphine Sulfate (Morphine Sulfate Inj) 2 mg Q2HP PRN IV BREAKTHROUGH PAIN; Start 04/27/17 at 11:45; Stop 04/27/17 at 16:12; Status DC Nicotine (Nicoderm Cq 7 Mg) 1 patch DAILY TD Last administered on 04/24/17 09: 32; Start 04/18/17 at 09:00; Stop 04/25/17 at 08:55; Status DC Nystatin (Mycostatin Powder, Nystop) groin neck abdominal folds BID TOP Last administered on 05/06/17 08:59; Start 05/01/17 at 09:00; Stop 05/31/17 at 08:59 Ondansetron HCl (ZOFRAN INJection) 4 mg Q8HP PRN IV NAUSEA OR VOMITING; Start 04/27/17 at 12:00; Stop 04/27/17 at 16:12; Status DC Oxycodone HCl (Roxicodone, Oxyir) 5 mg Q4HP PRN PO P(8-10) Last administered on 04/26/17 12:20; Start 04/17/17 at 11:45; Stop 04/27/17 at 11:21; Status DC Oxycodone HCl (Roxicodone, Oxyir) 5 mg Q4HP PRN PO AIN(5-7); Start 04/28/17 at 14:30; Stop 05/05/17 at 14:29; Status Cancel Oxycodone HCl (Roxicodone, Oxyir) 10 mg Q4HP PRN PO SEVERE PAIN (PS 8-10); Start 04/17/17 at 11:45; Stop 04/24/17 at 11:44; Status UNV Oxycodone HCl (Roxicodone, Oxyir) 10 mg Q4HP PRN PO SEVERE PAIN (PS 8-10); Start 04/28/17 at 14:30; Stop 05/05/17 at 14:29; Status Cancel Oxycodone/ Acetaminophen (Percocet 5mg/ 325mg Tablet) 1 tab ASDIRECTED PRN PO MILD/MODERATE PAIN (PS 1-7) Last administered on 04/27/17 11:30; Start 04/27/17 at 11:15; Stop 04/27/17 at 12:15; Status DC Pantoprazole Sodium (Protonix) 40 mg DAILY PO Last administered on 04/26/17 09: 39; Start 04/18/17 at 09:00; Stop 04/27/17 at 16:14; Status DC Pantoprazole Sodium (Protonix) 40 mg DAILY PO Last administered on 05/06/17 08 :59; Start 04/29/17 at 09:00; Stop 05/29/17 at 08:59 Senna/Docusate Sodium (Senokot S) 1 tab BID PO Last administered on 04/26/17 20 :51; Start 04/17/17 at 21:00; Stop 04/27/17 at 11:21; Status DC Sodium Chloride 1,000 ml @ 100 mls/hr Q10H IV Last administered on 04/27/17 00 :00; Start 04/27/17 at 00:00; Stop 04/27/17 at 11:22; Status DC Tramadol HCl (Ultram Er) 200 mg DAILY@0600 PO Last administered on 04/27/17 06: 19; Start 04/21/17 at 06:00; Stop 04/27/17 at 11:21; Status DC Tramadol HCl (Ultram Er) 200 mg DAILY@0700 PO Last administered on 05/06/17t 06 :53; Start 04/29/17 at 07:00; Stop 05/12/17 at 23:55 YIMI PIZARRO MD May 06, 2017 16:06
[2017-05-06] MEDS ORDERED: KEFL500C17 PO (16:08)
[2017-05-06 20:13] VITALS: BP 136/81
[2017-05-06] MEDS ORDERED: **hydrALAZINE HCL** 25 MG TAB PO PRN (22:00)
[2017-05-07 06:00] VITALS: BP 114/55
[2017-05-07] MEDS: GABAPENTIN 100 MG CAP PO SCH (06:08)
[2017-05-07] MEDS: traMADol ER 100MG TABLET (ULTRAM ER) PO SCH (06:08)
[2017-05-07] MEDS: ALBUTEROL SULFATE 2.5 MG/0.5 ML INH NEB SOLN NEB SCH (07:06)
[2017-05-07] MEDS: PANTOPRAZOLE 40MG TAB (PROTONIX) PO SCH (08:36)
[2017-05-07] MEDS: DOCUSATE SODIUM 100 MG CAP PO SCH (08:36)
[2017-05-07] MEDS: CARISOPRODOL 350 MG TAB PO SCH (08:36)
[2017-05-07] MEDS: NYSTATIN 100,000 UNITS/GM TOPICAL PWD 15 GM TOP SCH (08:36)
[2017-05-07] MEDS: BETHANECHOL 10 MG TAB PO SCH (08:36)
--- NOTE | 2017-05-07 19:40 | PMRDS ---
DATE OF DISCHARGE: 05/07/2017 DISCHARGE DIAGNOSES: Rehabilitation of cauda equina syndrome, status post decompression laminectomy of the lumbar region with fusion and instrumentation. HISTORY: The patient is a 32-year-old, right handed, white female who had chronic low back pain with radicular symptoms that had been increasing in mid March and the patient was evaluated by Dr. Pratt and was felt to have cauda equina syndrome with numbness and weakness in the lower extremities and elected the patient for surgery, which was done on 04/12/2017 with an L2 through S1 laminectomy, bilateral complete fasciectomies of L2-3, L3-4, L4-5 and L5-S1, bilateral osteotomies of the pars at L3, L4 and L5, fusion of L2 through S1 and intravertebral disc replacement at L3-4. The patient with moderate anemia and low potassium was stabilized and showed progress in physical and occupational therapy (OT) and was felt to be capable in participating and benefiting from acute neurorehabilitation and was admitted to the acute rehabilitation unit on 04/17/2017 and start in a program of physical and occupational therapy with rehabilitation nursing, physiatry and internal medicine consultation along with neurosurgical following in consultation. Laboratory did show a hemoglobin and hematocrit of 9.6 and 28.8% on admission, which remained relatively stable and on 05/05/2017 hemoglobin and hematocrit was 10.3 and 31.9%. Chemistry showed potassium of 3.3 on admission, otherwise normal electrolytes and renal function with diminished albumin and hypoalbuminemia of 2.3, which improved to albumin of 2.7 during the course of the admission. Urine culture was taken on 04/30/2017 and was negative. HOSPITAL COURSE: Patient started in PT/OT with Rehab. Nursing, Medicine Rehabilitation Technician and PM&R management. Initially, having problems with anxiety and pain, but then was able to work past those problems and was making good progress.Then the patient developed some copious drainage of serous fluid from the incision and was taken back to surgery on 04/27/2017 for incisional revision. Wound cultures taken at that time were showing several strains of bacteria in low numbers, including Klebsiella pneumoniae, Staphylococcus aureus and Staphylococcus epidermidis. Five blood cultures were taken. One did show positive Staphylococcus epidermidis, but the remainder were negative, and the drainage culture also showed negative with the patient essentially being afebrile during the admission and having, except for the day after admission to the unit, normal white counts. The patient, following her 04/27/2017 surgery was initially on [facility] medical/ surgical floor and transferred back to the rehabilitation unit on 04/28/2017, was on strict bed rest for the , , and then resumed her regular therapy on 05/01/2017. She progressed well in physical and occupational therapy and has met her discharge goal to be discharged to home with home care and her sister has had training on how to place the dressing on her low back. Overall, the patient has advanced from moderate assistance in all transfers and sitting fair plus, standing fair minus, balance modified independence and independence in activities of daily living and transfers, including toileting, bathing, and dressing with good sitting, standing and balance for both static and dynamic and physical therapy only doing exercises, not able to ambulate, but do about 10 repetitions of exercise times two. To markedly improve pain control, modified independence and ambulating greater than 150 feet and wheelchair mobility greater than 1000 feet. Able to step independently with walker, independence with her home exercise program, as well as do car transfers. DISCHARGE MEDICATIONS: - Tylenol 650 mg every 4 hours as needed for pain or fever - albuterol inhaler two puffs every 4 hours shortness of breath - albuterol nebulizer 2.5 mg every 8 hours - mg twice a day for bowel program - carisoprodol 250 mg twice a day as needed for back spasm - Keflex 500 mg every 12 hours for 10 days for wound prophylaxis, patient having completed one week of Ancef 2 grams every 8 hours - Colace 100 mg twice a day for bowel program - gabapentin 400 mg every 8 hours for pain from neurogenic sources - hydralazine 25 mg every 8 hours as needed for hypertension - omeprazole 40 mg daily for gastroesophageal reflux disease (GERD) prevention - tramadol 50 mg every 4 hours as needed for back pain, #60 tablets issued - the patient will use nystatin cream or ointment to areas of skin folds She is to see her primary care provider, Dr. Reid, within 2 weeks and followup with Dr. Pratt within 2 weeks, and to see Dr. Lujan in wound care clinic for reevaluation of the wound and ongoing care within 1 week. The patient has dressings supplied for her back. COMPLICATIONS: The drainage and the need for wound revision. DISCHARGE PLAN AND INSTRUCTIONS: As noted above. Time spent on discharge is greater than 35 minutes. MTDD
== END 2017-05-07 12:40 | disposition home health service (06) | DRG 48 ==
LOC: M PM&R 14:45 → M MS5PR 04-27 13:38 → UNDODISIN 04-27 13:38 → M PM&R 04-28 12:19
PROVIDERS: ADMIT Physical Medicine & Rehabilitation; ATTEND Physical Medicine & Rehabilitation
DX: G83.4 Cauda equina syndrome (principal); Z98.1 Arthrodesis status; G82.20 Paraplegia, unspecified; D64.9 Anemia, unspecified; J45.909 Unspecified asthma, uncomplicated; E66.01 Morbid (severe) obesity due to excess calories; G47.33 Obstructive sleep apnea (adult) (pediatric); F17.210 Nicotine dependence, cigarettes, uncomplicated; E11.9 Type 2 diabetes mellitus without complications; K59.00 Constipation, unspecified; I25.10 Atherosclerotic heart disease of native coronary artery without angina pectoris; Z68.43 Body mass index [BMI] 50.0-59.9, adult; E78.5 Hyperlipidemia, unspecified; I10 Essential (primary) hypertension; Z79.4 Long term (current) use of insulin; Z79.891 Long term (current) use of opiate analgesic; Z79.899 Other long term (current) drug therapy; F41.9 Anxiety disorder, unspecified; Z88.2 Allergy status to sulfonamides; E87.6 Hypokalemia

== ENCOUNTER 2017-04-27 12:30 | Observation (INO) | payer BC ==
[2017-04-27] VITALS (7 sets, daily range): BP systolic 116–142; BP diastolic 72–85
[~2017-04-27] VITALS: Ht 162.6 cm; Wt 145.3 kg
[~2017-04-27 12:30] MED LIST changes: +ALB2.5NEB NEB; +HYDR25TA PO; +INSUHUMDS SC; +IPRASOL4 NEB; +SENN1TAB2 PO
[2017-04-27] MEDS ORDERED: MORPHINE 2 MG/ML 1ML SYRINGE IV PRN (13:30)
[2017-04-27] MEDS ORDERED: ONDANSETRON 4MG/2ML VIAL (J2405) IV PRN (13:30)
[2017-04-27] MEDS: ACETAMINOPHEN TAB 650MG DOSE (2X325MG) PO SCH ×3 (13:33→21:30)
[2017-04-27] MEDS: PANTOPRAZOLE 40MG TAB (PROTONIX) PO SCH (13:33)
[2017-04-27] MEDS: **hydrALAZINE HCL** 25 MG TAB PO SCH ×2 (13:34→21:29)
[2017-04-27] MEDS: LR 1,000 ML IV SCH ×2 (13:34→23:15)
[2017-04-27] MEDS ORDERED: HYDR25TA PO (13:40)
[2017-04-27] MEDS ORDERED: PANT40TA2 PO (13:40)
[2017-04-27] MEDS ORDERED: COLA100C5 PO (13:40)
[2017-04-27] MEDS ORDERED: ALB2.5NEB NEB (13:40)
[2017-04-27] MEDS ORDERED: MAPA325T3 PO (13:40)
[2017-04-27] MEDS ORDERED: GABA-279 PO (13:40)
[2017-04-27] MEDS: ALBUTEROL SULFATE 2.5 MG/0.5 ML INH NEB SOLN NEB SCH ×2 (15:10→23:11)
--- NOTE | 2017-04-27 15:33 | ROOPDOC ---
[facility] Report Of Operation Report of Operation DATE OF SURGERY: 04/27/2017 SURGEON: Dr. Chica Pratt [employer] COUNSELOR: drug abuse technician PREOPERATIVE DIAGNOSIS: Non-healing post-op wound POSTOPERATIVE DIAGNOSIS: Same PROCEDURE PERFORMED: 1. Irrigation and debridement, saucerization of wound. ANESTHESIA: GETA . ESTIMATED BLOOD LOSS: minimal. FINDINGS : Seroma DRAINS: ESAU drain x 2 COMPLICATIONS: none DISPOSITION: Stable to the PACU. INDICATIONS FOR THE PROCEDURE HISTORY: Mrs. 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 In her postoperative course after discharge to acute rehab unit she developed drainage from wound, but not fever or signs or symptoms of systemic sepsis. Despite wound dressing management for 2 days wound continues to leak. She was consented to a dorsally based operation to eradicate the presumed deep infection. She was consented verbally and in writing. SURGICAL RISKS: The patient and his family were well apprised of all objectives, benefits, risks and potential complications of the procedure, including but not limited to : worsening of current status, the possible need for further procedures, the risk of infection, headaches, CSF leak, possible spinal nerve injury resulting in paralysis, infection, injury to major vessels causing hemorrhage, stroke, loss of language function, coma and even . No assurance was given whether symptoms would improve following the procedure. The surgery is technically difficult procedure and despite the significant discomfort for the patient and the best effort of the physician, the surgery may be unsuccessful or may need to be aborted. Informed consent was obtained and secured in the chart after the patient and family voiced understanding of these risks and decided to proceed with the operation. DESCRIPTION OF THE PROCEDURE The patient was transferred to the operating room. She was given preoperative prophylactic IV antibiotics. ANESTHESIA: The patient was sedated and intubated without difficulty by the anesthesia service. He underwent vascular cannulization in accordance with Anesthesia protocol. Eyes were taped shut after ointment was applied to prevent corneal abrasion. POSITIONING: The patient was turned into the prone position on the Wu table. Arms were positioned 90/90 on the arm boards. Bolsters were used to support the chest and pelvis and pillows for hips, knees and ankles. All pressure points were carefully padded. A Leeanne Hugger was placed over the upper body to maintain control of core body temperature. The patient underwent prep and staple and suture removal . OPERATIVE TECHNIQUE: The patient was prepped and draped in the standard sterile fashion. The scar was subsequently opened sharply with a Plasma blade. The granulomas of wound were excised. Swabs were sent for gram stain, C&C, aerobes, and anaerobes. Self-retaining retractors were then inserted. The wound was copiously irrigated with 9 L of normal saline solution with Bacitracin. Devitalized tissue was debrided. The wound was then closed in layers over two 19 inch silicone drapes and surgical naima through the skin. Wound and drain incisions were covered by Bacitracin ointment and were dressed in a clean dry dressing. All sponge counts, needle counts and instrument counts were correct at the end of the case times two. The patient tolerated the procedure well, without any complications and was transferred in stable condition to the recovery room. CHICA PRATT MD Apr 27, 2017 15:33
[2017-04-27] MEDS: CARISOPRODOL 350 MG TAB PO SCH ×2 (16:15→21:29)
[2017-04-27] MEDS: GABAPENTIN 100 MG CAP PO SCH (21:29)
[2017-04-27] MEDS: DOCUSATE SODIUM 100 MG CAP PO SCH (21:30)
[2017-04-28] MEDS: ACETAMINOPHEN TAB 650MG DOSE (2X325MG) PO SCH ×3 (01:54→09:05)
[2017-04-28 05:43] VITALS: BP 137/74
[2017-04-28] MEDS: **hydrALAZINE HCL** 25 MG TAB PO SCH (05:43)
[2017-04-28 06:00] VITALS: BP 137/79
[2017-04-28 07:35] LABS: MEAN CORPUSCULAR HEMOGLOBIN 28.5 pg (27.0-33.0); MEAN CORPUSCULAR HGB CONC 32.5 g/dl (32.0-36.5); MEAN CORPUSCULAR VOLUME 87.6 fl (80.0-96.0); RED CELL DISTRIBUTION WIDTH 14.3 % (11.5-14.5); WHITE BLOOD COUNT 7.4 K/mm3 (4.0-10.0)
[2017-04-28] MEDS: ALBUTEROL SULFATE 2.5 MG/0.5 ML INH NEB SOLN NEB SCH (07:37)
[2017-04-28 07:42] LABS: ANION GAP 8 MEQ/L (8-16); BLOOD UREA NITROGEN 7 MG/DL (7-18); CALCIUM LEVEL 8.3 MG/DL (8.5-10.1); CARBON DIOXIDE LEVEL 27 MEQ/L (21-32); CHLORIDE LEVEL 107 MEQ/L (98-107); CREATININE FOR GFR 0.62 MG/DL (0.55-1.02); GLOMERULAR FILTRATION RATE > 60.0 (>60); GLUCOSE, FASTING 91 MG/DL (70-105); POTASSIUM SERUM 3.9 MEQ/L (3.5-5.1); SODIUM LEVEL 142 MEQ/L (136-145)
[2017-04-28] MEDS: CARISOPRODOL 350 MG TAB PO SCH (09:04)
[2017-04-28] MEDS: PANTOPRAZOLE 40MG TAB (PROTONIX) PO SCH (09:04)
[2017-04-28] MEDS: GABAPENTIN 100 MG CAP PO SCH (09:04)
[2017-04-28] MEDS: DOCUSATE SODIUM 100 MG CAP PO SCH (09:04)
== END 2017-04-28 12:19 | disposition other institution (70) ==
LOC: M MS5PR 12:50
PROVIDERS: ADMIT Neurological Surgery; ATTEND Neurological Surgery
DX: T81.89XA Other complications of procedures, not elsewhere classified, initial encounter (principal); D64.9 Anemia, unspecified; E78.4 Other hyperlipidemia; I10 Essential (primary) hypertension; Z87.891 Personal history of nicotine dependence; E66.01 Morbid (severe) obesity due to excess calories; J45.909 Unspecified asthma, uncomplicated; Z88.2 Allergy status to sulfonamides; Z79.899 Other long term (current) drug therapy
CPT/HCPCS: 10180; 36415; 80048; 85027; 94640; 96365; 96366; J0690

== ENCOUNTER 2017-05-12 22:34 | Emergency (ER) | payer BC ==
[~2017-05-12] VITALS: Ht 162.6 cm; Wt 150.0 kg
[~2017-05-12 22:34] MED LIST changes: +ALBU17IN INH; +BETH10TA4 PO; +CARI350T PO; +COLA100C5 PO; +GABA-279 PO; +KEFL500C17 PO; +MAPA325T3 PO; +PANT40TA2 PO; +TRAM50TA2 PO
[2017-05-12 22:36] VITALS: BP 137/63
[2017-05-12] MEDS ORDERED: SOMA350T PO (22:50)
== END 2017-05-13 02:23 | disposition home or self-care (01) ==
LOC: M ED 22:34
DX: Z48.89 Encounter for other specified surgical aftercare (principal); T81.31XA Disruption of external operation (surgical) wound, not elsewhere classified, initial encounter; Y92.9 Unspecified place or not applicable; Y93.9 Activity, unspecified; K21.9 Gastro-esophageal reflux disease without esophagitis; M51.86 Other intervertebral disc disorders, lumbar region; Z79.899 Other long term (current) drug therapy; Z88.2 Allergy status to sulfonamides

== ENCOUNTER → 2017-05-26 | Outpatient (REF) | payer BC ==
[~2017-05-26] MED LIST changes: +SOMA350T PO
[2017-05-26 10:18] LABS: BASO % 0.3 % (0.0-1.0); EOS # 0.4 10^3/uL (0.0-0.50); EOS % 5.2 % (0.0-3.0); IMMATURE GRANULOCYTE % 0.8 % (0-0); LYMPH # 2.2 10^3/uL (1.5-4.5); LYMPH % 31.3 % (24.0-44.0); MEAN CORPUSCULAR HEMOGLOBIN 25.4 pg (27.0-33.0); MEAN CORPUSCULAR HGB CONC 29.4 g/dl (32.0-36.5); MEAN CORPUSCULAR VOLUME 86.4 fl (80.0-96.0); MONO # 0.4 10^3/uL (0.0-0.8); MONO % 5.2 % (0.0-5.0); NEUTROPHILS # 4.1 10^3/uL (1.8-7.7); NEUTROPHILS % 57.2 % (36.0-66.0); PLATELET COUNT, AUTOMATED 309 10^3/uL (150-450); WHITE BLOOD COUNT 7.1 10^3/uL (4.0-10.0)
[2017-05-26 10:19] LABS: ADD MANUAL DIFFER NO; DIFF SLIDE NUMBER 175
[2017-05-26 11:11] LABS: ALBUMIN 2.5 GM/DL (3.2-5.2); ALBUMIN/GLOBULIN RATIO 0.71 (1.00-1.93); ALKALINE PHOSPHATASE 74 U/L (45-117); ALT/SGPT 20 U/L (12-78); ANION GAP 6 MEQ/L (8-16); AST/SGOT 18 U/L (15-37); BILIRUBIN,TOTAL 0.5 MG/DL (0.2-1.0); BLOOD UREA NITROGEN 8 MG/DL (7-18); CALCIUM LEVEL 8.1 MG/DL (8.5-10.1); CARBON DIOXIDE LEVEL 29 MEQ/L (21-32); CHLORIDE LEVEL 107 MEQ/L (98-107); CREATININE FOR GFR 0.61 MG/DL (0.55-1.02); GLOMERULAR FILTRATION RATE > 60.0 (>60); GLUCOSE, FASTING 87 MG/DL (70-105); SODIUM LEVEL 142 MEQ/L (136-145)
== END ==
LOC: M SHH 10:04
PROVIDERS: ATTEND Internal Medicine Infectious Disease
DX: T81.4XXD Infection following a procedure, subsequent encounter (principal); Z79.2 Long term (current) use of antibiotics; Z98.890 Other specified postprocedural states

== ENCOUNTER → 2017-05-28 | Outpatient (REF) | payer BC ==
[2017-05-28 12:48] LABS: MEAN CORPUSCULAR HEMOGLOBIN 25.2 pg (27.0-33.0); MEAN CORPUSCULAR HGB CONC 29.6 g/dl (32.0-36.5); MEAN CORPUSCULAR VOLUME 84.8 fl (80.0-96.0); RED CELL DISTRIBUTION WIDTH 15.9 % (11.5-14.5)
[2017-05-28 13:11] LABS: ALBUMIN 2.5 GM/DL (3.2-5.2); ALBUMIN/GLOBULIN RATIO 0.76 (1.00-1.93); ALKALINE PHOSPHATASE 71 U/L (45-117); ALT/SGPT 21 U/L (12-78); ANION GAP 11 MEQ/L (8-16); AST/SGOT 17 U/L (15-37); BILIRUBIN,TOTAL 0.3 MG/DL (0.2-1.0); BLOOD UREA NITROGEN 8 MG/DL (7-18); CALCIUM LEVEL 8.6 MG/DL (8.5-10.1); CARBON DIOXIDE LEVEL 25 MEQ/L (21-32); CHLORIDE LEVEL 106 MEQ/L (98-107); CREATININE FOR GFR 0.47 MG/DL (0.55-1.02); GLOMERULAR FILTRATION RATE > 60.0 (>60); GLUCOSE, FASTING 86 MG/DL (70-105); POTASSIUM SERUM 3.9 MEQ/L (3.5-5.1); SODIUM LEVEL 142 MEQ/L (136-145); TOTAL PROTEIN 5.8 GM/DL (6.4-8.2); VANCOMYCIN RANDOM 14.2 UG/ML
== END ==
LOC: M SHH 11:10
PROVIDERS: ATTEND Nurse Practitioner Adult Health
DX: Z79.899 Other long term (current) drug therapy (principal)

== ENCOUNTER → 2017-06-01 | Outpatient (REF) | payer BC ==
[2017-06-01 12:07] LABS: MEAN CORPUSCULAR HEMOGLOBIN 24.8 pg (27.0-33.0); MEAN CORPUSCULAR HGB CONC 29.8 g/dl (32.0-36.5); MEAN CORPUSCULAR VOLUME 83.2 fl (80.0-96.0); RED CELL DISTRIBUTION WIDTH 15.6 % (11.5-14.5); WHITE BLOOD COUNT 5.7 10^3/uL (4.0-10.0)
[2017-06-01 12:22] LABS: ALBUMIN 2.7 GM/DL (3.2-5.2); ALBUMIN/GLOBULIN RATIO 0.82 (1.00-1.93); ALKALINE PHOSPHATASE 73 U/L (45-117); ALT/SGPT 25 U/L (12-78); ANION GAP 11 MEQ/L (8-16); AST/SGOT 19 U/L (15-37); BILIRUBIN,TOTAL 0.5 MG/DL (0.2-1.0); BLOOD UREA NITROGEN 7 MG/DL (7-18); CALCIUM LEVEL 8.6 MG/DL (8.5-10.1); CARBON DIOXIDE LEVEL 24 MEQ/L (21-32); CHLORIDE LEVEL 107 MEQ/L (98-107); CREATININE FOR GFR 0.43 MG/DL (0.55-1.02); GLOMERULAR FILTRATION RATE > 60.0 (>60); GLUCOSE, FASTING 101 MG/DL (70-105); POTASSIUM SERUM 3.9 MEQ/L (3.5-5.1); SODIUM LEVEL 142 MEQ/L (136-145); VANCOMYCIN RANDOM 11.3 UG/ML
== END ==
LOC: M LAB REF 11:32 → M SHH 11:32
PROVIDERS: ATTEND Nurse Practitioner Adult Health
DX: R51 Headache (principal); R50.9 Fever, unspecified

== ENCOUNTER → 2017-06-08 | Outpatient (REF) | payer BC ==
[2017-06-08 13:10] LABS: BASO % 0.4 % (0.0-1.0); EOS # 0.3 10^3/uL (0.0-0.50); EOS % 9.8 % (0.0-3.0); LYMPH # 1.4 10^3/uL (1.5-4.5); LYMPH % 54.1 % (24.0-44.0); MEAN CORPUSCULAR HEMOGLOBIN 24.1 pg (27.0-33.0); MEAN CORPUSCULAR HGB CONC 30.4 g/dl (32.0-36.5); MEAN CORPUSCULAR VOLUME 79.2 fl (80.0-96.0); MONO # 0.6 10^3/uL (0.0-0.8); MONO % 22.7 % (0.0-5.0); PLATELET COUNT, AUTOMATED 300 10^3/uL (150-450); RED CELL DISTRIBUTION WIDTH 15.3 % (11.5-14.5); WHITE BLOOD COUNT 2.6 10^3/uL (4.0-10.0)
[2017-06-08 13:48] LABS: NEUTROPHILS # 0.3 10^3/uL (1.8-7.7); POSITIVE DIFF POS FLAG
[2017-06-08 13:54] LABS: ALBUMIN 2.8 GM/DL (3.2-5.2); ALBUMIN/GLOBULIN RATIO 0.78 (1.00-1.93); ALKALINE PHOSPHATASE 74 U/L (45-117); ALT/SGPT 36 U/L (12-78); ANION GAP 8 MEQ/L (8-16); AST/SGOT 17 U/L (15-37); BILIRUBIN,TOTAL 0.7 MG/DL (0.2-1.0); BLOOD UREA NITROGEN 8 MG/DL (7-18); CALCIUM LEVEL 8.7 MG/DL (8.5-10.1); CARBON DIOXIDE LEVEL 26 MEQ/L (21-32); CHLORIDE LEVEL 103 MEQ/L (98-107); CREATININE FOR GFR 0.45 MG/DL (0.55-1.02); GLOMERULAR FILTRATION RATE > 60.0 (>60); GLUCOSE, FASTING 98 MG/DL (70-105); POTASSIUM SERUM 4.3 MEQ/L (3.5-5.1); SODIUM LEVEL 137 MEQ/L (136-145); TOTAL PROTEIN 6.4 GM/DL (6.4-8.2)
== END ==
LOC: M SHH 12:49
PROVIDERS: ATTEND Internal Medicine Infectious Disease
DX: Z98.890 Other specified postprocedural states (principal); T81.4XXD Infection following a procedure, subsequent encounter; Z79.2 Long term (current) use of antibiotics

== ENCOUNTER → 2017-06-09 | Outpatient (REF) | payer BC | LOC: M SHH 11:41 | PROVIDERS: ATTEND Nurse Practitioner | DX: R50.9 Fever, unspecified (principal) ==

== ENCOUNTER → 2017-06-10 | Outpatient (REF) | payer BC | LOC: M SHH 12:05 | PROVIDERS: ATTEND Internal Medicine Infectious Disease | DX: Z79.2 Long term (current) use of antibiotics (principal) ==

== ENCOUNTER → 2017-07-01 | Outpatient (REF) | payer BC ==
[2017-07-01 12:05] LABS: BASO % 0.8 % (0.0-1.0); EOS # 0.2 10^3/uL (0.0-0.50); EOS % 9.5 % (0.0-3.0); LYMPH % 40.9 % (24.0-44.0); MEAN CORPUSCULAR HEMOGLOBIN 22.5 pg (27.0-33.0); MEAN CORPUSCULAR HGB CONC 30.3 g/dl (32.0-36.5); MEAN CORPUSCULAR VOLUME 74.3 fl (80.0-96.0); MONO # 0.3 10^3/uL (0.0-0.8); MONO % 13.5 % (0.0-5.0); NEUTROPHILS % 35.3 % (36.0-66.0); PLATELET COUNT, AUTOMATED 247 10^3/uL (150-450); WHITE BLOOD COUNT 2.5 10^3/uL (4.0-10.0)
[2017-07-01 12:12] LABS: ALBUMIN 2.8 GM/DL (3.2-5.2); ALKALINE PHOSPHATASE 78 U/L (45-117); ALT/SGPT 39 U/L (12-78); ANION GAP 9 MEQ/L (8-16); AST/SGOT 44 U/L (7-37); BILIRUBIN,TOTAL 0.5 MG/DL (0.2-1.0); BLOOD UREA NITROGEN 8 MG/DL (7-18); CALCIUM LEVEL 8.5 MG/DL (8.5-10.1); CARBON DIOXIDE LEVEL 26 MEQ/L (21-32); CHLORIDE LEVEL 107 MEQ/L (98-107); CREATININE FOR GFR 0.51 MG/DL (0.55-1.02); GLOMERULAR FILTRATION RATE > 60.0 (>60); GLUCOSE, FASTING 90 MG/DL (70-105); SODIUM LEVEL 142 MEQ/L (136-145); TOTAL PROTEIN 5.9 GM/DL (6.4-8.2)
[2017-07-01 13:04] LABS: NEUTROPHILS # 0.9 10^3/uL (1.8-7.7); POSITIVE DIFF POS FLAG
[2017-07-01 13:12] LABS: ERYTHROCYTE SEDIMENTATION RATE 49 mm/hr (0-20)
== END ==
LOC: M LAB REF 11:25
PROVIDERS: ATTEND Internal Medicine Infectious Disease
DX: T81.4XXD Infection following a procedure, subsequent encounter (principal); Z79.2 Long term (current) use of antibiotics

== ENCOUNTER 2017-07-23 21:51 | Emergency (ER) | payer BC ==
[~2017-07-23] VITALS: Ht 162.6 cm; Wt 145.4 kg
[2017-07-23 21:51] VITALS: BP 160/92
[2017-07-23] MEDS ORDERED: IPRATROPIUM 0.5MG/ALBUTEROL 2.5MG INH SOL UD 3ML (DUONEB)(J7620) NEB ONE ×2 (22:45)
[2017-07-23] MEDS ORDERED: methylPREDNISolone INJ 125 MG/2 ML VIAL (J2930) IM ONE (22:45)
[2017-07-23] MEDS ORDERED: PRED20TA PO (23:50)
[2017-07-24] MEDS ORDERED: ALBUTEROL SULFATE 2.5 MG/0.5 ML INH NEB SOLN NEB ONE
[2017-07-24] MEDS ORDERED: ZITHTAB PO (00:39)
--- NOTE | 2017-07-24 02:42 | REP ---
Clinical: Shortness of breath . Comparison: 04/11/2017 . Technique: PA and lateral. Findings: The mediastinum and cardiac silhouette are normal. The lung pickens are clear and without acute consolidation, effusion, or pneumothorax. The skeletal structures are intact and normal. Impression: 1. No acute cardiopulmonary process. Signed by Connor Jessica MD 07/24/2017 02:32 A
--- NOTE | 2017-07-24 09:37 | ECGEPIP ---
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
== END 2017-07-24 00:45 | disposition home or self-care (01) ==
LOC: M ED 21:51
DX: J45.901 Unspecified asthma with (acute) exacerbation (principal); I10 Essential (primary) hypertension; Z87.891 Personal history of nicotine dependence; R00.0 Tachycardia, unspecified; R94.31 Abnormal electrocardiogram [ECG] [EKG]; Z79.899 Other long term (current) drug therapy; Z88.2 Allergy status to sulfonamides
CPT/HCPCS: 71020; 93005; 96372; 99284; J2930

== ENCOUNTER 2017-07-31 12:00 | Emergency (ER) | payer BC ==
[~2017-07-31] VITALS: Ht 162.6 cm; Wt 137.5 kg
[~2017-07-31 12:00] MED LIST changes: +ZITHTAB PO
[2017-07-31] MEDS ORDERED: NS 500 ML IV ONE (12:30)
[2017-07-31 13:10] LABS: BASO # 0.1 10^3/uL (0.0-0.2); BASO % 0.3 % (0.0-1.0); EOS # 0.1 10^3/uL (0.0-0.50); EOS % 0.3 % (0.0-3.0); IMMATURE GRANULOCYTE % 1.5 % (0-0); LYMPH # 2.7 10^3/uL (1.5-4.5); LYMPH % 12.5 % (24.0-44.0); MEAN CORPUSCULAR HEMOGLOBIN 22.6 pg (27.0-33.0); MEAN CORPUSCULAR HGB CONC 29.8 g/dl (32.0-36.5); MEAN CORPUSCULAR VOLUME 75.7 fl (80.0-96.0); MONO # 0.9 10^3/uL (0.0-0.8); MONO % 4.3 % (0.0-5.0); NEUTROPHILS # 17.5 10^3/uL (1.8-7.7); NEUTROPHILS % 81.1 % (36.0-66.0); PLATELET COUNT, AUTOMATED 285 10^3/uL (150-450); RED CELL DISTRIBUTION WIDTH 18.8 % (11.5-14.5); WHITE BLOOD COUNT 21.6 10^3/uL (4.0-10.0)
[2017-07-31 13:20] LABS: INR 1.09
[2017-07-31 13:36] LABS: ANION GAP 16 MEQ/L (8-16); BLOOD UREA NITROGEN 15 MG/DL (7-18); CALCIUM LEVEL 8.2 MG/DL (8.5-10.1); CARBON DIOXIDE LEVEL 20 MEQ/L (21-32); CHLORIDE LEVEL 107 MEQ/L (98-107); CREATININE FOR GFR 1.09 MG/DL (0.55-1.02); GLOMERULAR FILTRATION RATE > 60.0 (>60); GLUCOSE, FASTING 166 MG/DL (70-105); MAGNESIUM LEVEL 2.3 MG/DL (1.8-2.4); POTASSIUM SERUM 3.4 MEQ/L (3.5-5.1); SODIUM LEVEL 143 MEQ/L (136-145)
[2017-07-31] MEDS ORDERED: ISOVUE-370 76% 100ML VIAL (Q9967) As Ordered ONE (13:41)
[2017-07-31 14:31] LABS: ABG HCO3 18.3 MEQ/L (22.0-26.0); ABG PARTIAL PRESSURE CO2 29.6 mmHg (35.0-45.0); ABG PARTIAL PRESSURE O2 67.3 mmHg (75.0-100.0); ABG STANDARD HCO3 20.2 MEQ/L (22.0-26.0); ABG TOTAL CO2 19.2 MEQ/L (22.0-29.0); ABG pH (ARTERIAL) 7.409 UNITS (7.350-7.450)
--- NOTE | 2017-07-31 14:32 | REP ---
CTA CHEST: 07/31/2017 CLINICAL HISTORY: Syncope. COMPARISON: Chest x-ray 07/23/2017. TECHNIQUE: The patient received a bolus of 75 mL Isovue 370 scanning through the chest with pulmonary angiogram protocol. Coronal and sagittal thick slab reformats were provided. FINDINGS: The lung pickens show some dependent atelectatic changes left lower lobe without effusion, infiltrate, nodule or mass. Heart size not grossly enlarged. There may be some thickening of the left ventricular wall. The aorta is without aneurysm or dissection. No pericardial thickening or effusion. Large thrombus in the right main pulmonary artery at the takeoff of the right lower lobe and middle lobe arteries. On the left side, there is even more thrombus in the right and left mainstem artery and into the left lower and lingular arteries. The upper lobe artery is intact. No pathologic sized adenopathy. Bone windows show the sternum, manubrium, medial clavicles, scapulae, ribs and spine grossly intact. The upper abdomen shows enlargement of that portion of liver included. Only a portion of spleen is seen not grossly enlarged. No definite hiatal hernia. Adrenal glands and upper poles kidneys intact. IMPRESSION: 1. Significant pulmonary emboli in the right and left main pulmonary arteries into the takeoff of the lower lobe arteries and the lingula and right middle lobe artery respectively. This is significant thrombus burden. A phone call pending to the attending ED physician. 2. No other significant finding. Signed by Ney Chun MD 07/31/2017 06:56 P
[2017-07-31] MEDS ORDERED: HEPARIN DRIP 25,000 UNITS in APPROPRIATE DILUENT 1 EA IV SCH (14:42)
[2017-07-31] MEDS ORDERED: HEPARIN SOD (PORCINE) 5000 UNITS/ML VIAL IV PRN (14:45)
[2017-07-31] MEDS ORDERED: HEPARIN SOD (PORCINE) 5000 UNITS/ML VIAL IV ONE ×2 (14:45)
[2017-07-31 15:08] VITALS: BP 101/66
--- NOTE | 2017-08-01 12:19 | ECGEPIP ---
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
== END 2017-07-31 15:13 | disposition short-term general hospital (02) ==
LOC: M ED 12:00
DX: I26.99 Other pulmonary embolism without acute cor pulmonale (principal); R00.0 Tachycardia, unspecified; R94.31 Abnormal electrocardiogram [ECG] [EKG]; Z87.891 Personal history of nicotine dependence; Z82.41 Family history of sudden cardiac death; Z79.899 Other long term (current) drug therapy; Z88.2 Allergy status to sulfonamides
CPT/HCPCS: 36600; 71275; 80048; 82803; 83605; 83735; 84443; 85025; 85610; 85730; 93005; 93041; 99285; Q9967

== ENCOUNTER → 2017-09-25 | Outpatient (REF) | payer BC ==
[2017-09-25 21:40] LABS: INR 1.59; PROTHROMBIN TIME 19.4 SECONDS (12.4-14.5)
== END ==
LOC: M SFHCLERA 14:59
DX: Z51.81 Encounter for therapeutic drug level monitoring (principal); Z79.01 Long term (current) use of anticoagulants
CPT/HCPCS: 85610

== ENCOUNTER → 2017-10-12 | Outpatient (REF) | payer BC ==
[2017-10-12 12:31] LABS: INR 2.12; PROTHROMBIN TIME 24.5 SECONDS (12.4-14.5)
== END ==
LOC: M SFHCLERA 10:07
DX: Z79.01 Long term (current) use of anticoagulants (principal)

== ENCOUNTER → 2017-10-15 | Outpatient (CLI) | payer BC ==
[2017-10-15 18:03] LABS: BASO % 0.3 % (0.0-1.0); EOS # 0.2 10^3/uL (0.0-0.50); EOS % 2.7 % (0.0-3.0); HEMOGLOBIN 13.4 g/dl (12.0-16.0); IMMATURE GRANULOCYTE % 0.3 % (0-3.0); LYMPH # 2.9 10^3/uL (1.5-4.5); LYMPH % 32.7 % (24.0-44.0); MEAN CORPUSCULAR HEMOGLOBIN 24.3 pg (27.0-33.0); MEAN CORPUSCULAR HGB CONC 31.9 g/dl (32.0-36.5); MEAN CORPUSCULAR VOLUME 76.2 fl (80.0-96.0); MONO # 0.6 10^3/uL (0.0-0.8); MONO % 6.2 % (0.0-5.0); NEUTROPHILS # 5.2 10^3/uL (1.8-7.7); NEUTROPHILS % 57.8 % (36.0-66.0); PLATELET COUNT, AUTOMATED 280 10^3/uL (150-450); RED BLOOD COUNT 5.51 10^6/uL (4.00-5.40); RED CELL DISTRIBUTION WIDTH 15.2 % (11.5-14.5)
[2017-10-15 18:24] LABS: ERYTHROCYTE SEDIMENTATION RATE 27 mm/hr (0-20)
[2017-10-15 18:58] LABS: ALBUMIN 3.4 GM/DL (3.2-5.2); ALBUMIN/GLOBULIN RATIO 1.03 (1.00-1.93); ALKALINE PHOSPHATASE 92 U/L (45-117); ALT/SGPT 51 U/L (12-78); ANION GAP 8 MEQ/L (8-16); AST/SGOT 38 U/L (7-37); BILIRUBIN,TOTAL 0.2 MG/DL (0.2-1.0); BLOOD UREA NITROGEN 11 MG/DL (7-18); C REACTIVE PROTEIN QUANTITATIV 1.14 MG/DL (0.00-0.30); CALCIUM LEVEL 8.3 MG/DL (8.5-10.1); CARBON DIOXIDE LEVEL 24 MEQ/L (21-32); CHLORIDE LEVEL 110 MEQ/L (98-107); CREATININE FOR GFR 0.57 MG/DL (0.55-1.30); GLOMERULAR FILTRATION RATE > 60.0 (>60); GLUCOSE, FASTING 99 MG/DL (70-100); POTASSIUM SERUM 3.9 MEQ/L (3.5-5.1); SODIUM LEVEL 142 MEQ/L (136-145); TOTAL PROTEIN 6.7 GM/DL (6.4-8.2)
== END ==
LOC: M LRY 12:53
DX: T81.4XXD Infection following a procedure, subsequent encounter (principal); T84.7XXD Infection and inflammatory reaction due to other internal orthopedic prosthetic devices, implants and grafts, subsequent encounter; Z79.2 Long term (current) use of antibiotics; Y92.89 Other specified places as the place of occurrence of the external cause; Y93.89 Activity, other specified; Y99.8 Other external cause status; X58.XXXA Exposure to other specified factors, initial encounter
CPT/HCPCS: 80053

== ENCOUNTER 2018-04-04 09:28 | Emergency (ER) | payer OTHER, MEDICAID ==
[2018-04-04 10:35] LABS: BASO % 0.4 % (0.0-1.0); EOS # 0.2 10^3/uL (0.0-0.50); EOS % 2.2 % (0.0-3.0); HEMATOCRIT 38.5 % (36.0-47.0); HEMOGLOBIN 12.6 g/dl (12.0-15.5); IMMATURE GRANULOCYTE % 0.5 % (0-3.0); LYMPH % 19.5 % (24.0-44.0); MEAN CORPUSCULAR HEMOGLOBIN 24.8 pg (27.0-33.0); MEAN CORPUSCULAR HGB CONC 32.7 g/dl (32.0-36.5); MEAN CORPUSCULAR VOLUME 75.6 fl (80.0-96.0); MONO # 0.5 10^3/uL (0.0-0.8); MONO % 5.2 % (0.0-5.0); NEUTROPHILS # 7.2 10^3/uL (1.8-7.7); NEUTROPHILS % 72.2 % (36.0-66.0); PLATELET COUNT, AUTOMATED 309 10^3/uL (150-450); RED BLOOD COUNT 5.09 10^6/uL (4.00-5.40); RED CELL DISTRIBUTION WIDTH 13.8 % (11.5-14.5)
[2018-04-04 11:05] LABS: ERYTHROCYTE SEDIMENTATION RATE 78 mm/hr (0-20)
[2018-04-04 11:08] LABS: LACTIC ACID SEPSIS PROTOCOL 0.8 MMOL/L (0.4-2.0)
[2018-04-04] MEDS ORDERED: ISOVUE-370 76% 100ML VIAL (Q9967) As Ordered (11:23)
[2018-04-04 11:28] LABS: ANION GAP 9 MEQ/L (8-16); BLOOD UREA NITROGEN 14 MG/DL (7-18); CALCIUM LEVEL 8.5 MG/DL (8.5-10.1); CARBON DIOXIDE LEVEL 24 MEQ/L (21-32); CHLORIDE LEVEL 107 MEQ/L (98-107); CREATININE FOR GFR 0.66 MG/DL (0.55-1.30); GLOMERULAR FILTRATION RATE > 60.0 (>60); GLUCOSE, FASTING 98 MG/DL (70-100); POTASSIUM SERUM 3.6 MEQ/L (3.5-5.1); SODIUM LEVEL 140 MEQ/L (136-145)
[2018-04-04] MEDS: ACETAMINOPHEN 325 MG TAB PO (13:35)
[2018-04-04] MEDS: IBUPROFEN 800 MG TAB PO (13:36)
== END 2018-04-04 14:23 | disposition short-term general hospital (02) ==
LOC: M ED 09:28
DX: M79.81 Nontraumatic hematoma of soft tissue (principal); K21.9 Gastro-esophageal reflux disease without esophagitis; Z87.891 Personal history of nicotine dependence
CPT/HCPCS: Q9967

== ENCOUNTER → 2018-04-28 | Outpatient (REF) | payer OTHER ==
[2018-04-28 10:40] LABS: VANCOMYCIN LEVEL TROUGH 9.9 UG/ML (10.0-20.0)
== END ==
LOC: M LAB REF 10:18
DX: T88.8XXD Other specified complications of surgical and medical care, not elsewhere classified, subsequent encounter (principal); T84.6 Infection and inflammatory reaction due to internal fixation device; Y82.8 Other medical devices associated with adverse incidents; T14.8XXA Other injury of unspecified body region, initial encounter; Z79.2 Long term (current) use of antibiotics
CPT/HCPCS: 80202

== ENCOUNTER → 2018-05-03 | Outpatient (REF) | payer OTHER ==
[2018-05-03 12:06] LABS: BASO % 0.3 % (0.0-1.0); EOS # 0.2 10^3/uL (0.0-0.50); EOS % 2.6 % (0.0-3.0); HEMATOCRIT 30.5 % (36.0-47.0); HEMOGLOBIN 9.6 g/dl (12.0-15.5); IMMATURE GRANULOCYTE % 0.1 % (0-3.0); LYMPH # 1.8 10^3/uL (1.5-4.5); LYMPH % 22.7 % (24.0-44.0); MEAN CORPUSCULAR HGB CONC 31.5 g/dl (32.0-36.5); MEAN CORPUSCULAR VOLUME 79.4 fl (80.0-96.0); MONO # 0.5 10^3/uL (0.0-0.8); MONO % 5.6 % (0.0-5.0); NEUTROPHILS # 5.5 10^3/uL (1.8-7.7); NEUTROPHILS % 68.7 % (36.0-66.0); PLATELET COUNT, AUTOMATED 263 10^3/uL (150-450); RED BLOOD COUNT 3.84 10^6/uL (4.00-5.40); RED CELL DISTRIBUTION WIDTH 15.4 % (11.5-14.5)
[2018-05-03 12:28] LABS: ERYTHROCYTE SEDIMENTATION RATE 77 mm/hr (0-20)
[2018-05-04 01:03] LABS: ALBUMIN 2.8 GM/DL (3.2-5.2); ALKALINE PHOSPHATASE 171 U/L (45-117); ALT/SGPT 46 U/L (12-78); ANION GAP 9 MEQ/L (8-16); AST/SGOT 21 U/L (7-37); BILIRUBIN,TOTAL 0.3 MG/DL (0.2-1.0); BLOOD UREA NITROGEN 11 MG/DL (7-18); CALCIUM LEVEL 8.7 MG/DL (8.5-10.1); CARBON DIOXIDE LEVEL 25 MEQ/L (21-32); CHLORIDE LEVEL 107 MEQ/L (98-107); CREATININE FOR GFR 1.35 MG/DL (0.55-1.30); GLOMERULAR FILTRATION RATE 48.1 (>60); GLUCOSE, FASTING 81 MG/DL (70-100); POTASSIUM SERUM 4.5 MEQ/L (3.5-5.1); SODIUM LEVEL 141 MEQ/L (136-145); TOTAL PROTEIN 6.7 GM/DL (6.4-8.2)
[2018-05-04 01:06] LABS: ALBUMIN/GLOBULIN RATIO 0.72 (1.00-1.93); VANCOMYCIN LEVEL TROUGH 10.7 UG/ML (10.0-20.0)
== END ==
LOC: M LABDRAWC 11:34
DX: T81.30XA Disruption of wound, unspecified, initial encounter (principal); T14.8XXA Other injury of unspecified body region, initial encounter; L08.9 Local infection of the skin and subcutaneous tissue, unspecified; T88.8XXD Other specified complications of surgical and medical care, not elsewhere classified, subsequent encounter; Z79.2 Long term (current) use of antibiotics; Y82.8 Other medical devices associated with adverse incidents

== ENCOUNTER → 2018-05-10 | Outpatient (REF) | payer OTHER ==
[2018-05-10 11:10] LABS: BASO % 0.4 % (0.0-1.0); EOS # 0.2 10^3/uL (0.0-0.50); EOS % 2.4 % (0.0-3.0); HEMATOCRIT 30.2 % (36.0-47.0); HEMOGLOBIN 9.5 g/dl (12.0-15.5); IMMATURE GRANULOCYTE % 0.5 % (0-3.0); LYMPH # 1.7 10^3/uL (1.5-4.5); LYMPH % 20.9 % (24.0-44.0); MEAN CORPUSCULAR HEMOGLOBIN 24.7 pg (27.0-33.0); MEAN CORPUSCULAR HGB CONC 31.5 g/dl (32.0-36.5); MEAN CORPUSCULAR VOLUME 78.6 fl (80.0-96.0); MONO # 0.5 10^3/uL (0.0-0.8); MONO % 6.3 % (0.0-5.0); NEUTROPHILS # 5.6 10^3/uL (1.8-7.7); NEUTROPHILS % 69.5 % (36.0-66.0); PLATELET COUNT, AUTOMATED 280 10^3/uL (150-450); RED BLOOD COUNT 3.84 10^6/uL (4.00-5.40); RED CELL DISTRIBUTION WIDTH 14.8 % (11.5-14.5); WHITE BLOOD COUNT 8.1 10^3/uL (4.0-10.0)
[2018-05-10 11:32] LABS: ALBUMIN 2.8 GM/DL (3.2-5.2); ALBUMIN/GLOBULIN RATIO 0.68 (1.00-1.93); ALKALINE PHOSPHATASE 257 U/L (45-117); ALT/SGPT 50 U/L (12-78); ANION GAP 10 MEQ/L (8-16); AST/SGOT 53 U/L (7-37); BILIRUBIN,TOTAL 0.3 MG/DL (0.2-1.0); BLOOD UREA NITROGEN 19 MG/DL (7-18); C REACTIVE PROTEIN QUANTITATIV 3.14 MG/DL (0.00-0.30); CALCIUM LEVEL 8.2 MG/DL (8.5-10.1); CARBON DIOXIDE LEVEL 25 MEQ/L (21-32); CHLORIDE LEVEL 107 MEQ/L (98-107); CREATININE FOR GFR 1.36 MG/DL (0.55-1.30); GLOMERULAR FILTRATION RATE 47.7 (>60); GLUCOSE, FASTING 86 MG/DL (70-100); POTASSIUM SERUM 4.3 MEQ/L (3.5-5.1); SODIUM LEVEL 142 MEQ/L (136-145); TOTAL PROTEIN 6.9 GM/DL (6.4-8.2)
[2018-05-10 11:40] LABS: ERYTHROCYTE SEDIMENTATION RATE 73 mm/hr (0-20)
[2018-05-10 21:07] LABS: VANCOMYCIN LEVEL TROUGH 16.3 UG/ML (10.0-20.0)
== END ==
LOC: M LAB REF 10:11
DX: T14.8XXA Other injury of unspecified body region, initial encounter (principal); W18.30XA Fall on same level, unspecified, initial encounter; Y92.009 Unspecified place in unspecified non-institutional (private) residence as the place of occurrence of the external cause

== ENCOUNTER → 2018-05-17 | Outpatient (REF) | payer OTHER ==
[2018-05-17 11:52] LABS: BASO % 0.3 % (0.0-1.0); EOS # 0.2 10^3/uL (0.0-0.50); EOS % 2.6 % (0.0-3.0); HEMATOCRIT 34.2 % (36.0-47.0); HEMOGLOBIN 10.7 g/dl (12.0-15.5); IMMATURE GRANULOCYTE % 0.2 % (0-3.0); LYMPH # 2.2 10^3/uL (1.5-4.5); LYMPH % 24.5 % (24.0-44.0); MEAN CORPUSCULAR HEMOGLOBIN 24.2 pg (27.0-33.0); MEAN CORPUSCULAR HGB CONC 31.3 g/dl (32.0-36.5); MEAN CORPUSCULAR VOLUME 77.4 fl (80.0-96.0); MONO # 0.5 10^3/uL (0.0-0.8); MONO % 5.1 % (0.0-5.0); NEUTROPHILS # 5.9 10^3/uL (1.8-7.7); NEUTROPHILS % 67.3 % (36.0-66.0); PLATELET COUNT, AUTOMATED 323 10^3/uL (150-450); RED BLOOD COUNT 4.42 10^6/uL (4.00-5.40); RED CELL DISTRIBUTION WIDTH 14.6 % (11.5-14.5); WHITE BLOOD COUNT 8.8 10^3/uL (4.0-10.0)
[2018-05-17 12:14] LABS: ALBUMIN 3.2 GM/DL (3.2-5.2); ALBUMIN/GLOBULIN RATIO 0.76 (1.00-1.93); ALKALINE PHOSPHATASE 354 U/L (45-117); ALT/SGPT 79 U/L (12-78); ANION GAP 11 MEQ/L (8-16); AST/SGOT 49 U/L (7-37); BILIRUBIN,TOTAL 0.3 MG/DL (0.2-1.0); BLOOD UREA NITROGEN 15 MG/DL (7-18); C REACTIVE PROTEIN QUANTITATIV 2.28 MG/DL (0.00-0.30); CALCIUM LEVEL 8.5 MG/DL (8.5-10.1); CARBON DIOXIDE LEVEL 22 MEQ/L (21-32); CHLORIDE LEVEL 109 MEQ/L (98-107); CREATININE FOR GFR 1.28 MG/DL (0.55-1.30); GLOMERULAR FILTRATION RATE 51.1 (>60); GLUCOSE, FASTING 83 MG/DL (70-100); POTASSIUM SERUM 4.4 MEQ/L (3.5-5.1); SODIUM LEVEL 142 MEQ/L (136-145); TOTAL PROTEIN 7.4 GM/DL (6.4-8.2); VANCOMYCIN LEVEL TROUGH 17.9 UG/ML (10.0-20.0)
[2018-05-17 12:18] LABS: ERYTHROCYTE SEDIMENTATION RATE 68 mm/hr (0-20)
== END ==
LOC: M SHH 11:31
DX: T81.30XA Disruption of wound, unspecified, initial encounter (principal); T14.8XXA Other injury of unspecified body region, initial encounter; L08.9 Local infection of the skin and subcutaneous tissue, unspecified; Z79.2 Long term (current) use of antibiotics; W18.30XA Fall on same level, unspecified, initial encounter; Y92.009 Unspecified place in unspecified non-institutional (private) residence as the place of occurrence of the external cause

== ENCOUNTER → 2018-05-24 | Outpatient (REF) | payer OTHER ==
[2018-05-24 13:45] LABS: BASO % 0.4 % (0.0-1.0); EOS # 0.4 10^3/uL (0.0-0.50); EOS % 5.1 % (0.0-3.0); HEMATOCRIT 33.9 % (36.0-47.0); HEMOGLOBIN 10.6 g/dl (12.0-15.5); IMMATURE GRANULOCYTE % 0.5 % (0-3.0); LYMPH # 1.9 10^3/uL (1.5-4.5); LYMPH % 23.2 % (24.0-44.0); MEAN CORPUSCULAR HGB CONC 31.3 g/dl (32.0-36.5); MEAN CORPUSCULAR VOLUME 76.7 fl (80.0-96.0); MONO # 0.4 10^3/uL (0.0-0.8); MONO % 5.4 % (0.0-5.0); NEUTROPHILS # 5.4 10^3/uL (1.8-7.7); NEUTROPHILS % 65.4 % (36.0-66.0); PLATELET COUNT, AUTOMATED 282 10^3/uL (150-450); RED BLOOD COUNT 4.42 10^6/uL (4.00-5.40); RED CELL DISTRIBUTION WIDTH 14.6 % (11.5-14.5); WHITE BLOOD COUNT 8.2 10^3/uL (4.0-10.0)
[2018-05-24 14:04] LABS: ERYTHROCYTE SEDIMENTATION RATE 61 mm/hr (0-20)
[2018-05-24 14:16] LABS: ALBUMIN 3.4 GM/DL (3.2-5.2); ALBUMIN/GLOBULIN RATIO 0.97 (1.00-1.93); ALKALINE PHOSPHATASE 446 U/L (45-117); ALT/SGPT 119 U/L (12-78); ANION GAP 8 MEQ/L (8-16); AST/SGOT 108 U/L (7-37); BILIRUBIN,TOTAL 0.4 MG/DL (0.2-1.0); BLOOD UREA NITROGEN 14 MG/DL (7-18); C REACTIVE PROTEIN QUANTITATIV 1.49 MG/DL (0.00-0.30); CALCIUM LEVEL 8.6 MG/DL (8.5-10.1); CARBON DIOXIDE LEVEL 24 MEQ/L (21-32); CHLORIDE LEVEL 108 MEQ/L (98-107); CREATININE FOR GFR 1.19 MG/DL (0.55-1.30); GLOMERULAR FILTRATION RATE 55.6 (>60); GLUCOSE, FASTING 80 MG/DL (70-100); POTASSIUM SERUM 4.5 MEQ/L (3.5-5.1); SODIUM LEVEL 140 MEQ/L (136-145); TOTAL PROTEIN 6.9 GM/DL (6.4-8.2); VANCOMYCIN LEVEL TROUGH 15.7 UG/ML (10.0-20.0)
== END ==
LOC: M LAB REF 13:24
DX: T81.30XA Disruption of wound, unspecified, initial encounter (principal); T14.8XXA Other injury of unspecified body region, initial encounter; L08.9 Local infection of the skin and subcutaneous tissue, unspecified; Z79.2 Long term (current) use of antibiotics; W18.30XA Fall on same level, unspecified, initial encounter; Y92.009 Unspecified place in unspecified non-institutional (private) residence as the place of occurrence of the external cause

== ENCOUNTER → 2018-05-28 | Outpatient (REF) | payer OTHER ==
[2018-05-28 23:13] LABS: ALBUMIN 3.5 GM/DL (3.2-5.2); ALBUMIN/GLOBULIN RATIO 0.95 (1.00-1.93); ALKALINE PHOSPHATASE 363 U/L (45-117); ALT/SGPT 128 U/L (12-78); ANION GAP 8 MEQ/L (8-16); AST/SGOT 93 U/L (7-37); BILIRUBIN,TOTAL 0.5 MG/DL (0.2-1.0); BLOOD UREA NITROGEN 20 MG/DL (7-18); CALCIUM LEVEL 8.9 MG/DL (8.5-10.1); CARBON DIOXIDE LEVEL 24 MEQ/L (21-32); CHLORIDE LEVEL 108 MEQ/L (98-107); CREATININE FOR GFR 1.19 MG/DL (0.55-1.30); GLOMERULAR FILTRATION RATE 55.6 (>60); GLUCOSE, FASTING 74 MG/DL (70-100); POTASSIUM SERUM 4.3 MEQ/L (3.5-5.1); SODIUM LEVEL 140 MEQ/L (136-145); TOTAL PROTEIN 7.2 GM/DL (6.4-8.2)
== END ==
LOC: M LAB REF 18:06
DX: T81.30XA Disruption of wound, unspecified, initial encounter (principal); T88.8XXA Other specified complications of surgical and medical care, not elsewhere classified, initial encounter; T14.8XXA Other injury of unspecified body region, initial encounter; Z79.2 Long term (current) use of antibiotics; Y82.8 Other medical devices associated with adverse incidents
CPT/HCPCS: 80053

== ENCOUNTER → 2018-05-31 | Outpatient (REF) | payer OTHER ==
[2018-05-31 11:39] LABS: BASO % 0.5 % (0.0-1.0); EOS # 0.4 10^3/uL (0.0-0.50); EOS % 5.5 % (0.0-3.0); HEMATOCRIT 34.4 % (36.0-47.0); IMMATURE GRANULOCYTE % 0.9 % (0-3.0); LYMPH # 2.2 10^3/uL (1.5-4.5); LYMPH % 27.6 % (24.0-44.0); MEAN CORPUSCULAR HEMOGLOBIN 24.1 pg (27.0-33.0); MEAN CORPUSCULAR VOLUME 75.4 fl (80.0-96.0); MONO # 0.4 10^3/uL (0.0-0.8); MONO % 5.4 % (0.0-5.0); NEUTROPHILS # 4.8 10^3/uL (1.8-7.7); NEUTROPHILS % 60.1 % (36.0-66.0); PLATELET COUNT, AUTOMATED 273 10^3/uL (150-450); RED BLOOD COUNT 4.56 10^6/uL (4.00-5.40); RED CELL DISTRIBUTION WIDTH 14.5 % (11.5-14.5); WHITE BLOOD COUNT 7.9 10^3/uL (4.0-10.0)
[2018-05-31 11:59] LABS: ERYTHROCYTE SEDIMENTATION RATE 52 mm/hr (0-20)
[2018-05-31 12:12] LABS: ALBUMIN 3.4 GM/DL (3.2-5.2); ALKALINE PHOSPHATASE 257 U/L (45-117); ALT/SGPT 53 U/L (12-78); ANION GAP 8 MEQ/L (8-16); AST/SGOT 25 U/L (7-37); BILIRUBIN,TOTAL 0.3 MG/DL (0.2-1.0); BLOOD UREA NITROGEN 9 MG/DL (7-18); C REACTIVE PROTEIN QUANTITATIV 0.97 MG/DL (0.00-0.30); CALCIUM LEVEL 8.3 MG/DL (8.5-10.1); CARBON DIOXIDE LEVEL 23 MEQ/L (21-32); CHLORIDE LEVEL 110 MEQ/L (98-107); CREATININE FOR GFR 1.14 MG/DL (0.55-1.30); GLOMERULAR FILTRATION RATE 58.4 (>60); GLUCOSE, FASTING 98 MG/DL (70-100); POTASSIUM SERUM 4.1 MEQ/L (3.5-5.1); SODIUM LEVEL 141 MEQ/L (136-145); TOTAL PROTEIN 6.8 GM/DL (6.4-8.2); VANCOMYCIN LEVEL TROUGH 15.8 UG/ML (10.0-20.0)
== END ==
LOC: M LAB REF 10:59
DX: T81.30XA Disruption of wound, unspecified, initial encounter (principal); T14.8XXA Other injury of unspecified body region, initial encounter; L08.9 Local infection of the skin and subcutaneous tissue, unspecified; T88.8XXD Other specified complications of surgical and medical care, not elsewhere classified, subsequent encounter; Z79.2 Long term (current) use of antibiotics; W18.30XA Fall on same level, unspecified, initial encounter; Y92.009 Unspecified place in unspecified non-institutional (private) residence as the place of occurrence of the external cause

== ENCOUNTER → 2018-06-07 | Outpatient (REF) | payer OTHER ==
[2018-06-07 12:32] LABS: BASO % 0.6 % (0.0-1.0); EOS # 0.3 10^3/uL (0.0-0.50); EOS % 4.1 % (0.0-3.0); HEMATOCRIT 35.3 % (36.0-47.0); HEMOGLOBIN 11.4 g/dl (12.0-15.5); IMMATURE GRANULOCYTE % 0.1 % (0-3.0); LYMPH # 1.8 10^3/uL (1.5-4.5); LYMPH % 26.2 % (24.0-44.0); MEAN CORPUSCULAR HEMOGLOBIN 24.3 pg (27.0-33.0); MEAN CORPUSCULAR HGB CONC 32.3 g/dl (32.0-36.5); MEAN CORPUSCULAR VOLUME 75.1 fl (80.0-96.0); MONO # 0.4 10^3/uL (0.0-0.8); NEUTROPHILS # 4.3 10^3/uL (1.8-7.7); PLATELET COUNT, AUTOMATED 254 10^3/uL (150-450); RED CELL DISTRIBUTION WIDTH 14.4 % (11.5-14.5); WHITE BLOOD COUNT 6.8 10^3/uL (4.0-10.0)
[2018-06-07 13:01] LABS: ALBUMIN 3.1 GM/DL (3.2-5.2); ALBUMIN/GLOBULIN RATIO 0.84 (1.00-1.93); ALKALINE PHOSPHATASE 221 U/L (45-117); ALT/SGPT 47 U/L (12-78); ANION GAP 8 MEQ/L (8-16); AST/SGOT 30 U/L (7-37); BILIRUBIN,TOTAL 0.3 MG/DL (0.2-1.0); BLOOD UREA NITROGEN 20 MG/DL (7-18); C REACTIVE PROTEIN QUANTITATIV 0.82 MG/DL (0.00-0.30); CALCIUM LEVEL 7.9 MG/DL (8.5-10.1); CARBON DIOXIDE LEVEL 25 MEQ/L (21-32); CHLORIDE LEVEL 107 MEQ/L (98-107); GLOMERULAR FILTRATION RATE 55.1 (>60); GLUCOSE, FASTING 91 MG/DL (70-100); POTASSIUM SERUM 4.3 MEQ/L (3.5-5.1); SODIUM LEVEL 140 MEQ/L (136-145); TOTAL PROTEIN 6.8 GM/DL (6.4-8.2); VANCOMYCIN LEVEL TROUGH 14.7 UG/ML (10.0-20.0)
[2018-06-07 13:07] LABS: ERYTHROCYTE SEDIMENTATION RATE 45 mm/hr (0-20)
== END ==
LOC: M LAB REF 12:08
DX: T81.30XA Disruption of wound, unspecified, initial encounter (principal); T14.8XXA Other injury of unspecified body region, initial encounter; L08.9 Local infection of the skin and subcutaneous tissue, unspecified; T88.8XXD Other specified complications of surgical and medical care, not elsewhere classified, subsequent encounter; Z79.2 Long term (current) use of antibiotics; Y82.8 Other medical devices associated with adverse incidents; Y92.009 Unspecified place in unspecified non-institutional (private) residence as the place of occurrence of the external cause
CPT/HCPCS: 80053

== ENCOUNTER → 2018-07-06 | Outpatient (CLI) | payer OTHER ==
[2018-07-06 20:58] LABS: BASO % 0.4 % (0.0-1.0); EOS % 0.3 % (0.0-3.0); HEMATOCRIT 39.7 % (36.0-47.0); HEMOGLOBIN 12.5 g/dl (12.0-15.5); IMMATURE GRANULOCYTE % 0.4 % (0-3.0); LYMPH # 2.8 10^3/uL (1.5-4.5); LYMPH % 27.2 % (24.0-44.0); MEAN CORPUSCULAR HEMOGLOBIN 23.7 pg (27.0-33.0); MEAN CORPUSCULAR HGB CONC 31.5 g/dl (32.0-36.5); MEAN CORPUSCULAR VOLUME 75.3 fl (80.0-96.0); MONO # 0.6 10^3/uL (0.0-0.8); MONO % 5.8 % (0.0-5.0); NEUTROPHILS # 6.9 10^3/uL (1.8-7.7); NEUTROPHILS % 65.9 % (36.0-66.0); PLATELET COUNT, AUTOMATED 263 10^3/uL (150-450); RED BLOOD COUNT 5.27 10^6/uL (4.00-5.40); RED CELL DISTRIBUTION WIDTH 14.8 % (11.5-14.5); WHITE BLOOD COUNT 10.5 10^3/uL (4.0-10.0)
[2018-07-06 21:27] LABS: ALKALINE PHOSPHATASE 104 U/L (45-117); ALT/SGPT 43 U/L (12-78); ANION GAP 7 MEQ/L (8-16); AST/SGOT 34 U/L (7-37); BLOOD UREA NITROGEN 16 MG/DL (7-18); CALCIUM LEVEL 8.8 MG/DL (8.5-10.1); CARBON DIOXIDE LEVEL 27 MEQ/L (21-32); CHLORIDE LEVEL 106 MEQ/L (98-107); CREATININE FOR GFR 1.37 MG/DL (0.55-1.30); GLOMERULAR FILTRATION RATE 47.3 (>60); GLUCOSE, FASTING 97 MG/DL (70-100); POTASSIUM SERUM 3.8 MEQ/L (3.5-5.1); SODIUM LEVEL 140 MEQ/L (136-145)
[2018-07-06 21:28] LABS: ALBUMIN 3.5 GM/DL (3.2-5.2); ALBUMIN/GLOBULIN RATIO 1.03 (1.00-1.93); BILIRUBIN,TOTAL 0.4 MG/DL (0.2-1.0); TOTAL PROTEIN 6.9 GM/DL (6.4-8.2)
[2018-07-06 21:41] LABS: ERYTHROCYTE SEDIMENTATION RATE 33 mm/hr (0-20)
== END ==
LOC: M LRY 14:02
DX: T81.30XA Disruption of wound, unspecified, initial encounter (principal); T14.8XXA Other injury of unspecified body region, initial encounter; L08.9 Local infection of the skin and subcutaneous tissue, unspecified; T88.8XXD Other specified complications of surgical and medical care, not elsewhere classified, subsequent encounter; Z79.2 Long term (current) use of antibiotics; Y83.9 Surgical procedure, unspecified as the cause of abnormal reaction of the patient, or of later complication, without mention of misadventure at the time of the procedure
CPT/HCPCS: 80053

== ENCOUNTER → 2018-07-06 | Outpatient (REF) | payer OTHER ==
[2018-07-06 21:27] LABS: ALBUMIN 3.5 GM/DL (3.2-5.2); ALBUMIN/GLOBULIN RATIO 1.03 (1.00-1.93); ALKALINE PHOSPHATASE 104 U/L (45-117); ALT/SGPT 42 U/L (12-78); ANION GAP 7 MEQ/L (8-16); AST/SGOT 36 U/L (7-37); BILIRUBIN,TOTAL 0.4 MG/DL (0.2-1.0); BLOOD UREA NITROGEN 17 MG/DL (7-18); CALCIUM LEVEL 8.6 MG/DL (8.5-10.1); CARBON DIOXIDE LEVEL 27 MEQ/L (21-32); CHLORIDE LEVEL 105 MEQ/L (98-107); CHOLESTEROL LEVEL 241 MG/DL (<200); CHOLESTEROL RISK RATIO 6.179 (<5); CREATININE FOR GFR 1.33 MG/DL (0.55-1.30); GLOMERULAR FILTRATION RATE 48.9 (>60); GLUCOSE, FASTING 96 MG/DL (70-100); HDL CHOLESTEROL 39 MG/DL (>40); LDL CHOLESTEROL 128 MG/DL (<100); NON-HDL-C 202 MG/DL; POTASSIUM SERUM 3.8 MEQ/L (3.5-5.1); SODIUM LEVEL 139 MEQ/L (136-145); TOTAL 25(OH) VITAMIN D 11.5 NG/ML (30.0-100.0); TOTAL PROTEIN 6.9 GM/DL (6.4-8.2); TRIGLYCERIDES LEVEL 371 MG/DL (<150)
[2018-07-06 21:52] LABS: ESTIMATED AVERAGE GLUCOSE 111 MG/DL (60-110); HEMOGLOBIN A1c 5.5 %
== END ==
LOC: M SFHCPLAZ 13:53
DX: Z00.00 Encounter for general adult medical examination without abnormal findings (principal); E78.2 Mixed hyperlipidemia; Z68.41 Body mass index [BMI] 40.0-44.9, adult; E55.9 Vitamin D deficiency, unspecified
CPT/HCPCS: 84443

== ENCOUNTER → 2018-12-13 | Outpatient (CLI) | payer OTHER ==
[~2018-12-13] MED LIST changes: +CARI1TAB7 PO; -CARI350T PO; +CLAR10CA3 PO; +FLON1SPR NARES; +GABA-1171 PO; -GABA-279 PO; -GABA-282 PO; +GABA-843 PO; +IPRA0.00 NEB; -IPRASOL4 NEB; -PANT40TA2 PO; +PANT40TA3 PO; -SENN1TAB2 PO; +SENN1TAB40 PO; +SING10TA32 PO; +ZOLO100T PO
[2018-12-13 17:16] LABS: ALBUMIN 3.5 GM/DL (3.2-5.2); ALT/SGPT 39 U/L (12-78); BILIRUBIN,TOTAL 0.5 MG/DL (0.2-1.0); BLOOD UREA NITROGEN 21 MG/DL (7-18); C REACTIVE PROTEIN QUANTITATIV 1.42 MG/DL (0.00-0.30); CALCIUM LEVEL 8.4 MG/DL (8.5-10.1); CARBON DIOXIDE LEVEL 25 MEQ/L (21-32); CHLORIDE LEVEL 109 MEQ/L (98-107); CREATININE FOR GFR 1.07 MG/DL (0.55-1.30); GLOMERULAR FILTRATION RATE > 60.0 (>60); GLUCOSE, FASTING 101 MG/DL (70-100); POTASSIUM SERUM 4.1 MEQ/L (3.5-5.1); SODIUM LEVEL 142 MEQ/L (136-145); TOTAL PROTEIN 7.1 GM/DL (6.4-8.2)
[2018-12-13 17:20] LABS: BASO % 0.4 % (0.0-1.0); EOS # 0.2 10^3/uL (0.0-0.50); EOS % 1.7 % (0.0-3.0); HEMATOCRIT 41.3 % (36.0-47.0); HEMOGLOBIN 13.2 g/dl (12.0-15.5); LYMPH # 2.8 10^3/uL (1.5-4.5); LYMPH % 27.4 % (24.0-44.0); MEAN CORPUSCULAR HEMOGLOBIN 26.5 pg (27.0-33.0); MEAN CORPUSCULAR VOLUME 82.9 fl (80.0-96.0); MONO # 0.5 10^3/uL (0.0-0.8); MONO % 4.7 % (0.0-5.0); NEUTROPHILS # 6.8 10^3/uL (1.8-7.7); NEUTROPHILS % 65.5 % (36.0-66.0); PLATELET COUNT, AUTOMATED 246 10^3/uL (150-450); RED BLOOD COUNT 4.98 10^6/uL (4.00-5.40); WHITE BLOOD COUNT 10.4 10^3/uL (4.0-10.0)
[2018-12-14 01:45] LABS: ERYTHROCYTE SEDIMENTATION RATE 25 mm/hr (0-20)
== END ==
LOC: M LRY 11:41
PROVIDERS: ATTEND Internal Medicine
DX: T81.30XA Disruption of wound, unspecified, initial encounter (principal); T81.40XD Infection following a procedure, unspecified, subsequent encounter; Z96.9 Presence of functional implant, unspecified; Z79.2 Long term (current) use of antibiotics; I10 Essential (primary) hypertension; R19.7 Diarrhea, unspecified; Y92.9 Unspecified place or not applicable

== ENCOUNTER → 2018-12-30 | Outpatient (REF) | payer OTHER ==
[2018-12-30 16:52] LABS: HEMATOCRIT 41.2 % (36.0-47.0); HEMOGLOBIN 13.2 g/dl (12.0-15.5); MEAN CORPUSCULAR HEMOGLOBIN 26.4 pg (27.0-33.0); MEAN CORPUSCULAR VOLUME 82.4 fl (80.0-96.0); PLATELET COUNT, AUTOMATED 248 10^3/uL (150-450); WHITE BLOOD COUNT 10.3 10^3/uL (4.0-10.0)
[2018-12-30 17:09] LABS: HEMOGLOBIN A1c 5.5 %
[2018-12-30 17:14] LABS: ALBUMIN 3.4 GM/DL (3.2-5.2); ALT/SGPT 109 U/L (12-78); BILIRUBIN,TOTAL 0.5 MG/DL (0.2-1.0); BLOOD UREA NITROGEN 21 MG/DL (7-18); CALCIUM LEVEL 8.7 MG/DL (8.5-10.1); CARBON DIOXIDE LEVEL 24 MEQ/L (21-32); CHLORIDE LEVEL 109 MEQ/L (98-107); CHOLESTEROL LEVEL 205 MG/DL (<200); CHOLESTEROL RISK RATIO 4.555 (<5); CREATININE FOR GFR 1.09 MG/DL (0.55-1.30); GLOMERULAR FILTRATION RATE > 60.0 (>60); GLUCOSE, FASTING 81 MG/DL (70-100); HDL CHOLESTEROL 45 MG/DL (>40); LDL CHOLESTEROL 129 MG/DL (<100); NON-HDL-C 160 MG/DL; POTASSIUM SERUM 4.2 MEQ/L (3.5-5.1); SODIUM LEVEL 140 MEQ/L (136-145); TOTAL PROTEIN 7.1 GM/DL (6.4-8.2); TRIGLYCERIDES LEVEL 154 MG/DL (<150)
[2018-12-30 17:17] LABS: TOTAL 25(OH) VITAMIN D 18.5 NG/ML (30.0-100.0)
== END ==
LOC: M SFHCPLAZ 11:57
PROVIDERS: ATTEND Nurse Practitioner Adult Health
DX: Z00.00 Encounter for general adult medical examination without abnormal findings (principal); E55.9 Vitamin D deficiency, unspecified; Z68.41 Body mass index [BMI] 40.0-44.9, adult; E78.2 Mixed hyperlipidemia; Z79.01 Long term (current) use of anticoagulants

== ENCOUNTER → 2019-01-20 | Outpatient (CLI) | payer OTHER ==
--- NOTE | 2019-01-20 10:58 | REP ---
RIGHT UPPER QUADRANT ULTRASOUND: Real-time sonographic evaluation of the right upper quadrant performed. Multiple gallstones are seen in the gallbladder which are mobile. There is no gallbladder wall thickening or pericholecystic fluid. There is no intrahepatic or extrahepatic biliary dilatation, common bile duct measuring 4 mm. The liver demonstrates diffuse heterogeneous increased echotexture compatible with diffuse fibrofatty infiltration. No gross liver or pancreatic mass is seen, evaluation is limited due to body habitus and bowel gas. Right kidney demonstrates no hydronephrosis with normal size 10.7 cm in length. IMPRESSION: Multiple mobile gallstones in the gallbladder without gallbladder wall thickening, pericholecystic fluid or biliary diltation. Diffuse fibrofatty infiltration of the liver. Electronically Signed by Ryan Stroud MD 01/20/2019 04:30 P
== END ==
LOC: M RAD 07:32
PROVIDERS: ATTEND Nurse Practitioner Adult Health
DX: R10.11 Right upper quadrant pain (principal); K80.00 Calculus of gallbladder with acute cholecystitis without obstruction; K76.0 Fatty (change of) liver, not elsewhere classified

== ENCOUNTER 2019-03-11 11:02 | Emergency (ER) | payer OTHER ==
[~2019-03-11] VITALS: Ht 162.6 cm; Wt 128.6 kg
[~2019-03-11 11:02] MED LIST changes: +AUGM500T34 PO; +DOXY-350 PO; +DRIS50003 PO; +OMEP40CA2 PO
[2019-03-11] MEDS ORDERED: NS 1,000 ML IV ONE (11:30)
[2019-03-11] MEDS ORDERED: KETOROLAC 30 MG/ML VIAL (J1885) IV ONE (11:30)
[2019-03-11] MEDS ORDERED: ONDANSETRON 4MG/2ML VIAL (J2405) IV ONE (11:30)
[2019-03-11 11:58] LABS: BASO % 0.4 % (0.0-1.0); EOS # 0.1 10^3/uL (0.0-0.50); EOS % 1.2 % (0.0-3.0); HEMATOCRIT 41.7 % (36.0-47.0); HEMOGLOBIN 13.6 g/dl (12.0-15.5); LYMPH % 12.3 % (24.0-44.0); MEAN CORPUSCULAR HEMOGLOBIN 26.2 pg (27.0-33.0); MEAN CORPUSCULAR HGB CONC 32.6 g/dl (32.0-36.5); MEAN CORPUSCULAR VOLUME 80.2 fl (80.0-96.0); MONO # 0.4 10^3/uL (0.0-0.8); MONO % 5.4 % (0.0-5.0); NEUTROPHILS # 6.3 10^3/uL (1.8-7.7); NEUTROPHILS % 80.3 % (36.0-66.0); PLATELET COUNT, AUTOMATED 177 10^3/uL (150-450); WHITE BLOOD COUNT 7.8 10^3/uL (4.0-10.0)
[2019-03-11 12:36] LABS: ALBUMIN 3.4 GM/DL (3.2-5.2); ALT/SGPT 217 U/L (12-78); AMYLASE 824 U/L (25-115); BILIRUBIN,DIRECT 0.6 MG/DL (0.0-0.2); BILIRUBIN,TOTAL 0.8 MG/DL (0.2-1.0); BLOOD UREA NITROGEN 19 MG/DL (7-18); CALCIUM LEVEL 8.6 MG/DL (8.5-10.1); CARBON DIOXIDE LEVEL 25 MEQ/L (21-32); CHLORIDE LEVEL 110 MEQ/L (98-107); GLOMERULAR FILTRATION RATE > 60.0 (>60); GLUCOSE, FASTING 139 MG/DL (70-100); LIPASE 12854 U/L (73-393); POTASSIUM SERUM 3.7 MEQ/L (3.5-5.1); SODIUM LEVEL 144 MEQ/L (136-145); TOTAL PROTEIN 6.7 GM/DL (6.4-8.2)
[2019-03-11] MEDS ORDERED: ISOVUE-370 76% 100ML VIAL (Q9967) As Ordered ONE (12:55)
--- NOTE | 2019-03-11 14:17 | REP ---
CT abdomen and pelvis with IV but without oral contrast: History: Cholelithiasis and cholecystitis. Right upper quadrant pain and nausea. Comparison right upper quadrant sonography January 20, 2019 showed multiple mobile gallstones and fatty infiltration of the liver. CT contrast dose: 100 mL of intravenous Isovue [address] findings: Preliminary digital certified home health aide radiograph demonstrates transpedicle screw and dorsal fixation hernando in the lumbar spine fusing each level from L2 through S1 bilaterally. Laminectomies have been performed at each of these levels as well. The lung bases are clear on axial CT images. No pleural effusion is seen. There is an accessory splenule posterior to the spleen in the left upper quadrant. Liver is normal in size and homogeneous in texture. No adrenal lesion is seen. There is mild gallbladder wall thickening and enhancement. No stone is seen by CT. No biliary ductal dilation is observed. Normal-sized celiac axis and periportal lymph nodes are seen. No adrenal lesion is observed. The kidneys enhance symmetrically are morphologically intact. There is a focal calcification posteriorly in the pancreatic head. No other pancreatic abnormalities observed. A normal appendix is seen retrocecal. There is an intrauterine device in the uterus. No ovarian abnormality is seen on either side. Urinary bladder is unremarkable. No abdominal wall defect is seen. There are nodular opacities in the subcutaneous fat of the lower anterior abdominal wall bilaterally. These may be injection sites. No bony destructive lesion is seen. Impression: Status post laminectomy and dorsal of the hernando fixation L2-S1 bilaterally. Mild diffuse gallbladder wall thickening. Otherwise negative CT study of the abdomen and pelvis. IUD in the uterus. Normal appendix. Electronically Signed by Maximo Long MD 03/11/2019 02:31 P
[2019-03-11 14:40] VITALS: BP 111/53
[2019-03-16] MEDS ORDERED: VENTAER INH (09:41)
== END 2019-03-11 14:42 | disposition home or self-care (01) ==
LOC: M ED 11:02
DX: K81.9 Cholecystitis, unspecified (principal); I10 Essential (primary) hypertension; J45.909 Unspecified asthma, uncomplicated; E78.00 Pure hypercholesterolemia, unspecified; K21.9 Gastro-esophageal reflux disease without esophagitis; Z79.899 Other long term (current) drug therapy; Z88.1 Allergy status to other antibiotic agents; Z88.2 Allergy status to sulfonamides; Z87.891 Personal history of nicotine dependence
CPT/HCPCS: 74177; 80048; 80076; 82150; 83690; 84702; 85025; 96361; 96374; 96375; 99284; J1885; J2405; Q9967

== ENCOUNTER 2019-03-21 20:47 | Inpatient (IN) | payer OTHER ==
[~2019-03-21] VITALS: Ht 162.6 cm; Wt 126.8 kg
[~2019-03-21 20:47] MED LIST changes: +VENTAER INH
[2019-03-21] MEDS ORDERED: NS 1,000 ML IV SCH (21:29)
[2019-03-21] MEDS ORDERED: MORPHINE 4 MG/ML 1ML VIAL/SYRINGE (J2270) IV ONE (21:30)
[2019-03-21] MEDS ORDERED: PROMETHAZINE INJ 25 MG/ML VIAL (J2550) IV ONE (21:30)
[2019-03-21] MEDS ORDERED: PANTOPRAZOLE 40MG INJ (PROTONIX) (C9113) IV ONE (21:30)
[2019-03-21 22:45] LABS: BASO % 0.1 % (0.0-1.0); HEMATOCRIT 47.4 % (36.0-47.0); HEMOGLOBIN 15.3 g/dl (12.0-15.5); LYMPH % 4.5 % (24.0-44.0); MEAN CORPUSCULAR HEMOGLOBIN 26.2 pg (27.0-33.0); MEAN CORPUSCULAR HGB CONC 32.3 g/dl (32.0-36.5); MEAN CORPUSCULAR VOLUME 81.2 fl (80.0-96.0); MONO # 0.8 10^3/uL (0.0-0.8); MONO % 3.6 % (0.0-5.0); NEUTROPHILS # 19.3 10^3/uL (1.8-7.7); NEUTROPHILS % 91.5 % (36.0-66.0); PLATELET COUNT, AUTOMATED 260 10^3/uL (150-450); RED BLOOD COUNT 5.84 10^6/uL (4.00-5.40); WHITE BLOOD COUNT 21.1 10^3/uL (4.0-10.0)
[2019-03-21 22:55] LABS: INR 1.07; PROTHROMBIN TIME 13.6 SECONDS (11.8-14.0)
[2019-03-21 23:16] LABS: ALBUMIN 3.5 GM/DL (3.2-5.2); BILIRUBIN,DIRECT 0.9 MG/DL (0.0-0.2); BILIRUBIN,TOTAL 1.2 MG/DL (0.2-1.0); CALCIUM LEVEL 9.2 MG/DL (8.5-10.1); CREATININE FOR GFR 1.15 MG/DL (0.55-1.30); GLOMERULAR FILTRATION RATE 57.5 (>60); POTASSIUM SERUM 3.6 MEQ/L (3.5-5.1); TOTAL PROTEIN 7.5 GM/DL (6.4-8.2)
[2019-03-21] MEDS ORDERED: ISOVUE-370 76% 100ML VIAL (Q9967) As Ordered ONE (23:29)
[2019-03-22] MEDS ORDERED: MORPHINE 4 MG/ML 1ML VIAL/SYRINGE (J2270) IV PRN ×2 (00:15)
[2019-03-22] MEDS ORDERED: ONDANSETRON 4MG/2ML VIAL (J2405) IV PRN ×2 (00:15→19:15)
[2019-03-22] MEDS ORDERED: ACETAMINOPHEN TAB 650MG DOSE (2X325MG) PO PRN (00:15)
[2019-03-22] MEDS ORDERED: METOCLOPRAMIDE INJ 10MG/2ML VIAL (J2765) IV PRN (00:15)
[2019-03-22] MEDS ORDERED: HYDR-3713 PO (01:15)
--- NOTE | 2019-03-22 01:34 | REPVR ---
EXAM: CT Abdomen and Pelvis With Contrast EXAM DATE/TIME: 03/21/2019 9:29 PM CLINICAL HISTORY: 34 years old, female; Abdominal pain; Epigastric; Prior surgery; Surgery date: 3-7 days post-operative; Surgery type: Lap annemarie; Additional info: Post op abdominal pain TECHNIQUE: Imaging protocol: Axial computed tomography images of the abdomen and pelvis with intravenous contrast. Coronal and sagittal reformatted images were created and reviewed. Radiation optimization: All CT scans at this facility use at least one of these dose optimization techniques: automated exposure control; mA and/or kV adjustment per patient size (includes targeted exams where dose is matched to clinical indication); or iterative reconstruction. Contrast material: ISO;Contrast volume: 100 ml;Contrast route: AC; COMPARISON: CT ABD/PEL W/IV CONTRAST ONLY 03/11/2019 1:10 PM FINDINGS: LUNG BASES: Mild atelectasis. Trace amount of pleural fluid noted along the right posterior costophrenic angle. Likely some parenchymal scarring and/or atelectasis a within the lingula, similar to the prior exam. VASCULAR: Cardiothoracic ratio is slightly above normal limits. No abdominal aortic aneurysm, dissection, or retroperitoneal hematoma. Mild aortoiliac atherosclerosis. PERITONEAL : No free air. Trace amount slightly heterogeneous fluid noted in the gallbladder fossa. This could represent postsurgical change with trace amount of hemorrhage or bile. No significant free fluid is seen otherwise in the peritoneal cavity to favor a significant bile leak. GI: No hiatal hernia. The stomach is mildly distended with fluid and gas. The stomach is not sufficiently distended to exclude fold thickening. Any gastric symptoms to be correlated clinically. There is periduodenal and mild retroperitoneal edema extending between the first portion duodenum to the third portion duodenum and from the gallbladder fossa to the pancreas. This may be related to the pancreas, as discussed below. Duodenitis of any cause including nonperforated ulceration cannot be excluded by this exam. No asymmetric small bowel dilation to suggest obstruction. Small nonspecific mesenteric lymph nodes are seen. There is slight elevated attenuation within the central small bowel mesentery which is new compared to the prior exam and may be related to the adjacent pancreas, discussed below. Scattered fecal material and gas within portions of colon. The colon is not dilated. No pericolonic inflammatory stranding. No evidence of acute diverticulitis. The appendix does not appear inflamed. HEPATOBILIARY, PANCREAS, SPLEEN: Sagittal hepatic length is 18.2 cm. The gallbladder has been removed. Trace amount of slightly heterogeneous fluid is noted at the gallbladder fossa. This may represent trace amount of residual postsurgical hemorrhage, bile or edema. No wall enhancing abscesses seen in the gallbladder fossa. There is mild biliary ductal dilation with the common bile duct measuring up to 11 mm in diameter. This is new compared to the prior exam. This could be post cholecystectomy related. Correlation with LFTs. No calcific choledocholithiasis is seen by this exam. There is mild enhancement along the cystic duct remnant which could be postsurgical, clinical correlation for any possibility of mild cholangitis. There is edema and slight enlargement of the pancreatic head and uncinate process. Mild retroperitoneal stranding and edema extends to the pancreatic tail. There is mild associated anterior pararenal fascial thickening bilaterally. These findings are likely secondary to acute pancreatitis. Correlation with pancreatic enzymes is advised. No drainable pancreatic fluid collection is seen. No pancreatic ductal dilation seen. A 6 mm metallic or calcific density is noted along the uncinate process of the pancreas, of uncertain significance but similar to the prior exam. Maximal splenic diameter is 14.8 cm. ADRENALS, KIDNEYS, BLADDER, RETROPERITONEAL: Adrenals within normal limits. Symmetric renal enhancement. No perinephric stranding or fluid. No perivesical stranding. No hydronephrosis. No bladder wall thickening. PELVIC: Anteverted uterus with an IUD. There may be some ovarian follicular/cystic changes, up to 2.8 cm on the right and 2.7 cm on the left. This is difficult to confirm or further characterized by this exam. If there are pelvic symptoms, consider ultrasound. MUSCULOSKELETAL: Mild soft tissue swelling with skin thickening and subcutaneous reticulations noted along the left anterolateral body wall, new compared to the prior exam may be postsurgical, but cellulitis or soft tissue contusion to be excluded. Tiny bubbles of anterior abdominal wall soft tissue gas could be postsurgical or related to injection. Nonspecific skin thickening at the umbilicus. There is some subcutaneous nodularity along the right anterolateral abdominal wall similar to the prior exam and may be secondary to scarring or injections. Ovoid 2.6 cm nodular lesion within the left lateral abdominal wall subcutaneous fat, likely an area of fat necrosis. Postoperative changes of the lumbar spine noted with fixation hardware and posterior decompression. There is a fluid collection along the posterior decompression site extending into posterior lumbar subcutaneous fat. This is similar to the prior exam. Any possibility for infected fluid or CSF leak to be correlated clinically. Degenerative changes of the spine noted. IMPRESSION: There is mild edema/inflammation between the gallbladder fossa and the pancreas, most likely related to acute pancreatitis. Correlation with pancreatic enzymes is advised. Differential as discussed above. Trace amount of slightly heterogeneous fluid noted at the gallbladder fossa, likely postsurgical change. Differential as discussed above. Nonspecific gastrointestinal findings as discussed above. Other findings are discussed above in detail. Electronically signed by: Jayce Monet On 03/22/2019 01:34:20 AM
[2019-03-22] MEDS: LR 1,000 ML IV SCH ×3 (01:35→18:49)
[2019-03-22] MEDS: ceFAZolin SOD 1 GM in D5W MINI-BAG PLUS 50 ML IV SCH ×2 (01:36→11:08)
[2019-03-22] MEDS: KETOROLAC 30 MG/ML VIAL (J1885) IV PRN ×2 (01:37→19:35)
[2019-03-22 01:43] VITALS: BP 128/81
[2019-03-22 04:28] VITALS: BP 117/63
--- NOTE | 2019-03-22 05:36 | HPE ---
DATE OF ADMISSION: 03/22/2019 ADMITTING DIAGNOSES: Biliary pancreatitis status post laparoscopic cholecystectomy. Possible retained common bile duct stone. HISTORY OF PRESENT ILLNESS: The patient is a 34-year-old woman who had been evaluated for some intermittent upper abdominal pain with associated nausea and vomiting. A gallbladder ultrasound had shown multiple mobile gallstones. She was scheduled for a laparoscopic cholecystectomy. On March 11 she was seen in the emergency department with an episode of severe pain and had elevations of her liver function tests and her lipase. She underwent a laparoscopic cholecystectomy on March 16. She apparently did well with her surgery and was discharged home on the day of surgery. She reports that she had been doing well at home taking pain medication only in the evening to aid with sleep. Her discomfort was fading. She had been on a very light diet and then on the had tried to advance her diet slightly with a piece of bread. She reports that shortly thereafter she developed again a very severe attack of pain in the epigastrium which she said was similar to her presentation on the which had been diagnosed as pancreatitis. She called our answering service and I directed her to come to the emergency department. In the emergency department she underwent evaluation with laboratory studies that showed a marked elevation of the white blood cell count to 21,000 with a differential showing 92% neutrophils, 4% lymphocytes and 4% monocytes. Her chemistries showed an AST of 288, ALT of 197, alkaline phosphatase of 289 and her total bilirubin was 1.2 with a lipase of 9321. A CT scan showed no evidence of perforated viscus. She had some mild inflammatory changes in the area of her very recent cholecystectomy. She did not have a significant amount of free intra-abdominal fluid. Her history and lab work were felt to be consistent with recurrent biliary pancreatitis. This could well be related to a retained common bile duct stone or it may be that she had passed a stone back on the and has now passed a second stone, possibly dislodged during her cholecystectomy. She appears to be feeling somewhat better than when she first presented to the emergency department but she will be admitted for further evaluation and management of her presumed common bile duct stone or stones. MEDICATIONS: The patient's current medications include medications include: - Vitamin D 50,000 units by mouth weekly - Singulair 10 mg by mouth daily - Zoloft 100 mg by mouth daily - Augmentin 500/125 one tablet by mouth twice daily - doxycycline 100 mg by mouth daily - Excedrin migraine as needed - omeprazole 40 mg by mouth daily - Ventolin inhaler 2 puffs four times a day as needed for shortness of breath ALLERGIES: SULFA ANTIBIOTICS. PAST SURGICAL HISTORY: Surgical history is significant for: 1. Lumbar spine fusion in March 2017. 2. She apparently developed some sort of wound infection or dehiscence and was treated with clean out of her wound in April 2017 and then again March 2018. She has remained on continuous antibiotics to be managed by infectious disease. 3. Her laparoscopic cholecystectomy with robotic assistance was done on March 16. 4. She has had a wisdom teeth extracted. PAST MEDICAL HISTORY: 1. Significant for vitamin D deficiency. 2. She has anxiety and depression. 3. She has a history of gastroesophageal reflux disease. 4. Asthma. 5. She has obesity. 6. She remains on her chronic long-term antibiotics. FAMILY HISTORY: Her father succumbed by report to liver cancer and diabetes. Mother's is medical history is unknown. SOCIAL HISTORY: The patient is a former smoker but denies any alcohol use. REVIEW OF SYSTEMS: Review of systems shows no history of heart disease and no recent shortness of breath, cough, wheezing or sputum production. She denies any history of rectal bleeding, nausea, vomiting or jaundice. She has had no urinary symptoms. She denies any new bone or joint problems and has no history deep venous thrombosis (DVT) or pulmonary embolus. PHYSICAL EXAMINATION: Vital signs: Her vital signs show a temperature of 96, pulse of 75, respirations of 16 and blood pressure of 138/81. General: The patient is alert and oriented. Skin: Warm and dry. Skin turgor is good. HEENT: Sclerae are anicteric. Neck: The neck is supple without mass or bruit. Lungs: The lungs are clear. Abdomen: The abdomen is obese. She has four recent incisions dressed with Dermabond. She has some soft bowel sounds present. Palpation reveals the abdomen to be soft without any evidence of peritonitis. She has some very mild direct tenderness high in the epigastrium. Extremities: The extremities are without edema. LABORATORY DATA: Laboratory studies show white count of 21,000 with 92% neutrophils. Hemoglobin 15 with hematocrit of 47 and the platelet count is 260,000. PT and INR are normal. Her chemistry showed normal electrolytes with a BUN of 24, creatinine 1.1 and glucose of 172. Her total bilirubin is 1.2, direct 0.9, AST 288, ALT 197, alk phos 289 and a lipase of 9321. Her CT scan as noted in the history of the present illness revealed no evidence of perforated viscus. She had some mild inflammation in the subhepatic space consistent with her recent surgery. There appeared to be some mild inflammation around the head of the pancreas. She did not have any significant free fluid identified. IMPRESSION: 1. Recurrent gallstone pancreatitis now five days postoperative from her laparoscopic cholecystectomy. 2. History of spinal hardware infection on chronic antibiotics. 3. Obesity. 4. Anxiety and depression. 5. Gastroesophageal reflux. 6. Diabetes. IMPRESSION AND PLAN: The patient will be admitted to the hospital for further evaluation and management. It is possible that she has a retained common bile duct stone left either from her episode of pancreatitis 10 days ago or perhaps dislodged during her recent laparoscopic cholecystectomy. She does not have evidence for a bile leak postoperatively and there is no sign of free air or significant free fluid to suggest an abdominal viscus injury. I will continue her doxycycline and convert her Augmentin to Ancef IV for prophylaxis against cholangitis. I will order some repeat labs for early in the morning of March 22 for comparison. I have recommended that we obtain an MRI of the abdomen as an Magnetic Resonance Cholangiopancreatography (MRCP) to look for evidence of continuing common bile duct stones. If stones were identified than an endoscopic retrograde cholangiopancreatography (ERCP) would be appropriate. I will keep her nothing by mouth for the rest of tonight on IV fluids. The patient was counseled regarding the plan of care and desires to proceed as I have outlined. I anticipate that Dr. Taylor will wish to continue her care starting in the morning.
[2019-03-22 05:51] LABS: BASO % 0.1 % (0.0-1.0); EOS # 0.1 10^3/uL (0.0-0.50); EOS % 0.5 % (0.0-3.0); HEMATOCRIT 40.4 % (36.0-47.0); LYMPH # 1.7 10^3/uL (1.5-4.5); LYMPH % 11.7 % (24.0-44.0); MEAN CORPUSCULAR HEMOGLOBIN 26.1 pg (27.0-33.0); MEAN CORPUSCULAR HGB CONC 32.4 g/dl (32.0-36.5); MEAN CORPUSCULAR VOLUME 80.6 fl (80.0-96.0); MONO # 0.5 10^3/uL (0.0-0.8); MONO % 3.6 % (0.0-5.0); NEUTROPHILS # 12.1 10^3/uL (1.8-7.7); NEUTROPHILS % 83.8 % (36.0-66.0); PLATELET COUNT, AUTOMATED 270 10^3/uL (150-450); RED BLOOD COUNT 5.01 10^6/uL (4.00-5.40); WHITE BLOOD COUNT 14.4 10^3/uL (4.0-10.0)
[2019-03-22 05:59] LABS: HEMOGLOBIN 13.1 g/dl (12.0-15.5)
[2019-03-22 06:21] LABS: ALBUMIN 2.9 GM/DL (3.2-5.2); BILIRUBIN,DIRECT 0.2 MG/DL (0.0-0.2); BILIRUBIN,TOTAL 0.6 MG/DL (0.2-1.0); TOTAL PROTEIN 6.7 GM/DL (6.4-8.2)
[2019-03-22 08:00] VITALS: BP 136/77
[2019-03-22] MEDS ORDERED: DOXYCYCLINE HYCLATE 100 MG TAB PO SCH (09:00)
[2019-03-22] MEDS: PANTOPRAZOLE 40MG INJ (PROTONIX) (C9113) IV SCH (09:07)
--- NOTE | 2019-03-22 12:30 | IPNPDOC ---
Subjective General Date/Time Seen The patient was seen on 03/22/19 at 12:28. Subject Chief Complaint/History Patient admitted overnight percent onset of abdominal pain now 6 days after a laparoscopic cholecystectomy. He turned out she has another bout of acute biliary pancreatitis. She feels better this morning. Rates her pain as 3 out of 10. Reports her nausea has markedly improved. She has just gone to MRI for an M [employer]. She has been afebrile, stable vital signs. Current Medications Current Medications Current Medications Medications (Trade) Dose Ordered Sig/Chepe Route PRN Reason Start Time Stop Time Status Last Admin Dose Admin Acetaminophen (Tylenol Tab) 650 mg Q4HP PRN PO MILD PAIN or TEMP > 101 03/22/19 00:15 Cefazolin Sodium 1 gm/Dextrose 50 ml @ 100 mls/hr Q8H IV 03/22/19 02:00 03/22/19 11:08 Doxycycline Hyclate (Vibramycin) 100 mg DAILY PO 03/22/19 09:00 03/22/19 09:07 Home Med (Med Rec Complete!) ASDIRECTED XX 03/22/19 01:30 03/22/19 01:30 DC Ketorolac Tromethamine (ToRADol) 30 mg Q6HP PRN IV MILD/MODERATE PAIN (PS 1-7) 03/22/19 00:15 03/27/19 00:14 03/22/19 01:37 Lactated Ringer's 1,000 ml @ 125 mls/hr Q8H IV 03/22/19 00:08 03/22/19 09:09 Metoclopramide HCl (REGLAN INJection) 10 mg Q6HP PRN IV NAUSEA OR VOMITING 03/22/19 00:15 Morphine Sulfate (Morphine Sulfate Inj) 2 mg Q2HP PRN IV MODERATE/SEVERE PAIN (PS 5-10) 03/22/19 00:15 Morphine Sulfate (Morphine Sulfate Inj) 4 mg Q2HP PRN IV SEVERE PAIN (PS 8-10) 03/22/19 00:15 03/22/19 11:09 Ondansetron HCl (ZOFRAN INJection) 4 mg Q6HP PRN IV NAUSEA OR VOMITING 03/22/19 00:15 03/22/19 01:36 Pantoprazole Sodium (Protonix) 40 mg DAILY IV 03/22/19 09:00 03/22/19 09:07 Sodium Chloride 1,000 ml @ 100 mls/hr Q10H IV 03/21/19 21:29 03/22/19 00:22 DC 03/21/19 21:29 Allergies Coded Allergies: Sulfa (Sulfonamide Antibiotics) (Verified Allergy, Intermediate, HIVES WHEEZING, 03/16/19) Objective Physical Examination Examination GENERAL APPEARANCE: Looks tired but relatively comfortable. SKIN: Warm and dry. HEENT: Normocephalic, atraumatic. Stevinson palpebral conjunctiva, anicteric sclerae. Lips and mucosa appear mildly dry. NECK: Short, supple neck. LUNGS: Clear to auscultation bilaterally. No wheezing appreciated. HEART: No chest wall abnormalities. Regular rate and rhythm with no murmurs appreciated. ABDOMEN: Abdomen is markedly obese, soft, and mildly distended. Mild tenderness on palpation over the epigastric area. Nontender on the right upper quadrant area. EXTREMITIES: Extremities have no deformities. No edema identified. Vital Signs Vital Signs Date Time Temp Pulse Resp B/P (MAP) Pulse Ox O2 Delivery O2 Flow Rate FiO2 03/22/19 11:19 18 03/22/19 08:00 98.5 72 136/77 (96) 98 03/22/19 00:47 Room Air I&Os I&O- Last 24 Hours up to 6 AM 03/22/19 06:00 Intake Total 1050 ml Balance 1050 ml Laboratory Data Labs 24H Laboratory Tests 2 03/21/19 22:38: Immature Granulocyte % (Auto) 0.3, White Blood Count 21.1H, Red Blood Count 5.84H, Hemoglobin 15.3, Hematocrit 47.4H, Mean Corpuscular Volume 81.2, Mean Corpuscular Hemoglobin 26.2L, Mean Corpuscular Hemoglobin Concent 32.3, Red Cell Distribution Width 13.6, Platelet Count 260, Neutrophils (%) (Auto) 91.5H, Lymphocytes (%) (Auto) 4.5L, Monocytes (%) (Auto) 3.6, Eosinophils (%) (Auto) 0.0, Basophils (%) (Auto) 0.1, Neutrophils # (Auto) 19.3H, Lymphocytes # (Auto) 1.0L, Monocytes # (Auto) 0.8, Eosinophils # (Auto) 0.0, Basophils # (Auto) 0.0, Nucleated Red Blood Cells % (auto) 0.0, Prothrombin Time 13.6, Prothromb Time International Ratio 1.07, Anion Gap 7L, Glomerular Filtration Rate 57.5L, Calcium Level 9.2, Aspartate Amino Transf (AST/SGOT) 288H, Alanine Aminotransferase (ALT/SGPT) 197H, Alkaline Phosphatase 289H, Total Bilirubin 1.2H, Direct Bilirubin 0.9H, Total Protein 7.5, Albumin 3.5, Albumin/Globulin Ratio 0.88L, Lipase 9321H 03/22/19 05:13: Immature Granulocyte % (Auto) 0.3, White Blood Count 14.4H, Red Blood Count 5.01, Hemoglobin 13.1#, Hematocrit 40.4, Mean Corpuscular Volume 80.6, Mean Corpuscular Hemoglobin 26.1L, Mean Corpuscular Hemoglobin Concent 32.4, Red Cell Distribution Width 13.6, Platelet Count 270, Neutrophils (%) (Auto) 83.8H, Lymphocytes (%) (Auto) 11.7L, Monocytes (%) (Auto) 3.6, Eosinophils (%) (Auto) 0.5, Basophils (%) (Auto) 0.1, Neutrophils # (Auto) 12.1H, Lymphocytes # (Auto) 1.7, Monocytes # (Auto) 0.5, Eosinophils # (Auto) 0.1, Basophils # (Auto) 0.0, Nucleated Red Blood Cells % (auto) 0.0, Aspartate Amino Transf (AST/SGOT) 141H, Alanine Aminotransferase (ALT/SGPT) 161H, Alkaline Phosphatase 218H, Total Bilirubin 0.6, Direct Bilirubin 0.2, Total Protein 6.7, Albumin 2.9L, Albumin/Globulin Ratio 0.76L, Lipase 2795H CBC/BMP Laboratory Tests 03/21/19 22:38 Red Blood Count 5.84 H, Mean Corpuscular Volume 81.2, Mean Corpuscular Hemoglobin 26.2 L, Mean Corpuscular Hemoglobin Concent 32.3, Red Cell Distribution Width 13.6, Neutrophils (%) (Auto) 91.5 H, Lymphocytes (%) (Auto) 4.5 L, Monocytes (%) (Auto) 3.6, Eosinophils (%) (Auto) 0.0, Basophils (%) (Auto) 0.1, Neutrophils # (Auto) 19.3 H, Lymphocytes # (Auto) 1.0 L, Monocytes # (Auto) 0.8, Eosinophils # (Auto) 0.0, Basophils # (Auto) 0.0 03/22/19 05:13 Red Blood Count 5.01, Mean Corpuscular Volume 80.6, Mean Corpuscular Hemoglobin 26.1 L, Mean Corpuscular Hemoglobin Concent 32.4, Red Cell Distribution Width 13.6, Neutrophils (%) (Auto) 83.8 H, Lymphocytes (%) (Auto) 11.7 L, Monocytes (%) (Auto) 3.6, Eosinophils (%) (Auto) 0.5, Basophils (%) (Auto) 0.1, Neutrophils # (Auto) 12.1 H, Lymphocytes # (Auto) 1.7, Monocytes # (Auto) 0.5, Eosinophils # (Auto) 0.1, Basophils # (Auto) 0.0 Microbiology Microbiology 03/21/19 Blood Culture, Received Pending 03/21/19 Blood Culture, Received Pending Impression Acute biliary pancreatitis Postop day 6 status post laparoscopic cholecystectomy I agree that this possibly could've been stones did drop during manipulation of the gallbladder during a cholecystectomy versus retained stones from the common bile duct following a previous bout of pancreatitis a week prior to her surgery. I'm awaiting the results of her MRCP. I discussed with her the plan after the MRCP results are out. If she has stones in the biliary tract she will need an ERCP done. If there are no stones left, we can continue to monitor her and provide pain control. Most likely start her on clear liquids. Plan / VTE VTE Prophylaxis Ordered?: Yes CARA CAMP MD Mar 22, 2019 12:30
--- NOTE | 2019-03-22 13:40 | REP ---
MRCP EXAMINATION WITHOUT CONTRAST: HISTORY: Possible retained common bile duct stone. The patient is status post laparoscopic cholecystectomy. Postoperative pain. Comparison CT studies are from March 21, 2019 and March 11, 2019. Comparison sonography January 20, 2019. TECHNIQUE: Axial and coronal T2-weighted scans were obtained. MRCP acquisition is acquired and maximal intensity projection images are generated and reviewed rotationally. MRCP FINDINGS: The distal common bile duct is mildly dilated measuring 11 mm in greatest diameter. There are to low signal intensity rounded filling defects within the distal choledochus consistent with choledocholithiasis. The intrahepatic bile ducts are not dilated. The pancreatic duct is not dilated. There is however diffuse peripancreatic edema, which extends in the retroperitoneum, and a pararenal fat consistent with pancreatitis. This appears more extensive than it did on CT study from March 21 2019. This may reflect pancreatitis. IMPRESSION: Choledocholithiasis with two visible filling defects in the dilated common bile duct. Diffuse peripancreatic and retroperitoneal edema, question pancreatitis. Electronically Signed by Maximo Long MD 03/22/2019 02:24 P
[2019-03-22] MEDS ORDERED: ISOVUE-300 61% 50ML VIAL (Q9967) As Ordered ONE (15:27)
[2019-03-22] MEDS: PIPERACILLIN/TAZOBACTAM SOD 3.375 GM in D5W MINI-BAG PLUS 50 ML IV SCH ×2 (17:00→22:59)
[2019-03-22] MEDS ORDERED: PROPOFOL 200 MG/20 ML VIAL As Ordered ONE (17:20)
[2019-03-22] MEDS ORDERED: LIDOCAINE 2% INJ 100 MG/5 ML SDV (FOR ANES.) As Ordered ONE (17:20)
[2019-03-22] MEDS ORDERED: ROCURONIUM BROMIDE 50 MG/5 ML VIAL As Ordered ONE (17:20)
[2019-03-22] MEDS ORDERED: MIDAZOLAM INJ 2 MG/2 ML VIAL (J2250) As Ordered ONE (17:22)
[2019-03-22] MEDS ORDERED: fentaNYL 100 MCG/2 ML INJECTION (J3010) As Ordered ONE (17:22)
[2019-03-22] MEDS ORDERED: ONDANSETRON 4MG/2ML VIAL (J2405) As Ordered ONE (18:52)
[2019-03-22] MEDS ORDERED: SUGAMMADEX SODIUM 500 MG/5 ML VIAL (BRIDION) As Ordered ONE (18:52)
[2019-03-22] MEDS ORDERED: dexameTHASONE 4 MG/ML 1ML VIAL (J1100) As Ordered ONE (18:52)
--- NOTE | 2019-03-22 19:11 | ROOR ---
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 Inpatient 2. Inpatient, Sofiya CASTRO NP Requesting Provider: Medicines: General Anesthesia Complications: No immediate complications. Procedure: Pre-Anesthesia Assessment: - The heart rate, respiratory rate, oxygen saturations, blood pressure, adequacy of pulmonary ventilation, and response to care were monitored throughout the procedure. The Duodenoscope was introduced through the mouth, and advanced to the duodenum and used to inject contrast into the bile duct. The ERCP was accomplished without difficulty. The patient tolerated the procedure well. Findings: The cost estimator film was normal. The esophagus was successfully intubated under direct vision without detailed examination of the pharynx, larynx, and associated structures, and upper GI tract. The upper GI tract was grossly normal. The major papilla was bulging. The major papilla was lacerated. A wire was passed into the biliary tree. The bile duct was then deeply cannulated over the guidewire. Contrast was injected. I personally interpreted the bile duct images. Ductal flow of contrast was adequate. Image quality was adequate. Contrast extended to the main bile duct. Contrast extended to the cystic duct. Contrast extended to the bifurcation. Contrast extended to the hepatic ducts. Opacification of the entire biliary tree except for the gallbladder was successful. The maximum diameter of the ducts was 12 mm. The lower third of the main bile duct and middle third of the main bile duct contained two stones, the largest of which was 7 mm in diameter. An 8 mm biliary sphincterotomy was made with a monofilament traction (standard) sphincterotome using ERBE electrocautery. There was no post-sphincterotomy bleeding. The biliary tree was swept with a 9-12 mm balloon starting at the bifurcation. Two stones were removed. No stones remained. Impression: - The major papilla appeared to be bulging and lacerated. - Choledocholithiasis was found. - A biliary sphincterotomy was performed. - Complete removal was accomplished by biliary sphincterotomy and balloon extraction. Recommendation: - Observe patient's clinical course following today's ERCP with therapeutic intervention. - I anticipate no further need for intervention. - Clear liquid diet today, then advance as tolerated to advance diet as tolerated. Robbi Buck MD Robbi BUCK MD 03/22/2019 7:10:15 PM Electronically signed by Robbi BUCK MD Number of Addenda: 0 Note Initiated On: 03/22/2019 6:09 PM Estimated Blood Loss: Estimated blood loss: none.
[2019-03-22] MEDS ORDERED: oxyCODONE 5MG TAB PO PRN (19:15)
[2019-03-22] MEDS ORDERED: fentaNYL 100 MCG/2 ML INJECTION (J3010) IV PRN (19:15)
[2019-03-22] MEDS ORDERED: LR 1,000 ML IV SCH (19:15)
[2019-03-22] MEDS ORDERED: KETOROLAC 30 MG/ML VIAL (J1885) As Ordered ONE (19:33)
[2019-03-22 20:00] VITALS: BP 148/87
[2019-03-23] VITALS: BP 143/85
[2019-03-23] MEDS: LR 1,000 ML IV SCH ×3 (03:53→14:08)
[2019-03-23 04:00] VITALS: BP 117/57
[2019-03-23] MEDS: PIPERACILLIN/TAZOBACTAM SOD 3.375 GM in D5W MINI-BAG PLUS 50 ML IV SCH ×2 (05:12→11:52)
[2019-03-23 06:33] LABS: BASO % 0.1 % (0.0-1.0); HEMATOCRIT 39.4 % (36.0-47.0); HEMOGLOBIN 12.8 g/dl (12.0-15.5); LYMPH % 6.9 % (24.0-44.0); MEAN CORPUSCULAR HEMOGLOBIN 26.4 pg (27.0-33.0); MEAN CORPUSCULAR HGB CONC 32.5 g/dl (32.0-36.5); MEAN CORPUSCULAR VOLUME 81.4 fl (80.0-96.0); MONO # 0.3 10^3/uL (0.0-0.8); NEUTROPHILS # 12.8 10^3/uL (1.8-7.7); NEUTROPHILS % 90.5 % (36.0-66.0); PLATELET COUNT, AUTOMATED 211 10^3/uL (150-450); RED BLOOD COUNT 4.84 10^6/uL (4.00-5.40); WHITE BLOOD COUNT 14.2 10^3/uL (4.0-10.0)
[2019-03-23 06:57] LABS: ALBUMIN 2.7 GM/DL (3.2-5.2); BILIRUBIN,TOTAL 0.7 MG/DL (0.2-1.0); CALCIUM LEVEL 8.1 MG/DL (8.5-10.1); CREATININE FOR GFR 1.17 MG/DL (0.55-1.30); GLOMERULAR FILTRATION RATE 56.4 (>60); POTASSIUM SERUM 4.3 MEQ/L (3.5-5.1); TOTAL PROTEIN 6.2 GM/DL (6.4-8.2)
--- NOTE | 2019-03-23 07:14 | IPNPDOC ---
Subjective General Date/Time Seen The patient was seen on 03/23/19 at 07:14. Subject Chief Complaint/History The patient is a 34-year-old female admitted with a reason for visit of Biliary Acute Pancreatitis. Patient had ERCP and stone extraction yesterday. Patient denies any nausea, minimal abdominal discomfort. She has tried clear liquids without any increased abdominal discomfort and swelling to eat some solid foods later on today. Current Medications Current Medications Current Medications Medications (Trade) Dose Ordered Sig/Chepe Route PRN Reason Start Time Stop Time Status Last Admin Dose Admin Acetaminophen (Tylenol Tab) 650 mg Q4HP PRN PO MILD PAIN or TEMP > 101 03/22/19 00:15 Cefazolin Sodium 1 gm/Dextrose 50 ml @ 100 mls/hr Q8H IV 03/22/19 02:00 03/22/19 15:12 DC 03/22/19 11:08 Doxycycline Hyclate (Vibramycin) 100 mg DAILY PO 03/22/19 09:00 03/22/19 15:12 DC 03/22/19 09:07 Fentanyl Citrate (Sublimaze) 25 mcg Q5MP PRN IV MODERATE PAIN (PS 4-7) 03/22/19 19:15 03/22/19 20:15 DC Home Med (Med Rec Complete!) ASDIRECTED XX 03/22/19 01:30 03/22/19 01:30 DC Ketorolac Tromethamine (ToRADol) 30 mg Q6HP PRN IV MILD/MODERATE PAIN (PS 1-7) 03/22/19 00:15 03/27/19 00:14 03/22/19 19:35 Lactated Ringer's 1,000 ml @ 100 mls/hr Q10H IV 03/22/19 19:15 03/22/19 20:15 DC 03/22/19 20:30 Lactated Ringer's 1,000 ml @ 125 mls/hr Q8H IV 03/22/19 00:08 03/23/19 03:53 Metoclopramide HCl (REGLAN INJection) 10 mg Q6HP PRN IV NAUSEA OR VOMITING 03/22/19 00:15 Morphine Sulfate (Morphine Sulfate Inj) 2 mg Q2HP PRN IV MODERATE/SEVERE PAIN (PS 5-10) 03/22/19 00:15 Morphine Sulfate (Morphine Sulfate Inj) 4 mg Q2HP PRN IV SEVERE PAIN (PS 8-10) 03/22/19 00:15 03/22/19 11:09 Ondansetron HCl (ZOFRAN INJection) 4 mg Q4HP PRN IV NAUSEA OR VOMITING 03/22/19 19:15 03/22/19 20:15 DC Ondansetron HCl (ZOFRAN INJection) 4 mg Q6HP PRN IV NAUSEA OR VOMITING 03/22/19 00:15 03/22/19 01:36 Oxycodone HCl (Roxicodone, Oxyir) 5 mg ASDIRECTED PRN PO MILD/MODERATE PAIN (PS 1-7) 03/22/19 19:15 03/22/19 20:15 DC Pantoprazole Sodium (Protonix) 40 mg DAILY IV 03/22/19 09:00 03/22/19 09:07 Piperacillin Sod/ Tazobactam Sod 3.375 gm/Dextrose 50 ml @ 50 mls/hr Q6H IV 03/22/19 17:00 03/23/19 05:12 Sodium Chloride 1,000 ml @ 100 mls/hr Q10H IV 03/21/19 21:29 03/22/19 00:22 DC 03/21/19 21:29 Allergies Coded Allergies: Sulfa (Sulfonamide Antibiotics) (Verified Allergy, Intermediate, HIVES WH EEZING, 03/16/19) Objective Physical Examination Examination GENERAL APPEARANCE: Comfortable. SKIN: Warm and dry. HEENT: Anicteric sclerae. NECK: Supple, no thyromegaly. No obvious jugular venous distention. LUNGS: Clear to auscultation bilaterally. No wheezing appreciated. HEART: No chest wall abnormalities. Regular rate and rhythm with no murmurs mario reciated. ABDOMEN: Abdomen is obese, soft, nondistended. Minimally tender on deep palpation at the epigastric area without guarding. EXTREMITIES: Extremities have no deformities. No edema identified. Vital Signs Vital Signs Date Time Temp Pulse Resp B/P (MAP) Pulse Ox O2 Delivery O2 Flow Rate FiO2 03/23/19 04:00 98.0 61 16 117/57 (77) 92 03/22/19 00:47 Room Air I&Os I&O- Last 24 Hours up to 6 AM 03/23/19 05:59 Intake Total 1519 ml Output Total 0 ml Balance 1519 ml Laboratory Data Labs 24H Laboratory Tests 2 03/23/19 06:17: Immature Granulocyte % (Auto) 0.5, White Blood Count 14.2H, Red Blood Count 4.84, Hemoglobin 12.8, Hematocrit 39.4, Mean Corpuscular Volume 81.4, Mean Corpuscular Hemoglobin 26.4L, Mean Corpuscular Hemoglobin Concent 32.5, Red Cell Distribution Width 13.4, Platelet Count 211, Neutrophils (%) (Auto) 90.5H, Lymphocytes (%) (Auto) 6.9L, Monocytes (%) (Auto) 2.0, Eosinophils (%) (Auto) 0.0, Basophils (%) (Auto) 0.1, Neutrophils # (Auto) 12.8H, Lymphocytes # (Auto) 1.0L, Monocytes # (Auto) 0.3, Eosinophils # (Auto) 0.0, Basophils # (Auto) 0.0, Nucleated Red Blood Cells % (auto) 0.0, Anion Gap 8, Glomerular Filtration Rate 56.4L, Blood Urea Nitrogen 20H, Creatinine 1.17, Sodium Level 141, Potassium Level 4.3, Chloride Level 108H, Carbon Dioxide Level 25, Calcium Level 8.1L, Aspartate Amino Transf (AST/SGOT) 32, Alanine Aminotransferase (ALT/SGPT) 80H, Alkaline Phosphatase 179H, Total Bilirubin 0.7, Total Protein 6.2L, Albumin 2.7L, Albumin/Globulin Ratio 0.77L, Amylase Level 161H, Lipase 340 CBC/BMP Laboratory Tests 03/23/19 06:17 Red Blood Count 4.84, Mean Corpuscular Volume 81.4, Mean Corpuscular Hemoglobin 26.4 L, Mean Corpuscular Hemoglobin Concent 32.5, Red Cell Distribution Width 13.4, Neutrophils (%) (Auto) 90.5 H, Lymphocytes (%) (Auto) 6.9 L, Monocytes (%) (Auto) 2.0, Eosinophils (%) (Auto) 0.0, Basophils (%) (Auto) 0.1, Neutrophils # (Auto) 12.8 H, Lymphocytes # (Auto) 1.0 L, Monocytes # (Auto) 0.3, Eosinophils # (Auto) 0.0, Basophils # (Auto) 0.0, Calcium Level 8.1 L, Aspartate Amino Transf (AST/SGOT) 32, Alanine Aminotransferase (ALT/SGPT) 80 H, Alkaline Phosphatase 179 H, Total Bilirubin 0.7, Total Protein 6.2 L, Albumin 2.7 L Microbiology Microbiology 03/21/19 Blood Culture - Preliminary, Resulted No growth after 24 hours . All specim... 03/21/19 Blood Culture - Preliminary, Resulted No growth after 24 hours . All specim... Impression Acute Biliary Pancreatitis Choledocholithiasis s/p ERCP. stone extraction Patient clinically improved. Her laboratories including her LFTs continued to improve. No signs or symptoms of post ERCP pancreatitis. clears advance diet as tolerated If tolerating diet potential discharge today or tomorrow Plan / VTE VTE Prophylaxis Ordered?: Yes CARA CAMP MD Mar 23, 2019 07:14
--- NOTE | 2019-03-23 07:53 | REP ---
Clinical: Gallstone pancreatitis. Technique: Intraoperative fluoroscopic images from ERCP examination using portable C-arm technique. Findings: Cannulation of the common bile duct noted and there is evidence for prior cholecystectomy as well as moderate dilatation to the intrahepatic and extrahepatic biliary ductal system. Small filling defects at the very distal aspect of the common bile duct are identified and consistent with choledocholiths. Final images demonstrate the patient to be status post stone removal. Total fluoroscopic time 4 minutes 44 seconds. Impression: Status post satisfactory choledocholith extraction. Electronically Signed by Connor Jessica MD 03/23/2019 07:45 A
[2019-03-23] MEDS: PANTOPRAZOLE 40MG INJ (PROTONIX) (C9113) IV SCH (08:30)
[2019-03-23 10:00] VITALS: BP 122/77
[2019-03-23 14:00] VITALS: BP 131/88
--- NOTE | 2019-03-23 16:35 | DS.PDOC ---
Discharge Summary General Date of Admission Mar 22, 2019 at 00:08 Date of Discharge March 23, 2019 Attending Physician: CARA CAMP MD Specialist/Consultants Involve: CRISTHIAN BUCK MD Discharge Summary PROCEDURES PERFORMED DURING STAY: ERCP with stone extraction. ADMITTING DIAGNOSES: 1. Acute Biliary Pancreatitis. 2. Choledocholithiasis DISCHARGE DIAGNOSES: 1. Acute Biliary Pancreatitis. 2. Choledocholithiasis s/p ERCP COMPLICATIONS/CHIEF COMPLAINT: Biliary Acute Pancreatitis. HISTORY OF PRESENT ILLNESS: The patient is a 34-year-old woman who had been evaluated for some intermittent upper abdominal pain with associated nausea and vomiting. A gallbladder ultrasound had shown multiple mobile gallstones. She was scheduled for a laparoscopic cholecystectomy. On March 11 she was seen in the emergency department with an episode of severe pain and had elevations of her liver function tests and her lipase. She underwent a laparoscopic cholecystectomy on March 16. She apparently did well with her surgery and was discharged home on the day of surgery. She reports that she had been doing well at home taking pain medication only in the evening to aid with sleep. Her discomfort was fading. She had been on a very light diet and then on the had tried to advance her diet slightly with a piece of bread. She reports that shortly thereafter she developed again a very severe attack of pain in the epigastrium which she said was similar to her presentation on the which had been diagnosed as pancreatitis. She called our answering service and I directed her to come to the emergency department. In the emergency department she underwent evaluation with laboratory studies that showed a marked elevation of the white blood cell count to 21,000 with a differential showing 92% neutrophils, 4% lymphocytes and 4% monocytes. Her chemistries showed an AST of 288, ALT of 197, alkaline phosphatas HOSPITAL COURSE: Patient was admitted to my service by Dr. Jeffrey. I saw her in the morning after her presentation. She was placed on Ancef IV and her usual dose of doxycycline orally was continued more for cholangitis prophylaxis. By the time that she was in the emergency room patient reports starting to feel better. She does have evidence of pancreatitis as well as elevated LFTs including mildly elevated total bilirubin of 1.2 with a direct fraction of 0.9. Morning after the lipase is markedly gone down her total bilirubin is returning to normal and her AST and ALT was coming back to normal. A previously arranged MRCP was then performed that day which shows 2 retained common bile duct stones in the biliary tree with dilatation of the common bile duct. Arranged for consult with Dr. Buck and she was brought to the operating room for an ERCP that same day. 2 stones were extracted. She did well postoperatively. Her pain continues to get better. Her nausea has resolved. She was started on clear liquids the following morning. Her lipase has normalized by hospital day 3 and her LFTs are almost normal. She tolerated her clear liquids and she was advanced to regular diet which she also tolerated and she was subsequently discharged that same day. DISCHARGE MEDICATIONS: Please see below. ALLERGIES: Please see below. PHYSICAL EXAMINATION ON DISCHARGE: VITAL SIGNS: Please see below. GENERAL: Comfortable HEENT: Anicteric sclerae NECK: Short, supple CARDIOVASCULAR EXAMINATION: Regular heart rate and rhythm RESPIRATORY EXAMINATION: Clear breath sounds to auscultation bilaterally ABDOMINAL EXAMINATION: Minimal residual epigastric tenderness only on deep palpation without guarding EXTREMITIES: No deformities, no edema SKIN: No jaundice NEUROLOGICAL EXAMINATION: Awake, alert, oriented LABORATORY DATA: Please see below. IMAGING: MRCP, CT scan abdomen and pelvis PROGNOSIS: Good ACTIVITY: As tolerated. DIET: Regular diet as tolerated DISCHARGE PLAN: Patient is discharged home. 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 She does not wish for a new prescription for pain medications. She will return to my clinic as previously arranged for postoperative check. DISPOSITION: . DISCHARGE INSTRUCTIONS: 1. As above. DISCHARGE CONDITION: Stable. TIME SPENT ON DISCHARGE: Greater than 30 minutes. Vital Signs/I&Os Vital Signs Date Time Temp Pulse Resp B/P (MAP) Pulse Ox O2 Delivery O2 Flow Rate FiO2 03/23/19 14:00 98.0 79 16 131/88 (102) 96 03/22/19 00:47 Room Air I&O- Last 24 Hours up to 6 AM 03/23/19 06:00 Intake Total 1519 ml Output Total 0 ml Balance 1519 ml Laboratory Data Labs 24H Laboratory Tests 2 03/23/19 06:17: Immature Granulocyte % (Auto) 0.5, White Blood Count 14.2H, Red Blood Count 4.84, Hemoglobin 12.8, Hematocrit 39.4, Mean Corpuscular Volume 81.4, Mean Corpuscular Hemoglobin 26.4L, Mean Corpuscular Hemoglobin Concent 32.5, Red Cell Distribution Width 13.4, Platelet Count 211, Neutrophils (%) (Auto) 90.5H, Lymphocytes (%) (Auto) 6.9L, Monocytes (%) (Auto) 2.0, Eosinophils (%) (Auto) 0.0, Basophils (%) (Auto) 0.1, Neutrophils # (Auto) 12.8H, Lymphocytes # (Auto) 1.0L, Monocytes # (Auto) 0.3, Eosinophils # (Auto) 0.0, Basophils # (Auto) 0.0, Nucleated Red Blood Cells % (auto) 0.0, Anion Gap 8, Glomerular Filtration Rate 56.4L, Blood Urea Nitrogen 20H, Creatinine 1.17, Sodium Level 141, Potassium Level 4.3, Chloride Level 108H, Carbon Dioxide Level 25, Calcium Level 8.1L, Aspartate Amino Transf (AST/SGOT) 32, Alanine Aminotransferase (ALT/SGPT) 80H, Alkaline Phosphatase 179H, Total Bilirubin 0.7, Total Protein 6.2L, Albumin 2.7 L, Albumin/Globulin Ratio 0.77L, Amylase Level 161H, Lipase 340 CBC/BMP Laboratory Tests 03/23/19 06:17 Red Blood Count 4.84, Mean Corpuscular Volume 81.4, Mean Corpuscular Hemoglobin 26.4 L, Mean Corpuscular Hemoglobin Concent 32.5, Red Cell Distribution Width 13.4, Neutrophils (%) (Auto) 90.5 H, Lymphocytes (%) (Auto) 6.9 L, Monocytes (%) (Auto) 2.0, Eosinophils (%) (Auto) 0.0, Basophils (%) (Auto) 0.1, Neutrophils # (Auto) 12.8 H, Lymphocytes # (Auto) 1.0 L, Monocytes # (Auto) 0.3, Eosinophils # (Auto) 0.0, Basophils # (Auto) 0.0, Calcium Level 8.1 L, Aspartate Amino Transf (AST/SGOT) 32, Alanine Aminotransferase (ALT/SGPT) 80 H, Alkaline Phosphatase 179 H, Total Bilirubin 0.7, Total Protein 6.2 L, Albumin 2.7 L Microbiology Microbiology 03/21/19 Blood Culture - Preliminary, Resulted No growth after 24 hours . All specim... 03/21/19 Blood Culture - Preliminary, Resulted No growth after 24 hours . All specim... Discharge Medications Scheduled Amoxicillin/Potassium Clav (Augmentin 500-125 Tablet) 1 Each Tablet, 500 MG PO BID, (Reported) Doxycycline Monohydrate (Doxycycline) 100 Mg Capsule, 100 MG PO DAILY, (Rep orted) Ergocalciferol (Vitamin D2) (Drisdol) 50,000 Unit Capsule, 50,000 UNIT PO 1XWK, (Reported) TAKES ON THURSDAY Montelukast Sodium (Singulair) 10 Mg Tab, 10 MG PO QHS, (Reported) Omeprazole (Omeprazole) 40 Mg Capsule.dr, 40 MG PO QHS, (Reported) Sertraline Hcl (Zoloft) 100 Mg Tab, 100 MG PO QHS, (Reported) Scheduled PRN Albuterol Sulfate (Ventolin Hfa) 18 Gm Hfa.aer.ad, 2 PUFF INH Q4-6H PRN for wheezing, (Reported) Hydrocodone/Acetaminophen (Hydrocodone-Acetamin 5-325 mg) 1 Each Tablet, 1-2 TAB PO Q4-6H PRN for pain, (Reported) Allergies Coded Allergies: Sulfa (Sulfonamide Antibiotics) (Verified Allergy, Intermediate, HIVES WHEEZING, 03/16/19) CARA CAMP MD Mar 23, 2019 16:35
== END 2019-03-23 16:45 | disposition home or self-care (01) ==
LOC: M ED 20:47 → M ED INP 03-22 00:08 → M PCU 03-22 01:22 → M MS4PR 03-22 08:24
PROVIDERS: ADMIT Surgery; ATTEND Surgery
PROC: 0FC98ZZ Extirpation of Matter from Common Bile Duct, Via Natural or Artificial Opening Endoscopic (ICD-10-PCS; principal; 2019-03-22 16:00)
DX: K80.50 Calculus of bile duct without cholangitis or cholecystitis without obstruction (principal); K85.10 Biliary acute pancreatitis without necrosis or infection; Z68.42 Body mass index [BMI] 45.0-49.9, adult; F41.9 Anxiety disorder, unspecified; F32.9 Major depressive disorder, single episode, unspecified; E55.9 Vitamin D deficiency, unspecified; K21.9 Gastro-esophageal reflux disease without esophagitis; J45.909 Unspecified asthma, uncomplicated; E66.9 Obesity, unspecified; Z87.891 Personal history of nicotine dependence

== ENCOUNTER → 2019-06-20 | Outpatient (CLI) | payer OTHER ==
[~2019-06-20] MED LIST changes: +HYDR-3713 PO; -OMEP40CA2 PO; +OMEP40CA97 PO; +SENN-53 PO; -SENN1TAB40 PO
--- NOTE | 2019-06-21 16:09 | SLEEPHOME ---
DATE OF PROCEDURE: 06/20/2019 ORDERED BY: MONICA Xavier Diagnostic home sleep testing was performed for the evaluation of sleep apnea syndrome symptoms in this patient with a history of excessive somnolence, snoring and nonrestorative sleep. For testing, a nocturnal T3 respiratory monitoring device was used. Continuous record was made of pulse, oxygen saturation, airflow, chest, abdominal strain and body position. 11 hours and 59 minutes of data were reviewed. There were 9 hours and 24 minutes marked as time in bed. During the interval marked time in bed, there were 109 respiratory events identified of 10 seconds in duration or greater for a respiratory event index of 11.6. The events were primarily obstructive. Baseline pulse rate 71 beats per minute, pulse rate ranged 53-105. Baseline saturation 95%. Saturations fell to 80%. Testing was performed in both the supine and nonsupine positions. IMPRESSION Abnormal home sleep testing with repetitive respiratory events and oxygen desaturations to 80% with a respiratory event index of 11.6 is consistent with the obstructive sleep apnea syndrome. RECOMMENDATION: The patient should be encouraged to undergo formal sleep evaluation.
== END ==
LOC: M SLEEP HO 12:20
PROVIDERS: ATTEND Nurse Practitioner Family
DX: R06.83 Snoring (principal)

== ENCOUNTER → 2019-07-15 | Outpatient (REF) | payer OTHER ==
[2019-07-15 13:16] LABS: ALBUMIN 3.9 GM/DL (3.2-5.2); BILIRUBIN,TOTAL 0.8 MG/DL (0.2-1.0); CHOLESTEROL RISK RATIO 5.229 (<5); CREATININE FOR GFR 1.29 MG/DL (0.55-1.30); GLOMERULAR FILTRATION RATE 50.4 (>60); POTASSIUM SERUM 4.2 MEQ/L (3.5-5.1); THYROID STIMULATING HORMONE 1.59 uIU/ML (0.358-3.740); TOTAL PROTEIN 7.4 GM/DL (6.4-8.2)
[2019-07-15 13:17] LABS: TOTAL 25(OH) VITAMIN D 20.3 NG/ML (30.0-100.0)
[2019-07-15 13:36] LABS: HEMOGLOBIN A1c 5.6 %
== END ==
LOC: M SFHCPLAZ 11:05
PROVIDERS: ATTEND Nurse Practitioner Adult Health
DX: Z00.00 Encounter for general adult medical examination without abnormal findings (principal); Z68.41 Body mass index [BMI] 40.0-44.9, adult; E55.9 Vitamin D deficiency, unspecified; E78.2 Mixed hyperlipidemia

== ENCOUNTER 2019-12-16 16:02 | Emergency (ER) | payer OTHER ==
[~2019-12-16] VITALS: Ht 162.6 cm; Wt 137.6 kg
[~2019-12-16 16:02] MED LIST changes: +ACET325T42 PO; +CYCL-707 PO; -CYCL10TA PO; -MAPA325T3 PO
[2019-12-16] MEDS ORDERED: NS 1,000 ML IV ONE (17:00)
[2019-12-16 17:17] LABS: BASO % 0.4 % (0.0-1.0); EOS # 0.2 10^3/uL (0.0-0.5); HEMATOCRIT 44.2 % (36.0-47.0); HEMOGLOBIN 14.3 g/dl (12.0-15.5); LYMPH # 2.6 10^3/uL (1.5-5.0); LYMPH % 27.2 % (24.0-44.0); MEAN CORPUSCULAR HEMOGLOBIN 26.6 pg (27.0-33.0); MEAN CORPUSCULAR HGB CONC 32.4 g/dl (32.0-36.5); MEAN CORPUSCULAR VOLUME 82.3 fl (80.0-96.0); MONO # 0.6 10^3/uL (0.0-0.8); MONO % 6.1 % (0.0-5.0); NEUTROPHILS # 6.2 10^3/uL (1.5-8.5); NEUTROPHILS % 63.9 % (36.0-66.0); PLATELET COUNT, AUTOMATED 234 10^3/uL (150-450); RED BLOOD COUNT 5.37 10^6/uL (4.00-5.40); WHITE BLOOD COUNT 9.7 10^3/uL (4.0-10.0)
[2019-12-16 17:30] LABS: INR 1.01
[2019-12-16 17:31] LABS: PARTIAL THROMBOPLASTIN TIME 25.9 SECONDS (25.0-38.4)
[2019-12-16] MEDS ORDERED: ISOVUE-370 76% 100ML VIAL As Ordered ONE (18:01)
--- NOTE | 2019-12-16 18:44 | REPVR ---
PROCEDURE INFORMATION: Exam: CT Abdomen And Pelvis With Contrast Exam date and time: 12/16/2019 6:25 PM Age: 34 years old Clinical indication: Other: Rectal bleeding; Additional info: Rectal bleeding R/O diverticulitis TECHNIQUE: Imaging protocol: Computed tomography of the abdomen and pelvis with intravenous contrast. Radiation optimization: All CT scans at this facility use at least one of these dose optimization techniques: automated exposure control; mA and/or kV adjustment per patient size (includes targeted exams where dose is matched to clinical indication); or iterative reconstruction. Contrast material: ISOVUE 370; Contrast volume: 100 ml; Contrast route: IV; COMPARISON: CT ABD/PEL W/IV CONTRAST ONLY 03/21/2019 11:27 PM FINDINGS: Liver: Normal. No mass. Gallbladder and bile ducts: Normal. No calcified stones. No ductal dilation. Pancreas: Mild inflammatory stranding noted within the fat surrounding the inferior aspect of the pancreatic head and the uncinate process. Spleen: Normal. No splenomegaly. Adrenals: Normal. No mass. Kidneys and ureters: Normal. No hydronephrosis. Stomach and bowel: Rare scattered colonic diverticula. No diverticulitis. Appendix: No evidence of appendicitis. Intraperitoneal space: Unremarkable. No free air. No significant fluid collection. Vasculature: Unremarkable. No abdominal aortic aneurysm. Lymph nodes: Unremarkable. No enlarged lymph nodes. Bladder: Unremarkable as visualized. Reproductive: IUD present within the uterus. Bones/joints: Postoperative changes related to posterior spinal fusion from L2 through S1. Soft tissues: 2.3 cm circumscribed lesion within the subcutaneous fat of the left abdominal wall suggests an area of fat necrosis. Stranding noted in the paraspinal muscles and overlying fat at the level of the posterior lumbar fusion IMPRESSION: 1. Minimal stranding noted around the pancreatic head could represent pancreatitis. 2. Scattered colonic diverticula. No diverticulitis. 3. Postoperative changes related to posterior lumbar fusion 4. Electronically signed by: Elizabeth Encinas On 12/16/2019 18:43:50 PM
[2019-12-16 19:05] LABS: ALBUMIN 3.5 GM/DL (3.2-5.2); BILIRUBIN,DIRECT 0.2 MG/DL (0.0-0.2); BILIRUBIN,TOTAL 0.4 MG/DL (0.2-1.0); TOTAL PROTEIN 7.3 GM/DL (6.4-8.2)
[2019-12-16 19:34] VITALS: BP 110/83
== END 2019-12-16 19:41 | disposition home or self-care (01) ==
LOC: M ED 16:02
DX: K62.5 Hemorrhage of anus and rectum (principal); K85.90 Acute pancreatitis without necrosis or infection, unspecified; K57.92 Diverticulitis of intestine, part unspecified, without perforation or abscess without bleeding; Z97.5 Presence of (intrauterine) contraceptive device; Z88.2 Allergy status to sulfonamides; Z79.899 Other long term (current) drug therapy
CPT/HCPCS: 74177; 80047; 80076; 83690; 84702; 85025; 85610; 85730; 86850; 86900; 86901; 96360; 96361; 99284; Q9967

== ENCOUNTER → 2020-03-07 | Outpatient (CLI) | payer OTHER ==
[~2020-03-07] MED LIST changes: +PANT40TA29 PO; -PANT40TA3 PO; +VITA50005
== END ==
LOC: M LRY 13:16
PROVIDERS: ATTEND Physician Assistant
DX: T81.40XD Infection following a procedure, unspecified, subsequent encounter (principal); Y83.8 Other surgical procedures as the cause of abnormal reaction of the patient, or of later complication, without mention of misadventure at the time of the procedure

== ENCOUNTER 2020-03-08 12:33 | Emergency (ER) | payer OTHER ==
[~2020-03-08] VITALS: Ht 162.6 cm; Wt 140.3 kg
[~2020-03-08 12:33] MED LIST changes: -VITA50005
[2020-03-08] MEDS ORDERED: VITA50005 (12:42)
[2020-03-08] MEDS ORDERED: NS 1,000 ML IV ONE (14:45)
[2020-03-08 15:05] LABS: BASO % 0.3 % (0.0-1.0); EOS # 0.1 10^3/uL (0.0-0.5); EOS % 1.4 % (0.0-3.0); HEMATOCRIT 43.5 % (36.0-47.0); HEMOGLOBIN 14.2 g/dl (12.0-15.5); MEAN CORPUSCULAR HEMOGLOBIN 26.7 pg (27.0-33.0); MEAN CORPUSCULAR HGB CONC 32.6 g/dl (32.0-36.5); MEAN CORPUSCULAR VOLUME 81.9 fl (80.0-96.0); MONO # 0.5 10^3/uL (0.0-0.8); MONO % 4.8 % (0.0-5.0); NEUTROPHILS # 6.7 10^3/uL (1.5-8.5); PLATELET COUNT, AUTOMATED 223 10^3/uL (150-450); RED BLOOD COUNT 5.31 10^6/uL (4.00-5.40); WHITE BLOOD COUNT 9.3 10^3/uL (4.0-10.0)
[2020-03-08 15:29] LABS: ALBUMIN 3.7 GM/DL (3.2-5.2); ALT/SGPT 43 U/L (12-78); AMYLASE 51 U/L (25-115); BILIRUBIN,DIRECT 0.1 MG/DL (0.0-0.2); BILIRUBIN,TOTAL 0.5 MG/DL (0.2-1.0); CK-MB VALUE MASS 3.1 NG/ML (<3.6); CPK CREATINE PHOSPHOKINASE 256 U/L (26-192); LIPASE 53 U/L (73-393); MB/CK RELATIVE INDEX 1.21 (< OR =4); TOTAL PROTEIN 7.4 GM/DL (6.4-8.2); TROPONIN I < 0.02 NG/ML (< 0.10)
--- NOTE | 2020-03-08 16:40 | REP ---
LEFT SHOULDER, THREE VIEWS: There is no evidence of an acute fracture, dislocation, or intrinsic bone disease. IMPRESSION: No fracture or dislocation. Electronically Signed by Ryan Stroud MD 03/12/2020 09:08 A
[2020-03-08 20:14] LABS: CK-MB VALUE MASS 2.6 NG/ML (<3.6); CPK CREATINE PHOSPHOKINASE 240 U/L (26-192); MB/CK RELATIVE INDEX 1.08 (< OR =4); TROPONIN I < 0.02 NG/ML (< 0.10)
[2020-03-08 20:33] VITALS: BP 138/90
--- NOTE | 2020-03-08 20:48 | ECGEPIP ---
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
--- NOTE | 2020-03-08 23:37 | REP ---
TWO-VIEW CHEST: REASON FOR EXAM: Chest discomfort. COMPARISON: No priors. FINDINGS: The superior mediastinal structures are midline. The cardiac silhouette is unremarkable in size, shape, and position. The diaphragmatic surfaces of the lungs are regular, and the costophrenic angles are clear. The pulmonary pickens are clear. The imaged osseous structures are intact. IMPRESSION: There is no acute cardiopulmonary disease. Electronically Signed by Lio Fish DO 03/09/2020 11:23 A
== END 2020-03-08 20:35 | disposition home or self-care (01) ==
LOC: M ED 12:33
DX: R10.12 Left upper quadrant pain (principal); R74.8 Abnormal levels of other serum enzymes; E87.6 Hypokalemia; J45.909 Unspecified asthma, uncomplicated; I10 Essential (primary) hypertension; E78.5 Hyperlipidemia, unspecified; K21.9 Gastro-esophageal reflux disease without esophagitis; Z79.51 Long term (current) use of inhaled steroids; Z79.899 Other long term (current) drug therapy; Z87.891 Personal history of nicotine dependence; Z88.1 Allergy status to other antibiotic agents

== ENCOUNTER → 2020-03-12 | Outpatient (REF) | payer OTHER ==
[~2020-03-12] MED LIST changes: +VITA50005
[2020-03-12 17:17] LABS: BASO % 0.3 % (0.0-1.0); EOS # 0.1 10^3/uL (0.0-0.5); EOS % 1.4 % (0.0-3.0); HEMOGLOBIN 13.3 g/dl (12.0-15.5); LYMPH # 2.2 10^3/uL (1.5-5.0); LYMPH % 22.5 % (24.0-44.0); MEAN CORPUSCULAR HEMOGLOBIN 27.2 pg (27.0-33.0); MEAN CORPUSCULAR HGB CONC 32.4 g/dl (32.0-36.5); MEAN CORPUSCULAR VOLUME 83.8 fl (80.0-96.0); MONO # 0.5 10^3/uL (0.0-0.8); MONO % 4.9 % (0.0-5.0); NEUTROPHILS # 6.9 10^3/uL (1.5-8.5); NEUTROPHILS % 70.4 % (36.0-66.0); PLATELET COUNT, AUTOMATED 221 10^3/uL (150-450); RED BLOOD COUNT 4.89 10^6/uL (4.00-5.40); WHITE BLOOD COUNT 9.8 10^3/uL (4.0-10.0)
[2020-03-12 18:08] LABS: ERYTHROCYTE SEDIMENTATION RATE 29 mm/hr (0-20)
== END ==
LOC: M LRY 16:22
PROVIDERS: ATTEND Physician Assistant
DX: T81.40XD Infection following a procedure, unspecified, subsequent encounter (principal)

== ENCOUNTER 2020-10-12 13:24 | Emergency (ER) | payer OTHER ==
[~2020-10-12] VITALS: Ht 162.6 cm; Wt 142.7 kg
[~2020-10-12 13:24] MED LIST changes: +GABA-282 PO; -GABA-843 PO
--- OUTSIDE RECORDS SUMMARY | 2020-10-12 13:42 | CCD ---
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 Name Role Phone Nahed REED MD Unavailable Unavailable CANNahed MANRIQUEZ MD Unavailable Unavailable CANNahed MANRIQUEZ MD Unavailable Unavailable CANNahed MANRIQUEZ MD Unavailable Unavailable CANNahed MANRIQUEZ MD Unavailable Unavailable CANNahed MANRIQUEZ MD Unavailable Unavailable CANNahed MANRIQUEZ MD Unavailable Unavailable CANNahed MANRIQUEZ MD Unavailable Unavailable CANNahed MANRIQUEZ MD Unavailable Unavailable CANNahed MANRIQUEZ MD Unavailable Unavailable CANNahed MANRIQUEZ MD Unavailable Unavailable CANNahed MANRIQUEZ MD Unavailable Unavailable CANNahed MANRIQUEZ MD Unavailable Unavailable CANNahed MANRIQUEZ MD Unavailable Unavailable CANNahed MANRIQUEZ MD Unavailable Unavailable CANNahed MANRIQUEZ MD Unavailable Unavailable CANNahed MANRIQUEZ MD Unavailable Unavailable CANNahed MANRIQUEZ MD Unavailable Unavailable CANNahed MANRIQUEZ MD Unavailable Unavailable CANNahed MANRIQUEZ MD Unavailable Unavailable CANNahed MANRIQUEZ MD Unavailable Unavailable CANUTE, W BENSON MD Unavailable Unavailable CANUTE, W BENSON MD Unavailable Unavailable CANUTE, W BENSON MD Unavailable Unavailable CANUTE, W BENSON MD Unavailable Unavailable CANUTE, W BENSON MD Unavailable Unavailable CANUTE, W BENSON MD Unavailable Unavailable CANUTE, W BENSON MD Unavailable Unavailable CANUTE, W BENSON MD Unavailable Unavailable CANUTE, W BENSON MD Unavailable Unavailable CANUTE, W BENSON MD Unavailable Unavailable CANUTE, W BENSON MD Unavailable Unavailable CANUTE, W BENSON MD Unavailable Unavailable CANUTE, W BENSON MD Unavailable Unavailable CANUTE, W BENSON MD Unavailable Unavailable CANUTE, W BENSON MD Unavailable Unavailable CANUTE, W BENSON MD Unavailable Unavailable CANUTE, W BENSON MD Unavailable Unavailable CANUTE, W BENSON MD Unavailable Unavailable CANUTE, W BENSON MD Unavailable Unavailable CANUTE, W BENSON MD Unavailable Unavailable CANUTE, W BENSON MD Unavailable Unavailable CANUTE, W BENSON MD Unavailable Unavailable CANUTE, W BENSON MD Unavailable Unavailable CANUTE, W BENSON MD Unavailable Unavailable CANUTE, W BENSON MD Unavailable Unavailable CANUTE, W BENSON MD Unavailable Unavailable CANUTE, W BENSON MD Unavailable Unavailable CANUTE, W BENSON MD Unavailable Unavailable CANUTE, W BENSON MD Unavailable Unavailable CANUTE, W BENSON MD Unavailable Unavailable CANUTE, W BENSON MD Unavailable Unavailable CANUTE, W BENSON MD Unavailable Unavailable CANUTE, W BENSON MD Unavailable Unavailable CANUTE, W BENSON MD Unavailable Unavailable CANUTE, W BENSON MD Unavailable Unavailable CANUTE, W BENSON MD Unavailable Unavailable CANUTE, W BENSON MD Unavailable Unavailable CANUTE, W BENSON MD Unavailable Unavailable CANUTE, W BENSON MD Unavailable Unavailable CANUTE, W BENSON MD Unavailable Unavailable CANUTE, W BENSON MD Unavailable Unavailable CANUTE, W BENSON MD Unavailable Unavailable CANUTE, W BENSON MD Unavailable Unavailable CANUTE, W BENSON MD Unavailable Unavailable CANUTE, W BENSON MD Unavailable Unavailable CANUTE, W BENSON MD Unavailable Unavailable CANUTE, W BENSON MD Unavailable Unavailable CANUTE, W BENSON MD Unavailable Unavailable CANUTE, W BENSON MD Unavailable Unavailable CANUTE, W BENSON MD Unavailable Unavailable CANUTE, W BENSON MD Unavailable Unavailable CANUTE, W BENSON MD Unavailable Unavailable CANUTE, W BENSON MD Unavailable Unavailable CANUTE, W BENSON MD Unavailable Unavailable CANUTE, W BENSON MD Unavailable Unavailable CANUTE, W BENSON MD Unavailable Unavailable CANUTE, W BENSON MD Unavailable Unavailable CANUTE, W BENSON BOYLE Unavailable Unavailable CANUTE, W BENSON BOYLE Unavailable Unavailable CANUTE, W BENSON BOYLE Unavailable Unavailable CANUTE, W BENSON BOYLE Unavailable Unavailable CANUTE, W BENSON BOYLE Unavailable Unavailable CANUTE, W BENSON BOYLE Unavailable Unavailable CANUTE, W BENSON BOYLE Unavailable Unavailable CANUTE, W BENSON BOYLE Unavailable Unavailable CANUTE, W BENSON BOYLE Unavailable Unavailable CANUTE, W BENSON BOYLE Unavailable Unavailable CANUTE, W BENSON BOYLE Unavailable Unavailable CANUTE, W BENSON BOYLE Unavailable Unavailable CANUTE, W BENSON BOYLE Unavailable Unavailable CANUTE, W BENSON BOYLE Unavailable Unavailable CANUTE, W BENSON BOYLE Unavailable Unavailable CANUTE, W BENSON BOYLE Unavailable Unavailable CANUTE, W BENSON BOYLE Unavailable Unavailable CANUTE, W BENSON BOYLE Unavailable Unavailable CANUTE, W BENSON BOYLE Unavailable Unavailable CANUTE, W BENSON BOYLE Unavailable Unavailable CANUTE, W BENSON BOYLE Unavailable Unavailable ROSSANA, JOSE PA-C Unavailable Unavailable ROSSANA, JOSE PA-C Unavailable Unavailable ROSSANA, JOSE PA-C Unavailable Unavailable ROSSANA, JOSE PA-C Unavailable Unavailable ROSSANA, JOSE PA-C Unavailable Unavailable ROSSANA, JOSE PA-C Unavailable Unavailable ROSSANA, JOSE PA-C Unavailable Unavailable ROSSANA, JOSE PA-C Unavailable Unavailable ROSSANA, JOSE PA-C Unavailable Unavailable ROSSANA, JOSE PA-C Unavailable Unavailable ROSSANA, JOSE PA-C Unavailable Unavailable ROSSANA, JOSE PA-C Unavailable Unavailable ROSSANA, JOSE PA-C Unavailable Unavailable ROSSANA, JOSE PA-C Unavailable Unavailable ROSSANA, JOSE PA-C Unavailable Unavailable ROSSANA, JOSE PA-C Unavailable Unavailable ROSSANA, JOSE PA-C Unavailable Unavailable ROSSANA, JOSE PA-C Unavailable Unavailable ROSSANA, JOSE PA-C Unavailable Unavailable ROSSANA, JOSE PA-C Unavailable Unavailable ROSSANA, JOSE PA-C Unavailable Unavailable ROSSANA, JOSE PA-C Unavailable Unavailable ROSSANA, JOSE PA-C Unavailable Unavailable ROSSANA, JOSE PA-C Unavailable Unavailable ROSSANA, JOSE PA-C Unavailable Unavailable ROSSANA, OJSE PA-C Unavailable Unavailable ROSSANA, JOSE PA-C Unavailable Unavailable ROSSANA, JOSE PA-C Unavailable Unavailable ROSSANA, OJSE PA-C Unavailable Unavailable ROSSANA, JOSE PA-C Unavailable Unavailable ROSSANA, JOSE PA-C Unavailable Unavailable ROSSANA, JOSE PA-C Unavailable Unavailable ROSSANA, JOSE PA-C Unavailable Unavailable ROSSANA, JOSE PA-C Unavailable Unavailable ROSSANA, JOSE PA-C Unavailable Unavailable Yumiko Graham Unavailable Unavailable CANUTE, W BENSON MD Unavailable Unavailable CANUTE, W BENSON MD Unavailable Unavailable CANUTE, W BENSON MD Unavailable Unavailable CANUTE, W BENSON MD Unavailable Unavailable CANUTE, W BENSON MD Unavailable Unavailable CANUTE, W BENSON MD Unavailable Unavailable CANUTE, W BENSON MD Unavailable Unavailable CANUTE, W BENSON MD Unavailable Unavailable CANUTE, W BENSON MD Unavailable Unavailable CANUTE, W BENSON MD Unavailable Unavailable CANUTE, W BENSON MD Unavailable Unavailable CANUTE, W BENSON MD Unavailable Unavailable CANUTE, W BENSON MD Unavailable Unavailable CANUTE, W BENSON MD Unavailable Unavailable CANUTE, W BENSON MD Unavailable Unavailable CANUTE, W BENSON MD Unavailable Unavailable CANUTE, W BENSON MD Unavailable Unavailable CANUTE, W BENSON MD Unavailable Unavailable CANUTE, W BENSON MD Unavailable Unavailable CANUTE, W BENSON MD Unavailable Unavailable CANUTE, W BENSON MD Unavailable Unavailable CANUTE, W BENSON MD Unavailable Unavailable CANUTE, W BENSON MD Unavailable Unavailable CANUTE, W BENSON MD Unavailable Unavailable CANUTE, W BENSON MD Unavailable Unavailable CANUTE, W BENSON MD Unavailable Unavailable CANUTE, W BENSON MD Unavailable Unavailable CANUTE, W BENSON MD Unavailable Unavailable CANUTE, W BENSON MD Unavailable Unavailable CANUTE, W BENSON MD Unavailable Unavailable CANUTE, W BENSON MD Unavailable Unavailable CANUTE, W BENSON MD Unavailable Unavailable CANUTE, W BENSON MD Unavailable Unavailable CANUTE, W BENSON MD Unavailable Unavailable CANUTE, W BENSON MD Unavailable Unavailable CANUTE, W BENSON MD Unavailable Unavailable CANUTE, W BENSON MD Unavailable Unavailable CANUTE, W BENSON MD Unavailable Unavailable CANUTE, W BENSON MD Unavailable Unavailable CANUTE, W BENSON MD Unavailable Unavailable CANUTE, W BENSON MD Unavailable Unavailable CANUTE, W BENSON MD Unavailable Unavailable CANUTE, W BENSON MD Unavailable Unavailable CANUTE, W BENSON MD Unavailable Unavailable CANUTE, W BENSON MD Unavailable Unavailable CANUTE, W BENSON MD Unavailable Unavailable CANUTE, W BENSON MD Unavailable Unavailable CANUTE, W BENSON MD Unavailable Unavailable CANUTE, W BENSON MD Unavailable Unavailable CANUTE, W BENSON MD Unavailable Unavailable CANUTE, W BENSON MD Unavailable Unavailable CANUTE, W BENSON MD Unavailable Unavailable CANUTE, W BENSON MD Unavailable Unavailable CANUTE, W BENSON MD Unavailable Unavailable CANUTE, W BENSON MD Unavailable Unavailable CANUTE, W BENSON MD Unavailable Unavailable CANUTE, W BENSON MD Unavailable Unavailable CANUTE, W BENSON MD Unavailable Unavailable CANUTE, W BENSON MD Unavailable Unavailable CANUTE, W BENSON MD Unavailable Unavailable CANUTE, W BENSON MD Unavailable Unavailable CANUTE, W BENSON MD Unavailable Unavailable CANUTE, W BENSON MD Unavailable Unavailable CANUTE, W BENSON MD Unavailable Unavailable CANUTE, W BENSON MD Unavailable Unavailable CANUTE, W BENSON MD Unavailable Unavailable CANUTE, W BENSON MD Unavailable Unavailable CANUTE, W BENSON MD Unavailable Unavailable CANUTE, W BENSON MD Unavailable Unavailable CANUTE, W BENSON MD Unavailable Unavailable CANUTE, W BENSON MD Unavailable Unavailable CANUTE, W BENSON MD Unavailable Unavailable CANUTE, W BENSON MD Unavailable Unavailable CANUTE, W BENSON MD Unavailable Unavailable CANUTE, W BENSON MD Unavailable Unavailable CANUTE, W BENSON MD Unavailable Unavailable CANUTE, W BENSON MD Unavailable Unavailable CANUTE, W BENSON MD Unavailable Unavailable CANUTE, W BENSON MD Unavailable Unavailable CANUTE, W BENSON MD Unavailable Unavailable CANUTE, W BENSON MD Unavailable Unavailable CANUTE, W BENSON MD Unavailable Unavailable CANUTE, W BENSON MD Unavailable Unavailable CANUTE, W BENSON MD Unavailable Unavailable CANUTE, W BENSON MD Unavailable Unavailable CANUTE, W BENSON MD Unavailable Unavailable CANUTE, W BENSON MD Unavailable Unavailable CANUTE, W BENSON MD Unavailable Unavailable CANUTE, W BENSON MD Unavailable Unavailable CANUTE, W BENSON MD Unavailable Unavailable CANUTE, W BENSON MD Unavailable Unavailable CANUTE, W BENSON MD Unavailable Unavailable CANUTE, W BENSON MD Unavailable Unavailable CANUTE, W BENSON MD Unavailable Unavailable CANUTE, W BENSON MD Unavailable Unavailable CANUTE, W BENSON MD Unavailable Unavailable CANUTE, W BENSON MD Unavailable Unavailable CANUTE, W BENSON MD Unavailable Unavailable Nahed REED MD Unavailable Unavailable JANLUCIAYA Unavailable Unavailable Re-disclosure Warning The records that you are about to access may contain information from federally-assisted alcohol or drug abuse programs. If such information is present, then the following federally mandated warning applies: This information has been disclosed to you from records protected by federal confidentiality rules (42 CFR part 2). The federal rules prohibit you from making any further disclosure of this information unless further disclosure is expressly permitted by the written consent of the person to whom it pertains or as otherwise permitted by 42 CFR part 2. A general authorization for the release of medical or other information is NOT sufficient for this purpose. The Federal rules restrict any use of the information to criminally investigate or prosecute any alcohol or drug abuse patient.The records that you are about to access may contain highly sensitive health information, the redisclosure of which is protected by Article 27-F of the [facility] Public Health law. If you continue you may have access to information: Regarding HIV / AIDS; Provided by facilities licensed or operated by the [facility] Office of Mental Health; or Provided by the [facility] Office for People With Developmental Disabilities. If such information is present, then the following [facility] mandated warning applies: This information has been disclosed to you from confidential records which are protected by state law. State law prohibits you from making any further disclosure of this information without the specific written consent of the person to whom it pertains, or as otherwise permitted by law. Any unauthorized further disclosure in violation of state law may result in a fine or mcc sentence or both. A general authorization for the release of medical or other information is NOT sufficient authorization for further disc losure. Allergies and Adverse Reactions Type Description Substance Reaction Status Data Source(s ) Food allergy SULFA SULFA [facility] y Family Health Family History Family Member Name Family Member Gender Family Member Status Date o f Status Description Data Source(s) Unknown Male Problem MEDENT ([facility]) Unknown Male Problem MEDENT ([facility], ) Unknown Unknown Problem MEDENT ([facility]) Encounters Encounter Providers Location Date Indications Data Source(s ) Outpatient Attender: JOSE TRACY PA-CReferrer: BENSON REED MD 08/05/2021 12:00:00 AM [facility] Outpatient Attender: JOSE Bowmanferrer: BENSON REED MD [id number] 08/06/2020 12:00:00 AM [facility] 08/06/2020 01:36:21 PM ES T long-term (current) use of antibiotics [facility] long-term (current) use of antibiotics Outpatient Attender: JOSE Bowmanferrer: BENSON REED MD 08/03/2020 12:00:00 AM [facility] Outpatient Attender: JOSE TRACY PA-C 07/30/2020 12:00 :00 AM [facility] [place] [address] [facility] [address] 03/09/2020 12:00:00 AM EDT eCW1 ([facility]) [place] [address] [place] [address], [place] [address] 03/06/2020 12:00:00 AM EDT eCW1 ([facility]) [place] [address] [facility] [address] 02/13/2020 12:00:00 AM EDT eCW1 ([facility]) [facility] [address] [facility] [address] 01/09/2020 12:00:00 AM EDT eCW1 ([facility]) Outpatient Referrer: BENSON REED MD 12/28/2019 06:07:00 AM EDT [facility] [address] [facility] [address] 12/19/2019 12:00:00 AM EDT eCW1 ([facility]) [facility] [address] [facility] [address] 12/16/2019 12:00:00 AM EDT eCW1 ([facility]) [facility] [address] [facility] [address] 12/13/2019 12:00:00 AM EDT eCW1 ([facility]) Outpatient Attender: Yumiko BURCH 09/28/2019 12:00:27 AM [facility] Outpatient Attender: YUMIKO GRAHAM MARCIN 09/27/2019 01:32:01 PM [facility] Outpatient Attender: Yumiko Graham MARCIN 09/27/2019 11:46:04 AM [facility] Outpatient Attender: Yumiko Graham MARCIN 09/27/2019 11:20:00 AM [facility] Outpatient Attender: Yumiko Jan BURCH 09/27/2019 11:19:01 AM [facility] Outpatient Attender: Yumiko Graham MARCIN 09/27/2019 09:49:01 AM [facility] Medications Medication Brand Name Start Date Product Form Dose Route Admi nistrative Instructions Pharmacy Instructions Status Indications Reaction Description Data Source(s) Amoxicillin 500 MG / Clavulanate 125 MG Oral Tablet Amoxicillin-Pot Clavulanate 500-125 MG Oral Tablet (Augmentin) Amoxicillin-Pot Clavulanate 500-125 MG O ral Tablet (Augmentin) 08/06/2020 12:00:00 AM EST 1 {tbl} Oral active Take 1 tablet by mouth Two Times Daily [facility] doxycycline hyclate 100 MG Oral Capsule Doxycycline Hyclate 100 MG Oral Capsule (VIBRAMYCIN) Doxycycline Hyclate 100 MG Oral Capsule (VIBRAMYCIN) 1 12:00:00 AM EDT active Take 1 c apsule by mouth once daily [facility] Cephalexin 500 MG Oral Capsule [Keflex] Keflex 500 MG Keflex 500 MG 02/13/2020 12:00:00 AM EDT 1.0 {capsule} active K eflex 500 MG eCW1 ([facility]) Fluconazole 150 MG Oral Tablet [Diflucan] Diflucan 150 MG Di flucan 150 MG 02/13/2020 12:00:00 AM EDT 1.0 {tablet} active Diflucan 150 MG eCW1 ([facility]) Cephalexin 500 MG Oral Capsule [Keflex] Keflex 500 MG Keflex 500 MG 02/13/2020 12:00:00 AM EDT 1.0 {capsule} active K eflex 500 MG eCW1 ([facility]) Fluconazole 150 MG Oral Tablet [Diflucan] Diflucan 150 MG Di flucan 150 MG 02/13/2020 12:00:00 AM EDT 1.0 {tablet} active Diflucan 150 MG eCW1 ([facility]) Fluconazole 150 MG Oral Tablet [Diflucan] Diflucan 150 MG Di flucan 150 MG 02/13/2020 12:00:00 AM EDT 1.0 {tablet} active Diflucan 150 MG eCW1 ([facility]) Cephalexin 500 MG Oral Capsule [Keflex] Keflex 500 MG Keflex 500 MG 02/13/2020 12:00:00 AM EDT 1.0 {capsule} active K eflex 500 MG eCW1 ([facility]) Amoxicillin 500 MG / Clavulanate 125 MG Oral Tablet Amoxicillin-Pot Clavulanate 500-125 MG Oral Tablet (AUGMENTIN) Amoxicillin-Pot Clavulanate 500-125 MG O ral Tablet (AUGMENTIN) 08/02/2019 12:00:00 AM EST 1 {tbl} Oral active Take 1 tablet by mouth Two Times Daily [facility] doxycycline hyclate 100 MG Oral Capsule Doxycycline Hyclate 100 MG Oral Capsule (VIBRAMYCIN) Doxycycline Hyclate 100 MG Oral Capsule (VIBRAMYCIN) 1 10/03/2018 12:00:00 AM EST 100 mg Oral active Take 1 c apsule by mouth daily [facility] Insurance Providers Payer name Policy type / Coverage type Policy ID Covered alliance party ID Covered alliance party's relationship to bender Policy Bender Plan Information [employer] [id number] SP C [id number] [employer] [id number] SP [id number] [place] I [id number] Self [id number] [place] [id number] SP [id number] CIGNA/MVP/CONN GEN/PREFE O [id number] S [id number] C[employer]CARE [id number] SP C [id number] Managed Care [place] [id number] S [id number] Medicaid S [id number] S [id number] EL[place] [id number] SP [id number] [place] [id number] S [id number] EL[place]RA [id number] SP [id number] ANSI-Not a Secondary Insurance [id number] ANSI-Commercial [id number] ANSI-Medicaid [id number] [place] P[place] 302/307 [id number] SP [id number] [facility] Commercial [id number] Self [id number] ANSI-Commercial [id number] ANSI-Not a Secondary Insurance [id number] ANSI-Medicaid [id number] [facility] Medicaid [id number] Self [id number] ANSI-Not a Secondary Insurance [id number] ANSI-Commercial [id number] ANSI-Medicaid [id number] ANSI-Commercial [id number] ANSI-Medicaid [id number] ANSI-Not a Secondary Insurance [id number] ANSI-Not a Secondary Insurance [id number] ANSI-Medicaid [id number] ANSI-Commercial [id number] [place] [id number] 18 [id number] [place] -OP [id number] 18 [id number] ANSI-Commercial [id number] ANSI-Medicaid [id number] ANSI-Not a Secondary Insurance [id number] ANSI-Commercial [id number] ANSI-Medicaid [id number] ANSI-Not a Secondary Insurance [id number] ANSI-Commercial [id number] ANSI-Medicaid [id number] ANSI-Not a Secondary Insurance [id number] ANSI-Not a Secondary Insurance [id number] ANSI-Medicaid [id number] ANSI-Commercial [id number] ANSI-Not a Secondary Insurance [id number] ANSI-Medicaid [id number] ANSI-Commercial [id number] ANSI-Not a Secondary Insurance [id number] ANSI-Commercial [id number] ANSI-Medicaid [id number] [facility] Commercial [id number] Self [id number] ANSI-Not a Secondary Insurance [id number] ANSI-Commercial [id number] ANSI-Medicaid [id number] ELIAZAR I [id number] Self [id number] MEDICAID [id number] SP [id number] MEDICAID M [id number] S [id number] [facility] CARE HEA [id number] S [id number] EXCELLUS H [id number] Self [id number] [place] PPO 302/307 [id number] SP [id number] [place]BS [place] PPO 302/307 [id number] SP [id number] [employer] [place] [employer] Commercial [id number] Self [id number] [employer]CE[employer]UE SHIELD HEA [id number] S [id number] EXCELLUS BLUE [employer] BLUE SHIELD HEA [id number] S [id number] EXCELLUS BCBS B [id number] S SLD [id number] BCBS EXCELLUS BC [id number] S SLD [id number] BCBS [place] [id number] S SLD [id number] SELF PAY ONLY [id number] SP [id number] [place]BS [place] PPO 302/307 [id number] SP [id number] [facility] [place] [id number] SP [id number] [facility] [place] O [id number] S [id number] [facility] [place] [id number] SP [id number] [facility] EZE [id number] SP [id number] SELF PAY UNAVAILABLE SP UNAVAILA BLE Problems, Conditions, and Diagnoses Code Display Name Description Problem Type Effective Dates Data Source(s) Z96.9 Presence of functional implant, unspecif ied Presence of functional implant, unspecified Diagnosis 08/06/2020 01:36:07 PM [facility] Z79.2 long-term (current) use of antibiotics L mark term (current) use of antibiotics Diagnosis 08/06/2020 01:36:07 PM [facility] Results ID Date Data Source [id number] 08/06/2020 01:26:50 PM [facility] Name Value Range Interpretation Code Description Data Tash rce(s) Supporting Document(s) Progress Note [facility] [id number] lbm [file] [id number]= ID Date Data Source [id number] 09/27/2019 09:49:38 AM [facility] Vital SignsBlood Pressure: 142/82 Patient History Medical History:Anxiety/depressionAsthmaSurgical History:Lower back sugery fusion L-2 to S-1Gallbladder removalSocial/Personal History: Smoking Status: former smokerCurrent Medications: * ALBUTEROL INHALER * VITAMIN D * SINGULAIR * SERTRALINE * AUGMENTIN * DOXYCYCLINE Medication list reviewed during this update.Current Allergies: * SULFA (Critical)Allergy list reviewed during this update.Past Medical History:(reviewed - no changes required) Anxiety/depressionAsthma Dental Chart: Procedures:Type - CDT Code - Description B - (D0274) Bitewings, 4 radiographic images (Performed by Yumiko Graham RDH) B - (D1110) Prophylaxis, adult (Performed by Yumiko Graham RDH) B - (D0150) Comprehensive oral evaluation - new or established patient (Performed by Key Zepeda DMD) B - (D0230) Intraoral, periapical, each additional radiographic image on Tooth # 11 on Tooth Surface I (Performed by Yumiko Graham RDH) B - (D0220) Intraoral, periapical, first radiographic image on Tooth # 25 on Tooth Surface I (Performed by Yumiko Graham RDH) B - (D0230) Intraoral, periapical, each additional radiographic image on Tooth # 6 on Tooth Surface F (Performed by Yumiko Graham RDH) B - (D0230) Intraoral, periapical, each additional radiographic image on Tooth # 8 on Tooth Surface I (Performed by Yumiko Graham RDH) Existing:Type - CDT Code - Description[E] Resin-Based Composite - Direct On #14 Surface O, #15 Surface O, #19 Surface O[E] Missing - [place] and Root On #1 Surface O Region XR, #16 Surface O Region XR, #17 Surface O Region XR, #32 Surface O Region XR Chart Notes:dina (Sep 27 2019 1:31PM): Ciro(-). CC: none. Reviewed Xrays. Exam: no caries detected, hvy build up. OCS: WNL, IO/ EO completed, No significant hard findings upon clinical exam Pt was cooperative.OHI givenReferral: N/ANV:recallYumiko Graham RDH by dina (09/27/2019 1:31 PM): ; hazel (Sep 27 2019 11:16AM): OH-FairLast dental visit was 4 years ago. "My upper left tooth (#13) has been bothering me since February of last year when I chew."Comprehensive perio exam, 4BW's, 4PA's-6,8,11 and 25Pt states she brushes usually once a day, and flosses almost QD (floss piks and string floss). Stressed TB bid, flossing, interdental ultrafine tapered TB (inst on technique for all) and Fl2/antimicrobial rinse alcohol free. Mod generalized calculus/ trace biofilm. Tissue light marginal inflammation. Perio probings of 3mm and below with Class l mobility on #13 and Class ll on #23-26. Light to mod bleeding with hand scaling and ultrasonic use. Pt prieviously had a MD tongue ring that she contributes to the mobility on sextant 5; pt states she no longer wears the lip ring since she had found ut the damage it was causing. Attrition present to grinding in the past. 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 One occusal watch. Dr Zepeda informed pt he feels that the mobility with #13 may be related to the calculus build up and that with a good prophy maybe the tooth will tighten back up. Pt is a former smoker. Med Hx significant for a fusion from L2-S-I. Pt is on an everyday regiment of antibiotics due to several reaccuring incision infections. 6 month recall. Exc pt. Yumiko Graham RDH by hazel (09/27/2019 10:22 AM): Tooth Notes and Watches:- Tooth 13 Note: Class l mobilityYumiko Graham RDH by hazel (09/27/2019 11:18 AM): - Tooth 15 Watch: OcclusalYumiko Graham RDH by hazel (09/27/2019 11:17 AM): - Tooth 26 Note: Class ll mobility #23-26, previously wore a lip ring.Yumiko Graham RDH by hazel (09/27/2019 11:17 AM): Assessment & Plan Medications:ALBUTEROL INHALERVITAMIN DSINGULAIRSERTRALINEAUGMENTINDOXYCYCLINEMedication Changes:Added: * DOXYCYCLINE* AUGMENTIN* SERTRALINE* SINGULAIR* VITAMIN D* ALBUTEROL INHALERAllergies:* SULFA (Critical)Smoking, Tobacco or Smoke Exposure StatusSmoke Status: former smokerTobacco Use: NoClinical List ReviewMedication Reconciliation & ReviewMedication List was reviewed and/or updated during this visit, including review of any [id number] medications, herbal therapies, and/or supplements.Allergy ReviewAllergy List was reviewed and/or updated during this visit. Name Value Range Interpretation Code Description Data Tash rce(s) Supporting Document(s) Procedure Social History Code Duration Value Status Description Data Source(s ) Smoking 02/13/2020 12:00:00 AM EDT Former Smoker completed Former Smoker eCW1 ([facility]) Smoking 02/13/2020 12:00:00 AM EDT Former Smoker completed Former Smoker eCW1 ([facility]) Smoking 02/13/2020 12:00:00 AM EDT Former Smoker completed Former Smoker eCW1 ([facility]) Vital Signs ID Date Data Source UNK Name Value Range Interpretation Code Description Data Source(s) Diastolic blood pressure 80 mm[Hg] 80 mm[Hg] eCW1 ([facility]) Systolic blood pressure 130 mm[Hg] 130 mm[Hg] e CW1 ([facility]) Body temperature 98.2 [degF] 98.2 [degF] eCW1 ( [facility]) Respiratory rate 18 /min 18 /min eCW1 ([facility]) Heart rate 110 /min 110 /min eCW1 ([facility]) Body mass index (BMI) [Ratio] 51.20 kg/m2 51.20 kg/m2 eCW1 ([facility]) Body height 65 [in_i] 65 [in_i] eCW1 ([facility]) Body weight 307.7 [lb_av] 307.7 [lb_av] eCW1 ([facility]) Patient Treatment Plan of Care Planned Activity Planned Date Details Description Data Source (s) Amoxicillin 500 MG / Clavulanate 125 MG Oral Tablet 08/06/20 12:00:00 AM [facility] doxycycline hyclate 100 MG Oral Capsule 05/24/2020 12:00:00 AM EDT [facility] Cephalexin 500 MG Oral Capsule [Keflex] 02/13/2020 12:00:00 AM EDT eCW1 ([facility]) Fluconazole 150 MG Oral Tablet [Diflucan] 02/13/2020 12:00:00 AM ED T eCW1 ([facility]) Cephalexin 500 MG Oral Capsule [Keflex] 02/13/2020 12:00:00 AM EDT eCW1 ([facility]) Fluconazole 150 MG Oral Tablet [Diflucan] 02/13/2020 12:00:00 AM ED T eCW1 ([facility]) Cephalexin 500 MG Oral Capsule [Keflex] 02/13/2020 12:00:00 AM EDT eCW1 ([facility]) Fluconazole 150 MG Oral Tablet [Diflucan] 02/13/2020 12:00:00 AM ED T eCW1 ([facility]) doxycycline hyclate 100 MG Oral Capsule 08/02/2019 12:00:00 AM [facility] Amoxicillin 500 MG / Clavulanate 125 MG Oral Tablet 08/02/20 19 12:00:00 AM [facility]
--- OUTSIDE RECORDS SUMMARY | 2020-10-12 13:42 | CCD | Summary of Care ---
Author Author [facility] Address Unknown Phone Unavailable Care Team Providers Care Florist'S Decorator Name Role Phone ChristinaariaSofiya Mikayla PLANT ECOLOGIST PCP Reason for Visit * Reason Comments Follow-up Encounter Details Care Team Description Date Type Department Ari Shah PA [address] [place], [place] [id number] Chronic antibiotic suppression (Primary Dx); Retained orthopedic hardware 08/06/2020 [facility] [address] [place] [address] Allergies Comments Active Allergy Reactions Severity Noted Date Sulfa Antibiotics Hives Medium 06/08/2017 documented as of this encounter (statuses as of 08/06/2020) Medications End Date Status Medication Sig Dispensed Refills Start Date Active albuterol (VENTOLIN HFA) Inhale 2 0 108 (90 Base) MCG/ACT puffs into inhaler the lungs every 6 (six) hours Active w/o A Vit-Fe Take by mouth 0 Fum-FA (PRENATA PO) Active levonorgestrel (MIRENA, 1 each by 0 52 MG,) 20 MCG/24HR IUD Intrauterine route once Active sertraline (ZOLOFT) 100 Take 100 mg 0 MG tablet by mouth daily Active cetirizine (ZYRTEC) 10 MG Take 10 mg by 0 tablet mouth daily Active fluticasone (FLONASE) 50 1 spray by 0 MCG/ACT nasal spray Nasal route daily Active montelukast (SINGULAIR) Take 10 mg by 0 10 MG tablet mouth nightly Active sodium chloride, Inject 10 mLs 5 mL 0 04/21/09 24 preservative free, 0.9 % into the vein 8 injection as needed Additional Information Patient not taking. Reported on 08/02/2019 2:01 PM Active sodium chloride, Inject 10 mLs 5 mL 0 01 preservative free, 0.9 % into the vein 8 injection every 12 (twelve) hours Additional Information Patient not taking. Reported on 08/02/2019 2:01 PM Active Heparin Lock Flush 5 mLs by 100 Syringe 5 (HEPARIN FLUSH, PORCINE,) Intracatheter 8 100 UNIT/ML route as injectionIndications: needed (PRN Wound dehiscence, Wound for after IV infection, Fluid infusion and collection at surgical as needed) site, subsequent encounter, Encounter for long-term (current) use of antibiotics Additional Information Patient not taking. Reported on 08/02/2019 2:01 PM Active sodium chloride flush 0.9 Inject 10 mLs 100 Syringe 5 % SOLNIndications: Wound into the vein 8 dehiscence, Wound as needed infection, Fluid (for before collection at surgical and after site, subsequent infusion and encounter, Encounter for PRN) long-term (current) use of antibiotics Additional Information Patient not taking. Reported on 08/02/2019 2:01 PM Active ertapenem (INVANZ) 1 g Inject 1 g 1 each 0 injectionIndications: into the vein 8 Wound dehiscence, Wound every 24 infection, Fluid (twenty-four) collection at surgical hours site, subsequent encounter, Encounter for long-term (current) use of antibiotics Active vancomycin (VANCOCIN) Inject 1.75 g 1 each 0 1000 MG injection into the vein 8 every 24 (twenty-four) hours Additional Information Patient not taking. Reported on 08/02/2019 2:01 PM Active vitamin D 0 (ERGOCALCIFEROL) 72107 9 units capsule Active Water For Injection 0 Sterile (STERILE WATER) 8 injection Active omeprazole (PRILOSEC) 40 2 MG capsule 9 Active Acetaminophen 325 MG Oral Tylenol 0 Capsule (TYLENOL) 500 mg twice daily as needed Active Doxycycline Hyclate 100 Take 1 90 capsule 0 MG Oral Capsule capsule by 0 (VIBRAMYCIN) mouth once daily 11/04/2020 Active Amoxicillin-Pot Take 1 tablet 180 tablet 1 08/06/20 2 Clavulanate 500-125 MG by mouth Two 0 Oral Tablet (Augmentin) Times Daily documented as of this encounter (statuses as of 08/06/2020) Active Problems Problem Noted Date Epidural abscess 05/21/2018 Non-healing surgical wound 04/05/2018 Overview: back Wound infection 04/04/2018 PE (pulmonary thromboembolism) 07/31/2017 Postoperative wound infection 06/08/2017 Overview: Lumbar spine with dehiscence - [place] dmission 05/16-05/22/17 Other acute osteomyelitis documented as of this encounter (statuses as of 08/06/2020) Social History Date Tobacco Use Types Packs/Day Years Used Former Smoker Smokeless Tobacco: Never Used Drinks/Week oz/Week Comments Alcohol Use rarely Yes Sex Assigned at Date Recorded Not on file documented as of this encounter Last Filed Vital Signs Not on filedocumented in this encounter Patient Instructions * Patient Instructions* Ari Shah PA - 08/06/2020 1:00 PM EST [facility] [address] [place], [place] [id number] Cinthya Gonzalez [facility] [id number] 1985 35 y.o. year old female 08/06/20201:21 PM Summary of Office Visit with Ari Shah MS, PA-C: Lines: No lines Follow-up Labs or imaging: Cbc cmp esr crp q6mos and prn Additional Instructions: Antibiotics: Continue PO Augmentin 500/125mgs bid and PO Doxycycline 100mgs qd indefinately documented in this encounter Progress Notes * Ari Shah PA - 08/06/2020 1:00 PM EST [facility] Lisa [facility] [id number] [facility] [address] [place] [address] 35 y.o.years old [address] [place] [address] History of Present Illness: This is a telephonic visit which was performed without the use of video technolo gy due to patient inability to connect with video, under a CMS exemption to the requirement for video during the COVID-19 pandemic. The patient was informed of the risks including security breech, technological failure, inability to perform a physical exam which could delay or prevent an accurate diagnosis, and potenti al complications from treatment decisions rendered over a telephonic platform. T he patient understands and consented to the use of tele-health services. 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 Patient wastaken back to surgery for wound washout, exploration and complex closure on 04/08/2018. Cultures werepositive for Finegoldia magna and staph coagulase negative. Patient seen by ID recommended at least 6 weeks of p arental antibiotic therapy which included Vancomycin and Ertapenem, which she co mpleted on 06/09/18. After this she was switched to oral augmentin and doxycycline given indwelling h ardware She has been on oral suppressive therapy from 06/09/18 Denies fevers, chills, SOB, back pain, numbness. REVIEW OF SYSTEMS: Review of Systems All other systems reviewed and are negative. Patient Active Problem List Diagnosis Postoperative wound infection PE (pulmonary thromboembolism) Other acute osteomyelitis Wound infection Non-healing surgical wound Epidural abscess ALLERGIES: Allergies Allergen Reactions Sulfa Antibiotics Hives Home Medications: Home Medications Medication Sig Acetaminophen 325 MG Oral Capsule (TYLENOL) Tylenol 500 mg twice daily as needed albuterol (VENTOLIN HFA) 108 (90 Base) MCG/ACT inhaler Inhale 2 puffs into the l ungs every 6 (six) hours cetirizine (ZYRTEC) 10 MG tablet Take 10 mg by mouth daily Doxycycline Hyclate 100 MG Oral Capsule (VIBRAMYCIN) Take 1 capsule by mouth onc e daily ertapenem (INVANZ) 1 g injection Inject 1 g into the vein every 24 (twenty-four) hours fluticasone (FLONASE) 50 MCG/ACT nasal spray 1 spray by Nasal route daily Heparin Lock Flush (HEPARIN FLUSH, PORCINE,) 100 UNIT/ML injection 5 mLs by Intr acatheter route as needed (PRN for after IV infusion and as needed) Patient not taking: Reported on 08/02/2019 levonorgestrel (MIRENA, 52 MG,) 20 MCG/24HR IUD 1 each by Intrauterine route onc e montelukast (SINGULAIR) 10 MG tablet Take 10 mg by mouth nightly omeprazole (PRILOSEC) 40 MG capsule w/o A Vit-Fe Fum-FA (PRENATA PO) Take by mouth sertraline (ZOLOFT) 100 MG tablet Take 100 mg by mouth daily sodium chloride flush 0.9 % SOLN Inject 10 mLs into the vein as needed (for bef ore and after infusion and PRN) Patient not taking: Reported on 08/02/2019 sodium chloride, preservative free, 0.9 % injection Inject 10 mLs into the vein as needed Patient not taking: Reported on 08/02/2019 sodium chloride, preservative free, 0.9 % injection Inject 10 mLs into the vein every 12 (twelve) hours Patient not taking: Reported on 08/02/2019 vancomycin (VANCOCIN) 1000 MG injection Inject 1.75 g into the vein every 24 (tw enty-four) hours Patient not taking: Reported on 08/02/2019 vitamin D (ERGOCALCIFEROL) 91937 units capsule Water For Injection Sterile (STERILE WATER) injection PERTINENT LABS: Results for CINTHYA ZAMARRIPA ( ) as of 08/06/2020 12:34 Ref. Range 06/07/2018 00:00 07/07/2018 11:47 07/07/2018 12:14 10/18/2018 14:40 00:00 Sed Rate - ESR Unknown 45 44 (H) 40 (H) 25 C Reactive Protein Latest Ref Range: 0.00 - 0.30 0.82 9.6 (H) 1.42 CBC: Lab Results Component Value Date WBC 10.40 12/13/2018 RBC 5.40 (H) 10/18/2018 HGB 13.2 12/13/2018 HCT 41.3 12/13/2018 PLT 246 12/13/2018 CMP: Lab Results Component Value Date NA 141 10/18/2018 K 4.0 10/18/2018 CL 104 10/18/2018 BICARBONATE 24 10/18/2018 CALCIUM 9.4 10/18/2018 GLUCOSE 130 10/18/2018 BUN 21 12/13/2018 BCR 19 10/18/2018 PROT 7.0 10/18/2018 ALBUMIN 4.5 10/18/2018 TBILI 0.3 10/18/2018 ALKPHOS 129 12/13/2018 AST 19 12/13/2018 ALT 39 12/13/2018 AGRATIO 1.8 10/18/2018 GFRAA 66 10/18/2018 GFRNONAA 57 (L) 10/18/2018 Vital signs: Vitals - 1 value per visit 11/02/2018 02/03/2019 08/02/2019 SYSTOLIC 160 143 148 DIASTOLIC 100 86 94 PULSE - 76 113 TEMPERATURE - 98 98.6 RESPIRATIONS - 16 16 Weight (kg) 119.75 kg 126.372 kg 130.182 kg HEIGHT 162.6 cm 162.6 cm 162.6 cm SPO2 - 97 96 BODY MASS INDEX 45.32 kg/m2 47.82 kg/m2 49.26 kg/m2 PAIN SCALE - SCORE - - - LAST MENSTRUAL PERIOD - - - PHYSICAL EXAMINATION Pt was without video capability, thus physical exam unable to be performed. Heydii n, pt understood risks of this which could delay or prevent an accurate diagnosi s, and potential complications from treatment decisions rendered over a teleLifeScribe platform. IMPRESSION/PLAN: 35 year old female on indefinite oral suppressive therapy for lumbar spinal infe ction. Doing well and tolerating Abx fine. Pt to continue Augmentin 500/125 mg p o bid and doxycycline 100 mg qd. Will do cbc crp esr cmp q3mos and prn. F/u 1 ye ar or prn Patient seen. Plan of care discussed with patient, verbalized understanding. Dur ation of this encounter lasted 30 minutes. Ari Shah MS, PAFranciscaC documented in this encounter Plan of Treatment Health Maintenance Due Date Last Done Comments MMR Vaccines (1 of - 1986 Standard series) Varicella Vaccines (1 of 1986 2 - 2-dose childhood series) DTaP,Tdap,and Td Vaccines 01/04/1992 (1 - Tdap) HIV Screening 1998 Cervical Cancer Screening 2006 5 years Influenza Vaccine 05/24/2020 Pneumococcal Vaccine: 65+ 2050 Years (1 of 1 - PPSV23) HIB Vaccines Aged Out No longer eligible based on patient's age to complete this topic Hepatitis A Vaccines Aged Out No longer eligibl e based on patient's age to complete this topic Hepatitis B Vaccines Aged Out No longer eligibl e based on patient's age to complete this topic IPV Vaccines Aged Out No longer eligible based on patient's age to complete this topic Pneumococcal Vaccine: Aged Out No longer eligib le based on patient's age to Pediatrics (0 to 5 Years) complete this topic and At-Risk Patients (6 to 64 Years) documented as of this encounter Results Not on filedocumented in this encounter Visit Diagnoses Diagnosis Chronic antibiotic suppression - Primar y Encounter for long-term (current) use o f antibiotics Retained orthopedic hardware documented in this encounter
[2020-10-12] MEDS ORDERED: NS 1,000 ML IV SCH (13:46)
[2020-10-12] MEDS ORDERED: ASPIRIN 81 MG CHEW TABLET PO ONE (14:00)
[2020-10-12 14:14] LABS: BASO % 0.2 % (0.0-1.0); EOS # 0.2 10^3/uL (0.0-0.5); EOS % 1.6 % (0.0-3.0); HEMATOCRIT 42.5 % (36.0-47.0); HEMOGLOBIN 13.8 g/dl (12.0-15.5); LYMPH # 1.9 10^3/uL (1.5-5.0); LYMPH % 20.4 % (24.0-44.0); MEAN CORPUSCULAR HEMOGLOBIN 26.3 pg (27.0-33.0); MEAN CORPUSCULAR HGB CONC 32.5 g/dl (32.0-36.5); MONO # 0.6 10^3/uL (0.0-0.8); MONO % 6.1 % (2.0-8.0); NEUTROPHILS # 6.7 10^3/uL (1.5-8.5); NEUTROPHILS % 71.1 % (36.0-66.0); PLATELET COUNT, AUTOMATED 236 10^3/uL (150-450); RED BLOOD COUNT 5.25 10^6/uL (4.00-5.40); WHITE BLOOD COUNT 9.4 10^3/uL (4.0-10.0)
[2020-10-12 14:26] LABS: INR 0.91; PROTHROMBIN TIME 12.4 SECONDS (12.5-14.3)
[2020-10-12 14:36] LABS: HCG, SERUM QUALITATIVE NEGATIVE (NEGATIVE)
[2020-10-12 14:48] LABS: ALBUMIN 3.4 GM/DL (3.2-5.2); ALT/SGPT 47 U/L (12-78); BILIRUBIN,DIRECT 0.1 MG/DL (0.0-0.2); BILIRUBIN,TOTAL 0.3 MG/DL (0.2-1.0); BLOOD UREA NITROGEN 21 MG/DL (7-18); CALCIUM LEVEL 8.7 MG/DL (8.5-10.1); CARBON DIOXIDE LEVEL 24 MEQ/L (21-32); CHLORIDE LEVEL 109 MEQ/L (98-107); CK-MB VALUE MASS 3.5 NG/ML (<3.6); CPK CREATINE PHOSPHOKINASE 257 U/L (26-192); CREATININE FOR GFR 1.16 MG/DL (0.55-1.30); FREE T4 1.16 NG/DL (0.76-1.46); GLOMERULAR FILTRATION RATE 56.6 (>60); GLUCOSE, FASTING 155 MG/DL (70-100); MB/CK RELATIVE INDEX 1.36 (< OR =4); NT-PRO BNP 15 PG/ML (<125); POTASSIUM SERUM 4.1 MEQ/L (3.5-5.1); SODIUM LEVEL 142 MEQ/L (136-145); TOTAL PROTEIN 6.9 GM/DL (6.4-8.2); TROPONIN I < 0.02 NG/ML (< 0.10)
--- OUTSIDE RECORDS SUMMARY | 2020-10-12 14:52 | CCD ---
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 If you continue you may have access to information: Regarding HIV / AIDS; Provided by facilities licensed or operated by the [facility] Office of Mental Health; or Provided by the [facility] Office for People With Developmental Disabilities. If such information is present, then the following [facility] mandated warning applies: This information has [...] law may result in a fine or skilled nursing sentence or both. A general authorization for the release of medical or other information is NOT sufficient authorization for further disc losure. Allergies and Adverse Reactions Type Description Substance Reaction Status Data Source(s ) Food allergy SULFA SULFA [facility] y Family Health Family History Family Member Name Family Member Gender Family Member Status Date o f Status Description Data Source(s) Unknown Male Problem MEDENT ([facility]) Unknown Male Problem MEDENT ([facility], ) Unknown Unknown Problem MEDENT ([facility]) Encounters Encounter Providers Location Date Indications Data Source(s ) Outpatient Attender: JOSE TRACY PA-CReferrer: BENSON REED MD 08/05/2021 12:00:00 AM [facility] Outpatient Attender: JOSE Bowmanferrer: BENSON REED MD [id number] 08/06/2020 12:00:00 AM [facility] 08/06/2020 01:36:21 PM ES T correction (current) use of antibiotics [facility] correction (current) use of antibiotics Outpatient Attender: JOSE Bowmanferrer: BENSON REED MD 08/03/2020 12:00:00 AM [facility] Outpatient Attender: JOSE TRACY PA-C 07/30/2020 12:00 :00 AM [facility] Unknown [address] [facility] [address] 03/09/2020 12:00:00 AM EDT eCW1 ([facility]) Unknown [address] [place] [address], [place] [address] 03/06/2020 12:00:00 AM EDT eCW1 ([facility]) Outpatient [address] [facility] [address] 02/13/2020 12:00:00 AM EDT eCW1 ([facility]) [facility] [address] [facility] [address] 01/09/2020 12:00:00 AM EDT eCW1 ([facility]) Outpatient Referrer: BENSON REED MD 12/28/2019 06:07:00 AM EDT [facility] [address] [facility] [address] 12/19/2019 12:00:00 AM EDT eCW1 ([facility]) [facility] [address] [facility] [address] 12/16/2019 12:00:00 AM EDT eCW1 ([facility]) [facility] [address] [facility] [address] 12/13/2019 12:00:00 AM EDT eCW1 ([facility]) Outpatient Attender: Yumiko BURCH 09/28/2019 12:00:27 AM E [facility] Outpatient Attender: YUMIKO GRAHAM MARCIN 09/27/2019 01:32:01 PM E [facility] Outpatient Attender: Yumiko Graham MARCIN 09/27/2019 11:46:04 AM E [facility] Outpatient Attender: Yumiko Graham MARCIN 09/27/2019 11:20:00 AM E [facility] Outpatient Attender: Yumiko Jan BURCH 09/27/2019 11:19:01 AM E [facility] Outpatient Attender: Yumiko Graham MARCIN 09/27/2019 09:49:01 AM E [facility] Medications Medication Brand Name Start Date Product Form Dose Route Admi nistrative Instructions Pharmacy Instructions Status Indications Reaction Description Data Source(s) Amoxicillin 500 MG / Clavulanate 125 MG Oral Tablet Amoxicillin-Pot Clavulanate 500-125 MG Oral Tablet (Augmentin) Amoxicillin-Pot Clavulanate 500-125 MG O ral Tablet (Augmentin) 08/06/2020 12:00:00 AM EST 1 {tbl} Oral active Take 1 tablet by mouth Two Times Daily [facility] doxycycline hyclate 100 MG Oral Capsule Doxycycline Hyclate 100 MG Oral Capsule (VIBRAMYCIN) Doxycycline Hyclate 100 MG Oral Capsule (VIBRAMYCIN) 1 12:00:00 AM EDT active Take 1 c apsule by mouth once daily [facility] Cephalexin 500 MG Oral Capsule [Keflex] Keflex 500 MG Keflex 500 MG 02/13/2020 12:00:00 AM EDT 1.0 {capsule} active K eflex 500 MG eCW1 ([facility]) Fluconazole 150 MG Oral Tablet [Diflucan] Diflucan 150 MG Di flucan 150 MG 02/13/2020 12:00:00 AM EDT 1.0 {tablet} active Diflucan 150 MG eCW1 ([facility]) Cephalexin 500 MG Oral Capsule [Keflex] Keflex 500 MG Keflex 500 MG 02/13/2020 12:00:00 AM EDT 1.0 {capsule} active K eflex 500 MG eCW1 ([facility]) Fluconazole 150 MG Oral Tablet [Diflucan] Diflucan 150 MG Di flucan 150 MG 02/13/2020 12:00:00 AM EDT 1.0 {tablet} active Diflucan 150 MG eCW1 ([facility]) Fluconazole 150 MG Oral Tablet [Diflucan] Diflucan 150 MG Di flucan 150 MG 02/13/2020 12:00:00 AM EDT 1.0 {tablet} active Diflucan 150 MG eCW1 ([facility]) Cephalexin 500 MG Oral Capsule [Keflex] Keflex 500 MG Keflex 500 MG 02/13/2020 12:00:00 AM EDT 1.0 {capsule} active K eflex 500 MG eCW1 ([facility]) Amoxicillin 500 MG / Clavulanate 125 MG Oral Tablet Amoxicillin-Pot Clavulanate 500-125 MG Oral Tablet (AUGMENTIN) Amoxicillin-Pot Clavulanate 500-125 MG O ral Tablet (AUGMENTIN) 08/02/2019 12:00:00 AM EST 1 {tbl} Oral active Take 1 tablet by mouth Two Times Daily [facility] doxycycline hyclate 100 MG Oral Capsule Doxycycline Hyclate 100 MG Oral Capsule (VIBRAMYCIN) Doxycycline Hyclate 100 MG Oral Capsule (VIBRAMYCIN) 1 10/03/2018 12:00:00 AM EST 100 mg Oral active Take 1 c apsule by mouth daily [facility] Insurance Providers Payer name Policy type / Coverage type Policy ID Covered constitution party ID Covered constitution party's relationship to bender Policy Bender Plan Information [employer] [id number] SP [id number] [employer] [id number] SP [id number] [place] I [id number] Self [id number] [place] [id number] SP [id number] CIGNA/MVP/CONN GEN/PREFE O [id number] S [id number] [employer]CARE [id number] SP C [id number] Managed Care [place] P [id number] S [id number] Medicaid S [id number] S [id number] [place] [id number] SP [id number] [place] O [id number] S [id number] EL[place] [id number] SP [id number] 400 ANSI-Not a Secondary Insurance [id number] ANSI-Commercial [id number] ANSI-Medicaid [id number] [place] P[place] 302/307 [id number] SP [id number] [facility] Commercial [id number] Self [id number] ANSI-Commercial [id number] ANSI-Not a Secondary Insurance [id number] ANSI-Medicaid [id number] [facility] Medicaid [id number] Self [id number] ANSI-Not a Secondary Insurance [id number] ANSI-Commercial [id number] ANSI-Medicaid [id number] ANSI-Commercial [id number] ANSI-Medicaid [id number] ANSI-Not a Secondary Insurance [id number] ANSI-Not a Secondary Insurance [id number] ANSI-Medicaid [id number] ANSI-Commercial [id number] [place] [id number] 18 74 [id number] [place] -OP [id number] 18 [id number] ANSI-Commercial [id number] ANSI-Medicaid [id number] ANSI-Not a Secondary Insurance [id number] ANSI-Commercial [id number] ANSI-Medicaid [id number] ANSI-Not a Secondary Insurance [id number] ANSI-Commercial [id number] ANSI-Medicaid [id number] ANSI-Not a Secondary Insurance [id number] ANSI-Not a Secondary Insurance [id number] ANSI-Medicaid [id number] ANSI-Commercial [id number] ANSI-Not a Secondary Insurance [id number] ANSI-Medicaid [id number] ANSI-Commercial [id number] ANSI-Not a Secondary Insurance [id number] ANSI-Commercial [id number] ANSI-Medicaid [id number] [place] Care Commercial [id number] Self [id number] ANSI-Not a Secondary Insurance [id number] ANSI-Commercial [id number] ANSI-Medicaid [id number] ELIAZAR I [id number] Self [id number] MEDICAID [id number] SP [id number] MEDICAID [id number] S [id number] [place] HEA [id number] S [id number] EXCELLUS H [id number] Self [id number] BCBS [place] PPO 302/307 [id number] SP [id number] BCBS [place] PPO 302/307 [id number] SP [id number] [employer] [employer] Commercial [id number] Self [id number] [employer]CE[employer] BLUE [employer] BLUE SHIELD HEA [id number] S [id number] EXCELLUS BLUE CROSS BLUE SHIELD HEA [id number] S [id number] EXCELLUS BCBS B [id number] S SLD [id number] BCBS EXCELLUS BC [id number] S SLD [id number] BCBS [place] [id number] S SLD [id number] SELF PAY ONLY [id number] SP [id number] BCBS [place] PPO 302/307 [id number] SP [id number] [facility] [place] [id number] SP [id number] [facility] [place] O [id number] S [id number] [facility] [place] [id number] SP [id number] [facility] EZE [id number] SP [id number] SELF PAY UNAVAILABLE SP UNAVAILA BLE Problems, Conditions, and Diagnoses Code Display Name Description Problem Type Effective Dates Data Source(s) Z96.9 Presence of functional implant, unspecif ied Presence of functional implant, unspecified Diagnosis 08/06/2020 01:36:07 PM [facility] Z79.2 correction (current) use of antibiotics L mark term (current) use of antibiotics Diagnosis 08/06/2020 01:36:[address] [facility] Results ID Date Data Source [id number] 08/06/2020 01:26:[address] [facility] Name Value Range Interpretation Code Description Data Tash rce(s) Supporting Document(s) Progress Note [facility] [id number] lbm [file] [id number]= ID Date Data Source [id number] 09/27/2019 09:49:38 AM [facility] Vital SignsBlood Pressure: 142/82 Patient [...] 8 on Tooth Surface I (Performed by Yumiok Graham RDH) Existing:Type - CDT Code - Description[E] Resin-Based Composite - Direct On #14 Surface O, #15 Surface O, #19 Surface O[E] Missing - [place] and [place] On #1 Surface O Region [...] 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 Name Value Range Interpretation Code Description Data Tash rce(s) Supporting Document(s) Procedure Social History Code Duration Value Status Description Data Source(s ) Smoking 02/13/2020 12:00:00 AM EDT Former Smoker completed Former Smoker eCW1 ([facility]) Smoking 02/13/2020 12:00:00 AM EDT Former Smoker completed Former Smoker eCW1 ([facility]) Smoking 02/13/2020 12:00:00 AM EDT Former Smoker completed Former Smoker eCW1 ([facility]) Vital Signs ID Date Data Source UNK Name Value Range Interpretation Code Description Data Source(s) Diastolic blood pressure 80 mm[Hg] 80 mm[Hg] eCW1 ([facility]) Systolic blood pressure 130 mm[Hg] 130 mm[Hg] e CW1 ([facility]) Body temperature 98.2 [degF] 98.2 [degF] eCW1 ( [facility]) Respiratory rate 18 /min 18 /min eCW1 ([facility]) Heart rate 110 /min 110 /min eCW1 ([facility]) Body mass index (BMI) [Ratio] 51.20 kg/m2 51.20 kg/m2 eCW1 ([facility]) Body height 65 [in_i] 65 [in_i] eCW1 ([facility]) Body weight 307.7 [lb_av] 307.7 [lb_av] eCW1 ([facility]) Patient Treatment Plan of Care Planned Activity Planned Date Details Description Data Source (s) Amoxicillin 500 MG / Clavulanate 125 MG Oral Tablet 08/06/20 12:00:00 AM [facility] doxycycline hyclate 100 MG Oral Capsule 05/24/2020 12:00:[address] [facility] Cephalexin 500 MG Oral Capsule [Keflex] 02/13/2020 12:00:00 AM EDT eCW1 ([facility]) Fluconazole 150 MG Oral Tablet [Diflucan] 02/13/2020 12:00:00 AM ED T eCW1 ([facility]) Cephalexin 500 MG Oral Capsule [Keflex] 02/13/2020 12:00:00 AM EDT eCW1 ([facility]) Fluconazole 150 MG Oral Tablet [Diflucan] 02/13/2020 12:00:00 AM ED T eCW1 ([facility]) Cephalexin 500 MG Oral Capsule [Keflex] 02/13/2020 12:00:00 AM EDT eCW1 ([facility]) Fluconazole 150 MG Oral Tablet [Diflucan] 02/13/2020 12:00:00 AM ED T eCW1 ([facility]) doxycycline hyclate 100 MG Oral Capsule 08/02/2019 12:00:00 AM [facility] Amoxicillin 500 MG / Clavulanate 125 MG Oral Tablet 08/02/20 19 12:00:00 AM [facility]
[2020-10-12] MEDS ORDERED: ISOVUE-370 76% 100ML VIAL As Ordered ONE (15:15)
--- NOTE | 2020-10-12 15:39 | REP ---
INDICATION: R/O PE. COMPARISON: Comparison chest CT study 31 July 2017.. TECHNIQUE: Contrast dose: 75 ML of Isovue [address] technique: Helical scanning is acquired and overlapping 1.5 mm and contiguous 3 mm axial images are reformatted. In addition, maximum intensity projection and multiplanar re-formation images are generated in sagittal and coronal imaging projections. FINDINGS: There is good opacification in the pulmonary arterial tree. There is no evidence of vessel cut off or filling defect to suggest pulmonary embolus. Homogeneous opacity is seen in the thoracic aorta. There is no evidence of aneurysm or dissection. Lung window settings demonstrate minimal platelike atelectasis in the lingula near the left lung base. Lung pickens are otherwise clear. There is no evidence of pleural or pericardial effusion. No hilar or mediastinal mass or adenopathy is observed. In the upper abdomen, there is a small accessory splenule. There is moderate fatty infiltration of the liver noted diffusely. Normal adrenal glands are observed bilaterally. No bony lesion is appreciated. IMPRESSION: No CT evidence of pulmonary embolus. No active cardiopulmonary disease. Minimal linear platelike atelectasis in the lingula near the left lung base. <Electronically signed by Buddy Long > 10/12/20 [id number]
[2020-10-12 16:03] VITALS: BP 122/65
--- NOTE | 2020-10-13 20:44 | ECGEPIP ---
[facility] - ED Test Date: 2020-10-12 Pat Name: CINTHYA ZAMARRIPA Department: Room: - Gender: Female [employer]: AMISHA : 1985 Requested By: Geraldine Pichardo Order Number: [id number] Reading MD: Geraldine Pichardo Measurements Intervals [place] Rate: 100 P: 16 AR: 148 QRS: 55 QRSD: 72 T: 42 QT: 366 QTc: 472 Interpretive Statements Normal sinus rhythm increased rate 03/08/20 Electronically Signed on 10-13-2020 20:44:02 EST by Geraldine Pichardo
== END 2020-10-12 16:31 | disposition home or self-care (01) ==
LOC: M ED 13:24
DX: R07.89 Other chest pain (principal); R00.2 Palpitations; R06.02 Shortness of breath; K76.0 Fatty (change of) liver, not elsewhere classified; J44.9 Chronic obstructive pulmonary disease, unspecified; Z86.711 Personal history of pulmonary embolism; Z88.2 Allergy status to sulfonamides; Z79.899 Other long term (current) drug therapy
CPT/HCPCS: 71275; 80048; 80076; 82550; 82553; 83880; 84439; 84443; 84484; 84703; 85025; 85610; 93005; 93041; 94760; 96360; 96361; 99284; Q9967

== ENCOUNTER → 2021-08-01 | Outpatient (CLI) | payer OTHER ==
[~2021-08-01] MED LIST changes: +ERGO500029; +OMEP40CA4 PO; -OMEP40CA97 PO; -VITA50005
[2021-08-01 13:14] LABS: BASO % 0.4 % (0.0-1.0); EOS # 0.2 10^3/uL (0.0-0.5); EOS % 1.9 % (0.0-3.0); HEMATOCRIT 43.6 % (36.0-47.0); HEMOGLOBIN 14.3 g/dl (12.0-15.5); LYMPH % 25.1 % (24.0-44.0); MEAN CORPUSCULAR HEMOGLOBIN 27.1 pg (27.0-33.0); MEAN CORPUSCULAR HGB CONC 32.8 g/dl (32.0-36.5); MEAN CORPUSCULAR VOLUME 82.6 fl (80.0-96.0); MONO # 0.4 10^3/uL (0.0-0.8); MONO % 4.5 % (2.0-8.0); NEUTROPHILS # 5.4 10^3/uL (1.5-8.5); NEUTROPHILS % 67.6 % (36.0-66.0); PLATELET COUNT, AUTOMATED 190 10^3/uL (150-450); RED BLOOD COUNT 5.28 10^6/uL (4.00-5.40); WHITE BLOOD COUNT 7.9 10^3/uL (4.0-10.0)
[2021-08-01 13:47] LABS: ERYTHROCYTE SEDIMENTATION RATE 19 mm/hr (0-20)
[2021-08-01 14:33] LABS: ALBUMIN 3.3 GM/DL (3.2-5.2); ALT/SGPT 73 U/L (12-78); BILIRUBIN,TOTAL 0.6 MG/DL (0.2-1.0); BLOOD UREA NITROGEN 13 MG/DL (7-18); C REACTIVE PROTEIN QUANTITATIV 1.24 MG/DL (0.00-0.30); CALCIUM LEVEL 9.2 MG/DL (8.5-10.1); CARBON DIOXIDE LEVEL 23 MEQ/L (21-32); CHLORIDE LEVEL 110 MEQ/L (98-107); CREATININE FOR GFR 1.02 MG/DL (0.55-1.30); GLOMERULAR FILTRATION RATE > 60.0 (>60); GLUCOSE, FASTING 153 MG/DL (70-100); POTASSIUM SERUM 3.9 MEQ/L (3.5-5.1); SODIUM LEVEL 142 MEQ/L (136-145); TOTAL PROTEIN 6.9 GM/DL (6.4-8.2)
== END ==
LOC: M PLALAB 10:31
PROVIDERS: ATTEND Physician Assistant
DX: T81.40XD Infection following a procedure, unspecified, subsequent encounter (principal); X58.XXXD Exposure to other specified factors, subsequent encounter; Z79.2 Long term (current) use of antibiotics

== ENCOUNTER → 2021-08-01 | Outpatient (CLI) | payer OTHER ==
[2021-08-01 14:24] LABS: ALBUMIN 3.2 GM/DL (3.2-5.2); ALT/SGPT 73 U/L (12-78); BILIRUBIN,TOTAL 0.6 MG/DL (0.2-1.0); BLOOD UREA NITROGEN 13 MG/DL (7-18); CALCIUM LEVEL 8.9 MG/DL (8.5-10.1); CARBON DIOXIDE LEVEL 22 MEQ/L (21-32); CHLORIDE LEVEL 109 MEQ/L (98-107); CHOLESTEROL LEVEL 219 MG/DL (<200); CHOLESTEROL RISK RATIO 5.475 (<5); CREATININE FOR GFR 1.06 MG/DL (0.55-1.30); GLOMERULAR FILTRATION RATE > 60.0 (>60); GLUCOSE, FASTING 138 MG/DL (70-100); HDL CHOLESTEROL 40 MG/DL (>40); LDL CHOLESTEROL 150 MG/DL (<100); NON-HDL-C 179 MG/DL; SODIUM LEVEL 141 MEQ/L (136-145); TOTAL 25(OH) VITAMIN D 29.1 NG/ML (30.0-100.0); TOTAL PROTEIN 6.8 GM/DL (6.4-8.2); TRIGLYCERIDES LEVEL 144 MG/DL (<150)
[2021-08-01 14:39] LABS: HEMOGLOBIN A1c 7.3 %
== END ==
LOC: M PLALAB 10:28
PROVIDERS: ATTEND Nurse Practitioner Adult Health
DX: Z00.00 Encounter for general adult medical examination without abnormal findings (principal); E55.9 Vitamin D deficiency, unspecified; E78.2 Mixed hyperlipidemia; Z13.29 Encounter for screening for other suspected endocrine disorder; Z68.43 Body mass index [BMI] 50.0-59.9, adult

== ENCOUNTER 2022-02-21 09:05 | Emergency (ER) | payer OTHER ==
[~2022-02-21] VITALS: Ht 162.6 cm; Wt 141.8 kg
[2022-02-21] MEDS ORDERED: SPIR-10 (09:17)
[2022-02-21] MEDS ORDERED: DULO1CAP4 (09:17)
[2022-02-21] MEDS ORDERED: NAPR220C14 PO (09:17)
[2022-02-21] MEDS ORDERED: ACETAMINOPHEN 500 MG TAB PO ONE (09:40)
[2022-02-21] MEDS ORDERED: LIDOCAINE 5% (LIDODERM) PATCH TD ONE (09:40)
[2022-02-21] MEDS ORDERED: CYCL7.5T32 PO (11:54)
[2022-02-21] MEDS ORDERED: KETO10TAB PO (11:54)
[2022-02-21 11:56] VITALS: BP 129/65
[2022-02-21] MEDS ORDERED: **NOTE PATIENT COMMENT** MISC XX SCH (21:00)
== END 2022-02-21 12:30 | disposition home or self-care (01) ==
LOC: M ED 09:05
DX: M54.50 Low back pain, unspecified (principal); I10 Essential (primary) hypertension; E78.5 Hyperlipidemia, unspecified; K21.9 Gastro-esophageal reflux disease without esophagitis; Z87.19 Personal history of other diseases of the digestive system; F10.10 Alcohol abuse, uncomplicated; Z87.891 Personal history of nicotine dependence; Z88.2 Allergy status to sulfonamides; Z79.899 Other long term (current) drug therapy

== ENCOUNTER → 2022-02-26 | Outpatient (REF) ==
[~2022-02-26] MED LIST changes: +CYCL7.5T32 PO; +DULO1CAP4; +KETO10TAB PO; +NAPR220C14 PO; +SPIR-10
== END ==
LOC: M LAB 10:18
PROVIDERS: ATTEND Nurse Practitioner Adult Health
DX: Z02.1 Encounter for pre-employment examination (principal)

== ENCOUNTER → 2022-09-17 | Outpatient (CLI) | payer BC ==
[~2022-09-17] MED LIST changes: -DOXY-350 PO; +DOXY-444 PO
[2022-09-17 15:54] LABS: BASO % 0.4 % (0.0-1.0); EOS # 0.3 10^3/uL (0.0-0.5); EOS % 2.6 % (0.0-3.0); HEMOGLOBIN 14.5 g/dl (12.0-15.5); LYMPH # 2.9 10^3/uL (1.5-5.0); LYMPH % 29.3 % (24.0-44.0); MEAN CORPUSCULAR HEMOGLOBIN 26.9 pg (27.0-33.0); MEAN CORPUSCULAR VOLUME 81.5 fl (80.0-96.0); MONO # 0.6 10^3/uL (0.0-0.8); MONO % 6.3 % (2.0-8.0); NEUTROPHILS # 6.1 10^3/uL (1.5-8.5); NEUTROPHILS % 61.1 % (36.0-66.0); PLATELET COUNT, AUTOMATED 237 10^3/uL (150-450); WHITE BLOOD COUNT 9.9 10^3/uL (4.0-10.0)
[2022-09-17 16:18] LABS: ALBUMIN 3.5 G/DL (3.2-5.2); ALKALINE PHOSPHATASE 92 U/L (46-116); ALT/SGPT 36 U/L (7.0-40); AST/SGOT 28 U/L (<34); BILIRUBIN,TOTAL 0.5 MG/DL (0.3-1.2); BLOOD UREA NITROGEN 17 MG/DL (9-23); CALCIUM LEVEL 8.8 MG/DL (8.5-10.1); CARBON DIOXIDE LEVEL 28 MMOL/L (20-31); CHLORIDE LEVEL 106 MMOL/L (98-107); GLOMERULAR FILTRATION RATE > 60.0 (>60); GLUCOSE, FASTING 83 MG/DL (60-100); POTASSIUM SERUM 4.2 MMOL/L (3.5-5.1); SODIUM LEVEL 141 MMOL/L (136-145); TOTAL PROTEIN 7.1 G/DL (5.7-8.2)
[2022-09-17 16:27] LABS: ERYTHROCYTE SEDIMENTATION RATE 35 mm/hr (0-20)
== END ==
LOC: M LAB 15:01
PROVIDERS: ATTEND Physician Assistant Medical
DX: T81.40XD Infection following a procedure, unspecified, subsequent encounter (principal); Z96.9 Presence of functional implant, unspecified; Z79.2 Long term (current) use of antibiotics

== ENCOUNTER → 2023-01-16 | Outpatient (CLI) | payer BC ==
[~2023-01-16] MED LIST changes: +MONT-5 PO; -SING10TA32 PO
== END ==
LOC: M LAB 13:57
PROVIDERS: ATTEND Nurse Practitioner Adult Health
DX: M17.0 Bilateral primary osteoarthritis of knee (principal); M25.561 Pain in right knee; M25.562 Pain in left knee

== ENCOUNTER → 2023-01-16 | Outpatient (CLI) | payer BC ==
[2023-01-16 14:55] LABS: BASO % 0.5 % (0.0-1.0); EOS # 0.2 10^3/uL (0.0-0.5); EOS % 2.1 % (0.0-3.0); HEMOGLOBIN 13.8 g/dl (12.0-15.5); LYMPH # 2.7 10^3/uL (1.5-5.0); LYMPH % 30.2 % (24.0-44.0); MEAN CORPUSCULAR HEMOGLOBIN 27.3 pg (27.0-33.0); MEAN CORPUSCULAR HGB CONC 33.7 g/dl (32.0-36.5); MONO # 0.5 10^3/uL (0.0-0.8); MONO % 5.8 % (2.0-8.0); NEUTROPHILS # 5.4 10^3/uL (1.5-8.5); NEUTROPHILS % 61.1 % (36.0-66.0); PLATELET COUNT, AUTOMATED 201 10^3/uL (150-450); RED BLOOD COUNT 5.06 10^6/uL (4.00-5.40); WHITE BLOOD COUNT 8.9 10^3/uL (4.0-10.0)
[2023-01-16 15:25] LABS: ALBUMIN 3.4 G/DL (3.2-5.2); ALKALINE PHOSPHATASE 77 U/L (46-116); ALT/SGPT 42 U/L (7.0-40); AST/SGOT 29 U/L (<34); BILIRUBIN,TOTAL 0.5 MG/DL (0.3-1.2); BLOOD UREA NITROGEN 16 MG/DL (9-23); CALCIUM LEVEL 8.3 MG/DL (8.5-10.1); CARBON DIOXIDE LEVEL 25 MMOL/L (20-31); CHLORIDE LEVEL 107 MMOL/L (98-107); CREATININE FOR GFR 0.92 MG/DL (0.55-1.30); GLOMERULAR FILTRATION RATE > 60.0 (>60); GLUCOSE, FASTING 164 MG/DL (60-100); POTASSIUM SERUM 4.1 MMOL/L (3.5-5.1); SODIUM LEVEL 140 MMOL/L (136-145); TOTAL PROTEIN 6.5 G/DL (5.7-8.2)
[2023-01-16 15:28] LABS: ERYTHROCYTE SEDIMENTATION RATE 37 mm/hr (0-20)
== END ==
LOC: M LAB 14:00
PROVIDERS: ATTEND Physician Assistant Medical
DX: T81.40XD Infection following a procedure, unspecified, subsequent encounter (principal); Z96.9 Presence of functional implant, unspecified; Z79.2 Long term (current) use of antibiotics

== ENCOUNTER → 2023-04-17 | Outpatient (REF) | LOC: M EMP 08:16 | PROVIDERS: ATTEND Family Medicine | DX: Z11.52 Encounter for screening for COVID-19 (principal) ==

== ENCOUNTER → 2023-04-29 | Outpatient (CLI) | payer BC ==
[2023-04-29 18:26] LABS: HEMOGLOBIN A1c 6.6 % (4.0-6.0)
== END ==
LOC: M LAB 16:49
PROVIDERS: ATTEND Nurse Practitioner Adult Health
DX: R73.9 Hyperglycemia, unspecified (principal); Z68.43 Body mass index [BMI] 50.0-59.9, adult

== ENCOUNTER → 2023-05-14 | Outpatient (CLI) | payer BC | LOC: M SOG 09:22 | PROVIDERS: ATTEND Physician Assistant | DX: M79.642 Pain in left hand (principal) ==

== ENCOUNTER → 2023-07-28 | Outpatient (CLI) | payer BC ==
[2023-07-28 18:06] LABS: HEMOGLOBIN A1c 6.4 % (4.0-6.0)
[2023-07-28 18:17] LABS: ALBUMIN 3.3 G/DL (3.2-5.2); ALKALINE PHOSPHATASE 79 U/L (46-116); ALT/SGPT 64 U/L (7.0-40); AST/SGOT 55 U/L (<34); BILIRUBIN,TOTAL 0.5 MG/DL (0.3-1.2); BLOOD UREA NITROGEN 14 MG/DL (9-23); CALCIUM LEVEL 8.5 MG/DL (8.5-10.1); CARBON DIOXIDE LEVEL 23 MMOL/L (20-31); CHLORIDE LEVEL 109 MMOL/L (98-107); CREATININE FOR GFR 0.81 MG/DL (0.55-1.30); GLOMERULAR FILTRATION RATE > 60.0 (>60); GLUCOSE, FASTING 156 MG/DL (60-100); POTASSIUM SERUM 4.1 MMOL/L (3.5-5.1); SODIUM LEVEL 141 MMOL/L (136-145); TOTAL PROTEIN 6.7 G/DL (5.7-8.2)
[2023-07-28 18:19] LABS: TOTAL 25(OH) VITAMIN D 17.7 NG/ML (20.0-100.0)
== END ==
LOC: M LAB 17:17
PROVIDERS: ATTEND Nurse Practitioner Adult Health
DX: E55.9 Vitamin D deficiency, unspecified (principal); Z68.43 Body mass index [BMI] 50.0-59.9, adult; R73.9 Hyperglycemia, unspecified; J45.20 Mild intermittent asthma, uncomplicated

== ENCOUNTER → 2023-11-13 | Outpatient (REF) ==
[~2023-11-13] MED LIST changes: -HYDR25TA PO; +HYDR25TA88 PO
== END ==
LOC: M EMP 08:58
PROVIDERS: ATTEND Family Medicine
DX: Z11.52 Encounter for screening for COVID-19 (principal)

== ENCOUNTER → 2023-11-13 | Outpatient (REF) | LOC: M EMP 08:17 | PROVIDERS: ATTEND Family Medicine | DX: Z01.89 Encounter for other specified special examinations (principal) ==

== ENCOUNTER → 2024-02-01 | Outpatient (REF) | payer BC ==
[~2024-02-01] MED LIST changes: +DOXY-440 PO; -DOXY-444 PO
[2024-02-01 21:41] LABS: APPEARANCE, URINE CLOUDY (CLEAR); BACTERIA, URINE AUTO 1+ (NEGATIVE); BILIRUBIN, URINE AUTO NEGATIVE (NEGATIVE); BLOOD, URINE BLOOD 2+ (NEGATIVE); COLOR, URINE YELLOW (YELLOW); GLUCOSE, URINE (UA) AUTO NEGATIVE (NEGATIVE); KETONE, URINE AUTO NEGATIVE (NEGATIVE); LEUKOCYTE ESTERASE, URINE AUTO 3+ (NEGATIVE); MUCUS, URINE SMALL (NEGATIVE); NITRITE, URINE AUTO NEGATIVE (NEGATIVE); PROTEIN, URINE AUTO 2+ mg/dL (NEGATIVE); RBC, URINE AUTO 52 /HPF (0-3); SPECIFIC GRAVITY URINE AUTO 1.018 (1.002-1.035); SQUAMOUS EPITHELIAL CELL UR AU 5 /HPF (0-6); UROBILINOGEN, URINE AUTO 0.2 mg/dL (0.0-2.0); WBC, URINE AUTO TNTC /HPF (0-3)
== END ==
LOC: M LAB REF 21:05
PROVIDERS: ATTEND Physician Assistant
DX: N39.0 Urinary tract infection, site not specified (principal)

== ENCOUNTER → 2024-02-15 | Outpatient (REF) | LOC: M EMP 08:53 | PROVIDERS: ATTEND Family Medicine | DX: Z11.52 Encounter for screening for COVID-19 (principal) ==

== ENCOUNTER 2024-03-17 17:32 | Emergency (ER) | payer BC ==
[~2024-03-17] VITALS: Ht 162.6 cm; Wt 146.3 kg
[2024-03-17 20:50] VITALS: BP 159/73; TEMP 97.3; O2SAT 97
== END 2024-03-18 00:36 | disposition left against medical advice (07) ==
LOC: M ED 17:32
DX: Z53.21 Procedure and treatment not carried out due to patient leaving prior to being seen by health care provider (principal)

== ENCOUNTER → 2024-03-21 | Outpatient (CLI) | payer BC ==
[2024-03-21 19:12] LABS: ALBUMIN 3.4 G/DL (3.2-5.2); ALKALINE PHOSPHATASE 89 U/L (46-116); ALT/SGPT 42 U/L (7.0-40); AST/SGOT 28 U/L (<34); BILIRUBIN,TOTAL 0.6 MG/DL (0.3-1.2); BLOOD UREA NITROGEN 15 MG/DL (9-23); CALCIUM LEVEL 8.8 MG/DL (8.5-10.1); CARBON DIOXIDE LEVEL 25 MMOL/L (20-31); CHLORIDE LEVEL 107 MMOL/L (98-107); CHOLESTEROL LEVEL 234 MG/DL (<200); CHOLESTEROL RISK RATIO 5.98 (<5); GLOMERULAR FILTRATION RATE > 60.0 (>60); GLUCOSE, FASTING 165 MG/DL (60-100); HDL CHOLESTEROL 39.1 MG/DL (>40); LDL CHOLESTEROL 136.5 MG/DL (<100); NON-HDL-C 194.9 MG/DL; POTASSIUM SERUM 3.9 MMOL/L (3.5-5.1); SODIUM LEVEL 139 MMOL/L (136-145); TOTAL PROTEIN 6.8 G/DL (5.7-8.2); TRIGLYCERIDES LEVEL 292 MG/DL (<150)
[2024-03-21 19:13] LABS: THYROID STIMULATING HORMONE 1.925 uIU/ML (0.55-4.78)
[2024-03-21 19:14] LABS: TOTAL 25(OH) VITAMIN D 25.4 NG/ML (20.0-100.0)
[2024-03-21 20:23] LABS: HEMOGLOBIN A1c 6.1 % (4.0-6.0)
== END ==
LOC: M LAB 17:10
PROVIDERS: ATTEND Nurse Practitioner Adult Health
DX: E55.9 Vitamin D deficiency, unspecified (principal); E78.2 Mixed hyperlipidemia; J45.20 Mild intermittent asthma, uncomplicated; R73.9 Hyperglycemia, unspecified; Z68.43 Body mass index [BMI] 50.0-59.9, adult; Z13.29 Encounter for screening for other suspected endocrine disorder

== ENCOUNTER → 2025-03-07 | Outpatient (CLI) | payer BC ==
[~2025-03-07] MED LIST changes: +CARI-555 PO; -CARI1TAB7 PO; +GABA-1172 PO; -GABA-282 PO
== END ==
LOC: M RAD 09:12
PROVIDERS: ATTEND Nurse Practitioner Adult Health
DX: R74.8 Abnormal levels of other serum enzymes (principal)

== ENCOUNTER → 2025-04-27 | Outpatient (CLI) | payer BC ==
[2025-04-27 09:56] LABS: ESTIMATED AVERAGE GLUCOSE 126.0 MG/DL (60-110)
[2025-04-27 10:05] LABS: ALT/SGPT 45.0 U/L (7.0-40); AST/SGOT 34.0 U/L (<34); CALCIUM LEVEL 8.8 MG/DL (8.5-10.1); CARBON DIOXIDE LEVEL 27.0 MMOL/L (20-31); CHLORIDE LEVEL 105.0 MMOL/L (98-107); CREATININE FOR GFR 0.93 MG/DL (0.55-1.30); GLOMERULAR FILTRATION RATE 79.7 (>58); POTASSIUM SERUM 3.8 MMOL/L (3.5-5.1); SODIUM LEVEL 141.0 MMOL/L (136-145)
== END ==
LOC: M LAB 08:53
PROVIDERS: ATTEND Nurse Practitioner Adult Health
DX: R74.8 Abnormal levels of other serum enzymes (principal); E11.9 Type 2 diabetes mellitus without complications; I10 Essential (primary) hypertension